=== PATIENT | male | born 1980 | race Caucasian/White ===

== ENCOUNTER 2017-10-21 10:07 | Emergency (ER) | payer BC ==
[2017-10-21 10:12] VITALS: BP 140/86; PULSE 101; TEMP 99.9; BMI 30.7
== END 2017-10-21 10:54 | disposition left against medical advice (07) ==
LOC: JERFT 10:07
DX: Z53.21 Procedure and treatment not carried out due to patient leaving prior to being seen by health care provider (principal)
CPT/HCPCS: 99281-25

== ENCOUNTER 2017-11-15 22:04 | Emergency (ER) | payer BC, OTHER ==
[2017-11-15 22:12] VITALS: TEMP 98.9; BMI 30.7
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
--- NOTE | 2017-11-15 23:23 | PDOC ---
Attending Attestation - Resident Resident Name: Ervin Motley - ED Attending Attestation I have performed the following: I have examined & evaluated the patient, The case was reviewed & discussed with the resident, I agree w/resident's findings & plan, Exceptions are as noted <Amira Correa - Last Filed: 11/15/17 23:23> - HPI HPI: 11/15/17 23:30 The patient is a 37 year old male, with a significant past medical history of hypertension, heroin abuse, mucoepidermoid carcinoma, who presents to the emergency department with diaphoresis, agitation, left eye swelling, and upper lip laceration s/p heroin use earlier today. Patient reports he recently relapsed with heroin use 2 days ago, because of added stress. Today, patient reports his found him injecting, and he became very frustrated and upset. Patient reports associated diaphoresis and body tremors, but denies any fever, chills, changes in vision, headache, or dizziness Patient reports hitting himself in his left eye. He reports a laceration to his upper lip, but is unsure how he got it. He denies any chest pain, shortness of breath, or palpitations. He denies any abdominal pain, nausea, vomiting, changes in bowel movements, or changes in urination. He denies any suicidal or homicidal ideations. Allergies: Penicillins Past Surgical History: Buccal mucosa ressection Social History: Heroin abuse. Non smoker. No ETOH use. Lives at home with and 2 children. 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 - Physicial Exam PE: 11/15/17 23:39 GENERAL: +Psychomotor agitation. Awake, alert, and fully oriented. HEAD: No signs of trauma EYES: PERRLA, EOMI, sclera anicteric, conjunctiva clear ENT: Auricles normal inspection, hearing grossly normal, nares patent, oropharynx clear without exudates. Moist mucosa NECK: Normal ROM, supple, no lymphadenopathy, JVD, or masses LUNGS: Breath sounds equal, clear to auscultation bilaterally. No wheezes, and no crackles HEART: Regular rate and rhythm, normal S1 and S2, no murmurs, rubs or gallops ABDOMEN: Soft, nontender, normoactive bowel sounds. No guarding, no rebound. No masses EXTREMITIES: Normal range of motion, no edema. No clubbing or cyanosis. No cords, erythema, or tenderness NEUROLOGICAL: Cranial nerves II through XII grossly intact. Normal speech, normal gait SKIN: Warm, Dry, normal turgor, no rashes or lesions noted. - Medical Decision Making 11/15/17 23:30 Documentation prepared by Gloria Serrano, acting as biomedical repair technician for Amira Correa MD. <Gloria Serrano - Last Filed: 11/15/17 23:39>
[2017-11-15 23:37] VITALS: BP 119/69; PULSE 94
== END 2017-11-15 23:54 | disposition home or self-care (01) ==
LOC: JER 22:04 → MERGE 22:04 → JER 23:54
DX: F11.23 Opioid dependence with withdrawal (principal)
CPT/HCPCS: 99282-25

== ENCOUNTER 2017-11-16 10:34 | Inpatient (IN) | payer BC, OTHER ==
[2017-11-16 11:26] VITALS: BMI 30.7
--- NOTE | 2017-11-16 11:35 | HP ---
COWS - Scale Resting Pulse: 0= [place] 80 or Below Sweatin=Flushed/Facial Moisture Restless Observation: 3= Extraneous Movement Pupil Size: 2= Moderately Dilated Bone or Joint Aches: 2= Severe Diffuse Aches Runny Nose/ Eye Tearin= Runny Nose/Eyes GI Upset > 30mins: 3= Vomiting/Diarrhea Tremor Observation: 2= Slight Tremor Visible Yawning Observation: 2= >3x During Session Anxiety or Irritability: 2=Irritable/Anxious Goose Flesh Skin: 0=Smooth Skin COWS Score: 20 Admission ROS S - HPI Chief Complaint: i need help o stop using heroin Allergies/Adverse Reactions: Allergies Allergy/AdvReac Type Severity Reaction Status Date / Time Penicillins Allergy Severe Hives Verified 07/21/17 13:52 History of Present Illness: this 37 years old male with heroin dependence,withdrawal symptom,seeking detox, last detox 10/28/16 to 10/31/16 hypertension anxiety and panic attack,insomnia no significant of sobriety - Ebola screening Have you traveled outside of the country in the last 21 days: No Have you had contact with anyone from an Ebola affected area: No Have you been sick,other than usual withdrawal symptoms: No Do you have a fever: No - Review of Systems Constitutional: Chills, Loss of Appetite, Malaise, Night Sweats, Changes in sleep, Weakness EENT: reports: Tearing, Nose Congestion Respiratory: reports: No Symptoms reported Cardiac: reports: No Symptoms Reported GI: reports: Diarrhea, Nausea, Vomiting, Abdominal cramping : reports: No Symptoms Reported Musculoskeletal: reports: Back Pain, Joint Pain, Muscle Pain, Joint Stiffness Integumentary: reports: Dryness Neuro: reports: Headache, Tremors Endocrine: reports: No Symptoms Reported Hematology: reports: No Symptoms Reported Psychiatric: reports: Anxious (panic attack) Patient History - Patient Medical History Hx Anemia: No Hx Asthma: No Hx Chronic Obstructive Pulmonary Disease (COPD): No Hx Cancer: Yes (MOUTH palate in 2008 [facility]) Hx Cardiac Disorders: No Hx Congestive Heart Failure: No Hx Hypertension: Yes Hx Hypercholesterolemia: No Hx Pacemaker: No HX Cerebrovascular Accident: No Hx Seizures: No Hx Dementia: No Hx Diabetes: No Hx Gastrointestinal Disorders: No Hx Liver Disease: No Hx Genitourinary Disorders: No Hx Sexually Transmitted Disorders: No Hx Renal Disease (ESRD): No Hx Thyroid Disease: No Hx Human Immunodeficiency Virus (HIV): No (negative last 01/16) Hx Hepatitis C: No Hx Depression: No Hx Suicide Attempt: No Hx Bipolar Disorder: No Hx Schizophrenia: No Other Medical History: anxiety and panic attack,no suicidal,no homicidal - Patient Surgical History Past Surgical History: Yes Hx Neurologic Surgery: No Hx Cataract Extraction: No Hx Cardiac Surgery: No Hx Lung Surgery: No Hx Breast Surgery: No Hx Breast Biopsy: No Hx Abdominal Surgery: No Hx Appendectomy: Yes ([place] 1996) Hx Cholecystectomy: No Hx Genitourinary Surgery: No Hx Section: No Hx Orthopedic Surgery: No Other Surgical History: Cancer of palate 2008 Anesthesia Reaction: No - PPD History Previous Implant?: Yes Documented Results: Negative w/o proof Date: 05/03/16 Results: 0 mm PPD to be Administered?: Yes - Smoking Cessation Smoking history: Never smoked Aproximately how many cigarettes per day: 0 Hx Chewing Tobacco Use: No - Substance & Tx. History Hx Alcohol Use: No Substance Use Type: Heroin Hx Substance Use Treatment: Yes ([facility] 10/28/16 to 10/31/16) - Substances Abused Heroin Route: Injection Frequency: Daily Amount used: 5 bags Age of first use: 35 Date of Last Use: 11/15/17 Family Disease History - Family Disease History Family Disease History: Diabetes: Grandparent (MAT GM-CA,PAT GM-DM), Father, Heart Disease: Grandparent, CA: Grandparent Admission Physical Exam BHS - Vital Signs Vital Signs: Vital Signs - 24 hr 11/16/17 11:24 Temperature 96.9 F L Pulse Rate 72 Respiratory 18 Rate Blood Pressure 123/76 - Physical General Appearance: Yes: Moderate Distress, Irritable, Anxious HEENTM: Yes: Normal ENT Inspection, AJITH, Pharynx Normal Respiratory: Yes: Lungs Clear, Normal Breath Sounds, No Respiratory Distress Neck: Yes: Within Normal Limits, Supple, Trachea in good position Breast: Yes: Within Normal Limits Cardiology: Yes: Within Normal Limits, Regular Rhythm, Regular Rate, S1, S2 Abdominal: Yes: Within Normal Limits, Normal Bowel Sounds, Non Tender, Flat, Soft Genitourinary: Yes: Within Normal Limits Back: Yes: Muscle Spasm Musculoskeletal: Yes: Back pain, Joint Stiffness, Muscle Pain Extremities: Yes: Within Normal Limits, Normal Inspection, Normal Range of Motion Neurological: Yes: 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 NML 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, Alert, Motor Strength 5/5, Normal Mood /Affect Integumentary: Yes: Dry Lymphatic: Yes: Within Normal Limits - Diagnostic (1) Opioid dependence with withdrawal Current Visit: No Status: Acute (2) Anxiety Current Visit: Yes Status: Acute (3) Insomnia Current Visit: No Status: Acute (4) HTN (hypertension) Current Visit: No Status: Chronic Qualifiers: Hypertension type: essential hypertension Qualified Code(s): I10 - Essential (primary) hypertension (5) History of oral cancer Current Visit: No Status: Chronic (6) Panic attack Current Visit: Yes Status: Acute (7) History of appendectomy Current Visit: Yes Status: Acute Cleared for Admission [facility] - Detox or Rehab [facility] Level of Care: Medically Managed Detox Regimen/Protocol: Methadone [facility] Breath Alcohol Content Breath Alcohol Content: 0 Urine Drug Screen - Results Drug Screen Negative: No Urine Drug Screen Results: OPI-Opiates, BZO-Benzodiazepines
[2017-11-16] MEDS ORDERED: MAGNESIUM CITRATE 300 ML BOTTLE PO PRN (11:44)
[2017-11-16] MEDS ORDERED: P-EPHED 60MG/TRIPROLIDI 2.5MG TABLET PO PRN (11:44)
[2017-11-16] MEDS ORDERED: guaiFENesin/D-METHORPHAN HB 10 ML UNIT-DOSE CUPS PO PRN (11:44)
[2017-11-16] MEDS ORDERED: LOPERAMIDE HCL 2 MG CAPSULE PO PRN (11:44)
[2017-11-16] MEDS ORDERED: MAGNESIUM HYDROX 2400MG/30ML ORAL SUSPENSION 30 ML CUP PO PRN (11:44)
[2017-11-16] MEDS ORDERED: MAG HYDROX/AL HYDROX/SIMETH 30 ML UNIT-DOSE CUP PO PRN (11:44)
[2017-11-16] MEDS ORDERED: ACETAMINOPHEN 325 MG TABLET (FP) PO PRN (11:44)
[2017-11-16] MEDS ORDERED: IBUPROFEN 400 MG TABLET (FP) PO PRN (11:44)
[2017-11-16] MEDS ORDERED: MENTHOL/PHENOL 1 EACH UD MM PRN (11:44)
[2017-11-16] MEDS ORDERED: CYCLOBENZAPRINE HCL 10 MG TABLET (FP) PO PRN (11:46)
[2017-11-16] MEDS: diazePAM 5 MG TABLET PO PRN ×3 (14:19→22:30)
[2017-11-16] MEDS ORDERED: METHADONE HCL 10 MG TABLET (FOR DETOX USE ONLY) PO ONE ×2 (15:00→23:00)
[2017-11-16 16:29] LABS: URINE APPEARANCE SLCLOUDY; URINE BILIRUBIN NEGATIVE (NEGATIVE); URINE BLOOD NEGATIVE (NEGATIVE); URINE COLOR LTYELLOW; URINE GLUCOSE (UA) 1+ (NEGATIVE); URINE KETONE NEGATIVE (NEGATIVE); URINE LEUK ESTERASE NEGATIVE (NEGATIVE); URINE NITRITE NEGATIVE (NEGATIVE); URINE PROTEIN NEGATIVE (NEGATIVE); URINE UROBILINOGEN NEGATIVE mg/dL (0.2-1.0)
[2017-11-16] MEDS ORDERED: THIAMINE HCL 100 MG TABLET (FP) PO SCH (22:00)
[2017-11-16] MEDS: cloNIDine HCL 0.1 MG TABLET PO SCH (22:29)
[2017-11-17 09:25] VITALS: BP 135/86; PULSE 78; TEMP 96.4
[2017-11-17] MEDS ORDERED: METHADONE HCL 10 MG TABLET (FOR DETOX USE ONLY) PO ONE (10:00)
[2017-11-17] MEDS ORDERED: PRENATAL VITAMINS W/ FOLIC ACID TABLET (FP) PO SCH (10:00)
[2017-11-17 10:26] LABS: CHLORIDE 102 mmol/L (98-107); POTASSIUM 4.7 mmol/L (3.5-5.1); SODIUM 135 mmol/L (136-145)
[2017-11-17 10:35] LABS: ALBUMIN 3.7 g/dl (3.4-5.0); ALK PHOS 91 U/L (45-117); ANION GAP 6 (8-16); BILIRUBIN,TOTAL 0.8 mg/dL (0.2-1.0); BLOOD UREA NITROGEN 19 mg/dL (7-18); CALCIUM 8.8 mg/dL (8.5-10.1); CO2 27 mmol/L (21-32); CREATININE 0.9 mg/dL (0.7-1.3); GLUCOSE,RANDOM 94 mg/dL (74-106); SGOT/AST 38 U/L (15-37); SGPT/ALT 32 U/L (12-78)
--- NOTE | 2017-11-17 10:39 | EKG ---
Test Reason : Blood Pressure : / mmHG Vent. Rate : 072 BPM Atrial Rate : 072 BPM P-R Int : 130 ms QRS Dur : 092 ms QT Int : 426 ms P-R-T Axes : 058 054 033 degrees QTc Int : 466 ms NORMAL SINUS RHYTHM ST ELEVATION, CONSIDER EARLY REPOLARIZATION, PERICARDITIS, OR INJURY ABNORMAL ECG WHEN COMPARED WITH ECG OF 02-FEB-2012 18:58, ST ELEVATION NOW PRESENT IN ANTERIOR LEADS Confirmed by YOMI BHATIA MD ([id number]) on 11/17/2017 10:38:57 AM Referred By: Confirmed By:YOMI BHATIA MD
[2017-11-17] MEDS ORDERED: ONDANSETRON *ODT* 4 MG TABLET SL PRN (10:41)
[2017-11-17 10:43] LABS: HEMATOCRIT 44.5 % (35.4-49); HEMOGLOBIN 13.8 GM/dL (11.7-16.9); MCH 24.5 pg (25.7-33.7); MEAN CELL VOLUME 78.9 fl (80-96); MEAN PLT VOLUME 9.2 fl (7.5-11.1); PLATELET COUNT 255 K/MM3 (134-434); RBC 5.64 M/mm3 (4.00-5.60); RDW 14.8 % (11.9-15.9); WHITE BLOOD COUNT 15.2 K/mm3 (4.0-10.0)
--- NOTE | 2017-11-17 10:44 | PN ---
BHS COWS - Scale Resting Pulse: 0= [place] 80 or Below Sweatin= Chills/Flushing Restless Observation: 3= Extraneous Movement Pupil Size: 2= Moderately Dilated Bone or Joint Aches: 4=Acute Joint/Muscle Pain Runny Nose/ Eye Tearin= Nasal Congestion GI Upset > 30mins: 2= Nausea/Diarrhea Tremor Observation of Outstretched Hands: 1= Tremor [place], Not Seen Yawning Observation: 1= 1-2x During Session Anxiety or Irritability: 2=Irritable/Anxious Goose Flesh Skin: 0=Smooth Skin COWS Score: 17 BHS Progress Note (SOAP) Subjective: ANXIETY,SWEATS/CHILLS, NAUSEA/VOMITING, INTERMITTENT SLEEP, FATIGUE. Objective: 11/17/17 10:43 Vital Signs Temperature 96.4 F L 11/17/17 09:24 Pulse Rate 78 11/17/17 09:24 Respiratory Rate 18 11/17/17 09:24 Blood Pressure 135/86 11/17/17 09:24 O2 Sat by Pulse Oximetry (%) Laboratory Last Values Urine Color Ltyellow 11/16/17 15:37 Urine Appearance Slcloudy 11/16/17 15:37 Urine pH 5.0 (5.0-8.0) 11/16/17 15:37 Ur Specific [place] 1.020 (1.001-1.035) 11/16/17 15:37 Urine Protein Negative (NEGATIVE) 11/16/17 15:37 Urine Glucose (UA) 1+ (NEGATIVE) H 11/16/17 15:37 Urine Ketones Negative (NEGATIVE) 11/16/17 15:37 Urine Blood Negative (NEGATIVE) 11/16/17 15:37 Urine Nitrite Negative (NEGATIVE) 11/16/17 15:37 Urine Bilirubin Negative (NEGATIVE) 11/16/17 15:37 Urine Urobilinogen Negative mg/dL (0.2-1.0) 11/16/17 15:37 Ur Leukocyte Esterase Negative (NEGATIVE) 11/16/17 15:37 OTHER LABS PENDING Assessment: 11/17/17 10:43 WITHDRAWAL SX Plan: CONTINUE DETOX [facility] SL DIRECTED
[2017-11-17] MEDS: cloNIDine HCL 0.1 MG TABLET PO SCH (11:07)
[2017-11-17] MEDS: diazePAM 5 MG TABLET PO PRN (11:07)
--- NOTE | 2017-11-17 12:07 | PN ---
BHS Progress Note Note: Patient declined to be seen
--- NOTE | 2017-11-17 12:56 | DS ---
[facility] Detox Discharge Summary Admission Date: 11/16/17 Discharge Date: 11/17/17 - History Present History: Opioid Dependence Additional Comments: PT CAME TO THE DESK AND DEMANDED TO LEAVE FOR FAMILY REASONS STATING "MY IS THROWING MY THINGS OUT THE HOUSE. I HAVE TO GO". ALERT O X 3. NAD. Pertinent Past History: SEE DX BELOW - Physical Exam Results Vital Signs: Vital Signs Temperature 96.4 F L 11/17/17 09:24 Pulse Rate 78 11/17/17 09:24 Respiratory Rate 18 11/17/17 09:24 Blood Pressure 135/86 11/17/17 09:24 O2 Sat by Pulse Oximetry (%) Pertinent Admission Physical Exam Findings: WITHDRAWAL SX Laboratory Last Values WBC 15.2 K/mm3 (4.0-10.0) H D 11/17/17 07:30 RBC 5.64 M/mm3 (4.00-5.60) H 11/17/17 07:30 Hgb 13.8 GM/dL (11.7-16.9) 11/17/17 07:30 Hct 44.5 % (35.4-49) D 11/17/17 07:30 MCV 78.9 fl (80-96) L 11/17/17 07:30 MCH 24.5 pg (25.7-33.7) L 11/17/17 07:30 MCHC 31.0 g/dl (32.0-35.9) L 11/17/17 07:30 RDW 14.8 % (11.9-15.9) 11/17/17 07:30 Plt Count 255 K/MM3 (134-434) D 11/17/17 07:30 MPV 9.2 fl (7.5-11.1) 11/17/17 07:30 Sodium 135 mmol/L (136-145) L 11/17/17 07:30 Potassium 4.7 mmol/L (3.5-5.1) D 11/17/17 07:30 Chloride 102 mmol/L (98-107) 11/17/17 07:30 Carbon Dioxide 27 mmol/L (21-32) 11/17/17 07:30 Anion Gap 6 (8-16) L 11/17/17 07:30 BUN 19 mg/dL (7-18) H D 11/17/17 07:30 Creatinine 0.9 mg/dL (0.7-1.3) 11/17/17 07:30 Creat Clearance w eGFR > 60 (>60) 11/17/17 07:30 Random Glucose 94 mg/dL (74-106) 11/17/17 07:30 Calcium 8.8 mg/dL (8.5-10.1) 11/17/17 07:30 Total Bilirubin 0.8 mg/dL (0.2-1.0) D 11/17/17 07:30 AST 38 U/L (15-37) H D 11/17/17 07:30 ALT 32 U/L (12-78) D 11/17/17 07:30 Alkaline Phosphatase 91 U/L (45-117) 11/17/17 07:30 Total Protein 8.0 g/dl (6.4-8.2) 11/17/17 07:30 Albumin 3.7 g/dl (3.4-5.0) 11/17/17 07:30 Urine Color Ltyellow 11/16/17 15:37 Urine Appearance Slcloudy 11/16/17 15:37 Urine pH 5.0 (5.0-8.0) 11/16/17 15:37 Ur Specific [place] 1.020 (1.001-1.035) 11/16/17 15:37 Urine Protein Negative (NEGATIVE) 11/16/17 15:37 Urine Glucose (UA) 1+ (NEGATIVE) H 11/16/17 15:37 Urine Ketones Negative (NEGATIVE) 11/16/17 15:37 Urine Blood Negative (NEGATIVE) 11/16/17 15:37 Urine Nitrite Negative (NEGATIVE) 11/16/17 15:37 Urine Bilirubin Negative (NEGATIVE) 11/16/17 15:37 Urine Urobilinogen Negative mg/dL (0.2-1.0) 11/16/17 15:37 Ur Leukocyte Esterase Negative (NEGATIVE) 11/16/17 15:37 - Treatment Hospital Course: Discharged Condition Good - Medication Discharge Medications: Ambulatory Orders Amlodipine Besylate [Norvasc -] 5 mg PO DAILY #30 tablet 01/22/16 - Diagnosis (1) Nicotine dependence Current Visit: Yes Status: Acute Qualifiers: Nicotine product type: cigarettes Substance use status: in withdrawal Qualified Code(s): F17.213 - Nicotine dependence, cigarettes, with withdrawal (2) Opioid dependence with withdrawal Current Visit: Yes Status: Acute (3) Panic attack Current Visit: Yes Status: Chronic (4) HTN (hypertension) Current Visit: Yes Status: Chronic Qualifiers: Hypertension type: essential hypertension Qualified Code(s): I10 - Essential (primary) hypertension - AMA Did Patient Leave Against Medical Advice: Yes (AMA)
[2017-11-18] MEDS ORDERED: METHADONE HCL 5 MG TABLET (FOR DETOX USE ONLY) PO ONE (10:00)
[2017-11-19] MEDS ORDERED: METHADONE HCL 5 MG TABLET (FOR DETOX USE ONLY) PO ONE (10:00)
[2017-11-20] MEDS ORDERED: METHADONE HCL 10 MG TABLET (FOR DETOX USE ONLY) PO ONE (10:00)
[2017-11-21] MEDS ORDERED: METHADONE HCL 5 MG TABLET (FOR DETOX USE ONLY) PO ONE (06:00)
== END 2017-11-17 13:55 | disposition left against medical advice (07) | DRG 894 ==
LOC: YASAS 10:34 → Y3N 12:41
PROVIDERS: ADMIT Internal Medicine; ATTEND Internal Medicine
PROC: HZ2ZZZZ Detoxification Services for Substance Abuse Treatment (ICD-10-PCS; principal; 2017-11-16)
DX: F11.23 Opioid dependence with withdrawal (principal); F17.210 Nicotine dependence, cigarettes, uncomplicated; F41.0 Panic disorder [episodic paroxysmal anxiety]; F41.9 Anxiety disorder, unspecified; I10 Essential (primary) hypertension; G47.00 Insomnia, unspecified; Z85.818 Personal history of malignant neoplasm of other sites of lip, oral cavity, and pharynx; Z88.0 Allergy status to penicillin
CPT/HCPCS: 36415; 80053; 81003; 85027; 86593; 93005; 93010

== ENCOUNTER 2018-03-11 09:14 | Inpatient (IN) | payer OTHER ==
[2018-03-11 10:33] VITALS: BMI 26.4
--- NOTE | 2018-03-11 11:46 | HP ---
COWS - Scale Resting Pulse: 1= [place] 81-100 Sweatin=Flushed/Facial Moisture Restless Observation: 1= Difficult to Sit Still Pupil Size: 1= Pupils >than Normal Bone or Joint Aches: 2= Severe Diffuse Aches Runny Nose/ Eye Tearin= Runny Nose/Eyes GI Upset > 30mins: 2= Nausea/Diarrhea Tremor Observation: 1= Tremor [place], Not Seen Yawning Observation: 1= 1-2x During Session Anxiety or Irritability: 1=Feels Anxious/Irritable Goose Flesh Skin: 0=Smooth Skin COWS Score: 14 Admission [facility] Chief Complaint: Heroin Withdrawal symptoms Allergies/Adverse Reactions: Allergies Allergy/AdvReac Type Severity Reaction Status Date / Time Penicillins Allergy Severe Hives Verified 03/11/18 11:21 History of Present Illness: Patient presents with withdrawal symptoms. Patient began taking prescribed Opiods 6 years ago due to oral cancer and surgery. Patient became dependent on medication. Patient started buying non-prescribed Percocet and Methadone. Admitted for detox 11/2017 but left early due to work requirements. Patient has been snorting and injecting heroin x 2 years. Uses up to 2-5 bags daily. Denies having seizures and overdose. PMH includes HTN. Reports feeling depressed and anxious. Denies SI/HI and suicide attempts. Exam Limitations: No Limitations - Ebola screening Have you traveled outside of the country in the last 21 days: No (N) Have you had contact with anyone from an Ebola affected area: No Have you been sick,other than usual withdrawal symptoms: No Do you have a fever: No - Review of Systems Constitutional: Night Sweats, Changes in sleep, Unexplained wgt Loss EENT: reports: Tearing, Nose Congestion Respiratory: reports: No Symptoms reported Cardiac: reports: No Symptoms Reported GI: reports: Diarrhea, Nausea, Poor Fluid Intake, Vomiting, Abdominal cramping : reports: No Symptoms Reported Musculoskeletal: reports: Back Pain, Muscle Pain Integumentary: reports: Flushing, Sweating Neuro: reports: Headache, Tremors Endocrine: reports: Flushing, Unexplained Weight Loss Hematology: reports: No Symptoms Reported Psychiatric: reports: Orientated x3, Anxious, Depressed Patient History - Patient Medical History Hx Anemia: No Hx Asthma: No Hx Chronic Obstructive Pulmonary Disease (COPD): No Hx Cancer: Yes Hx Cardiac Disorders: No Hx Congestive Heart Failure: No Hx Hypertension: Yes Hx Hypercholesterolemia: No Hx Pacemaker: No HX Cerebrovascular Accident: No Hx Seizures: No Hx Dementia: No Hx Diabetes: No Hx Gastrointestinal Disorders: No Hx Liver Disease: No Hx Genitourinary Disorders: No Hx Sexually Transmitted Disorders: No Hx Renal Disease (ESRD): No Hx Thyroid Disease: No Hx Human Immunodeficiency Virus (HIV): No (negative last 01/16) Hx Hepatitis C: No Hx Depression: No Hx Suicide Attempt: No Hx Bipolar Disorder: No Hx Schizophrenia: No - Patient Surgical History Past Surgical History: Yes Hx Neurologic Surgery: No Hx Cataract Extraction: No Hx Cardiac Surgery: No Hx Lung Surgery: No Hx Breast Surgery: No Hx Breast Biopsy: No Hx Abdominal Surgery: No Hx Appendectomy: Yes ([place] 1996) Hx Cholecystectomy: No Hx Genitourinary Surgery: No Hx Section: No Hx Orthopedic Surgery: No Other Surgical History: Cancer of palate 2008 Anesthesia Reaction: No - PPD History Date: 05/03/16 Results: 0 mm PPD to be Administered?: Yes - Smoking Cessation Smoking history: Never smoked Have you smoked in the past 12 months: No Aproximately how many cigarettes per day: 0 If you are a former smoker, when did you quit?: 10 YRS AGO Hx Chewing Tobacco Use: No - Substance & Tx. History Hx Alcohol Use: No Hx Substance Use: Yes Substance Use Type: Heroin Hx Substance Use Treatment: Yes - Substances Abused Heroin Route: Injection Frequency: Daily Amount used: 4-5 BAGS Age of first use: 35 Date of Last Use: 03/10/18 Family Disease History - Family Disease History Family Disease History: Diabetes: Grandparent, Father (Alive), Heart Disease: Grandparent, CA: Grandparent Admission Physical Exam S - Vital Signs Vital Signs: Vital Signs - 24 hr 03/11/18 10:30 Temperature 97.3 F L Pulse Rate 85 Respiratory 20 Rate Blood Pressure 144/87 - Physical General Appearance: Yes: No Apparent Distress, Appropriately Dressed, Tremorous , Sweating, Anxious HEENTM: Yes: EOMI, Hearing grossly Normal, Normocephalic, Normal Voice, AJITH, Pharynx Normal, Nasal Congestion, Other (+ s/p palate surgery 2008) Respiratory: Yes: Chest Non-Tender, Lungs Clear, Normal Breath Sounds, No Respiratory Distress, No Accessory Muscle Use Neck: Yes: No masses,lesions,Nodules, Supple Breast: Yes: Breast Exam Deferred Cardiology: Yes: Regular Rhythm, Regular Rate, S1, S2 Abdominal: Yes: Normal Bowel Sounds, Non Tender, Soft Genitourinary: Yes: Within Normal Limits Back: Yes: Normal Inspection, Muscle Spasm Musculoskeletal: Yes: Gait Steady, Back pain Extremities: Yes: Non-Tender, Tremors Neurological: Yes: electronics lead II-XII NML intact, Fully Oriented, Alert, Motor Strength 5/5, Depressed Affect Integumentary: Yes: Normal Color, Warm, Moist, Track [place] Lymphatic: Yes: Within Normal Limits - Diagnostic (1) Opioid dependence with withdrawal Current Visit: Yes Status: Acute (2) Depressed affect Current Visit: Yes Status: Acute (3) History of oral cancer Current Visit: No Status: Resolved Cleared for Admission [facility] - Detox or Rehab [facility] Level of Care: Medically Managed Detox Regimen/Protocol: Methadone [facility] Breath Alcohol Content Breath Alcohol Content: 0 Urine Drug Screen - Results Drug Screen Negative: No Urine Drug Screen Results: OPI-Opiates, MTD-Methadone
[2018-03-11] MEDS ORDERED: IBUPROFEN 400 MG TABLET (FP) PO PRN (11:56)
[2018-03-11] MEDS ORDERED: MAGNESIUM CITRATE 300 ML BOTTLE PO PRN (11:56)
[2018-03-11] MEDS ORDERED: MAGNESIUM HYDROX 2400MG/30ML ORAL SUSPENSION 30 ML CUP PO PRN (11:56)
[2018-03-11] MEDS ORDERED: guaiFENesin/D-METHORPHAN HB 10 ML UNIT-DOSE CUPS PO PRN (11:56)
[2018-03-11] MEDS ORDERED: ACETAMINOPHEN 325 MG TABLET (FP) PO PRN (11:56)
[2018-03-11] MEDS ORDERED: MENTHOL/PHENOL 1 EACH UD MM PRN (11:56)
[2018-03-11] MEDS ORDERED: P-EPHED 60MG/TRIPROLIDI 2.5MG TABLET PO PRN (11:56)
[2018-03-11] MEDS ORDERED: MAG HYDROX/AL HYDROX/SIMETH 30 ML UNIT-DOSE CUP PO PRN (11:56)
[2018-03-11] MEDS ORDERED: LOPERAMIDE HCL 2 MG CAPSULE PO PRN (11:56)
[2018-03-11] MEDS ORDERED: METHADONE HCL 10 MG TABLET (FOR DETOX USE ONLY) PO ONE ×2 (13:30→23:00)
--- NOTE | 2018-03-11 14:00 | EKG ---
Test Reason : Blood Pressure : / mmHG Vent. Rate : 065 BPM Atrial Rate : 065 BPM P-R Int : 124 ms QRS Dur : 094 ms QT Int : 414 ms P-R-T Axes : 070 061 034 degrees QTc Int : 430 ms NORMAL SINUS RHYTHM EARLY REPOLARIZATION NORMAL ECG WHEN COMPARED WITH ECG OF 16-NOV-2017 14:49, T WAVE AMPLITUDE HAS INCREASED IN ANTEROLATERAL LEADS Confirmed by MARIAM PEDRAZA, MIGUEL ANGEL ([id number]) on 03/11/2018 2:00:27 PM Referred By: Confirmed By:MIGUEL ANGEL BECERRA MD
[2018-03-11] MEDS: diazePAM 5 MG TABLET PO PRN ×3 (14:10→22:36)
--- NOTE | 2018-03-11 14:41 | CONSULT ---
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 Patient admitted to for opiate dependence. Substance Abuse History: Following information confirmed with Mr. Sarmiento: Smoking Cessation. Smoking history: Never smoked. Have you smoked in the past 12 months: No. Aproximately how many cigarettes per day: 0. If you are a former smoker, when did you quit?: 10 YRS AGO. Hx Chewing Tobacco Use: No. - Substance & Tx. History. Hx Alcohol Use: No. Hx Substance Use: Yes. Substance Use Type: Heroin. Hx Substance Use Treatment: Yes. - Substances Abused. Heroin. Route: Injection. Frequency: Daily. Amount used: 4-5 BAGS. Age of first use: 35. Date of Last Use: 03/10/18 Medical History: Cancer of palate 2008, hypertension. Psychiatric History: Patient denies h/o psychiatric hospitalizations, outpatient care, and suicide attempt. Patient self reports a h/o anxiety for several years. Pt. requesting medication for anxiety and insomnia. Physical/Sexual Abuse/Trauma History: Denies. Mental Status Exam - Mental Status Exam Alert and Oriented to: Time, Place, Person Cognitive Function: Good Patient Appearance: Well Groomed Mood: Hopeful Affect: Mood Congruent Patient Behavior: Appropriate, Cooperative Speech Pattern: Clear, Appropriate Voice Loudness: Normal Thought Process: Intact, Goal Oriented Thought Disorder: Not Present Hallucinations: Denies Suicidal Ideation: Denies Homicidal Ideation: Denies Insight/Judgement: Poor Sleep: Poorly Appetite: Good Muscle strength/Tone: Normal Gait/Station: Normal Psychiatric Findings - Problem List ([place] 1, 2,3) (1) Substance-induced sleep disorder Current Visit: Yes Status: Acute (2) Opioid dependence with withdrawal Current Visit: Yes Status: Acute (3) Drug-induced mood disorder Current Visit: Yes Status: Acute - Initial Treatment Plan Initial Treatment Plan: Psychoeducation provided. Detoxification in progress. Ambien 10mg qhs prn ordered for insomnia. Vistaril 50mg q4h was ordered by the [employer]. Benefits and side effects discussed. Patient made aware of the risk of parasomnia. Verbal consent given. Will continue to monitor.
[2018-03-11 19:12] LABS: URINE APPEARANCE TURBID; URINE BILIRUBIN NEGATIVE (<2.0 mg/dL); URINE COLOR YELLOW; URINE GLUCOSE (UA) NEGATIVE (NEGATIVE); URINE KETONE NEGATIVE (NEGATIVE); URINE LEUK ESTERASE NEGATIVE (NEGATIVE); URINE NITRITE NEGATIVE (NEGATIVE); URINE UROBILINOGEN NEGATIVE mg/dL (0.2-1.0)
[2018-03-11 19:13] LABS: URINE PROTEIN 2+ (NEGATIVE)
[2018-03-11 19:22] LABS: CALCIUM OXALATE CRYSTALS RARE /hpf (NONE SEEN); URINE MUCUS MANY
[2018-03-11] MEDS ORDERED: MELATONIN 5 MG TABLETS PO PRN (22:00)
[2018-03-11] MEDS: THIAMINE HCL 100 MG TABLET (FP) PO SCH (22:10)
[2018-03-11] MEDS: ZOLPIDEM TARTRATE 10 MG TABLET (PARK CARE ONLY) PO PRN (22:11)
[2018-03-12] MEDS: diazePAM 5 MG TABLET PO PRN ×4 (09:02→22:56)
[2018-03-12 10:00] LABS: HEMOGLOBIN 11.8 GM/dL (11.7-16.9); MCH 25.4 pg (25.7-33.7); MEAN CELL VOLUME 79.4 fl (80-96); MEAN PLT VOLUME 10.1 fl (7.5-11.1); PLATELET COUNT 256 K/MM3 (134-434); RBC 4.66 M/mm3 (4.00-5.60); RDW 14.8 % (11.9-15.9); WHITE BLOOD COUNT 11.8 K/mm3 (4.0-10.0)
[2018-03-12] MEDS ORDERED: METHADONE HCL 10 MG TABLET (FOR DETOX USE ONLY) PO ONE (10:00)
[2018-03-12 10:11] LABS: CHLORIDE 100 mmol/L (98-107); POTASSIUM 4.4 mmol/L (3.5-5.1); SODIUM 139 mmol/L (136-145)
[2018-03-12 10:29] LABS: ALBUMIN 3.6 g/dl (3.4-5.0); ALK PHOS 86 U/L (45-117); ANION GAP 7 (8-16); BILIRUBIN,TOTAL 0.4 mg/dL (0.2-1.0); BLOOD UREA NITROGEN 14 mg/dL (7-18); CALCIUM 8.8 mg/dL (8.5-10.1); CO2 32 mmol/L (21-32); CREATININE 1.2 mg/dL (0.7-1.3); GLUCOSE,RANDOM 92 mg/dL (74-106); SGOT/AST 48 U/L (15-37); SGPT/ALT 27 U/L (12-78); TOT PROT 7.7 g/dl (6.4-8.2)
[2018-03-12] MEDS: PRENATAL VITAMINS W/ FOLIC ACID TABLET (FP) PO SCH (10:44)
[2018-03-12] MEDS: amLODIPine BESYLATE 5 MG TABLET (FP) PO SCH (10:44)
[2018-03-12] MEDS: hydrOXYzine PAMOATE 50 MG CAPSULE (FP) PO PRN (10:45)
--- NOTE | 2018-03-12 11:56 | PN ---
[facility] Progress Note (SOAP) Subjective: ANXIETY,SWEATS/CHILLS Objective: 03/12/18 11:59 Vital Signs 03/12/18 03/12/18 03/12/18 06:25 06:30 09:14 Temperature 96.5 F L 95.8 F L Pulse Rate 60 56 L Respiratory 18 18 18 Rate Blood Pressure 134/87 131/84 Laboratory Tests 03/11/18 03/11/18 03/12/18 11:00 14:00 06:00 WBC 11.8 H RBC 4.66 Hgb 11.8 D Hct 37.0 D MCV 79.4 L MCH 25.4 L MCHC 32.0 RDW 14.8 Plt Count 256 MPV 10.1 Sodium Potassium Chloride Carbon Dioxide Anion Gap BUN Creatinine Creat Clearance w eGFR Random Glucose Calcium Total Bilirubin AST ALT Alkaline Phosphatase Total Protein Albumin Urine Color Yellow Urine Appearance Turbid Urine pH 5.0 Ur Specific [place] 1.031 Urine Protein 2+ H Urine Glucose (UA) Negative Urine Ketones Negative Urine Blood Negative Urine Nitrite Negative Urine Bilirubin Negative Urine Urobilinogen Negative Ur Leukocyte Esterase Negative Urine WBC (Auto) None Urine RBC (Auto) 11 Calcium Oxalate Crystal Rare Urine Mucus Many HIV 1&2 Antibody Screen Negative HIV P24 Antigen Negative 03/12/18 06:00 WBC RBC Hgb Hct MCV MCH MCHC RDW Plt Count MPV Sodium 139 Potassium 4.4 Chloride 100 Carbon Dioxide 32 Anion Gap 7 L BUN 14 D Creatinine 1.2 D Creat Clearance w eGFR > 60 Random Glucose 92 Calcium 8.8 Total Bilirubin 0.4 D AST 48 H D ALT 27 Alkaline Phosphatase 86 Total Protein 7.7 Albumin 3.6 Urine Color Urine Appearance Urine pH Ur Specific [place] Urine Protein Urine Glucose (UA) Urine Ketones Urine Blood Urine Nitrite Urine Bilirubin Urine Urobilinogen Ur Leukocyte Esterase Urine WBC (Auto) Urine RBC (Auto) Calcium Oxalate Crystal Urine Mucus HIV 1&2 Antibody Screen HIV P24 Antigen Assessment: 03/12/18 12:00 WITHDRAWAL SX Plan: CONTINUE DETOX
[2018-03-12] MEDS: THIAMINE HCL 100 MG TABLET (FP) PO SCH (22:56)
[2018-03-12] MEDS: ZOLPIDEM TARTRATE 10 MG TABLET (PARK CARE ONLY) PO PRN (22:56)
[2018-03-13] MEDS ORDERED: METHADONE HCL 5 MG TABLET (FOR DETOX USE ONLY) PO ONE (10:00)
[2018-03-13] MEDS: amLODIPine BESYLATE 5 MG TABLET (FP) PO SCH (10:23)
[2018-03-13] MEDS: PRENATAL VITAMINS W/ FOLIC ACID TABLET (FP) PO SCH (10:24)
[2018-03-13] MEDS: diazePAM 5 MG TABLET PO PRN ×3 (10:24→18:51)
[2018-03-13] MEDS: hydrOXYzine PAMOATE 50 MG CAPSULE (FP) PO PRN ×2 (11:52→22:16)
--- NOTE | 2018-03-13 12:40 | PN ---
[facility] CIWA - CIWA Score Nausea/Vomitin-No Nausea/No Vomiting Muscle Tremors: 3 Anxiety: 4-Mod. Anxious/Guarded Agitation: 3 Paroxysmal Sweats: 1-Minimal Palms Moist Orientation: 0-Oriented Tacttile Disturbances: 0-None Auditory Disturbances: 0-None Visual Disturbances: 0-None Headache: 0-None Present CIWA-Ar Total Score: 11 [facility] Progress Note (SOAP) Subjective: ANXIETY,SWEATS,FATIGUE. Objective: 03/13/18 12:40 Vital Signs 03/13/18 03/13/18 06:22 10:00 Temperature 96.2 F L 96.2 F L Pulse Rate 51 L 55 L Respiratory 18 18 Rate Blood Pressure 124/77 128/75 Laboratory Tests 03/11/18 03/11/18 03/12/18 11:00 14:00 06:00 WBC 11.8 H RBC 4.66 Hgb 11.8 D Hct 37.0 D MCV 79.4 L MCH 25.4 L MCHC 32.0 RDW 14.8 Plt Count 256 MPV 10.1 Sodium Potassium Chloride Carbon Dioxide Anion Gap BUN Creatinine Creat Clearance w eGFR Random Glucose Calcium Total Bilirubin AST ALT Alkaline Phosphatase Total Protein Albumin Urine Color Yellow Urine Appearance Turbid Urine pH 5.0 Ur Specific [place] 1.031 Urine Protein 2+ H Urine Glucose (UA) Negative Urine Ketones Negative Urine Blood Negative Urine Nitrite Negative Urine Bilirubin Negative Urine Urobilinogen Negative Ur Leukocyte Esterase Negative Urine WBC (Auto) None Urine RBC (Auto) 11 Calcium Oxalate Crystal Rare Urine Mucus Many RPR Titer HIV 1&2 Antibody Screen Negative HIV P24 Antigen Negative 03/12/18 03/12/18 06:00 06:00 WBC RBC Hgb Hct MCV MCH MCHC RDW Plt Count MPV Sodium 139 Potassium 4.4 Chloride 100 Carbon Dioxide 32 Anion Gap 7 L BUN 14 D Creatinine 1.2 D Creat Clearance w eGFR > 60 Random Glucose 92 Calcium 8.8 Total Bilirubin 0.4 D AST 48 H D ALT 27 Alkaline Phosphatase 86 Total Protein 7.7 Albumin 3.6 Urine Color Urine Appearance Urine pH Ur Specific [place] Urine Protein Urine Glucose (UA) Urine Ketones Urine Blood Urine Nitrite Urine Bilirubin Urine Urobilinogen Ur Leukocyte Esterase Urine WBC (Auto) Urine RBC (Auto) Calcium Oxalate Crystal Urine Mucus RPR Titer Nonreactive HIV 1&2 Antibody Screen HIV P24 Antigen Assessment: 03/13/18 12:40 WITHDRAWAL SX Plan: CONTINUE DETOX INCREASE PO FLUIDS
--- NOTE | 2018-03-13 12:43 | PN ---
[facility] COWS - Scale Resting Pulse: 0= MI 80 or Below Sweatin= Chills/Flushing Restless Observation: 3= Extraneous Movement Pupil Size: 0= Normal to Room Light Bone or Joint Aches: 1= Mild Discomfort Runny Nose/ Eye Tearin= Nasal Congestion GI Upset > 30mins: 0= None Tremor Observation of Outstretched Hands: 2= Slight Tremor Visible Yawning Observation: 1= 1-2x During Session Anxiety or Irritability: 1=Feels Anxious/Irritable Goose Flesh Skin: 0=Smooth Skin COWS Score: 10
[2018-03-13] MEDS: THIAMINE HCL 100 MG TABLET (FP) PO SCH (22:13)
[2018-03-13] MEDS: ZOLPIDEM TARTRATE 10 MG TABLET (PARK CARE ONLY) PO PRN (22:15)
[2018-03-14] MEDS: diazePAM 5 MG TABLET PO PRN (08:34)
[2018-03-14] MEDS ORDERED: METHADONE HCL 5 MG TABLET (FOR DETOX USE ONLY) PO ONE (10:00)
[2018-03-14] MEDS: amLODIPine BESYLATE 5 MG TABLET (FP) PO SCH (10:09)
[2018-03-14] MEDS: PRENATAL VITAMINS W/ FOLIC ACID TABLET (FP) PO SCH (10:09)
[2018-03-14] MEDS: hydrOXYzine PAMOATE 50 MG CAPSULE (FP) PO PRN ×3 (10:12→22:16)
[2018-03-14] MEDS: CYCLOBENZAPRINE HCL 10 MG TABLET (FP) PO PRN ×2 (13:44→22:16)
--- NOTE | 2018-03-14 17:29 | PN ---
[facility] Progress Note (SOAP) Subjective: Nausea, Poor Appetite, Tremors, Anxious, Fatigue, Diarrhea, H/A, Body Aches. Objective: PATIENT A & O X 3, OBSERVED AMBULATING ON UNIT. NO ACUTE DISTRESS. 03/14/18 17:27 Vital Signs Temperature 96.4 F L 03/14/18 17:26 Pulse Rate 78 03/14/18 17:26 Respiratory Rate 18 03/14/18 17:26 Blood Pressure 137/80 03/14/18 17:26 O2 Sat by Pulse Oximetry (%) Laboratory Tests 03/11/18 03/11/18 03/12/18 11:00 14:00 06:00 WBC 11.8 H RBC 4.66 Hgb 11.8 D Hct 37.0 D MCV 79.4 L MCH 25.4 L MCHC 32.0 RDW 14.8 Plt Count 256 MPV 10.1 Sodium Potassium Chloride Carbon Dioxide Anion Gap BUN Creatinine Creat Clearance w eGFR Random Glucose Calcium Total Bilirubin AST ALT Alkaline Phosphatase Total Protein Albumin Urine Color Yellow Urine Appearance Turbid Urine pH 5.0 Ur Specific [place] 1.031 Urine Protein 2+ H Urine Glucose (UA) Negative Urine Ketones Negative Urine Blood Negative Urine Nitrite Negative Urine Bilirubin Negative Urine Urobilinogen Negative Ur Leukocyte Esterase Negative Urine WBC (Auto) None Urine RBC (Auto) 11 Calcium Oxalate Crystal Rare Urine Mucus Many RPR Titer HIV 1&2 Antibody Screen Negative HIV P24 Antigen Negative 03/12/18 03/12/18 06:00 06:00 WBC RBC Hgb Hct MCV MCH MCHC RDW Plt Count MPV Sodium 139 Potassium 4.4 Chloride 100 Carbon Dioxide 32 Anion Gap 7 L BUN 14 D Creatinine 1.2 D Creat Clearance w eGFR > 60 Random Glucose 92 Calcium 8.8 Total Bilirubin 0.4 D AST 48 H D ALT 27 Alkaline Phosphatase 86 Total Protein 7.7 Albumin 3.6 Urine Color Urine Appearance Urine pH Ur Specific [place] Urine Protein Urine Glucose (UA) Urine Ketones Urine Blood Urine Nitrite Urine Bilirubin Urine Urobilinogen Ur Leukocyte Esterase Urine WBC (Auto) Urine RBC (Auto) Calcium Oxalate Crystal Urine Mucus RPR Titer Nonreactive HIV 1&2 Antibody Screen HIV P24 Antigen LABS NOTED. Assessment: 03/14/18 17:28 WITHDRAWAL SYMPTOMS. Plan: CONTINUE DETOX. INCREASE DAILY PO FLUID INTAKE. PRN FLEXERIL FOR BODY ACHES / MUSCLE SPASMS.
[2018-03-14] MEDS: THIAMINE HCL 100 MG TABLET (FP) PO SCH (22:16)
[2018-03-15 06:26] VITALS: BP 125/80; PULSE 56; TEMP 96.4
[2018-03-15] MEDS ORDERED: METHADONE HCL 5 MG TABLET (FOR DETOX USE ONLY) PO ONE (09:00)
[2018-03-15] MEDS: hydrOXYzine PAMOATE 50 MG CAPSULE (FP) PO PRN (09:01)
[2018-03-15] MEDS ORDERED: METHADONE HCL 10 MG TABLET (FOR DETOX USE ONLY) PO ONE (10:00)
--- NOTE | 2018-03-15 15:32 | PN ---
[facility] Progress Note (SOAP) Subjective: DETOX COMPLETED. ALERT O X 3. NAD. Objective: 03/15/18 15:31 Laboratory Tests 03/11/18 03/11/18 03/12/18 11:00 14:00 06:00 WBC 11.8 H RBC 4.66 Hgb 11.8 D Hct 37.0 D MCV 79.4 L MCH 25.4 L MCHC 32.0 RDW 14.8 Plt Count 256 MPV 10.1 Sodium Potassium Chloride Carbon Dioxide Anion Gap BUN Creatinine Creat Clearance w eGFR Random Glucose Calcium Total Bilirubin AST ALT Alkaline Phosphatase Total Protein Albumin Urine Color Yellow Urine Appearance Turbid Urine pH 5.0 Ur Specific [place] 1.031 Urine Protein 2+ H Urine Glucose (UA) Negative Urine Ketones Negative Urine Blood Negative Urine Nitrite Negative Urine Bilirubin Negative Urine Urobilinogen Negative Ur Leukocyte Esterase Negative Urine WBC (Auto) None Urine RBC (Auto) 11 Calcium Oxalate Crystal Rare Urine Mucus Many RPR Titer HIV 1&2 Antibody Screen Negative HIV P24 Antigen Negative 03/12/18 03/12/18 06:00 06:00 WBC RBC Hgb Hct MCV MCH MCHC RDW Plt Count MPV Sodium 139 Potassium 4.4 Chloride 100 Carbon Dioxide 32 Anion Gap 7 L BUN 14 D Creatinine 1.2 D Creat Clearance w eGFR > 60 Random Glucose 92 Calcium 8.8 Total Bilirubin 0.4 D AST 48 H D ALT 27 Alkaline Phosphatase 86 Total Protein 7.7 Albumin 3.6 Urine Color Urine Appearance Urine pH Ur Specific [place] Urine Protein Urine Glucose (UA) Urine Ketones Urine Blood Urine Nitrite Urine Bilirubin Urine Urobilinogen Ur Leukocyte Esterase Urine WBC (Auto) Urine RBC (Auto) Calcium Oxalate Crystal Urine Mucus RPR Titer Nonreactive HIV 1&2 Antibody Screen HIV P24 Antigen Vital Signs - 24 hr 03/14/18 03/14/18 03/15/18 17:26 21:57 00:30 Temperature 96.4 F L 95.9 F L Pulse Rate 78 70 Respiratory 18 18 18 Rate Blood Pressure 137/80 134/86 03/15/18 03/15/18 03:30 06:26 Temperature 96.4 F L Pulse Rate 56 L Respiratory 16 18 Rate Blood Pressure 125/80 Assessment: 03/15/18 15:31 MEDICALLY STABLE Plan: D/C PT TODAY
--- NOTE | 2018-03-15 15:37 | DS ---
[facility] Detox Discharge Summary Admission Date: 03/11/18 Discharge Date: 03/15/18 - History Present History: Opioid Dependence Additional Comments: DETOX COMPLETED. ALERT O X 3. NAD. PT REPORTS PMD [address] [place], [place]. Pertinent Past History: PLEASE SEE DX BELOW - Physical Exam Results Vital Signs: Vital Signs Temperature 96.4 F L 03/15/18 06:26 Pulse Rate 56 L 03/15/18 06:26 Respiratory Rate 18 03/15/18 06:26 Blood Pressure 125/80 03/15/18 06:26 O2 Sat by Pulse Oximetry (%) Pertinent Admission Physical Exam Findings: WITHDRAWAL SX Laboratory Tests 03/11/18 03/11/18 03/12/18 11:00 14:00 06:00 WBC 11.8 H RBC 4.66 Hgb 11.8 D Hct 37.0 D MCV 79.4 L MCH 25.4 L MCHC 32.0 RDW 14.8 Plt Count 256 MPV 10.1 Sodium Potassium Chloride Carbon Dioxide Anion Gap BUN Creatinine Creat Clearance w eGFR Random Glucose Calcium Total Bilirubin AST ALT Alkaline Phosphatase Total Protein Albumin Urine Color Yellow Urine Appearance Turbid Urine pH 5.0 Ur Specific [place] 1.031 Urine Protein 2+ H Urine Glucose (UA) Negative Urine Ketones Negative Urine Blood Negative Urine Nitrite Negative Urine Bilirubin Negative Urine Urobilinogen Negative Ur Leukocyte Esterase Negative Urine WBC (Auto) None Urine RBC (Auto) 11 Calcium Oxalate Crystal Rare Urine Mucus Many RPR Titer HIV 1&2 Antibody Screen Negative HIV P24 Antigen Negative 03/12/18 03/12/18 06:00 06:00 WBC RBC Hgb Hct MCV MCH MCHC RDW Plt Count MPV Sodium 139 Potassium 4.4 Chloride 100 Carbon Dioxide 32 Anion Gap 7 L BUN 14 D Creatinine 1.2 D Creat Clearance w eGFR > 60 Random Glucose 92 Calcium 8.8 Total Bilirubin 0.4 D AST 48 H D ALT 27 Alkaline Phosphatase 86 Total Protein 7.7 Albumin 3.6 Urine Color Urine Appearance Urine pH Ur Specific [place] Urine Protein Urine Glucose (UA) Urine Ketones Urine Blood Urine Nitrite Urine Bilirubin Urine Urobilinogen Ur Leukocyte Esterase Urine WBC (Auto) Urine RBC (Auto) Calcium Oxalate Crystal Urine Mucus RPR Titer Nonreactive HIV 1&2 Antibody Screen HIV P24 Antigen - Treatment Hospital Course: Detox Protocol Followed, Detoxed Safely, Responded well, Discharged Condition Good - Medication Discharge Medications: Ambulatory Orders Amlodipine Besylate [Norvasc -] 5 mg PO DAILY #30 tablet 01/22/16 - Diagnosis (1) Opioid dependence with withdrawal Status: Acute (2) History of oral cancer Status: Resolved (3) Hypertension Status: Chronic Qualifiers: Hypertension type: unspecified Qualified Code(s): I10 - Essential (primary ) hypertension - AMA Did Patient Leave Against Medical Advice: No
[2018-03-16] MEDS ORDERED: METHADONE HCL 5 MG TABLET (FOR DETOX USE ONLY) PO ONE (06:00)
== END 2018-03-15 09:29 | disposition home or self-care (01) | DRG 897 ==
LOC: YASAS 09:14 → Y3N 12:10
PROVIDERS: ADMIT Internal Medicine; ATTEND Internal Medicine
PROC: HZ2ZZZZ Detoxification Services for Substance Abuse Treatment (ICD-10-PCS; principal; 2018-03-11)
DX: F11.23 Opioid dependence with withdrawal (principal); F19.282 Other psychoactive substance dependence with psychoactive substance-induced sleep disorder; R45.89 Other symptoms and signs involving emotional state; F19.24 Other psychoactive substance dependence with psychoactive substance-induced mood disorder; I10 Essential (primary) hypertension; Z85.819 Personal history of malignant neoplasm of unspecified site of lip, oral cavity, and pharynx
CPT/HCPCS: 36415; 80053; 81003; 81015; 85027; 86593; 87389; 93005; 93010

== ENCOUNTER 2018-03-15 19:57 | Inpatient (IN) | payer BC, OTHER ==
--- NOTE | 2018-03-15 20:51 | PDOC ---
History of Present Illness - General Chief Complaint: Overdose Stated Complaint: OVERDOSE Time Seen by Provider: 03/15/18 20:03 History Source: Patient Exam Limitations: No Limitations - History of Present Illness Initial Comments: 03/15/18 20:12 Patient is a 37-year-old male with history of substance abuse, oral cancer, HTN , back PD and EMS for heroine overdose. Patient was just released from rehabilitation a today admitted on Friday. EMS states they were called to the home by the because he was unconscious and administered Narcan 4 mg IM. Patient on arrival to the ED now alert and oriented 3. He states that he got home from detox today, his took him home after getting his methadone. States that he went to [employer] to get a cake for his . On his way home, states he was hot and sweaty and so was asked in his neighbors for some water. When he got to his building his supereminent got him into his apartment states he remembers nothing from then on. His states that when he was at home he was acting every irratic, his eyes rolled back, then he went unconscious, but did not strike his head. She thinks that he took some drugs because this was how he was acting prior to detox. Patient states that he did not use anything except the Methadone 10mg given to him at [facility] today. States he has a habit with heroine which is trying to quit. His use is variable from 3-8 bags, sometimes none. He has detox many times Has used cocaine in the past. PMD: Dr. Sargent PMHX: as above PSOCHX: Polysubstance abuse, ALL: PCN GENERAL/CONSTITUTIONAL: [No fever or chills. No weakness. No weight change.] HEAD, EYES, EARS, NOSE AND THROAT: [No change in vision. No ear pain or discharge. No sore throat.] CARDIOVASCULAR: [No chest pain or shortness of breath.] RESPIRATORY: [No cough, wheezing, or hemoptysis.] GASTROINTESTINAL: [No nausea, vomiting, diarrhea or constipation. No rectal bleeding.] GENITOURINARY: [No dysuria, frequency, or change in urination.] MUSCULOSKELETAL: [No joint or muscle swelling or pain. No neck or back pain.] SKIN AND BREASTS: [No rash or easy bruising.] NEUROLOGIC: [No headache, vertigo, loss of consciousness, or loss of sensation.] PSYCHIATRIC: (+) depression or anxiety.] ENDOCRINE: [No increased thirst. No abnormal weight change.] HEMATOLOGIC/LYMPHATIC: [No anemia, easy bleeding, or history of blood clots.] ALLERGIC/IMMUNOLOGIC: [No hives or skin allergy. No latex allergy.] GENERAL: [The patient is awake, alert, and fully oriented, in mild distress, sweating] HEAD: [Normal with no signs of trauma.] EYES: [Pupils equal, round pinpoint, extraocular movements intact, sclera anicteric, conjunctiva clear.] ENT: [Ears normal, nares patent, oropharynx clear without exudates. Moist mucous membranes.] NECK: [Normal range of motion, supple without lymphadenopathy, JVD, or masses.] LUNGS: [Breath sounds equal, clear to auscultation bilaterally. No wheezes, and no crackles.] HEART: [tachycardic rate and rhythm, S1 and S2 without murmur, rub.] ABDOMEN: [Soft, nontender, normoactive bowel sounds. No guarding, no rebound. No masses.] EXTREMITIES: [Normal range of motion, no edema. No clubbing or cyanosis. No cords, erythema, or tenderness.] NEUROLOGICAL: [Cranial nerves II through XII grossly intact. Normal speech, normal gait. unable to sit still] PSYCH: [agitated mood, normal affect.] SKIN: [Warm, Dry, normal turgor, no rashes or lesions noted.] Past History - Past Medical History Allergies/Adverse Reactions: Allergies Allergy/AdvReac Type Severity Reaction Status Date / Time Penicillins Allergy Severe Hives Verified 03/15/18 21:35 Home Medications: Ambulatory Orders Amlodipine Besylate [Norvasc -] 5 mg PO DAILY #30 tablet 01/22/16 Anemia: No Asthma: No Cancer: Yes Cardiac Disorders: No CVA: No COPD: No CHF: No Dementia: No Diabetes: No GI Disorders: No Disorders: No HTN: Yes Hypercholesterolemia: No Kidney Stones: No Liver Disease: No Seizures: No Thyroid Disease: No - Surgical History Abdominal Surgery: No Appendectomy: Yes (IN 1996) Cardiac Surgery: No Cholecystectomy: No Lung Surgery: No Neurologic Surgery: No Orthopedic Surgery: No - Reproductive History Testicular Surgery: No - Immunization History Immunization Up to Date: No - Suicide/Smoking/Psychosocial Hx Smoking Status: No Smoking History: Never smoked Have you smoked in the past 12 months: No Number of Cigarettes Smoked Daily: 0 If you are a former smoker, when did you quit?: 10 YRS AGO 'Breaking Loose' booklet given: 05/01/16 Hx Alcohol Use: No Drug/Substance Use Hx: Yes Substance Use Type: Heroin Hx Substance Use Treatment: Yes ED Treatment Course - LABORATORY CBC & Chemistry Diagram: 03/15/18 21:48 03/15/18 22:10 Medical Decision Making - Medical Decision Making 03/15/18 20:12 Patient is a 37-year-old male with history of substance abuse, oral cancer, back PD and EMS for heroine overdose Narcan administered. Patient is currently on methadone. Possible in withdrawal. Will give patient is still off clonidine for withdrawal symptoms. continue to be tachycardic and agitated given Ativan 1mg po patient still tachycardic and agitated given Ativan 1mg IV 03/16/18 00:21 Received a call from the who states that she was going to her 's pockets and found a suicide note in his pocket. It states that she and the kids would be better off without him and he wanted to kill him self. 03/16/18 00:24 Placed on observation. labs noted given ASA 324mg, continued on fluids. will admit to hospitalist 03/16/18 00:48 additional history from she states that patient had fallen in the lobby prior to him coming to the apartment. *DC/Admit/Observation/Transfer Diagnosis at time of Disposition: NSTEMI (non-ST elevated myocardial infarction), Substance abuse, Suicidal ideation Rhabdomyolysis Qualifiers: Rhabdomyolysis type: traumatic Encounter type: initial encounter Qualified Code (s): T79.6XXA - Traumatic ischemia of muscle, initial encounter - Discharge Dispostion Condition at time of disposition: Stable Decision to Admit order: Yes - Referrals - Patient Instructions - Post Discharge Activity
[2018-03-15] MEDS ORDERED: SODIUM CHLORIDE 0.9% 500 ML INFUS.BAG IV ONE (21:30)
[2018-03-15] MEDS ORDERED: cloNIDine HCL 0.1 MG TABLET PO ONE (21:30)
[2018-03-15] MEDS ORDERED: cloNIDine HCL 0.1 MG TABLET ONE (21:38)
[2018-03-15 21:55] LABS: BASO % 0.6 % (0-2.0); EOS % 0.3 % (0-4.5); HEMATOCRIT 41.1 % (35.4-49); HEMOGLOBIN 13.8 GM/dL (11.7-16.9); LYMPH % 10.7 % (8-40); MCH 25.8 pg (25.7-33.7); MCHC 33.5 g/dl (32.0-35.9); MEAN CELL VOLUME 77.2 fl (80-96); MEAN PLT VOLUME 8.8 fl (7.5-11.1); NEUT % 80.4 % (42.8-82.8); PLATELET COUNT 272 K/MM3 (134-434); RBC 5.33 M/mm3 (4.00-5.60); WHITE BLOOD COUNT 16.9 K/mm3 (4.0-10.0)
[2018-03-15] MEDS ORDERED: LORazepam 1 MG TABLET PO ONE (22:19)
[2018-03-15 22:52] LABS: ANION GAP 6 (8-16); BLOOD UREA NITROGEN 13 mg/dL (7-18); CALCIUM 8.4 mg/dL (8.5-10.1); CHLORIDE 105 mmol/L (98-107); CO2 31 mmol/L (21-32); CREATININE 1.4 mg/dL (0.7-1.3); GLUCOSE,RANDOM 85 mg/dL (74-106); POTASSIUM 4.3 mmol/L (3.5-5.1); SODIUM 142 mmol/L (136-145)
[2018-03-16] MEDS ORDERED: ASPIRIN 81 MG CHEWABLE TABLETS PO ONE (00:02)
--- NOTE | 2018-03-16 00:38 | PN ---
Teaching Attending Note Name of Resident: Kasi Cummings ATTENDING PHYSICIAN STATEMENT I saw and evaluated the patient. I reviewed the resident's note and discussed the case with the resident. I agree with the resident's findings and plan as documented. SUBJECTIVE: 37 M with hx. of heroin/opiod abuse who finished detox earlier today presents from home after being found unconsciouss by . He was given Narcan by EMS and post was AA0X3. As per patient he was released from rehab today and went to get Heroin after. States he snorted 1 1/2 bags. When he came home he did not remember what happened. Denies any chest pain, pressure, or shortness of breath. No fevers or chills. No nausea, vomiting, or diarrhea. Pt.s found a note stating he wanted to hurt himself. Pt. denies wanting to self harm. OBJECTIVE: Physical: Vital Signs Period Temp Pulse Resp BP Sys/Davalos Pulse Ox Last 24 Hr 98.6 F 106-125 20-20 123-182/91-107 92-96 GEN: NAD, Resting in bed, AA0X3 HEENT: NCAT, PERRL, Throat without erythema or exudates CARD: RRR S1, S2 RESP: CTAB ABD: BSx4, NTD to palpation EXT: - C/C/E CBCD WBC 16.9 K/mm3 (4.0-10.0) H D 03/15/18 21:48 RBC 5.33 M/mm3 (4.00-5.60) 03/15/18 21:48 Hgb 13.8 GM/dL (11.7-16.9) D 03/15/18 21:48 Hct 41.1 % (35.4-49) 03/15/18 21:48 MCV 77.2 fl (80-96) L 03/15/18 21:48 MCHC 33.5 g/dl (32.0-35.9) 03/15/18 21:48 RDW 15.0 % (11.9-15.9) 03/15/18 21:48 Plt Count 272 K/MM3 (134-434) 03/15/18 21:48 MPV 8.8 fl (7.5-11.1) D 03/15/18 21:48 CMP Sodium 142 mmol/L (136-145) 03/15/18 22:10 Potassium 4.3 mmol/L (3.5-5.1) 03/15/18 22:10 Chloride 105 mmol/L (98-107) 03/15/18 22:10 Carbon Dioxide 31 mmol/L (21-32) 03/15/18 22:10 Anion Gap 6 (8-16) L 03/15/18 22:10 BUN 13 mg/dL (7-18) 03/15/18 22:10 Creatinine 1.4 mg/dL (0.7-1.3) H 03/15/18 22:10 Random Glucose 85 mg/dL (74-106) 03/15/18 22:10 Calcium 8.4 mg/dL (8.5-10.1) L 03/15/18 22:10 CARDIAC ENZYMES Creatine Kinase 1564 IU/L (39-308) H 03/15/18 22:10 Troponin I 0.38 ng/ml (0.00-0.05) H D 03/15/18 22:10 CXR: EKG: NSR Urine Test Results Urine Color Ltyellow 03/16/18 00:23 Urine Appearance Slcloudy 03/16/18 00:23 Urine pH 5.0 (5.0-8.0) 03/16/18 00:23 Ur Specific [place] 1.015 (1.001-1.035) 03/16/18 00:23 Urine Protein Negative (NEGATIVE) 03/16/18 00:23 Urine Glucose (UA) Negative (NEGATIVE) 03/16/18 00:23 Urine Ketones Negative (NEGATIVE) 03/16/18 00:23 Urine Blood Negative (NEGATIVE) 03/16/18 00:23 Urine Nitrite Negative (NEGATIVE) 03/16/18 00:23 Urine Bilirubin Negative (<2.0 mg/dL) 03/16/18 00:23 Ur Leukocyte Esterase Negative (NEGATIVE) 03/16/18 00:23 ASSESSMENT AND PLAN: 37 M with hx. of opiod abuse who presents with loss of conscioussness after heroin overdose 1.) Overdose of Heroin - S/p Narcan - Detox consult - S/P Clonidine in ED 2.) Sepsis?? (leukocytosis, Tachy) - May be reactive - Stat CXR, Blood Cx, Lactic Acid - [place] Cx - Tachy could be from agitation/withdrawl - Would hold abx. and reassess 3.) Rhabdomyolysis - IVF - Repeat CK 4.) Suicidal Ideation - 1:1 Observation - Psych. Consult 5.) Elevated Troponin - Most likely Demand - Trend Trop/EKG - Echo 6.)MIGUELINA - IVF - Avoid Nephrotoxins - If no improvement with IVF, U. Lytes 7.) Dvt Ppx - SCDs Place in Obs-Tele
[2018-03-16 00:49] LABS: URINE APPEARANCE SLCLOUDY; URINE BILIRUBIN NEGATIVE (<2.0 mg/dL); URINE COLOR LTYELLOW; URINE GLUCOSE (UA) NEGATIVE (NEGATIVE); URINE KETONE NEGATIVE (NEGATIVE); URINE LEUK ESTERASE NEGATIVE (NEGATIVE); URINE NITRITE NEGATIVE (NEGATIVE); URINE PROTEIN NEGATIVE (NEGATIVE); URINE UROBILINOGEN NEGATIVE mg/dL (0.2-1.0)
[2018-03-16 01:00] LABS: COCAINE, UR NEGATIVE ng/ml (CUTOFF=300); PHENCYCLIDINE,URINE NEGATIVE ng/ml (CUTOFF=25); URINE AMPHETAMINES NEGATIVE ng/ml (CUTOFF=500); URINE BARBITURATES NEGATIVE ng/ml (CUTOFF=200)
[2018-03-16 01:01] LABS: METHADONE, UR POSITIVE ng/ml (CUTOFF=300); OPIATES, URI POSITIVE ng/ml (CUTOFF=300); URINE BENZODIAZEPINES POSITIVE ng/ml (CUTOFF=200)
--- NOTE | 2018-03-16 01:20 | HP ---
CHIEF COMPLAINT: BIBEMS for AMS/Heroin overdose PCP: Dr. Sargent HISTORY OF PRESENT ILLNESS: 37 yr old man with substance use d/o, HTN BIBEMS when his called 911 due to AMS. Pt recalls being discharged from detox earlier today, returning home and going out to get a cake for his for mother's day. Around 4pm he snorted 1 and 1/2 bags of heroin and says he doesn't remember anything else. says he was not thinking about hurting himself when he was taking the heroin. Denies chest pain, trouble breathing, dizziness, headache, nausea, vomiting, fevers, prior to drug use. says he has been having a lack of energy and constantly needs red bull to feel awake for awhile. As per chart review/ED documentation: EMS was called by due to erratic behaviour and LOC(without head trauma) this afternoon. PT received 4mg IM of narcan by EMS. ER course was notable for: (1) catapras, EKG (2) 1:1 (3) phone call from stating she found a SI note PAST MEDICAL HISTORY: HTN PAST SURGICAL HISTORY: mucoepidermoid carcinoma of the palate, dx'd and resected in 2008 (denies chemo/ radiation) appendectomy 1996 Social History: Smoking: hx of smoking quit 10yrs ago Alcohol: Drugs: heroin hx of IVDU, snorted last use today Family History: [place] Allergies Penicillins Allergy (Severe, Verified 03/15/18 21:35) Hives HOME MEDICATIONS: Home Medications Medication Instructions Recorded Amlodipine Besylate [Norvasc -] 5 mg PO DAILY #30 tablet 01/22/16 REVIEW OF SYSTEMS CONSTITUTIONAL: Present: lack of energy Absent: fever, chills, diaphoresis, generalized weakness, malaise, loss of appetite, weight change HEENT: Absent: rhinorrhea, nasal congestion, throat pain, throat swelling, difficulty swallowing, mouth swelling CARDIOVASCULAR: Absent: chest pain, syncope, palpitations, irregular heart rate, lightheadedness , peripheral edema RESPIRATORY: Absent: cough, shortness of breath, dyspnea with exertion, wheezing, stridor, GASTROINTESTINAL: Absent: abdominal pain, abdominal distension, nausea, vomiting, diarrhea, constipation, melena, hematochezia GENITOURINARY: Absent: dysuria, frequency, urgency, hesitancy, hematuria, flank pain MUSCULOSKELETAL: Absent: myalgia, arthralgia, joint swelling, back pain, neck pain SKIN: Absent: rash, itching, pallor NEUROLOGIC: Present:mental status changes, Absent: headache, focal weakness or paresthesias, dizziness, unsteady gait, seizure, PSYCHIATRIC: Present:anxiety Absent: depression, suicidal or homicidal ideation PHYSICAL EXAMINATION Vital Signs - 24 hr 03/15/18 03/15/18 20:25 23:02 Temperature 98.6 F Pulse Rate 125 H Pulse Rate [ 106 H Apical] Respiratory 20 20 Rate Blood Pressure 182/107 Blood Pressure 123/91 [Right Arm] O2 Sat by Pulse 96 92 L Oximetry (%) GENERAL: Awake, alert, and oriented to person, place, place, date, in no acute distress. HEAD: Normal with no signs of trauma. EYES: Pupils equal, pinpoint, extraocular movements intact, sclera anicteric, conjunctiva clear. No lid lag. EARS, NOSE, THROAT: oropharynx clear with thrush. Moist mucous membranes. NECK: Normal range of motion, supple without lymphadenopathy, JVD, or masses. no bruits LUNGS: Breath sounds equal, clear to auscultation bilaterally. No wheezes, and no crackles. No accessory muscle use. HEART: Regular rate and rhythm, normal S1 and S2 without murmur, rub or gallop. ABDOMEN: Soft, nontender, not distended, normoactive bowel sounds, no guarding, no rebound, no masses. No hepatomegaly or splenomegaly. well healed appendectomy scar MUSCULOSKELETAL: Normal range of motion at all joints. No bony deformities or tenderness. No CVA tenderness. UPPER EXTREMITIES: 2+ radial pulses, warm, well-perfused. No cyanosis. No clubbing. No peripheral edema. LOWER EXTREMITIES: 2+ dp pulses, warm, well-perfused. No calf tenderness. No peripheral edema. NEUROLOGICAL: Normal speech. Normal gait. PSYCHIATRIC: Cooperative. Good eye contact. Appropriate mood and affect. SKIN: Warm, dry, normal turgor, no rashes, normal capillary refill. left and righ anterior lower gu with track albarran. left and right forearms with old track albarran with underlying mass - overlying skin intact, no surrounding erythema - likely old fibroid tissue from repeated injections Laboratory Results - last 24 hr 03/15/18 03/15/18 03/15/18 21:48 21:48 21:48 WBC 16.9 H D RBC 5.33 Hgb 13.8 D Hct 41.1 MCV 77.2 L MCH 25.8 MCHC 33.5 RDW 15.0 Plt Count 272 MPV 8.8 D Neutrophils % 80.4 D Lymphocytes % 10.7 D Monocytes % 8.0 Eosinophils % 0.3 Basophils % 0.6 Sodium Cancelled Potassium Cancelled Chloride Cancelled Carbon Dioxide Cancelled Anion Gap Cancelled BUN Cancelled Creatinine Cancelled Random Glucose Cancelled Calcium Cancelled Creatine Kinase Creatine Kinase Index CK-MB (CK-2) Troponin I Cancelled Urine Color Urine Appearance Urine pH Ur Specific [place] Urine Protein Urine Glucose (UA) Urine Ketones Urine Blood Urine Nitrite Urine Bilirubin Urine Urobilinogen Ur Leukocyte Esterase Ur Random Sodium Urine Creatinine Opiates Screen Methadone Screen Barbiturate Screen Phencyclidine Screen Ur Amphetamines Screen MDMA (Ecstasy) Screen Benzodiazepines Screen Cocaine Screen U Marijuana (THC) Screen 03/15/18 03/16/18 03/16/18 22:10 00:23 00:23 WBC RBC Hgb Hct MCV MCH MCHC RDW Plt Count MPV Neutrophils % Lymphocytes % Monocytes % Eosinophils % Basophils % Sodium 142 Potassium 4.3 Chloride 105 Carbon Dioxide 31 Anion Gap 6 L BUN 13 Creatinine 1.4 H Random Glucose 85 Calcium 8.4 L Creatine Kinase 1564 H Creatine Kinase Index 1.3 CK-MB (CK-2) 20.443 H Troponin I 0.38 H D Urine Color Ltyellow Urine Appearance Slcloudy Urine pH 5.0 Ur Specific [place] 1.015 Urine Protein Negative Urine Glucose (UA) Negative Urine Ketones Negative Urine Blood Negative Urine Nitrite Negative Urine Bilirubin Negative Urine Urobilinogen Negative Ur Leukocyte Esterase Negative Ur Random Sodium Urine Creatinine Opiates Screen Positive Methadone Screen Positive Barbiturate Screen Negative Phencyclidine Screen Negative Ur Amphetamines Screen Negative MDMA (Ecstasy) Screen Negative Benzodiazepines Screen Positive Cocaine Screen Negative U Marijuana (THC) Screen Negative 03/16/18 00:40 WBC RBC Hgb Hct MCV MCH MCHC RDW Plt Count MPV Neutrophils % Lymphocytes % Monocytes % Eosinophils % Basophils % Sodium Potassium Chloride Carbon Dioxide Anion Gap BUN Creatinine Random Glucose Calcium Creatine Kinase Creatine Kinase Index CK-MB (CK-2) Troponin I Urine Color Urine Appearance Urine pH Ur Specific [place] Urine Protein Urine Glucose (UA) Urine Ketones Urine Blood Urine Nitrite Urine Bilirubin Urine Urobilinogen Ur Leukocyte Esterase Ur Random Sodium 110 Urine Creatinine 168.0 Opiates Screen Methadone Screen Barbiturate Screen Phencyclidine Screen Ur Amphetamines Screen MDMA (Ecstasy) Screen Benzodiazepines Screen Cocaine Screen U Marijuana (THC) Screen ASSESSMENT/PLAN: 37 yr old man with hx of substance use(heroin) BIBEMS s/p narcan administration for heroin overdose a/w AMS admitted for further evaluation of elevated trops/ leucocytosis and SI as stated by family member. #Heroin Overdose - Dr. Altman for detox consult - given Ativan ivpu in the ED - offered HIV, accepted. last HIv test 03/10 negative #MIGUELINA baseline line 1.3 - IVF NS@125cc/hr, likely prerenal, pt urinating without difficulty, urine urea and Na/osm/cr to further eval #elevated Trop with elevated CK-MB and CK - trend for EKG with sinus tachycardia w/o acute ischemic changes, repeat EKG in the AM - r/o ACS - Telemonitoring - full dose asa given in the ED - echo #SI: - As per ED documentation, found a suicide note, currently pt denies ideation. placed on 1:1 until acute drug intoxication decreases #leucocytosis, monitor off abx for now - reactive vs infectious, though lower suspicion for infection given no fever no overt s/s of cellulitis/pulm/GI/ pathology - repeat in the AM #Thrush - nystatin swish and swallow q6hr po #HTN - norvasc 5mg po daily, given catapras in the ED, will hold anti-htn for now, assess as needed #r/o thyroid dysfunction given c/o lack of energy #DVT; SCD's, fall risk precautions while intoxicated #Diet: low Na diet Visit type - Emergency Visit Emergency Visit: Yes ED Registration Date: 03/16/18 Care time: The patient presented to the Emergency Department on the above date and was hospitalized for further evaluation of their emergent condition. - New Patient This patient is new to me today: Yes Date on this admission: 03/16/18 - Critical Care Critical Care patient: No Hospitalist Screening - Colonoscopy Questionnaire Colonoscopy Questionnaire: Colonoscopy Questionnaire - Patient: 50 - 75 years old and never had a screening colonoscopy: Unknown History of colon or rectal polyps, or CA: Unknown History of IBD, Crohn's disease or UC: Unknown History of abdominal radiation therapy as a child: Unknown - Relative: 1 with colon or rectal CA, or polyps at age 60 or younger: Unknown Colon or rectal CA diagnosed at age 45 or younger: Unknown Multiple relatives with colon or rectal CA: Unknown - Outcome: Screening Result: Negative Screen
[2018-03-16] MEDS: SODIUM CHLORIDE 1,000 ML IV SCH ×2 (01:38→20:00)
[2018-03-16 03:17] VITALS: BMI 30.4
[2018-03-16] MEDS ORDERED: HEPARIN NA (PORCINE) 5,000 UNITS/ML 1ML VIAL SQ SCH (06:00)
--- NOTE | 2018-03-16 07:03 | CONSULT ---
Consult Detox [facility] Reason for Current Admission/Consult: substance use Referred by:: Alvino Goodrich - Alcohol/Substance Use Hx Alcohol Use: No Assessment Plan - Diagnosis (1) Accidental heroin overdose Status: Acute (2) Rhabdomyolysis Status: Acute Qualifiers: Rhabdomyolysis type: traumatic Encounter type: initial encounter Qualified Code(s): T79.6XXA - Traumatic ischemia of muscle, initial encounter (3) Dehydration Status: Acute (4) Drug-induced mood disorder Status: Acute (5) Nicotine dependence Status: Acute Qualifiers: Nicotine product type: cigarettes Substance use status: in withdrawal Qualified Code(s): F17.213 - Nicotine dependence, cigarettes, with withdrawal (6) HTN (hypertension) Status: Chronic Qualifiers: Hypertension type: essential hypertension Qualified Code(s): I10 - Essential (primary) hypertension - Plan Plan: 37 yo m recently completed [facility] for opioid use disorder and overdosed on what appears to be heroin as uto +ve for heroin, benzos and methadone. benzodiazepiens and [place] most liekly from recent detox. utox -ve for cocaine. REcommend: 1. consider suboxoen induction and maintenancy with outpaitent follow up at [facility].. 2. refer for inpatient rehab, can start suboxone as patient. 3. narcan prescription - Medication Detox Regimen/Protocol: Not Applicable
[2018-03-16] MEDS: NYSTATIN 500,000 UNITS/5 ML SUSPENSION PO SCH ×3 (07:05→17:44)
--- NOTE | 2018-03-16 10:47 | EKG ---
Test Reason : Blood Pressure : / mmHG Vent. Rate : 070 BPM Atrial Rate : 070 BPM P-R Int : 128 ms QRS Dur : 096 ms QT Int : 428 ms P-R-T Axes : -06 032 005 degrees QTc Int : 462 ms NORMAL SINUS RHYTHM ST ELEVATION, CONSIDER EARLY REPOLARIZATION, PERICARDITIS, OR INJURY WHEN COMPARED WITH ECG OF 15-MAR-2018 22:27, VENT. RATE HAS DECREASED BY [address] ELEVATION NOW PRESENT IN LATERAL LEADS Confirmed by REUBEN WILKINS MD ([id number]) on 03/16/2018 10:47:24 AM Referred By: Confirmed By:REUBEN WILKINS MD
--- NOTE | 2018-03-16 10:52 | EKG ---
Test Reason : Blood Pressure : / mmHG Vent. Rate : 109 BPM Atrial Rate : 109 BPM P-R Int : 124 ms QRS Dur : 086 ms QT Int : 334 ms P-R-T Axes : 039 030 023 degrees QTc Int : 449 ms SINUS TACHYCARDIA OTHERWISE NORMAL ECG WHEN COMPARED WITH ECG OF 11-MAR-2018 12:50, VENT. RATE HAS INCREASED BY 44 BPM T WAVE VARIATION Confirmed by REUBEN WILKINS MD ([id number]) on 03/16/2018 10:52:14 AM Referred By: Confirmed By:REUBEN WILKINS MD
--- NOTE | 2018-03-16 14:40 | CON.PSY ---
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 Long history of Substance abuse. No history of Psych Illness. No suicide atttempts or Behaviour. Patient said he wrotec a letter to about a year but denies it was a sucide letter. Patient does admit to substance abuse. - Previous Psychiatric Treatment Outpatient: None - Previous Substance Abuse Treatment Outpatient: More than 6 mos ago - Reason for Previous Treatment Reason for Previous Treatment: Drug Abuse - Current Medications Current Medications: Active Medications Sodium Chloride (Normal Saline -) 1,000 mls @ 125 mls/hr IV ASDIR [facility] Last Admin: 03/16/18 01:38 Dose: 125 mls/hr Nystatin (Nystatin Oral Suspension -) 500,000 units PO Q6HPO [facility] Last Admin: 03/16/18 12:26 Dose: 500,000 units - Allergies Allergies: Allergies Allergy/AdvReac Type Severity Reaction Status Date / Time Penicillins Allergy Severe Hives Verified 03/15/18 21:35 - Current Living Status Usual Living Arrangement: With Spouse - Current Mental Status Evaluation Appearance: Well Groomed Attitude: Cooperative - Affect Affect: Constrictive Appropriateness: Appropriate to Content - Mood Mood: Anxious - Speech/Language Expressive: Coherent - Psychomotor Activity Psychomotor Activity: Normal - Thought Process Thought Process: Intact - Thought Content Hallucinations: Absent Delusions: Absent - Self Perception Self Perception: No Impairment - Cognition Attention: Alert Orientation: Time Memory, Immediate Recall: Intact Memory, Short Term: 3/3 Memory, Remote with Promptin/3 - Concentration Serial Sevens Intact: Yes Simple Calculations Intact: Yes - Abstraction Proverb Interpretation: Intact Judgement: Minimally Impaired - Insight Insight: Intact - Impulse Control Impulse Control: Minimally Impaired - Suicidal Ideation Suicidal Ideation: No - Homicidal Ideation Homicidal Ideation: No Assessment/Plan 1) Patient is not suicidal at this time. 2) discharge home when medically clear. 3) patient will seek tratment for substance abuse.
--- NOTE | 2018-03-16 17:53 | PN ---
Progress Note (short form) - Note Progress Note: pt admitted under my service. Pt of Dr. Sargent chart reviewed off 1:1 sitter Psych consult noted/ discussed with Dr. Benites Pt sitting in solorium - anxious denies suicidal thoughts Seen by Detox earlier this morning -- NO recommendations Made . Vital Signs Temp 97.8 F 03/16/18 15:19 Pulse 79 03/16/18 15:19 Resp 16 03/16/18 15:19 BP 130/79 03/16/18 15:19 Pulse Ox 94 L 03/16/18 08:01 Intake & Output 03/15/18 03/16/18 03/16/18 23:59 11:59 23:59 Intake Total 1800 Balance 1800 Weight 166 lb 188 lb 12.8 oz Intake: IV 1250 Normal Saline - 1,000 ml 1250 @ 125 mls/hr IV ASDIR NEL Rx#:[id number] Oral 550 Other: Voiding Method Toilet Toilet Bowel Movement No Height 5 ft 6 in 5 ft 6 in Body Mass Index (BMI) 26.8 30.4 Weight Measurement Method Standing Scale Weight Measurement Method Est/Stated by Patient Active Medications Sodium Chloride (Normal Saline -) 1,000 mls @ 125 mls/hr IV ASDIR NEL Last Admin: 03/16/18 01:38 Dose: 125 mls/hr Nystatin (Nystatin Oral Suspension -) 500,000 units PO Q6HPO NEL Last Admin: 03/16/18 17:44 Dose: Not Given Abnormal Lab Results 03/15/18 03/15/18 03/16/18 21:48 22:10 03:30 WBC 16.9 H D MCV 77.2 L Anion Gap 6 L Creatinine 1.4 H Calcium 8.4 L Creatine Kinase 1564 H 3904 H CK-MB (CK-2) 20.443 H 78.844 H Troponin I 0.38 H D 0.32 H TSH 03/16/18 07:45 WBC MCV Anion Gap Creatinine Calcium Creatine Kinase CK-MB (CK-2) Troponin I TSH 5.28 H Physical Awake/ anxious S1, s2 rrr abd- soft ext- no edema neuro- alert/awake A/P Substance dependence Anxiety +ve troponins Ativan 2 mg now-- prn Detox to give recommendations Will Consult Cardiology F/u labs tomorrow. Discussed with Nursing staff
[2018-03-16] MEDS ORDERED: ZOLPIDEM TARTRATE 5 MG TABLET PO PRN (20:03)
[2018-03-17] MEDS: NYSTATIN 500,000 UNITS/5 ML SUSPENSION PO SCH ×3 (00:36→11:03)
[2018-03-17] MEDS: SODIUM CHLORIDE 1,000 ML IV SCH (05:32)
[2018-03-17 07:02] LABS: EOS % 4.4 % (0-4.5); HEMATOCRIT 35.5 % (35.4-49); HEMOGLOBIN 11.5 GM/dL (11.7-16.9); LYMPH % 40.3 % (8-40); MCH 25.5 pg (25.7-33.7); MCHC 32.5 g/dl (32.0-35.9); MEAN CELL VOLUME 78.6 fl (80-96); MEAN PLT VOLUME 8.9 fl (7.5-11.1); MONO % 10.8 % (3.8-10.2); NEUT % 43.5 % (42.8-82.8); PLATELET COUNT 197 K/MM3 (134-434); RBC 4.52 M/mm3 (4.00-5.60); RDW 14.5 % (11.9-15.9); WHITE BLOOD COUNT 5.4 K/mm3 (4.0-10.0)
[2018-03-17 07:31] LABS: CHLORIDE 103 mmol/L (98-107); POTASSIUM 4.3 mmol/L (3.5-5.1); SODIUM 140 mmol/L (136-145)
[2018-03-17 07:44] LABS: ALBUMIN 2.9 g/dl (3.4-5.0); ALK PHOS 79 U/L (45-117); ANION GAP 6 (8-16); BILIRUBIN,TOTAL 0.2 mg/dL (0.2-1.0); BLOOD UREA NITROGEN 14 mg/dL (7-18); CALCIUM 8.5 mg/dL (8.5-10.1); CHOLESTEROL 150 mg/dL (50-200); CO2 31 mmol/L (21-32); CREATININE 0.9 mg/dL (0.7-1.3); GLUCOSE,RANDOM 83 mg/dL (74-106); HDL CHOLESTEROL 38 mg/dL (40-60); MAGNESIUM 2.1 mg/dL (1.8-2.4); PHOSPHOROUS 4.8 mg/dL (2.5-4.9); SGOT/AST 143 U/L (15-37); SGPT/ALT 98 U/L (12-78); TOT PROT 6.2 g/dl (6.4-8.2); TRIGLYCERIDES 179 mg/dL (35-160)
[2018-03-17] MEDS ORDERED: diazePAM 5 MG TABLET PO ONE (09:57)
[2018-03-17] MEDS ORDERED: PRENATAL VITAMINS W/ FOLIC ACID TABLET (FP) PO SCH (10:00)
[2018-03-17] MEDS ORDERED: BUPRENORPHINE/NALOXONE 2 MG/0.5 MG FILM PACKET SL SCH (10:00)
[2018-03-17] MEDS ORDERED: cloNIDine HCL 0.1 MG TABLET PO SCH (10:15)
[2018-03-17 11:24] VITALS: BP 159/79; PULSE 82; TEMP 98.4
--- NOTE | 2018-03-17 11:40 | DS ---
Physical Examination Vital Signs: Vital Signs Temperature 98.4 F 03/17/18 10:00 Pulse Rate 82 03/17/18 10:00 Respiratory Rate 20 03/17/18 10:00 Blood Pressure 159/79 03/17/18 10:00 O2 Sat by Pulse Oximetry (%) 95 03/17/18 10:00 Constitutional: Yes: No Distress, Calm Cardiovascular: Yes: Regular Rate and Rhythm Respiratory: Yes: Diminished Gastrointestinal: Yes: Normal Bowel Sounds, Soft, Abdomen, Obese. No: Tenderness Edema: No Labs: CBC, BMP 03/17/18 06:35 03/17/18 06:35 Discharge Summary Reason For Visit: SUBSTANCE ABUSE,NON-ST ELEVATION (NSTEMI) Current Active Problems Accidental heroin overdose (Acute) NSTEMI (non-ST elevated myocardial infarction) (Acute) Rhabdomyolysis (Acute) Substance abuse (Acute) Suicidal ideation (Acute) Hospital Course: Pt was admitted in [facility] for elevated CPK , NSTEMI, anxiety-- seen by Cardiology, Psychiatry Completed detox in detox unit Cardiac enzymes elevated due to Rhabdomyolysis CPK better cardiac enzymes trending down Echo noted by Cardiology started on Zoloft Stable for dc to home-- may return back to work on 03/20 Condition: Stable - Instructions Diet, Activity, Other Instructions: Pt was admitted in [facility] for elevated CPK , NSTEMI, anxiety-- seen by Cardiology, Psychiatry Stable for dc to home-- may return back to work on 03/20 Referrals: Emeterio Sargent MD [Primary Care Provider] - Disposition: HOME - Home Medications Comprehensive Discharge Medication List: Ambulatory Orders Amlodipine Besylate [Norvasc -] 5 mg PO DAILY #30 tablet 01/22/16
[2018-03-17] MEDS ORDERED: SERTRALINE HCL 25 MG TABLET (FP) PO SCH (11:45)
--- NOTE | 2018-03-17 12:14 | CON.CARD ---
Cardiology Consult (text) - Consultation Consultation Note: cc: abnormal troponins 37 yo ivdu with pmhx of htn, oral ca who presents s/p heroin overdose, hospital course notable for elevated troponins. Patient was discharged from detox yesterday. Later that day was found unresponsive by family. Became arousable s/p narcan administration by ems. s/p IVF at 125 cc/hr with resolution of miguelina and improvement in CK and lft's. started on clonidine 0.1 mg bid. ? suicidal ideation. no cp, sob, palps, orthopnea. pnd, le edema, bleeding. no f/c/s, n/v/d, cough, congestion, h/a, rash. pmhx/pshx: per hpi, appy, oral ca surgery social hx: former smoker, + heroin fam hx: parents with htn ros: per hpi Ambulatory Orders Amlodipine Besylate [Norvasc -] 5 mg PO DAILY #30 tablet 01/22/16 Current Medications Buprenorphine/Naloxone (Suboxone 2mg/0.5mg Sl Film -) 1 each SL DAILY [facility] Last Admin: 03/17/18 10:19 Dose: Not Given Clonidine (Catapres -) 0.1 mg PO BID [facility] Last Admin: 03/17/18 10:16 Dose: 0.1 mg Diazepam (Valium -) 10 mg PO HS [facility] Gabapentin (Neurontin -) 100 mg PO TID [facility] Sodium Chloride (Normal Saline -) 1,000 mls @ 125 mls/hr IV ASDIR [facility] Last Admin: 03/17/18 05:32 Dose: 125 mls/hr Nystatin (Nystatin Oral Suspension -) 500,000 units PO Q6HPO [facility] Last Admin: 03/17/18 11:03 Dose: Not Given Multivit/Folic Acid/Iron ( Vitamins (Sjr) -) 1 tab PO DAILY [facility] Last Admin: 03/17/18 11:03 Dose: Not Given Sertraline HCl (Zoloft -) 25 mg PO DAILY [facility] Thiamine HCl (Vitamin B1 -) 100 mg PO HS [facility] Zolpidem Tartrate (Ambien -) 5 mg PO HS PRN PRN Reason: INSOMNIA Last Admin: 03/16/18 22:12 Dose: 5 mg Vital Signs - 24 hr 03/16/1818 03/16/18 15:19 18:00 20:34 Temperature 97.8 F 97.5 F L 97.8 F Pulse Rate 79 83 72 Respiratory 16 18 18 Rate Blood Pressure 130/79 110/75 148/83 O2 Sat by Pulse Oximetry (%) 03/16/18 03/17/18 03/17/18 20:35 02:45 10:00 Temperature 97.4 F L 98.4 F Pulse Rate 58 L 82 Respiratory 18 20 20 Rate Blood Pressure 130/91 159/79 O2 Sat by Pulse 96 95 Oximetry (%) Intake & Output 03/15/18 03/16/18 03/17/18 03/18/18 07:59 07:59 07:59 07:59 Intake Total 3175 200 Output Total 4 2 Balance 3171 198 Weight 188 lb 12.8 oz nad, calm jvd flat, neck supple ctab, nl effort rrr nl s1, s2 no mrg. pmi nd. + bs soft nt nd, no hsm no LE e/c/c + dp/pt, no carotid bruit aaox3 no jaundice, diaphoresis. CBC, BMP 03/17/18 06:35 03/17/18 06:35 Laboratory Tests 03/15/18 03/16/18 03/16/18 22:10 00:23 03:30 Magnesium Total Bilirubin AST ALT Alkaline Phosphatase Creatine Kinase 1564 H 3904 H Creatine Kinase Index 1.3 2.0 CK-MB (CK-2) 20.443 H 78.844 H Troponin I 0.38 H D 0.32 H Albumin Triglycerides Cholesterol Total LDL Cholesterol HDL Cholesterol TSH Opiates Screen Positive Methadone Screen Positive Benzodiazepines Screen Positive HIV 1&2 Antibody Screen HIV P24 Antigen 03/16/18 03/16/18 03/17/18 07:45 07:45 06:35 Magnesium 2.1 Total Bilirubin 0.2 D AST 143 H D ALT 98 H D Alkaline Phosphatase 79 Creatine Kinase 1849 H Creatine Kinase Index 1.3 CK-MB (CK-2) 25.841 H Troponin I 0.03 D Albumin 2.9 L Triglycerides 179 H Cholesterol 150 Total LDL Cholesterol 92 HDL Cholesterol 38 L TSH 5.28 H Opiates Screen Methadone Screen Benzodiazepines Screen HIV 1&2 Antibody Screen Negative HIV P24 Antigen Negative ekg 03/15 Sinus tach, 109 bpm. no acute ischemic changes. ekg 03/16: sr. j point elevation (more prominent than on prior ekg). no acute ischemic changes. tele: sr. echo 03/2018: nl lv/rv size/fn. no sig valvular abnormalities. A/P 37 yo ivdu with pmhx of htn, oral ca who presents s/p heroin overdose, hospital course notable for elevated troponins. Rhabdo/ab troponins - elevated trop 2/2 cardiac injury in setting of rhabdo (likely 2/2 heroin overdose), ck up to 3900. trop now normalized s/p IVF. - echo wnl. ekg without acute ischemic changes. no concern for acs. no need for further ischemic eval. htn - on norvasc at home, clonidine started here. - monitor for need to adjust regimen as outpatient. MIGUELINA/ab lft's - improving s/p IVF. suicidal ideation/heroin abuse - detox consult and psych consult following. stable from cv perspective. Recommend outpatient cardiology follow up.
[2018-03-17] MEDS ORDERED: GABAPENTIN 100 MG CAPSULE (FP) PO SCH (14:00)
[2018-03-17] MEDS ORDERED: THIAMINE HCL 100 MG TABLET (FP) PO SCH (22:00)
[2018-03-17] MEDS ORDERED: diazePAM 5 MG TABLET PO SCH (22:00)
== END 2018-03-17 13:34 | disposition home or self-care (01) | DRG 917 ==
LOC: JER 19:57 → JERBED 03-16 00:52 → J4W 03-16 03:50
PROVIDERS: ADMIT Internal Medicine; ATTEND Internal Medicine
DX: T40.1X1A Poisoning by heroin, accidental (unintentional), initial encounter (principal); I21.4 Non-ST elevation (NSTEMI) myocardial infarction; M62.82 Rhabdomyolysis; R45.851 Suicidal ideations; N17.9 Acute kidney failure, unspecified; F11.20 Opioid dependence, uncomplicated; B37.0 Candidal stomatitis; Z88.0 Allergy status to penicillin; Y92.89 Other specified places as the place of occurrence of the external cause; E86.0 Dehydration; F17.210 Nicotine dependence, cigarettes, uncomplicated; I10 Essential (primary) hypertension; D72.829 Elevated white blood cell count, unspecified; R00.0 Tachycardia, unspecified
CPT/HCPCS: 36415; 70450-TC; 71045-TC-FY; 80048; 80053; 80061; 80307; 81003; 82550; 82553; 82570; 83605; 83721; 83735; 83930; 83935; 84100; 84300; 84443; 84484; 85025; 87040; 87389; 93005; 93010; 93306-TC; 99285-25; J0735; J7030

== ENCOUNTER 2018-10-22 11:02 | Emergency (ER) | payer BC ==
[2018-10-22 11:09] VITALS: BP 153/79; PULSE 63; TEMP 98.8; BMI 39.1
--- NOTE | 2018-10-22 11:15 | PDOC ---
Attending Attestation - Resident Resident Name: [email or web address] - HPI HPI: 10/22/18 14:32 Pt presents to the ED complaining of a two week history of flank pain radiating to the L groin and mild nausea, without fever, change in bowel habits or urinary complaints. Also complains of mild intermittent painless swelling to both lower extremities which is worse in the morning. - Physicial Exam PE: 10/22/18 15:38 Agree with resident exam. 1 + pitting edema to the mid calf, without tenderness or erythema. Abdomen is soft, non distended, with no guarding. Mild tenderness to deep palpation in the LLQ. - Medical Decision Making 10/22/18 15:40 Pt presents to the ED complaining of L sided flank and abdominal pain, along with lower extremity swelling. Initial differential of abdominal pain included diverticulitis, less likely abscess, renal stone. CT is negative for acute pathology. Will discharge home.
[2018-10-22 12:25] LABS: BASO % 0.9 % (0-2.0); EOS % 2.3 % (0-4.5); HEMATOCRIT 42.5 % (35.4-49); HEMOGLOBIN 13.5 GM/dl (11.7-16.9); LYMPH % 23.5 % (8-40); MCH 26.4 pg (25.7-33.7); MCHC 31.8 g/dl (32.0-35.9); MEAN PLT VOLUME 9.4 fl (7.5-11.1); MONO % 8.9 % (3.8-10.2); NEUT % 64.4 % (42.8-82.8); PLATELET COUNT 244 K/MM3 (134-434); RBC 5.12 M/mm3 (4.00-5.60); RDW 14.2 % (11.9-15.9); WHITE BLOOD COUNT 7.6 K/mm3 (4.0-10.8)
[2018-10-22 12:30] LABS: ALBUMIN 3.8 g/dl (3.5-5.0); ALK PHOS 61 U/L (32-92); ANION GAP 7 MMOL/L (8-16); BILIRUBIN,TOTAL 0.6 mg/dl (0.2-1.0); BLOOD UREA NITROGEN 14 mg/dl (7-18); CALCIUM 9.4 mg/dl (8.4-10.2); CHLORIDE 102 mmol/L (98-107); CO2 29 mmol/L (22-28); CREATININE 0.9 mg/dl (0.6-1.3); GLUCOSE,RANDOM 87 mg/dl (74-106); POTASSIUM 4.1 mmol/L (3.5-5.1); SGOT/AST 33 U/L (10-42); SGPT/ALT 24 U/L (10-40); SODIUM 138 mmol/L (136-145); TOT PROT 7.1 g/dl (6.4-8.3)
--- NOTE | 2018-10-22 12:40 | PDOC ---
History of Present Illness - General Chief Complaint: Pain Stated Complaint: LEFT LOW ABD, LEFT BACK PAIN Time Seen by Provider: 10/22/18 11:02 History Source: Patient Exam Limitations: No Limitations - History of Present Illness Initial Comments: 10/22/18 12:48 38 year old man with history of heroin abuse, oral cancer (2008), gastritis, gastric ulcer and HTN who presents with 2 weeks of swelling in the calfs and feet bilaterally and 1 week of "throbbing" rated 8/10 L sided flank pain radiating into the groin originally intermittent but constant for 1 day. The patient also complains of weight gain of approx 15 pounds over the past 2-3 weeks and difficulty starting urinary stream and completely emptying the bladder. The patient also complains of chronic cough for 2 weeks. He denies any fever, N/V/D/C. He has no other complaints at bedside. Patient denies recent illness, long flights or travels. PMHX: as in HPI PSHX: L forearm graft for oral cancer, appendectomy Meds: amlodipine, gabapentin Allergies: pencillin Tob: none Etoh: none Rec drugs: none Past History - Past Medical History Allergies/Adverse Reactions: Allergies Allergy/AdvReac Type Severity Reaction Status Date / Time Penicillins Allergy Severe Hives Verified 10/22/18 11:01 Home Medications: Ambulatory Orders Amlodipine Besylate [Norvasc -] 10 mg PO DAILY 10/22/18 Escitalopram Oxalate [Lexapro -] 10 mg PO DAILY 10/22/18 Gabapentin [Neurontin -] 600 mg PO TID 10/22/18 Anemia: No Asthma: No Cancer: Yes (ORAL CA) Cardiac Disorders: No CVA: No COPD: No CHF: No Dementia: No Diabetes: No GI Disorders: No Disorders: No HTN: Yes Hypercholesterolemia: No Kidney Stones: No Liver Disease: No Psychiatric Problems: Yes (ANXIETY, DEPRESSION) Seizures: No Thyroid Disease: No - Surgical History Abdominal Surgery: No Appendectomy: Yes ([place] 1996) Cardiac Surgery: No Cholecystectomy: No Lung Surgery: No Neurologic Surgery: No Orthopedic Surgery: No - Reproductive History Testicular Surgery: No - Immunization History Immunization Up to Date: No - Suicide/Smoking/Psychosocial Hx Smoking Status: No Smoking History: Never smoked Have you smoked in the past 12 months: No Number of Cigarettes Smoked Daily: 0 If you are a former smoker, when did you quit?: 10 YRS AGO Information on smoking cessation initiated: No 'Breaking Loose' booklet given: 05/01/16 Hx Alcohol Use: No Drug/Substance Use Hx: Yes Substance Use Type: Heroin Hx Substance Use Treatment: Yes Review of Systems - Review of Systems Able to Perform ROS?: Yes Is the patient limited [place]ian proficient: No Constitutional: No: Chills, Diaphoresis, Fever Respiratory: No: Cough, Orthopnea, Shortness of Breath Cardiac (ROS): No: Chest Pain, Palpitations ABD/GI: No: Constipated, Diarrhea, Nausea, Vomiting : Yes: Flank Pain, Testicular Pain. No: Burning, Dysuria, Hematuria, Incontinence, Testicular Swelling Musculoskeletal: Yes: Back Pain Integumentary: No: Lesions, Lumps, Rash Neurological: No: Headache Endocrine: Yes: Change in Weight *Physical Exam - Vital Signs Last Vital Signs Temp Pulse Resp BP Pulse Ox 98.8 F 63 18 153/79 99 10/22/18 11:02 10/22/18 11:02 10/22/18 11:02 10/22/18 11:02 10/22/18 11:02 - Physical Exam Comments: 10/22/18 15:00 GENERAL: Awake, alert, and fully oriented, in no acute distress HEAD: No signs of trauma, normocephalic, atraumatic EYES: EOMI, sclera anicteric, conjunctiva clear ENT: oropharynx clear without exudates. Moist mucosa NECK: Normal ROM, supple LUNGS: No distress, speaks full sentences, clear to auscultation bilaterally HEART: Regular rate and rhythm, normal S1 and S2, no murmurs, rubs or gallops, peripheral pulses normal and equal bilaterally. ABDOMEN: Soft, + LLQ tenderness to palpation, normoactive bowel sounds. No guarding, no rebound. No masses BACK: no CVA tenderness GENITAL: vertical lie of the testicles bilaterally, nontender to palpation, warm , dry, without rashes, no inguinal hernias palpated EXTREMITIES : Normal inspection, Normal range of motion, no edema. No clubbing or cyanosis. NEUROLOGICAL: Cranial nerves II through XII grossly intact. Normal speech, normal gait, no focal sensorimotor deficits SKIN: Warm, Dry, normal turgor, no rashes or lesions noted Moderate Sedation - Procedure Monitoring Vital Signs: Procedure Monitoring Vital Signs Temperature 98.8 F 12/20/18 11:02 Pulse Rate 63 10/22/18 11:02 Respiratory Rate 18 10/22/18 11:02 Blood Pressure 153/79 10/22/18 11:02 O2 Sat by Pulse Oximetry (%) 99 10/22/18 11:02 ED Treatment Course - LABORATORY CBC & Chemistry Diagram: 10/22/18 12:05 10/22/18 12:05 - ADDITIONAL ORDERS Additional order review: Laboratory Results 10/22/18 12:05 Sodium 138 Potassium 4.1 Chloride 102 Carbon Dioxide 29 H Anion Gap 7 L BUN 14 Creatinine 0.9 Creat Clearance w eGFR > 60 Random Glucose 87 D Calcium 9.4 Total Bilirubin 0.6 AST 33 D ALT 24 D Alkaline Phosphatase 61 Total Protein 7.1 Albumin 3.8 10/22/18 12:05 RBC 5.12 MCV 83.0 MCHC 31.8 L RDW 14.2 MPV 9.4 Neutrophils % 64.4 D Lymphocytes % 23.5 D Monocytes % 8.9 D Eosinophils % 2.3 D Basophils % 0.9 - RADIOLOGY Radiology Studies Ordered: Category Date Time Status ABDOMEN & PELVIS CT WITH CONTR [CT] Stat CT Scan 10/22/18 12:00 Ordered Medical Decision Making - Medical Decision Making 10/22/18 13:07 38 year old man with history of heroin abuse, oral cancer (2008), gastritis, gastric ulcer and HTN who presents with 2 weeks of swelling in the calfs and feet bilaterally and 1 week of "throbbing" rated 8/10 L sided flank pain radiating into the groin originally intermittent but constant for 1 day. The patient also complains of weight gain of approx 15 pounds over the past 2-3 weeks and difficulty starting urinary stream and completely emptying the bladder. The patient also complains of chronic cough for 2 weeks. He denies any fever, N/V/D/C. He has no other complaints at bedside. ED Course: Patient with history concerning for nephrolithiasis vs testicular torsion vs MIGUELINA / renal insuff . Physical exam does not exhibit CVA tenderness but with LLQ tenderness to palpation BUn: 14, Cr 0.9 UA: uinremarkable Abd CT: without evidence of sbo or diverticulitis, largely unremarkable. Likely patient with weight gain 2/2 to heroin detox 7 months ago. Labwork and imaging unremarkable and pain controlled, patient does not require admission. Will have patient follow up with PCP. Dr. Sargent, office contacted, made aware of patient. Follow up visit scheduled for tomorrow. Patient stable for discharge. Informed of all lab and imaging results. Given follow up instructions and strict return precautions. Patient expressed understanding and agree to plan. *DC/Admit/Observation/Transfer Diagnosis at time of Disposition: Abdominal pain, Flank pain - Discharge Dispostion Disposition: HOME Condition at time of disposition: Stable Decision to Admit order: No - Referrals - Patient Instructions Additional Instructions: You were seen in the ED for complaints of abdominal pain and flank pain. In the ED you were evaluated with labwork and CT scan. Your results were unremarkable. There does not appear to be an acute need for immediate hospitalization. You are advised to follow up with your Primary Care Physician, Dr. Sargent at 1: 45pm tomorrow 10/23/18. Return to the ED immediately if you experience worsening and uncontrollable abdominal pain, blood in the urine or stool, inability to empty the bladder, worsening swelling of the legs and feet, fever, chest pain or shortness of breath. - Post Discharge Activity
[2018-10-22] MEDS ORDERED: ACETAMINOPHEN 325 MG TABLET (FP) PO ONE (12:41)
[2018-10-22] MEDS ORDERED: ACETAMINOPHEN 325 MG TABLET (FP) ONE (12:47)
[2018-10-22 13:29] LABS: LIPASE 110 U/L (73-393)
[2018-10-22] MEDS ORDERED: KETOROLAC TROMETHAMINE 10 MG TABLET PO ONE (14:11)
[2018-10-22] MEDS ORDERED: KETOROLAC TROMETHAMINE 30 MG/1 ML VIAL IVPUSH ONE (14:15)
[2018-10-22] MEDS ORDERED: KETOROLAC TROMETHAMINE 30 MG/1 ML VIAL ONE (14:15)
[2018-10-22 14:22] LABS: URINE APPEARANCE Clear; URINE BILIRUBIN Negative (NEGATIVE); URINE COLOR Amber; URINE GLUCOSE (UA) Negative (NEGATIVE); URINE KETONE Negative (NEGATIVE); URINE LEUK ESTERASE Negative (NEGATIVE); URINE NITRITE Negative (NEGATIVE); URINE PROTEIN Trace (NEGATIVE); URINE UROBILINOGEN 0.2 (0.2-1.0)
== END 2018-10-22 14:40 | disposition home or self-care (01) ==
LOC: FER 11:02
PROC: 3E0333Z Introduction of Anti-inflammatory into Peripheral Vein, Percutaneous Approach (ICD-10-PCS; principal; 2018-10-22)
DX: R10.32 Left lower quadrant pain (principal); R10.9 Unspecified abdominal pain
CPT/HCPCS: 36415; 74177-TC; 80053; 81003; 83690; 85025; 87086; 99284-25

== ENCOUNTER 2018-11-10 10:02 | Emergency (ER) | payer BC ==
[2018-11-10 10:07] VITALS: BP 135/64; PULSE 76; TEMP 97.8; BMI 39.1
--- NOTE | 2018-11-10 10:25 | PDOC ---
History of Present Illness <Tracey Johnson - Last Filed: 11/10/18 12:11> - General History Source: Patient - History of Present Illness Occurred: reports: other Severity: reports: moderate Pain Location: reports: abdomen, back <Wu Bright - Last Filed: 11/10/18 15:51> - General Chief Complaint: Pain Stated Complaint: BACK PAIN Time Seen by Provider: 11/10/18 10:15 Past History <Tracey Johnson - Last Filed: 11/10/18 12:11> - Past Medical History Anemia: No Asthma: No Cancer: Yes (ORAL CA) Cardiac Disorders: No CVA: No COPD: No CHF: No Dementia: No Diabetes: No GI Disorders: No Disorders: No HTN: Yes Hypercholesterolemia: No Kidney Stones: No Liver Disease: No Psychiatric Problems: Yes (ANXIETY, DEPRESSION) Seizures: No Thyroid Disease: No - Surgical History Abdominal Surgery: No Appendectomy: Yes ([place] 1996) Cardiac Surgery: No Cholecystectomy: No Lung Surgery: No Neurologic Surgery: No Orthopedic Surgery: No - Reproductive History Testicular Surgery: No - Immunization History Immunization Up to Date: No - Suicide/Smoking/Psychosocial Hx Smoking Status: No Smoking History: Never smoked Have you smoked in the past 12 months: No Number of Cigarettes Smoked Daily: 0 If you are a former smoker, when did you quit?: 10 YRS AGO Information on smoking cessation initiated: No 'Breaking Loose' booklet given: 05/01/16 Hx Alcohol Use: No Drug/Substance Use Hx: No Substance Use Type: Heroin Hx Substance Use Treatment: Yes <Wu Bright - Last Filed: 11/10/18 15:51> - Past Medical History Allergies/Adverse Reactions: Allergies Allergy/AdvReac Type Severity Reaction Status Date / Time Penicillins Allergy Severe Hives Verified 10/22/18 11:01 Home Medications: Ambulatory Orders Amlodipine Besylate [Norvasc -] 10 mg PO DAILY 10/22/18 Escitalopram Oxalate [Lexapro -] 10 mg PO DAILY 10/22/18 Gabapentin [Neurontin -] 600 mg PO TID 10/22/18 Cyclobenzaprine HCl [Flexeril -] 10 mg PO TID #9 tablet 11/10/18 Ibuprofen [Motrin -] 2 tab PO Q6H #30 tablet 11/10/18 Trauma Specific PMHX - Complaint Specific PMHX Arthritis: No <Wu Bright - Last Filed: 11/10/18 15:51> Review of Systems - Review of Systems Constitutional: No: Chills, Fever ABD/GI: Yes: Abdominal cramping. No: Diarrhea, Nausea, Vomiting : No: Burning, Dysuria, Discharge, Flank Pain, Hematuria, Testicular Mass, Testicular Swelling, Lesions, Testicular Pain Musculoskeletal: Yes: Back Pain <Wu Bright - Last Filed: 11/10/18 15:51> *Physical Exam - Vital Signs Last Vital Signs Temp Pulse Resp BP Pulse Ox 97.8 F 76 18 135/64 100 11/10/18 10:04 11/10/18 10:04 11/10/18 10:04 11/10/18 10:04 11/10/18 10:04 <Tracey Johnson - Last Filed: 11/10/18 12:11> - Vital Signs Last Vital Signs Temp Pulse Resp BP Pulse Ox 97.8 F 76 18 135/64 100 11/10/18 10:04 11/10/18 10:04 11/10/18 10:04 11/10/18 10:04 11/10/18 10:04 - Physical Exam General Appearance: Yes: Appropriately Dressed. No: Apparent Distress HEENT: positive: Normal Voice Neck: positive: Supple Respiratory/Chest: negative: Respiratory Distress Gastrointestinal/Abdominal: positive: Tender (to LLQ), Soft. negative: Distended, Guarding, Rebound, Hernia Male Genitalia: positive: normal genitalia. negative: discharge, testicular tenderness, testicular mass, epididymus tender Musculoskeletal: negative: CVA Tenderness Integumentary: positive: Dry, Warm Neurologic: positive: Fully Oriented, Alert, Normal Mood/Affect <Wu Bright - Last Filed: 11/10/18 15:51> Moderate Sedation - Procedure Monitoring Vital Signs: Procedure Monitoring Vital Signs Temperature 97.8 F 11/10/18 10:04 Pulse Rate 76 11/10/18 10:04 Respiratory Rate 18 11/10/18 10:04 Blood Pressure 135/64 11/10/18 10:04 O2 Sat by Pulse Oximetry (%) 100 11/10/18 10:04 <Tracey Johnson - Last Filed: 11/10/18 12:11> - Procedure Monitoring Vital Signs: Procedure Monitoring Vital Signs Temperature 97.8 F 11/10/18 10:04 Pulse Rate 76 11/10/18 10:04 Respiratory Rate 18 11/10/18 10:04 Blood Pressure 135/64 11/10/18 10:04 O2 Sat by Pulse Oximetry (%) 100 11/10/18 10:04 <Wu Bright - Last Filed: 11/10/18 15:51> ED Treatment Course - LABORATORY CBC & Chemistry Diagram: 11/10/18 10:43 11/10/18 10:43 - ADDITIONAL ORDERS Additional order review: Laboratory Results 11/10/18 11/10/18 10:43 10:43 Sodium 138 Potassium 4.5 Chloride 105 Carbon Dioxide 29 Anion Gap 4 L BUN 16 Creatinine 1.0 Creat Clearance w eGFR > 60 Random Glucose 84 Calcium 9.3 Total Bilirubin 0.3 AST 32 ALT 31 Alkaline Phosphatase 67 Total Protein 7.2 Albumin 3.6 Urine Color Ltyellow Urine Appearance Clear Urine pH 5.0 Ur Specific [place] 1.025 Urine Protein Negative Urine Glucose (UA) Negative Urine Ketones Negative Urine Blood Negative Urine Nitrite Negative Urine Bilirubin Negative Urine Urobilinogen Negative Ur Leukocyte Esterase Negative 11/10/18 10:43 RBC 5.14 MCV 81.2 MCHC 31.5 L RDW 14.4 MPV 8.9 Neutrophils % 58.0 D Lymphocytes % 26.7 D Monocytes % 11.5 H Eosinophils % 2.6 Basophils % 1.2 - Medications Given in the ED: ED Medications Discontinued Medications Generic Name Dose Route Start Last Admin Trade Name Deidra PRN Reason Stop Dose Admin Cyclobenzaprine HCl 5 mg 11/10/18 10:52 11/10/18 11:00 Flexeril - PO 11/10/18 10:53 5 mg ONCE ONE Administration Ketorolac Tromethamine 30 mg 11/10/18 10:27 11/10/18 10:55 Toradol Injection - IVPUSH 11/10/18 10:28 30 mg ONCE ONE Administration <Tarcey Johnson - Last Filed: 11/10/18 12:11> - LABORATORY CBC & Chemistry Diagram: 11/10/18 10:43 11/10/18 10:43 <Wu Bright - Last Filed: 11/10/18 15:51> Medical Decision Making - Medical Decision Making The patient was seen and evaluated in conjunction with midlevel provider under my direct supervision, ancillary studies were reviewed. I agree with the plan as outlined by THEA Bright. HPI and workup/dispo as outlined. 11/10/18 12:11 <Tracey Johnson - Last Filed: 11/10/18 12:11> - Medical Decision Making 11/10/18 10:21 38 yo M, oral s/p surgery remotely, former heroin abuse (sober x 9 yrs per pt), not on methadone, s/p appy, here w/ L lower back pain radiating to LLQ and L groin 3 weeks. Was seen in the ER at [place] 2 weeks ago with negative labs. CT was done showing mild disc bulge to L5-S1 with possible L nerve root impingement, possible enteritis and several tiny diverticula. Patient does report some diarrhea. No bright red blood per rectum and denies nausea, vomiting, dysuria, hematuria, penile discharge, testicular swelling, mass, fever or chills See exam L lower back/abd pain R/o diverticulitis vs colitis, possibly MSK radha given mild disc bulge to L5-S1 w / ? L nerve impingement on CT 10/22/18 -pain control -labs -CT 11/10/18 15:27 CT and labs unremarkable. Will DC with pain control and PMD follow-up <Wu Bright - Last Filed: 11/10/18 15:51> *DC/Admit/Observation/Transfer <Tracey Johnson - Last Filed: 11/10/18 12:11> <uW Bright - Last Filed: 11/10/18 15:51> Diagnosis at time of Disposition: Lower back pain Qualifiers: Chronicity: acute Back pain laterality: left Sciatica presence: without sciatica Qualified Code(s): M54.5 - Low back pain - Discharge Dispostion Disposition: HOME Condition at time of disposition: Improved - Prescriptions Prescriptions: Cyclobenzaprine HCl [Flexeril -] 10 mg PO TID #9 tablet Ibuprofen [Motrin -] 2 tab PO Q6H #30 tablet - Patient Instructions Printed Discharge Instructions: DI for Low Back Pain Additional Instructions: Your CT showed no abnormal process in your abdomen. Your pain could be explained by the herniated disc with possible nerve root impingement seen on prior CT. We sent Motrin and a muscle relaxant to your pharmacy. Take as directed. Please follow-up with your doctor - Post Discharge Activity Forms/Work/School Notes: Back to Work
[2018-11-10] MEDS ORDERED: KETOROLAC TROMETHAMINE 30 MG/1 ML VIAL IVPUSH ONE (10:27)
[2018-11-10] MEDS ORDERED: KETOROLAC TROMETHAMINE 30 MG/1 ML VIAL ONE (10:50)
[2018-11-10] MEDS ORDERED: CYCLOBENZAPRINE HCL 10 MG TABLET (FP) PO ONE (10:52)
[2018-11-10] MEDS ORDERED: CYCLOBENZAPRINE HCL 10 MG TABLET (FP) ONE (10:56)
[2018-11-10 10:59] LABS: BASO % 1.2 % (0-2.0); EOS % 2.6 % (0-4.5); HEMATOCRIT 41.7 % (35.4-49); HEMOGLOBIN 13.1 GM/dL (11.7-16.9); LYMPH % 26.7 % (8-40); MCH 25.5 pg (25.7-33.7); MCHC 31.5 g/dl (32.0-35.9); MEAN CELL VOLUME 81.2 fl (80-96); MEAN PLT VOLUME 8.9 fl (7.5-11.1); MONO % 11.5 % (3.8-10.2); PLATELET COUNT 253 K/MM3 (134-434); RBC 5.14 M/mm3 (4.00-5.60); RDW 14.4 % (11.9-15.9); WHITE BLOOD COUNT 7.1 K/mm3 (4.0-10.0)
[2018-11-10 11:05] LABS: URINE APPEARANCE CLEAR; URINE BILIRUBIN NEGATIVE (<2.0 mg/dL); URINE COLOR LTYELLOW; URINE GLUCOSE (UA) NEGATIVE (NEGATIVE); URINE KETONE NEGATIVE (NEGATIVE); URINE LEUK ESTERASE NEGATIVE (NEGATIVE); URINE NITRITE NEGATIVE (NEGATIVE); URINE PROTEIN NEGATIVE (NEGATIVE); URINE UROBILINOGEN NEGATIVE mg/dL (0.2-1.0)
[2018-11-10 11:22] LABS: ALBUMIN 3.6 g/dl (3.4-5.0); ALK PHOS 67 U/L (45-117); ANION GAP 4 MMOL/L (8-16); BILIRUBIN,TOTAL 0.3 mg/dL (0.2-1); BLOOD UREA NITROGEN 16 mg/dL (7-18); CALCIUM 9.3 mg/dL (8.5-10.1); CHLORIDE 105 mmol/L (98-107); CO2 29 mmol/L (21-32); GLUCOSE,RANDOM 84 mg/dL (74-106); POTASSIUM 4.5 mmol/L (3.5-5.1); SGOT/AST 32 U/L (15-37); SGPT/ALT 31 U/L (13-61); SODIUM 138 mmol/L (136-145); TOT PROT 7.2 g/dl (6.4-8.2)
== END 2018-11-10 15:36 | disposition home or self-care (01) ==
LOC: JER 10:02
PROC: 3E0333Z Introduction of Anti-inflammatory into Peripheral Vein, Percutaneous Approach (ICD-10-PCS; principal; 2018-11-10)
DX: M54.5 Low back pain (principal); I10 Essential (primary) hypertension; F41.8 Other specified anxiety disorders; F32.9 Major depressive disorder, single episode, unspecified; Z85.819 Personal history of malignant neoplasm of unspecified site of lip, oral cavity, and pharynx
CPT/HCPCS: 36415; 74177-TC; 80053; 81003; 85025; 99282-25

== ENCOUNTER 2019-01-04 16:51 | Emergency (ER) | payer BC ==
--- NOTE | 2019-01-04 17:07 | PDOC ---
Rapid Medical Evaluation Time Seen by Provider: 01/04/19 17:00 Medical Evaluation: Allergies Allergy/AdvReac Type Severity Reaction Status Date / Time Penicillins Allergy Severe Hives Verified 10/22/18 11:01 01/04/19 17:00 I have performed a brief in-person evaluation of this patient. The patient presents with a chief complaint of: midsternal CP while lifting weights Pertinent physical exam findings: reproducible CP to 5th ICS at LSB. VSS. AF. I have ordered the following: Labs, EKG, urine, CXR The patient will proceed to the ED for further evaluation. Discharge Disposition - Diagnosis Chest pain - Referrals - Patient Instructions - Post Discharge Activity
[2019-01-04 17:09] VITALS: BP 146/70; PULSE 94; TEMP 98.5; BMI 37.9
[2019-01-04 17:38] LABS: BASO % 0.7 % (0-2.0); EOS % 0.7 % (0-4.5); HEMATOCRIT 44.2 % (35.4-49); HEMOGLOBIN 14.7 GM/dL (11.7-16.9); LYMPH % 15.9 % (8-40); MCHC 33.4 g/dl (32.0-35.9); MEAN CELL VOLUME 80.9 fl (80-96); MEAN PLT VOLUME 9.5 fl (7.5-11.1); NEUT % 73.7 % (42.8-82.8); PLATELET COUNT 230 K/MM3 (134-434); RBC 5.46 M/mm3 (4.00-5.60); RDW 13.9 % (11.9-15.9); WHITE BLOOD COUNT 9.5 K/mm3 (4.0-10.0)
[2019-01-04 17:52] LABS: URINE APPEARANCE SLCLOUDY; URINE BILIRUBIN NEGATIVE (<2.0 mg/dL); URINE COLOR DKYELLOW; URINE GLUCOSE (UA) NEGATIVE (NEGATIVE); URINE KETONE NEGATIVE (NEGATIVE); URINE LEUK ESTERASE NEGATIVE (NEGATIVE); URINE NITRITE NEGATIVE (NEGATIVE); URINE PROTEIN 1+ (NEGATIVE); URINE UROBILINOGEN NEGATIVE mg/dL (0.2-1.0)
[2019-01-04 17:56] LABS: EPI CELLS RARE /HPF (FEW); URINE MUCUS MODERATE
[2019-01-04 18:09] LABS: ALBUMIN 3.9 g/dl (3.4-5.0); ALK PHOS 84 U/L (45-117); ANION GAP 8 MMOL/L (8-16); BILIRUBIN,TOTAL 0.4 mg/dL (0.2-1); BLOOD UREA NITROGEN 10 mg/dL (7-18); CALCIUM 8.8 mg/dL (8.5-10.1); CHLORIDE 93 mmol/L (98-107); CO2 32 mmol/L (21-32); CREATININE 1.1 mg/dL (0.55-1.3); GLUCOSE,RANDOM 89 mg/dL (74-106); MAGNESIUM 1.9 mg/dL (1.8-2.4); POTASSIUM 3.8 mmol/L (3.5-5.1); SGOT/AST 47 U/L (15-37); SGPT/ALT 48 U/L (13-61); SODIUM 134 mmol/L (136-145); TOT PROT 8.9 g/dl (6.4-8.2)
[2019-01-04 18:23] LABS: INR 1.06 (0.83-1.09); PROTHROMBIN TIME (PATIENT) 12.5 SEC (9.7-13.0)
--- NOTE | 2019-01-04 19:46 | PDOC ---
History of Present Illness - General Chief Complaint: Chest Pain Stated Complaint: BACK PAIN Time Seen by Provider: 01/04/19 17:00 History Source: Patient Exam Limitations: No Limitations Past History - Past Medical History Allergies/Adverse Reactions: Allergies Allergy/AdvReac Type Severity Reaction Status Date / Time Penicillins Allergy Severe Hives Verified 10/22/18 11:01 Home Medications: Ambulatory Orders Amlodipine Besylate [Norvasc -] 10 mg PO DAILY 10/22/18 Escitalopram Oxalate [Lexapro -] 10 mg PO DAILY 10/22/18 Gabapentin [Neurontin -] 600 mg PO ASDIR 10/22/18 Gabapentin 1,200 mg PO BID 01/04/19 Anemia: No Asthma: No Cancer: Yes (ORAL CA) Cardiac Disorders: No CVA: No COPD: No CHF: No Dementia: No Diabetes: No GI Disorders: No Disorders: No HTN: Yes Hypercholesterolemia: No Kidney Stones: No Liver Disease: No Psychiatric Problems: Yes (ANXIETY, DEPRESSION) Seizures: No Thyroid Disease: No - Surgical History Abdominal Surgery: No Appendectomy: Yes ([place] 1996) Cardiac Surgery: No Cholecystectomy: No Lung Surgery: No Neurologic Surgery: No Orthopedic Surgery: No - Reproductive History Testicular Surgery: No - Immunization History Immunization Up to Date: No - Suicide/Smoking/Psychosocial Hx Smoking Status: No Smoking History: Never smoked Have you smoked in the past 12 months: No Number of Cigarettes Smoked Daily: 0 If you are a former smoker, when did you quit?: 10 YRS AGO Information on smoking cessation initiated: No 'Breaking Loose' booklet given: 05/01/16 Hx Alcohol Use: No Drug/Substance Use Hx: No Substance Use Type: Heroin Hx Substance Use Treatment: Yes Cardiac Specific PMH - Complaint Specific PMHX Pacemaker: No *Physical Exam - Vital Signs Last Vital Signs Temp Pulse Resp BP Pulse Ox 98.5 F 94 H 18 146/70 100 01/04/19 17:04 01/04/19 17:04 01/04/19 17:04 01/04/19 17:04 01/04/19 17:30 - Physical Exam General Appearance: No: Apparent Distress Neck: positive: Supple Respiratory/Chest: positive: Lungs Clear, Normal Breath Sounds. negative: Chest Tender, Respiratory Distress Cardiovascular: positive: Regular Rhythm, Regular Rate, S1, S2. negative: Murmur Gastrointestinal/Abdominal: positive: Normal Bowel Sounds, Soft. negative: Tender, Distended, Guarding, Rebound Extremity: positive: Normal Inspection. negative: Pedal Edema, Calf Tenderness Neurologic: positive: Fully Oriented, Alert, Normal Mood/Affect Heart Score/ECG Review - History History: Slightly suspicious - Electrocardiogram EKG: Normal - Age Age: </= 45 - Risk Factors Risk Factors Heart Score: Yes Hx Hypertension Based on the list above the patient has:: 1-2 risk factors - Troponin Troponin: </= normal limit - Score Heart Score - Total: 1 #1 EKG MSR at 92 bpm, TWI lead III (unchanged from prior 03/2018) 01/04/19 19:41 Moderate Sedation - Procedure Monitoring Vital Signs: Procedure Monitoring Vital Signs Temperature 98.5 F 01/04/19 17:04 Pulse Rate 94 H 01/04/19 17:04 Respiratory Rate 18 01/04/19 17:04 Blood Pressure 146/70 01/04/19 17:04 O2 Sat by Pulse Oximetry (%) 100 01/04/19 17:30 ED Treatment Course - LABORATORY CBC & Chemistry Diagram: 01/04/19 17:27 01/04/19 17:27 - ADDITIONAL ORDERS Additional order review: Laboratory Results 01/04/19 01/04/19 01/04/19 17:28 17:27 17:27 PT with INR 12.50 INR 1.06 Sodium 134 L Potassium 3.8 Chloride 93 L Carbon Dioxide 32 Anion Gap 8 BUN 10 Creatinine 1.1 Creat Clearance w eGFR > 60 Random Glucose 89 Calcium 8.8 Magnesium 1.9 Total Bilirubin 0.4 AST 47 H ALT 48 Alkaline Phosphatase 84 Creatine Kinase 350 H Creatine Kinase Index 1.1 CK-MB (CK-2) 4.1 H Troponin I < 0.02 Total Protein 8.9 H Albumin 3.9 Urine Color Dkyellow Urine Appearance Slcloudy Urine pH 6.0 Ur Specific [place] 1.026 Urine Protein 1+ H Urine Glucose (UA) Negative Urine Ketones Negative Urine Blood Negative Urine Nitrite Negative Urine Bilirubin Negative Urine Urobilinogen Negative Ur Leukocyte Esterase Negative Urine WBC (Auto) 3 Urine RBC (Auto) 2 Ur Epithelial Cells Rare Urine Mucus Moderate 01/04/19 17:27 RBC 5.46 MCV 80.9 MCHC 33.4 RDW 13.9 MPV 9.5 Neutrophils % 73.7 D Lymphocytes % 15.9 D Monocytes % 9.0 Eosinophils % 0.7 Basophils % 0.7 Medical Decision Making - Medical Decision Making 38 y/o M with hx of oral CA 2009 (in remission), gastric ulcer, HTN, spinal stenosis, herniated disc, heroin abuse (has not used since March 2018) presents with palpitations, chest tightness and mild SOB while lifting weights around 4 PM. Denies fever, cough, abd pain, n/v, dizziness, syncope. 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 Denies smoking. Denies recent travel. Denies use of other drugs EKG unchanged from prior CXR normal Trop neg HS of 1 Unlikely ACS; also reassuring that recent negative stress test Likely MSK pain Currently comfortable and in no pain Stable for dc 01/04/19 19:42 *DC/Admit/Observation/Transfer Diagnosis at time of Disposition: Musculoskeletal chest pain, Palpitations - Discharge Dispostion Disposition: HOME Condition at time of disposition: Stable Decision to Admit order: No - Referrals - Patient Instructions Printed Discharge Instructions: DI for Chest Pain, DI for Palpitations Additional Instructions: Thank you for choosing [facility]. It was a pleasure taking care of you. Your EKG, chest xray and labs were unremarkable Likely your symptoms were musculoskeletal in nature Continue follow-up with your PCP and key bed installer Return to the Emergency Department if your symptoms worsen or persist or have other concerning symptoms. - Post Discharge Activity
--- NOTE | 2019-01-05 13:49 | EKG ---
Test Reason : Blood Pressure : / mmHG Vent. Rate : 092 BPM Atrial Rate : 092 BPM P-R Int : 140 ms QRS Dur : 092 ms QT Int : 358 ms P-R-T Axes : 051 052 025 degrees QTc Int : 442 ms NORMAL SINUS RHYTHM NONSPECIFIC ST AND T WAVE ABNORMALITY ABNORMAL ECG WHEN COMPARED WITH ECG OF 16-MAR-2018 09:33, NONSPECIFIC T WAVE ABNORMALITY NOW EVIDENT IN LATERAL LEADS Confirmed by MD Juan, Ronak ([id number]) on 01/05/2019 1:49:33 PM Referred By: Confirmed By:Ronak Martinez MD
== END 2019-01-04 19:54 | disposition home or self-care (01) ==
LOC: JER 16:51
DX: R07.89 Other chest pain (principal); I10 Essential (primary) hypertension; F41.8 Other specified anxiety disorders; F32.9 Major depressive disorder, single episode, unspecified; Z85.819 Personal history of malignant neoplasm of unspecified site of lip, oral cavity, and pharynx
CPT/HCPCS: 36415; 71046-TC-FY; 80053; 81003; 81015; 82550; 82553; 83735; 84484; 85025; 85610; 93005; 93010; 99285-25

== ENCOUNTER 2019-04-15 00:41 | Inpatient (IN) | payer BC ==
[2019-04-15] MEDS ORDERED: ACETAMINOPHEN 1000 MG/100 ML VIAL (NON FORMULARY) IVPB ONE (01:07)
--- NOTE | 2019-04-15 01:07 | PDOC ---
History of Present Illness - General Chief Complaint: Chest Pain Stated Complaint: VOMITING BLOOD,CHEST PAIN Time Seen by Provider: 04/15/19 00:53 History Source: Patient Exam Limitations: No Limitations - History of Present Illness Initial Comments: Pt is a 38 yo M, with PMH of N-STEMI, oral CA (s/p skin graft from L forearm), GERD, HTN, chronic back pain, and polysubstance use (heroin, opiates), who is presenting with complaints of substernal chest pain and acute hemoptysis shortly before presentation, which was associated with diaphoresis. Pt endorses NBNB n/v/d over the past 3-4 days. Pt states he was coughing shortly before presentation, and "began to spit up straight blood into the sink". Pt has been tolerating PO food and fluid intake. Pt states he has been taking his friend's vicodin pills for his chronic back pain, but denies using heroin or any IVDU for over a year. Pt denies any fevers/chills, headache, vision changes, syncope , palpitations, SOB, abdominal pain, urinary symptoms, constipation, or leg swelling. Allergies: PCN PCP: Dr. Sargent Social: Pt denies any cigarette or alcohol use. See substance use as above. Pt denies any recent travel or sick contacts. Surgical: L forearm skin graft to oral CA. Family: no relevant history. 04/15/19 06:39 Past History - Travel Traveled outside of the country in the last 30 days: No Close contact w/someone who was outside of country & ill: No - Past Medical History Allergies/Adverse Reactions: Allergies Allergy/AdvReac Type Severity Reaction Status Date / Time Penicillins Allergy Severe Hives Verified 04/15/19 00:49 Home Medications: Ambulatory Orders Amlodipine Besylate [Norvasc -] 10 mg PO DAILY 10/22/18 Escitalopram Oxalate [Lexapro -] 30 mg PO ONCE 04/15/19 Gabapentin 800 mg PO TID 04/15/19 Anemia: No Asthma: No Cancer: Yes (ORAL CA) Cardiac Disorders: No CVA: No COPD: No CHF: No Dementia: No Diabetes: No GI Disorders: No Disorders: No HTN: Yes Hypercholesterolemia: No Kidney Stones: No Liver Disease: No Psychiatric Problems: Yes (ANXIETY, DEPRESSION) Seizures: No Thyroid Disease: No - Surgical History Abdominal Surgery: No Appendectomy: Yes (IN 1996) Cardiac Surgery: No Cholecystectomy: No Lung Surgery: No Neurologic Surgery: No Orthopedic Surgery: No - Reproductive History Testicular Surgery: No - Immunization History Immunization Up to Date: No - Suicide/Smoking/Psychosocial Hx Smoking Status: No Smoking History: Never smoked Have you smoked in the past 12 months: No Number of Cigarettes Smoked Daily: 0 If you are a former smoker, when did you quit?: 10 YRS AGO Information on smoking cessation initiated: No 'Breaking Loose' booklet given: 05/01/16 Hx Alcohol Use: No Drug/Substance Use Hx: No Substance Use Type: Heroin Hx Substance Use Treatment: Yes Review of Systems - Review of Systems Able to Perform ROS?: Yes Is the patient limited Khmer proficient: No Constitutional: Yes: Weight Stable. No: Chills, Diaphoresis, Fever, Loss of Appetite, Malaise, Weakness HEENTM: No: Blurred Vision, Recent change in vision, Nose Congestion, Throat Pain, Throat Swelling, Difficulty Swallowing Respiratory: Yes: Cough, Productive cough, Hemoptysis. No: Orthopnea, Shortness of Breath, Wheezing Cardiac (ROS): Yes: Chest Pain, Chest Tightness. No: Edema, Irregular Heart Rate, Lightheadedness, Palpitations, Syncope ABD/GI: Yes: Diarrhea, Nausea, Vomiting. No: Constipated, Difficulty Swallowing , Poor Appetite, Poor Fluid Intake, Rectal Bleeding, Indigestion, Abdominal cramping : No: Burning, Dysuria, Frequency, Flank Pain, Pain, Urgency Musculoskeletal: No: Back Pain, Joint Pain, Joint Swelling, Muscle Pain, Muscle Weakness Integumentary: No: Erythema, Lesions, Rash Neurological: No: Headache, Numbness, Paresthesia, Weakness, Unsteady Gait, Ataxia, Dizziness Psychiatric: No: Sleep Pattern Change, Change in Appetite Endocrine: No: Increased Urine, Change in Weight Hematologic/Lymphatic: No: Anemia, Blood Clots, Easy Bleeding, Easy Bruising All Other Systems: Reviewed and Negative *Physical Exam - Vital Signs Last Vital Signs Temp Pulse Resp BP Pulse Ox 97.5 F L 102 H 28 H 188/97 H 88 L 04/15/19 00:49 04/15/19 00:49 04/15/19 00:49 04/15/19 00:49 04/15/19 00:49 - Physical Exam Comments: On exam, HR in 80s, BP 140s/70s, RR 14, O2 97% on RA. Pt afebrile. Pt in NAD, obese body habitus. Pt alert and oriented x3. telephoner generally intact, muscular strength and sensation intact. No midline spinal tenderness, step-offs, or crepitus. Head normocephalic, atraumatic. Eyes PERRLA, EOMI. Oropharynx without erythema or exudates, no LAD b/l. No nasal congestion, hearing intact. Clear heart sounds, S1/S2, no JVD, b/l pedal edema, or heart murmur. Coarse and diminished lung sounds at both posterior bases. No accessory muscle use or respiratory distress. No abdominal or CVA tenderness to palpation, no rebound, no guarding. Abdomen soft, non-distended, and with normoactive bowel sounds. Skin erythematous on face. Area of erythema over R dorsal hand, and raised nodule on R mid-gu. 04/15/19 01:06 04/15/19 06:19 Vital Signs - Vital Signs #1 Blood Pressure: 148/71 MAP: 96 BP Location: Right Arm Blood Pressure Position: Sitting Pulse Rate: 75 Respiratory Rate: 14 O2 Sat by Pulse Oximetry (%): 97 Oxygen Delivery Method: Room Air ED Treatment Course - LABORATORY CBC & Chemistry Diagram: 04/15/19 01:12 04/15/19 01:12 - RADIOLOGY Radiology Studies Ordered: Category Date Time Status CHEST PA & LAT [RAD] Stat Radiology 04/15/19 00:53 Ordered Medical Decision Making - Medical Decision Making Pt was seen at bedside, also will be seen by attending Dr. Nava. Pt presenting with complaints of substernal chest pain and acute hemoptysis shortly before presentation, which was associated with diaphoresis. Pt endorses NBNB n/v/d over the past 3-4 days. Pt states he was coughing shortly before presentation, and "began to spit up straight blood into the sink". Pt has been tolerating PO food and fluid intake. Pt states he has been taking his friend's vicodin pills for his chronic back pain, but denies using heroin or any IVDU for over a year. Pt denies any fevers/chills, headache, vision changes, syncope , palpitations, SOB, abdominal pain, urinary symptoms, constipation, or leg swelling. Considering endocarditis vs ACS vs acute viral illness/influenza vs bacterial pneumonia vs PE vs toxic-metabolic (cocaine, heroin use)/withdrawal Ordered work-up including CBC, CMP, cardiac profile, ECG, UA, Utox, chest x-ray. Provided 1L IV NS and ofirmev for improvement of likely dehydration. Will continue to reassess pt and monitor for symptomatic improvement. ECG: NSR, intervals WNL (HR 89, MS 130, QRS 88, QTc 440). No TWIs or significant ST segment changes. No significant changes from prior ECG. 04/15/19 01:06 CBC: WBC 20 CMP: BUN 19, Cr 1.7 AST:ALT in 2:1 ratio, potentially alcoholism. No abdominal TTP CK 3953, Trop 0.37 -- will trend troponin Stool for occult blood negative Concern for endocarditis given pts clinical picture (nodules and erythema of skin, IVDU hx, past TR on echo), with no significant ST segment changes and elevated WBC count. Providing ASA, vanc and cefepime, and maintenance fluids after 1 L IVNS. Pending chest x-ray. 04/15/19 02:36 Paging hospitalist team for admission. 04/15/19 03:12 Pt was admitted to Dr. Ruano (for Dr. Sargent). 04/15/19 04:59 Repeat troponin improving after IVF and abx. Will continue to reassess. Pt resting comfortably. Hospitalist team has seen pt at bedside. 04/15/19 06:32 *DC/Admit/Observation/Transfer Diagnosis at time of Disposition: Hemoptysis, Substance abuse, Troponin I above reference range Chest pain Qualifiers: Chest pain type: unspecified Qualified Code(s): R07.9 - Chest pain, unspecified - Discharge Dispostion Condition at time of disposition: Stable Decision to Admit order: Yes - Referrals - Patient Instructions - Post Discharge Activity
[2019-04-15 01:20] LABS: BASO % 0.7 % (0-2.0); EOS % 0.1 % (0-4.5); HEMATOCRIT 43.9 % (35.4-49); HEMOGLOBIN 13.6 GM/dL (11.7-16.9); LYMPH % 7.9 % (8-40); MCH 22.9 pg (25.7-33.7); MCHC 31.1 g/dl (32.0-35.9); MEAN CELL VOLUME 73.8 fl (80-96); MEAN PLT VOLUME 9.6 fl (7.5-11.1); MONO % 11.2 % (3.8-10.2); NEUT % 80.1 % (42.8-82.8); PLATELET COUNT 292 K/MM3 (134-434); RBC 5.95 M/mm3 (4.00-5.60); RDW 16.9 % (11.9-15.9); WHITE BLOOD COUNT 20.3 K/mm3 (4.0-10.0)
[2019-04-15] MEDS ORDERED: ACETAMINOPHEN INJECTION 100 ML IVPB ONE (01:25)
[2019-04-15 02:00] LABS: ALBUMIN 4.3 g/dl (3.4-5.0); BILIRUBIN,TOTAL 0.5 mg/dL (0.2-1); BLOOD UREA NITROGEN 19.8 mg/dL (7-18); CALCIUM 8.3 mg/dL (8.5-10.1); CREATININE 1.7 mg/dL (0.55-1.3); POTASSIUM 3.7 mmol/L (3.5-5.1); TOT PROT 7.9 g/dl (6.4-8.2)
[2019-04-15 02:03] LABS: ANISOCYTOSIS 1+; PLATELET ESTIMATE ADEQUATE
[2019-04-15 02:03] LABS: INR 1.12 (0.83-1.09); PROTHROMBIN TIME (PATIENT) 13.2 SEC (9.7-13.0)
[2019-04-15 02:05] LABS: ACTIVATED PTT 32.9 SECONDS (25.2-36.5)
[2019-04-15] MEDS ORDERED: SODIUM CHLORIDE 1,000 ML IV STA (02:12)
[2019-04-15] MEDS ORDERED: ASPIRIN 325 MG TABLET PO ONE (02:16)
[2019-04-15] MEDS ORDERED: VANCOMYCIN 1,500 MG in DEXTROSE 5%-WATER - 250 ML IVPB ONE (02:25)
[2019-04-15] MEDS ORDERED: CEFEPIME HCL/D5W 2 GM/50 ML BAG IVPB ONE (02:26)
[2019-04-15] MEDS ORDERED: VANCOMYCIN 1 GRAM (PRE-DOCKED) 1,000 MG/250 ML BAG IVPB ONE (02:58)
[2019-04-15] MEDS ORDERED: VANCOMYCIN 500 MG VIAL (RESTRICTED TO ID ONLY) ONE (02:58)
[2019-04-15] MEDS: SODIUM CHLORIDE 1,000 ML IV SCH (03:00)
[2019-04-15] MEDS ORDERED: ASPIRIN 81 MG CHEWABLE TABLETS ONE (03:07)
[2019-04-15 03:15] LABS: URINE APPEARANCE CLEAR; URINE BILIRUBIN NEGATIVE (NEGATIVE); URINE COLOR YELLOW; URINE GLUCOSE (UA) NEGATIVE (NEGATIVE); URINE KETONE NEGATIVE (NEGATIVE); URINE LEUK ESTERASE NEGATIVE (NEGATIVE); URINE NITRITE NEGATIVE (NEGATIVE); URINE PROTEIN NEGATIVE (NEGATIVE); URINE UROBILINOGEN 0.2 mg/dL (0.2-1.0)
[2019-04-15 03:36] LABS: COCAINE, UR NEGATIVE ng/ml (CUTOFF=300); METHADONE, UR NEGATIVE ng/ml (CUTOFF=300); PHENCYCLIDINE,URINE NEGATIVE ng/ml (CUTOFF=25); URINE AMPHETAMINES NEGATIVE ng/ml (CUTOFF=500); URINE BARBITURATES NEGATIVE ng/ml (CUTOFF=200); URINE BENZODIAZEPINES NEGATIVE ng/ml (CUTOFF=200)
--- NOTE | 2019-04-15 03:38 | HP ---
Admitting History and Physical - Primary Care Physician PCP: Emeterio Sargent - Admission Chief Complaint: Chest Pain, Hemoptysis History of Present Illness: This is a 38 y/o man with a PMHx of PolySubstance Abuse (Heroin Inj, Opioids), Anxiety, Depression, Oral Ca (no Chemo, no RT). Who presents to the ED with chest pain, hemoptysis, NB/NB vomiting/diarrhea. - Past Medical History Cardiovascular: Yes: HTN Psych: Yes: Anxiety, Depression - Smoking History Smoking history: Never smoked Have you smoked in the past 12 months: No Aproximately how many cigarettes per day: 0 If you are a former smoker, when did you quit?: 10 YRS AGO - Alcohol/Substance Use Hx Alcohol Use: No History of Substance Use: reports: Heroin, Prescription Home Medications - Allergies Allergies/Adverse Reactions: Allergies Allergy/AdvReac Type Severity Reaction Status Date / Time Penicillins Allergy Severe Hives Verified 04/15/19 00:49 - Home Medications Home Medications: Ambulatory Orders Amlodipine Besylate [Norvasc -] 10 mg PO DAILY 10/22/18 Escitalopram Oxalate [Lexapro -] 20 mg PO ONCE 04/15/19 Gabapentin 800 mg PO TID 04/15/19 Family Disease History - Family Disease History Family Disease History: Diabetes: Grandparent, Father (Alive), Heart Disease: Grandparent, CA: Grandparent Physical Examination Vital Signs: Vital Signs Temperature 97.5 F L 04/15/19 00:49 Pulse Rate 102 H 04/15/19 00:49 Respiratory Rate 28 H 04/15/19 00:49 Blood Pressure 188/97 H 04/15/19 00:49 O2 Sat by Pulse Oximetry (%) 88 L 04/15/19 00:49 Labs: CBC, BMP 04/15/19 01:12 04/15/19 01:12 Imaging - Results Chest X-ray: Image Reviewed Problem List - Problems (1) NSTEMI (non-ST elevated myocardial infarction) Code(s): I21.4 - NON-ST ELEVATION (NSTEMI) MYOCARDIAL INFARCTION (2) Chest pain Code(s): R07.9 - CHEST PAIN, UNSPECIFIED Qualifiers: Chest pain type: unspecified Qualified Code(s): R07.9 - Chest pain, unspecified (3) Hemoptysis Code(s): R04.2 - HEMOPTYSIS (4) Anxiety and depression Code(s): F41.9 - ANXIETY DISORDER, UNSPECIFIED; F32.9 - MAJOR DEPRESSIVE DISORDER, SINGLE EPISODE, UNSPECIFIED (5) Substance abuse Code(s): F19.10 - OTHER PSYCHOACTIVE SUBSTANCE ABUSE, UNCOMPLICATED (6) HTN (hypertension) Code(s): I10 - ESSENTIAL (PRIMARY) HYPERTENSION Qualifiers: (7) History of oral cancer Code(s): Z85.819 - PRSNL HX OF MALIG NEOPLM OF UNSP SITE LIP,ORAL CAV,& PHARYNX Assessment/Plan This is a 38 y/o man with a PMHx of Anxiety, Depression, HTN, Polysubstance Abuse (Heroin, Opiates), Chronic Back Pain, Oral Ca (no RT, no Chemo). Admitted for Chest Pain r/o TX, Elevated Troponins, Hemoptysis for further evaluation of their emergent condition Plan: See Problem List FEN NS@75ml/hr Replete lytes prn NPO DVT ppx OOB SCDs Hold AC secondary to Hemoptysis Dispo: Requires Inpatient Care Visit type - Emergency Visit Emergency Visit: Yes ED Registration Date: 04/15/19 Care time: The patient presented to the Emergency Department on the above date and was hospitalized for further evaluation of their emergent condition. - New Patient This patient is new to me today: Yes Date on this admission: 04/15/19 - Critical Care Critical Care patient: No
[2019-04-15 03:39] LABS: OPIATES, URI POSITIVE ng/ml (CUTOFF=300)
--- NOTE | 2019-04-15 03:48 | PDOC ---
Attending Attestation - Resident Resident Name: Lida Murphy - ED Attending Attestation I have performed the following: I have examined & evaluated the patient, The case was reviewed & discussed with the resident, I agree w/resident's findings & plan - HPI HPI: 04/15/19 03:45 38-year-old male with history of substance abuse complaining of hemoptysis and some shortness of breath. Patient also has some areas of redness and swelling to the hand and leg. Patient denies recent IV drug use or skin popping. He does admit to heroin use in the past. - Physicial Exam PE: 04/15/19 03:45 GENERAL: Awake, in no acute distress HEAD: No signs of trauma EYES: ENT:s. Moist mucosa NECK: Normal ROM, LUNGS:. Normal work of breathing., fine crackles b/l HEART: Regular rate and rhythm, ABDOMEN: Soft, nondistended CHEST WALL: BACK: No midline tenderness. EXTREMITIES:.no tenderness NEUROLOGICAL: Alert, SKIN: Warm, Dry - Medical Decision Making 04/15/19 03:46 38-year-old male with hemoptysis and cough Chest x-ray suggests increased interstitial markings bilaterally, in the setting possibly pneumonia Patient does have an elevated white blood cell count as well as an elevated troponin with history of substance abuse Vancomycin and cefepime have been ordered for pulmonary infection and possible Endo/myocarditis Patient to be admitted to medical service for further evaluation
[2019-04-15] MEDS ORDERED: IBUPROFEN 600 MG TABLET (FP) PO ONE (05:06)
--- NOTE | 2019-04-15 09:41 | CON.CARD ---
Consult Consult Specialty:: Cardiology Referred by:: Hospitalist Medicine - Shobha Gautam MD Reason for Consultation:: Elevated troponins - History of Present Illness Chief Complaint: Hemoptysis History of Present Illness: cc: abnormal troponins 37 yo ivdu with pmhx of htn, oral ca, opiate dependence with Vicodin w/o recent IVDU, OSAS not on cpap, vasovagal syncope presents for hemoptysis, post-tussive chest pain, mild dyspnea, wheeze, fevers, chills, palpitations, orthopnea, PND or LE edema. He has noticed rat droppings at place of employment. He denies prolonged immobility, personal or family h/o thrombophilia. Pain and swelling left hand. pmhx/pshx: per hpi, appy, oral ca surgery social hx: former smoker, + heroin fam hx: parents with htn ros: per hpi - History Source History Provided By: Patient Limitations to Obtaining History: No Limitations - Past Medical History Cardio/Vascular: Yes: HTN Psych: Yes: Anxiety, Depression - Alcohol/Substance Use Hx Alcohol Use: No History of Substance Use: reports: Heroin, Prescription - Smoking History Smoking history: Never smoked Have you smoked in the past 12 months: No Aproximately how many cigarettes per day: 0 If you are a former smoker, when did you quit?: 10 YRS AGO - Social History Usual Living Arrangement: With Spouse Home Medications - Allergies Allergies/Adverse Reactions: Allergies Allergy/AdvReac Type Severity Reaction Status Date / Time Penicillins Allergy Severe Hives Verified 04/15/19 00:49 - Home Medications Home Medications: Ambulatory Orders Amlodipine Besylate [Norvasc -] 10 mg PO DAILY 10/22/18 Escitalopram Oxalate [Lexapro -] 30 mg PO ONCE 04/15/19 Gabapentin 800 mg PO TID 04/15/19 Family Disease History - Family Disease History Family Disease History: Diabetes: Grandparent, Father (Alive), Heart Disease: Grandparent, CA: Grandparent Review of Systems - Review of Systems Respiratory: reports: Cough, Hemoptysis, SOB Vital Signs: Vital Signs Temperature 97.5 F L 04/15/19 00:49 Pulse Rate 75 04/15/19 06:42 Respiratory Rate 14 04/15/19 06:42 Blood Pressure 148/71 04/15/19 06:42 O2 Sat by Pulse Oximetry (%) 97 04/15/19 06:42 Constitutional: Yes: No Distress, Calm Neck: Yes: Supple Respiratory: Yes: Regular, Diminished, On Nasal O2 Gastrointestinal: Yes: Normal Bowel Sounds, Soft Cardiovascular: Yes: Regular Rate and Rhythm JVD: No Carotid Bruit: No Heart Sounds: Yes: S1, S2 Edema: No - Other Data Labs, Other Data: CBC, BMP 04/15/19 01:12 04/15/19 01:12 INR, PTT INR 1.12 (0.83-1.09) H 04/15/19 01:40 Troponin, BNP 04/15/19 04/15/19 01:12 04:55 Troponin I 0.37 H 0.19 H Troponin, BNP 04/15/19 04/15/19 01:12 04:55 Troponin I 0.37 H 0.19 H NSR @ 89 similar to previous Imaging - Results Chest X-ray: Report Reviewed (NAD) Problem List - Problems (1) Demand ischemia Code(s): I24.8 - OTHER FORMS OF ACUTE ISCHEMIC HEART DISEASE (2) Chest pain Code(s): R07.9 - CHEST PAIN, UNSPECIFIED Qualifiers: Chest pain type: unspecified Qualified Code(s): R07.9 - Chest pain, unspecified (3) Hemoptysis Code(s): R04.2 - HEMOPTYSIS (4) Substance abuse Code(s): F19.10 - OTHER PSYCHOACTIVE SUBSTANCE ABUSE, UNCOMPLICATED (5) Troponin I above reference range Code(s): R74.8 - ABNORMAL LEVELS OF OTHER SERUM ENZYMES (6) Rhabdomyolysis Code(s): M62.82 - RHABDOMYOLYSIS Qualifiers: Rhabdomyolysis type: traumatic Encounter type: initial encounter Qualified Code(s): T79.6XXA - Traumatic ischemia of muscle, initial encounter (7) HTN (hypertension) Code(s): I10 - ESSENTIAL (PRIMARY) HYPERTENSION Qualifiers: (8) Opioid dependence Code(s): F11.20 - OPIOID DEPENDENCE, UNCOMPLICATED Qualifiers: Substance use status: uncomplicated Qualified Code(s): F11.20 - Opioid dependence, uncomplicated Assessment/Plan Echo: Normal LV and RV size and fxn, tr TR, can't r/o endocarditis 09/10/2018 Stress echo: Normal LV/RV size and fxn, mild LVH, normal atrial sizes , mild KS, after exercise Sushant 6 min 45 sec stage III achieving 8 METs, 85% MPHR, no ECG, clinical or echo changes c/w ischemia 09/09/2018 HolterL SR, rare PAC, PVC 09/03/2018 PSG: Svere OSAS (AHI 51.6/hr), treated with cpap @ 12 cm H20 A/P This is a 38 y/o man with a PMHx of Anxiety, Depression, HTN, Polysubstance Abuse (Heroin, Opiates), Chronic Back Pain, Oral Ca (no RT, no Chemo). Admitted for Chest Pain r/o AL, Elevated Troponins, Hemoptysis for further evaluation of their emergent condition 1. Hemoptysis referable to PNA, patient reports exposure to rat droppings -check chest CT w/o contrast shows bilateral PNA L>R, low clinical probability of PE 2. Rhabdo/ab troponins - elevated trop 2/2 cardiac injury in setting of rhabdo similar to last year's presentation, ck up to 3900 on IVF, trending downwards. - F/u repeat echo. ekg without acute ischemic changes. no concern for acs. no need for further ischemic eval. 3. htn - on norvasc 10 qd at home - monitor for need to adjust regimen as outpatient. 4. MIGUELINA/ab lft's - improving s/p IVF. 5. Hypertriglyceridemia 6. Severe OSAS 7. LUE cellulitis, f/u CT scan r/o abscess 8. Thank you for consultative opportunity. Eventual outpatient f/u.
--- NOTE | 2019-04-15 10:33 | PN ---
Progress Note (short form) - Note Progress Note: Admitted with chest pain , hemoptysis has swelling and pain in left hand Vital Signs - 24 hr 04/15/19 04/15/19 00:49 06:42 Temperature 97.5 F L Pulse Rate 102 H Pulse Rate [#1] 75 Respiratory 28 H Rate Respiratory 14 Rate [#1] Blood Pressure 188/97 H Blood Pressure 148/71 [#1] O2 Sat by Pulse 88 L Oximetry (%) O2 Sat by Pulse 97 Oximetry (%) [ #1] Current Medications Generic Name Dose Route Start Last Admin Trade Name Deidra PRN Reason Stop Dose Admin Amlodipine Besylate 10 mg 04/15/19 12:15 Norvasc - PO DAILY NEL Sodium Chloride 1,000 mls @ 125 mls/hr 04/15/19 02:45 04/15/19 03:00 Normal Saline - IV 125 mls/hr ASDIR NEL Administration Laboratory Results - last 24 hr 04/15/19 04/15/19 04/15/19 01:12 01:12 01:33 WBC 20.3 H RBC 5.95 H Hgb 13.6 Hct 43.9 MCV 73.8 L MCH 22.9 L MCHC 31.1 L RDW 16.9 H Plt Count 292 D MPV 9.6 Absolute Neuts (auto) 16.2 H Total Counted 100 Neutrophils % 80.1 Neutrophils % (Manual) 80.0 Band Neutrophils % 2.0 Lymphocytes % 7.9 L D Lymphocytes % (Manual) 6.0 L Monocytes % 11.2 H Monocytes % (Manual) 12 H Eosinophils % 0.1 D Basophils % 0.7 Nucleated RBC % 0 Platelet Estimate Adequate Platelet Comment No clotting detected Polychromasia 1+ Anisocytosis 1+ PT with INR INR PTT (Actin FS) Sodium 138 Potassium 3.7 Chloride 103 Carbon Dioxide 27 Anion Gap 9 BUN 19.8 H Creatinine 1.7 H Est GFR (CKD-EPI)AfAm 58.00 Est GFR (CKD-EPI)NonAf 50.04 Random Glucose 125 H Calcium 8.3 L Total Bilirubin 0.5 AST 97 H ALT 49 Alkaline Phosphatase 91 Creatine Kinase 3953 H Creatine Kinase Index 1.0 CK-MB (CK-2) 43.0 H Troponin I 0.37 H Total Protein 7.9 Albumin 4.3 Urine Color Urine Appearance Urine pH Ur Specific Mcclellan Urine Protein Urine Glucose (UA) Urine Ketones Urine Blood Urine Nitrite Urine Bilirubin Urine Urobilinogen Ur Leukocyte Esterase Stool Occult Blood Negative Opiates Screen Methadone Screen Barbiturate Screen Phencyclidine Screen Ur Amphetamines Screen MDMA (Ecstasy) Screen Benzodiazepines Screen Cocaine Screen U Marijuana (THC) Screen Influenza A (Rapid) Influenza B (Rapid) 04/15/19 04/15/19 04/15/19 01:40 01:42 03:02 WBC RBC Hgb Hct MCV MCH MCHC RDW Plt Count MPV Absolute Neuts (auto) Total Counted Neutrophils % Neutrophils % (Manual) Band Neutrophils % Lymphocytes % Lymphocytes % (Manual) Monocytes % Monocytes % (Manual) Eosinophils % Basophils % Nucleated RBC % Platelet Estimate Platelet Comment Polychromasia Anisocytosis PT with INR 13.20 H INR 1.12 H PTT (Actin FS) 32.9 Sodium Potassium Chloride Carbon Dioxide Anion Gap BUN Creatinine Est GFR (CKD-EPI)AfAm Est GFR (CKD-EPI)NonAf Random Glucose Calcium Total Bilirubin AST ALT Alkaline Phosphatase Creatine Kinase Creatine Kinase Index CK-MB (CK-2) Troponin I Total Protein Albumin Urine Color Yellow Urine Appearance Clear Urine pH 5.0 Ur Specific Mcclellan 1.024 Urine Protein Negative Urine Glucose (UA) Negative Urine Ketones Negative Urine Blood Negative Urine Nitrite Negative Urine Bilirubin Negative Urine Urobilinogen 0.2 Ur Leukocyte Esterase Negative Stool Occult Blood Opiates Screen Methadone Screen Barbiturate Screen Phencyclidine Screen Ur Amphetamines Screen MDMA (Ecstasy) Screen Benzodiazepines Screen Cocaine Screen U Marijuana (THC) Screen Influenza A (Rapid) Negative Influenza B (Rapid) Negative 04/15/19 04/15/19 04/15/19 03:02 04:55 09:54 WBC RBC Hgb Hct MCV MCH MCHC RDW Plt Count MPV Absolute Neuts (auto) Total Counted Neutrophils % Neutrophils % (Manual) Band Neutrophils % Lymphocytes % Lymphocytes % (Manual) Monocytes % Monocytes % (Manual) Eosinophils % Basophils % Nucleated RBC % Platelet Estimate Platelet Comment Polychromasia Anisocytosis PT with INR INR PTT (Actin FS) Sodium Potassium Chloride Carbon Dioxide Anion Gap BUN Creatinine Est GFR (CKD-EPI)AfAm Est GFR (CKD-EPI)NonAf Random Glucose Calcium Total Bilirubin AST ALT Alkaline Phosphatase Creatine Kinase Creatine Kinase Index CK-MB (CK-2) Troponin I 0.19 H 0.08 H Total Protein Albumin Urine Color Urine Appearance Urine pH Ur Specific Mcclellan Urine Protein Urine Glucose (UA) Urine Ketones Urine Blood Urine Nitrite Urine Bilirubin Urine Urobilinogen Ur Leukocyte Esterase Stool Occult Blood Opiates Screen Positive A* Methadone Screen Negative Barbiturate Screen Negative Phencyclidine Screen Negative Ur Amphetamines Screen Negative MDMA (Ecstasy) Screen Negative Benzodiazepines Screen Negative Cocaine Screen Negative U Marijuana (THC) Screen Negative Influenza A (Rapid) Influenza B (Rapid) S1 S2 RRR Lungs decreased Abd- soft, Obese, NT no edema Left hand-- dorsum of hand is swollen, warm, erythema, tender+ gu of right leg --raised erythematous patch noted 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
--- NOTE | 2019-04-15 11:45 | EKG ---
Test Reason : Blood Pressure : / mmHG Vent. Rate : 089 BPM Atrial Rate : 089 BPM P-R Int : 130 ms QRS Dur : 088 ms QT Int : 362 ms P-R-T Axes : 056 060 050 degrees QTc Int : 440 ms NORMAL SINUS RHYTHM NONSPECIFIC ST ABNORMALITY ABNORMAL ECG WHEN COMPARED WITH ECG OF 04-JAN-2019 17:16, NO SIGNIFICANT CHANGE WAS FOUND Confirmed by KRYSTA PEREZ MD ([id number]) on 04/15/2019 11:44:42 AM Referred By: Confirmed By:KRYSTA PEREZ MD
--- NOTE | 2019-04-15 13:22 | CON.ID ---
Consult - History of Present Illness History of Present Illness: 38 y.o. male with PMH of IVDU (Heroin, reports last use 1 yr ago), opiate dependence, chronic back pain, HTN, GERD, NSTEMI, and oral cancer dx 9 yrs ago s /p excision/graft presenting with c/o SOB, hemoptysis, Lt side chest discomfort and intermittent n/v for the past several days. He also has had erythema/ swelling of Lt hand and Lt anterior gu developing and progressing since yesterday along with diaphoresis but denies fever/chills. Pt states he was treated for an arm abscess a year ago. 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 In the ER he has been afebrile but was tachypneic/tachycardic, O2 sat of 88% upon presentation in addition to having an elevated wbc (20K) and elevated Creatinine (1.7) . Denies sick contacts or recent travel. He has no H/A, neck stiffness, abd pain, dysuria , rash or any other specific complaints. - History Source History Provided By: Patient Limitations to Obtaining History: No Limitations - Past Medical History Cardio/Vascular: Yes: HTN Gastrointestinal: Yes: GERD Heme/Onc: Yes: Cancer (Oral) Psych: Yes: Anxiety, Depression - Alcohol/Substance Use Hx Alcohol Use: No (socially) History of Substance Use: reports: Heroin, Prescription - Smoking History Smoking history: Never smoked Have you smoked in the past 12 months: No Aproximately how many cigarettes per day: 0 If you are a former smoker, when did you quit?: 10 YRS AGO - Social History Usual Living Arrangement: With Spouse Home Medications - Allergies Allergies/Adverse Reactions: Allergies Allergy/AdvReac Type Severity Reaction Status Date / Time Penicillins Allergy Severe Hives Verified 04/15/19 00:49 - Home Medications Home Medications: Ambulatory Orders Amlodipine Besylate [Norvasc -] 10 mg PO DAILY 10/22/18 Escitalopram Oxalate [Lexapro -] 30 mg PO ONCE 04/15/19 Gabapentin 800 mg PO TID 04/15/19 Family Disease History - Family Disease History Family Disease History: Diabetes: Grandparent, Father (Alive), Heart Disease: Grandparent, CA: Grandparent Review of Systems - Review of Systems Constitutional: reports: Diaphoresis Eyes: reports: No Symptoms HENT: reports: No Symptoms Neck: reports: No Symptoms Cardiovascular: reports: Chest Pain (pleuritic), Shortness of Breath Respiratory: reports: Cough, Hemoptysis Gastrointestinal: reports: Nausea Genitourinary: reports: No Symptoms Musculoskeletal: reports: No Symptoms Integumentary: reports: Erythema (Lt hand erythema/swelling, Rt anterior erythema/edema, Rt hand developing erythema) Neurological: reports: No Symptoms Endocrine: reports: No Symptoms Hematology/Lymphatic: reports: No Symptoms Psychiatric: reports: No Symptoms Physical Exam Vital Signs: Vital Signs Temperature 97.9 F 04/15/19 07:15 Pulse Rate 75 04/15/19 07:15 Respiratory Rate 15 04/15/19 07:15 Blood Pressure 139/82 04/15/19 07:15 O2 Sat by Pulse Oximetry (%) 98 04/15/19 07:15 Constitutional: Yes: No Distress, Calm HENT: Yes: WNL Cardiovascular: Yes: Regular Rate and Rhythm Respiratory: Yes: CTA Bilaterally Gastrointestinal: Yes: Normal Bowel Sounds, Soft Renal/: Yes: WNL Musculoskeletal: Yes: WNL Extremities: Yes: WNL Integumentary: Yes: Erythema ( Lt hand erythema/edema, no fluctuance/open wound, Rt hand small area of erythema, Rt gu erythema/edema) Neurological: Yes: Alert, Oriented Psychiatric: Yes: Alert Labs: CBC, BMP 04/15/19 01:12 04/15/19 01:12 Laboratory Tests 04/15/19 04/15/19 04/15/19 01:12 01:12 01:33 WBC 20.3 H RBC 5.95 H Hgb 13.6 Hct 43.9 MCV 73.8 L MCH 22.9 L MCHC 31.1 L RDW 16.9 H Plt Count 292 D MPV 9.6 Absolute Neuts (auto) 16.2 H Total Counted 100 Neutrophils % 80.1 Neutrophils % (Manual) 80.0 Band Neutrophils % 2.0 Lymphocytes % 7.9 L D Lymphocytes % (Manual) 6.0 L Monocytes % 11.2 H Monocytes % (Manual) 12 H Eosinophils % 0.1 D Basophils % 0.7 Nucleated RBC % 0 Platelet Estimate Adequate Platelet Comment No clotting detected Polychromasia 1+ Anisocytosis 1+ PT with INR INR PTT (Actin FS) Sodium 138 Potassium 3.7 Chloride 103 Carbon Dioxide 27 Anion Gap 9 BUN 19.8 H Creatinine 1.7 H Est GFR (CKD-EPI)AfAm 58.00 Est GFR (CKD-EPI)NonAf 50.04 Random Glucose 125 H Calcium 8.3 L Total Bilirubin 0.5 AST 97 H ALT 49 Alkaline Phosphatase 91 Creatine Kinase 3953 H Creatine Kinase Index 1.0 CK-MB (CK-2) 43.0 H Troponin I 0.37 H Total Protein 7.9 Albumin 4.3 Urine Color Urine Appearance Urine pH Ur Specific [place] Urine Protein Urine Glucose (UA) Urine Ketones Urine Blood Urine Nitrite Urine Bilirubin Urine Urobilinogen Ur Leukocyte Esterase Stool Occult Blood Negative Opiates Screen Methadone Screen Barbiturate Screen Phencyclidine Screen Ur Amphetamines Screen MDMA (Ecstasy) Screen Benzodiazepines Screen Cocaine Screen U Marijuana (THC) Screen Influenza A (Rapid) Influenza B (Rapid) 04/15/19 04/15/19 04/15/19 01:40 01:42 03:02 WBC RBC Hgb Hct MCV MCH MCHC RDW Plt Count MPV Absolute Neuts (auto) Total Counted Neutrophils % Neutrophils % (Manual) Band Neutrophils % Lymphocytes % Lymphocytes % (Manual) Monocytes % Monocytes % (Manual) Eosinophils % Basophils % Nucleated RBC % Platelet Estimate Platelet Comment Polychromasia Anisocytosis PT with INR 13.20 H INR 1.12 H PTT (Actin FS) 32.9 Sodium Potassium Chloride Carbon Dioxide Anion Gap BUN Creatinine Est GFR (CKD-EPI)AfAm Est GFR (CKD-EPI)NonAf Random Glucose Calcium Total Bilirubin AST ALT Alkaline Phosphatase Creatine Kinase Creatine Kinase Index CK-MB (CK-2) Troponin I Total Protein Albumin Urine Color Yellow Urine Appearance Clear Urine pH 5.0 Ur Specific [place] 1.024 Urine Protein Negative Urine Glucose (UA) Negative Urine Ketones Negative Urine Blood Negative Urine Nitrite Negative Urine Bilirubin Negative Urine Urobilinogen 0.2 Ur Leukocyte Esterase Negative Stool Occult Blood Opiates Screen Methadone Screen Barbiturate Screen Phencyclidine Screen Ur Amphetamines Screen MDMA (Ecstasy) Screen Benzodiazepines Screen Cocaine Screen U Marijuana (THC) Screen Influenza A (Rapid) Negative Influenza B (Rapid) Negative 04/15/19 04/15/19 04/15/19 03:02 04:55 09:54 WBC RBC Hgb Hct MCV MCH MCHC RDW Plt Count MPV Absolute Neuts (auto) Total Counted Neutrophils % Neutrophils % (Manual) Band Neutrophils % Lymphocytes % Lymphocytes % (Manual) Monocytes % Monocytes % (Manual) Eosinophils % Basophils % Nucleated RBC % Platelet Estimate Platelet Comment Polychromasia Anisocytosis PT with INR INR PTT (Actin FS) Sodium Potassium Chloride Carbon Dioxide Anion Gap BUN Creatinine Est GFR (CKD-EPI)AfAm Est GFR (CKD-EPI)NonAf Random Glucose Calcium Total Bilirubin AST ALT Alkaline Phosphatase Creatine Kinase Creatine Kinase Index CK-MB (CK-2) Troponin I 0.19 H 0.08 H Total Protein Albumin Urine Color Urine Appearance Urine pH Ur Specific [place] Urine Protein Urine Glucose (UA) Urine Ketones Urine Blood Urine Nitrite Urine Bilirubin Urine Urobilinogen Ur Leukocyte Esterase Stool Occult Blood Opiates Screen Positive A* Methadone Screen Negative Barbiturate Screen Negative Phencyclidine Screen Negative Ur Amphetamines Screen Negative MDMA (Ecstasy) Screen Negative Benzodiazepines Screen Negative Cocaine Screen Negative U Marijuana (THC) Screen Negative Influenza A (Rapid) Influenza B (Rapid) Imaging - Results Chest X-ray: Report Reviewed Cat Scan: Pending Other: Pending Problem List - Problems (1) Hemoptysis Code(s): R04.2 - HEMOPTYSIS (2) Substance abuse Code(s): F19.10 - OTHER PSYCHOACTIVE SUBSTANCE ABUSE, UNCOMPLICATED (3) Rhabdomyolysis Code(s): M62.82 - RHABDOMYOLYSIS Qualifiers: Rhabdomyolysis type: traumatic Encounter type: initial encounter Qualified Code(s): T79.6XXA - Traumatic ischemia of muscle, initial encounter (4) HTN (hypertension) Code(s): I10 - ESSENTIAL (PRIMARY) HYPERTENSION Qualifiers: (5) Opioid dependence Code(s): F11.20 - OPIOID DEPENDENCE, UNCOMPLICATED Qualifiers: Substance use status: uncomplicated Qualified Code(s): F11.20 - Opioid dependence, uncomplicated (6) History of oral cancer Code(s): Z85.819 - PRSNL HX OF MALIG NEOPLM OF UNSP SITE LIP,ORAL CAV,& PHARYNX Assessment/Plan 38 y.o. male with PMH of substance abuse/IVDU, opiate dependence, chronic back pain, Oral CA, skin abscess, HTN, GERD presenting with SOB/CP, hemoptysis, hand/ gu erythema/edema with leukocytosis Sepsis Leukocytosis Hemoptysis SOB/hypoxia CP b/l hand/RT gu soft tissue infection r/o abscess Rhabdomyolysis HTN -- Pt with severe PCN allergy, Will Start Vancomycin/Aztreonam empirically, Vancomycin Trough prior to 4th dose, adjust dose as necessary -- CT hand, CT chest, Echo pending r/o Endocarditis -- f/u blood cultures -- Sputum cultures -- Monitor wbc trend, renal function, vitals d/w Dr. Honeycutt
[2019-04-15] MEDS ORDERED: amLODIPine BESYLATE 5 MG TABLET (FP) ONE (14:00)
[2019-04-15] MEDS: amLODIPine BESYLATE 10 MG TABLET (FP) PO SCH (14:02)
[2019-04-15 14:35] LABS: HEMATOCRIT 40.9 % (35.4-49); HEMOGLOBIN 12.8 GM/dL (11.7-16.9); MCH 22.8 pg (25.7-33.7); MCHC 31.3 g/dl (32.0-35.9); MEAN CELL VOLUME 72.6 fl (80-96); MEAN PLT VOLUME 9.7 fl (7.5-11.1); PLATELET COUNT 255 K/MM3 (134-434); RBC 5.64 M/mm3 (4.00-5.60); RDW 16.8 % (11.9-15.9); WHITE BLOOD COUNT 15.9 K/mm3 (4.0-10.0)
--- NOTE | 2019-04-15 15:09 | ECHO ---
Name: ALYSA BERMUDEZ Exam:Adult Echocardiogram Study Date: 04/15/2019 10:11 AM Age: 38 yrs Reason For Study: Chest pain Height: 65 in Weight: 215 lb BSA: 2.0 m2 MMode/2D Measurements & Calculations IVSd: 1.1 cm Ao root diam: 2.9 cm LVIDd: 4.1 cm ACS: 2.0 cm LVIDs: 2.8 cm LVPWd: 1.4 cm EDV(Teich): 73.5 ml LVOT diam: 1.9 cm ESV(Teich): 28.6 ml Doppler Measurements & Calculations MV E max joão: 84.4 cm/sec Ao V2 max: 179.5 cm/sec MV A max joão: 55.3 cm/sec Ao max P.9 mmHg MV E/A: 1.5 Ao V2 mean: 126.3 cm/sec Ao mean P.3 mmHg Ao V2 VTI: 32.9 cm JULIANO(I,D): 1.6 cm2 JULIANO(V,D): 1.4 cm2 LV V1 max P.4 mmHg SV(LVOT): 53.8 ml LV V1 mean P.7 mmHg LV V1 max: 92.3 cm/sec LV V1 mean: 61.2 cm/sec LV V1 VTI: 19.4 cm Med Peak E' João: 4.6 cm/sec Med E/e': 18.4 Lat Peak E' João: 10.1 cm/sec Lat E/e': 8.3 Procedure A complete two-dimensional transthoracic echocardiogram was performed (2D, M-mode, Doppler and color flow Doppler). The study was technically difficult with many images being suboptimal in quality. Left Ventricle The left ventricular size, thickness and function are normal. The left ventricular ejection fraction is normal. Ejection Fraction = 60-65%. The left ventricular wall motion is normal. Right Ventricle The right ventricle is normal in size and function. Atria Normal left and right atrial size and function. Mitral Valve There is no mitral regurgitation noted. Tricuspid Valve There is trace tricuspid regurgitation. There was insufficient TR detected to calculate RV systolic p ressure. Aortic Valve No hemodynamically significant valvular aortic stenosis. No aortic regurgitation is present. Pulmonic Valve There is no pulmonic valvular regurgitation. Great Vessels The aortic root is normal size. Pericardium/Pleura There is no pericardial effusion. Interpretation Summary The study was technically difficult with many images being suboptimal in quality. The left ventricular size, thickness and function are normal The right ventricle is normal in size and function. There is trace tricuspid regurgitation. MD Darrin Jones 04/15/2019 03:08 PM
[2019-04-15] MEDS ORDERED: PT OWN MED DRAWER 7, Y5N ONE (18:31)
[2019-04-15 18:51] VITALS: BMI 36.4
[2019-04-15] MEDS ORDERED: SODIUM CHLORIDE NASAL SPRAY 44 ML BOTTLE NS PRN (18:59)
[2019-04-15] MEDS ORDERED: ESCITALOPRAM OXALATE 10 MG TABLET (FP) PO SCH (19:00)
[2019-04-15] MEDS: AZTREONAM 2 GM in DEXTROSE 5%-WATER 100 ML IVPB SCH (20:08)
[2019-04-15] MEDS: GABAPENTIN 400 MG CAPSULE (FP) PO SCH (21:17)
[2019-04-15] MEDS: ESCITALOPRAM OXALATE 10 MG TABLET (FP) PO SCH (21:18)
[2019-04-15] MEDS: ACETAMINOPHEN 325 MG TABLET (FP) PO PRN (23:20)
[2019-04-15] MEDS: VANCOMYCIN 1 GRAM (PRE-DOCKED) 1,000 MG/250 ML BAG IVPB SCH (23:21)
[2019-04-16] MEDS: AZTREONAM 2 GM in DEXTROSE 5%-WATER 100 ML IVPB SCH ×3 (01:55→18:11)
[2019-04-16] MEDS: GABAPENTIN 400 MG CAPSULE (FP) PO SCH ×3 (06:09→22:26)
[2019-04-16] MEDS: SODIUM CHLORIDE 1,000 ML IV SCH ×3 (06:12→18:11)
[2019-04-16] MEDS ORDERED: ONDANSETRON 4 MG/2 ML VIAL IVPUSH ONE (06:17)
[2019-04-16 08:01] LABS: BLOOD UREA NITROGEN 10.3 mg/dL (7-18); CALCIUM 8.3 mg/dL (8.5-10.1); CREATININE 0.8 mg/dL (0.55-1.3); POTASSIUM 3.4 mmol/L (3.5-5.1)
[2019-04-16] MEDS: ACETAMINOPHEN 325 MG TABLET (FP) PO PRN ×2 (08:14→18:35)
[2019-04-16 08:22] LABS: BASO % 0.6 % (0-2.0); EOS % 0.7 % (0-4.5); HEMATOCRIT 42.1 % (35.4-49); HEMOGLOBIN 13.4 GM/dL (11.7-16.9); MCH 23.2 pg (25.7-33.7); MCHC 31.8 g/dl (32.0-35.9); MEAN CELL VOLUME 72.9 fl (80-96); MONO % 9.7 % (3.8-10.2); PLATELET COUNT 244 K/MM3 (134-434); RBC 5.77 M/mm3 (4.00-5.60); RDW 17.2 % (11.9-15.9); WHITE BLOOD COUNT 10.1 K/mm3 (4.0-10.0)
--- NOTE | 2019-04-16 09:36 | PN ---
Progress Note, Physician History of Present Illness: Hemoptysis, post-tussive chest pain, mild dyspnea and left hand discomfort slowly improving, afebrile, hungry is NPO. - Current Medication List Current Medications: Active Medications Acetaminophen (Tylenol -) 650 mg PO Q6H PRN PRN Reason: PAIN Last Admin: 04/16/19 08:14 Dose: 650 mg Amlodipine Besylate (Norvasc -) 10 mg PO DAILY NEL Last Admin: 04/15/19 14:02 Dose: 10 mg Escitalopram Oxalate (Lexapro -) 20 mg PO HS NEL Last Admin: 04/15/19 21:18 Dose: 20 mg Gabapentin (Neurontin -) 800 mg PO TID NEL Last Admin: 04/16/19 06:09 Dose: 800 mg Sodium Chloride (Normal Saline -) 1,000 mls @ 125 mls/hr IV ASDIR NEL Last Admin: 04/16/19 06:12 Dose: 125 mls/hr Vancomycin HCl (Vancomycin (Pre-Docked)) 1,000 mg in 250 mls @ 166.667 mls/hr IVPB Q12H NEL; Protocol Last Admin: 04/15/19 23:21 Dose: 166.667 mls/hr Aztreonam 2 gm/ Dextrose 100 mls @ 200 mls/hr IVPB Q8H-IV NEL; Protocol Last Admin: 04/16/19 01:55 Dose: 200 mls/hr Sodium Chloride ([place] Nasal [place] -) 2 spray NS BID PRN PRN Reason: NASAL CONGESTION Last Admin: 04/15/19 22:08 Dose: 2 spray - Objective Vital Signs: Vital Signs Temperature 98 F 04/16/19 08:24 Pulse Rate 74 04/16/19 08:24 Respiratory Rate 18 04/16/19 08:24 Blood Pressure 134/76 04/16/19 08:24 O2 Sat by Pulse Oximetry (%) 98 04/16/19 08:24 Constitutional: Yes: No Distress, Calm Neck: Yes: Supple Cardiovascular: Yes: Regular Rate and Rhythm Respiratory: Yes: Regular, Diminished Gastrointestinal: Yes: Normal Bowel Sounds, Soft Edema: Yes Edema: LUE: 1+ Labs: CBC, BMP 04/16/19 05:58 04/16/19 05:58 INR, PTT INR 1.12 (0.83-1.09) H 04/15/19 01:40 Problem List - Problems (1) Demand ischemia Code(s): I24.8 - OTHER FORMS OF ACUTE ISCHEMIC HEART DISEASE (2) Chest pain Code(s): R07.9 - CHEST PAIN, UNSPECIFIED Qualifiers: Chest pain type: unspecified Qualified Code(s): R07.9 - Chest pain, unspecified (3) Hemoptysis Code(s): R04.2 - HEMOPTYSIS (4) Substance abuse Code(s): F19.10 - OTHER PSYCHOACTIVE SUBSTANCE ABUSE, UNCOMPLICATED (5) Troponin I above reference range Code(s): R74.8 - ABNORMAL LEVELS OF OTHER SERUM ENZYMES (6) Rhabdomyolysis Code(s): M62.82 - RHABDOMYOLYSIS Qualifiers: Rhabdomyolysis type: traumatic Encounter type: initial encounter Qualified Code(s): T79.6XXA - Traumatic ischemia of muscle, initial encounter (7) HTN (hypertension) Code(s): I10 - ESSENTIAL (PRIMARY) HYPERTENSION Qualifiers: (8) Opioid dependence Code(s): F11.20 - OPIOID DEPENDENCE, UNCOMPLICATED Qualifiers: Substance use status: uncomplicated Qualified Code(s): F11.20 - Opioid dependence, uncomplicated Assessment/Plan Echo: Normal LV and RV size and fxn, tr TR, can't r/o endocarditis 09/10/2018 Stress echo: Normal LV/RV size and fxn, mild LVH, normal atrial sizes , mild FL, after exercise Sushant 6 min 45 sec stage III achieving 8 METs, 85% MPHR, no ECG, clinical or echo changes c/w ischemia 09/09/2018 HolterL SR, rare PAC, PVC 09/03/2018 PSG: Svere OSAS (AHI 51.6/hr), treated with cpap @ 12 cm H20 A/P This is a 38 y/o man with a PMHx of Anxiety, Depression, HTN, Polysubstance Abuse (Heroin, Opiates), Chronic Back Pain, Oral Ca (no RT, no Chemo). Admitted for Chest Pain r/o [place], Elevated Troponins, Hemoptysis for further evaluation of their emergent condition 1. Hemoptysis referable to PNA, patient reports exposure to rat droppings -check chest CT w/o contrast shows bilateral PNA L>R, low clinical probability of PE, abx per ID 2. Rhabdo/ab troponins - elevated trop 2/2 cardiac injury in setting of rhabdo similar to last year's presentation, ck up to 3900 on IVF, trending downwards. - F/u repeat echo. ekg without acute ischemic changes. no concern for acs. no need for further ischemic eval. 3. htn - on norvasc 10 qd at home - monitor for need to adjust regimen as outpatient. 4. MIGUELINA/ab lft's - improving s/p IVF. 5. Hypertriglyceridemia 6. Severe OSAS 7. LUE cellulitis ruled out abscess abscess, abx per ID, leukocytosis improving. 8. Resume diet. Eventual outpatient f/u.
--- NOTE | 2019-04-16 11:37 | PN ---
Progress Note (short form) - Note Progress Note: pt seen/ examined chart reviewed all f/u noted wbc coming down still having hemoptysis- small kept npo overnight complains of pain Vital Signs Temp 98 F 04/16/19 08:24 Pulse 74 04/16/19 08:24 Resp 18 04/16/19 08:24 BP 134/76 04/16/19 08:24 Pulse Ox 96 04/16/19 08:50 Intake & Output 04/15/19 04/15/19 04/16/19 11:59 23:59 11:59 Intake Total 896 800 Balance 896 800 Weight 215 lb 219 lb 3.2 oz Intake: IV 496 750 Normal Saline - 1,000 ml 496 750 @ 125 mls/hr IV ASDIR NEL Rx#:[id number] IVPB 300 50 Oral 100 Other: Voiding Method Urinal Urinal # Unmeasured Voids Void 1 2 Height 5 ft 5 in 5 ft 5 in Body Mass Index (BMI) 35.7 36.4 Weight Measurement Method Standing Scale Weight Measurement Method Est/Stated by Patient Active Medications Acetaminophen (Tylenol -) 650 mg PO Q6H PRN PRN Reason: PAIN Last Admin: 04/16/19 08:14 Dose: 650 mg Amlodipine Besylate (Norvasc -) 10 mg PO DAILY NEL Last Admin: 04/15/19 14:02 Dose: 10 mg Escitalopram Oxalate (Lexapro -) 20 mg PO HS NEL Last Admin: 04/15/19 21:18 Dose: 20 mg Gabapentin (Neurontin -) 800 mg PO TID NEL Last Admin: 04/16/19 06:09 Dose: 800 mg Sodium Chloride (Normal Saline -) 1,000 mls @ 125 mls/hr IV ASDIR NEL Last Admin: 04/16/19 06:12 Dose: 125 mls/hr Vancomycin HCl (Vancomycin (Pre-Docked)) 1,000 mg in 250 mls @ 166.667 mls/hr IVPB Q12H NEL; Protocol Last Admin: 04/15/19 23:21 Dose: 166.667 mls/hr Aztreonam 2 gm/ Dextrose 100 mls @ 200 mls/hr IVPB Q8H-IV NEL; Protocol Last Admin: 04/16/19 01:55 Dose: 200 mls/hr Sodium Chloride ([place] Nasal [place] -) 2 spray NS BID PRN PRN Reason: NASAL CONGESTION Last Admin: 04/15/19 22:08 Dose: 2 spray CBC, BMP 04/16/19 05:58 04/16/19 05:58 Microbiology 04/15/19 01:40 Blood Culture - Preliminary Blood - Peripheral Venous NO GROWTH OBTAINED AFTER 24 HOURS, INCUBATION TO CONTINUE FOR 4 DAYS. 04/15/19 01:40 Blood Culture - Preliminary Blood - Peripheral Venous NO GROWTH OBTAINED AFTER 24 HOURS, INCUBATION TO CONTINUE FOR [address] chest/ arm noted Physical Exam S1 S2 RRR Lungs decreased Abd- soft, Obese, NT no edema Left hand-- dorsum of hand is swollen, warm, erythema, tender+-- Improved as per pt. 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 Discussed Clear liquid diet' robitussin prn abx-- I/d on case supplement k i/v tylenol will follow
[2019-04-16] MEDS ORDERED: PT OWN MED DRAWER 7, Y5N ONE ×4 (11:48→17:16)
[2019-04-16] MEDS ORDERED: POTASSIUM CHLORIDE ORAL LIQUID 20 MEQ/15 ML PO ONE (12:00)
[2019-04-16] MEDS: guaiFENesin 200 MG/10 ML 10 ML UNIT-DOSE CUPS PO PRN ×2 (12:23→18:35)
[2019-04-16] MEDS: VANCOMYCIN 1 GRAM (PRE-DOCKED) 1,000 MG/250 ML BAG IVPB SCH ×2 (12:28→22:27)
[2019-04-16] MEDS: amLODIPine BESYLATE 10 MG TABLET (FP) PO SCH (12:29)
--- NOTE | 2019-04-16 14:43 | PN ---
Progress Note, Physician - Current Medication List Current Medications: Active Medications Acetaminophen (Tylenol -) 650 mg PO Q6H PRN PRN Reason: PAIN Last Admin: 04/16/19 08:14 Dose: 650 mg Acetaminophen ([place] Injection -) 1,000 mg IVPB Q8H PRN PRN Reason: PAIN 6-10 Amlodipine Besylate (Norvasc -) 10 mg PO DAILY NEL Last Admin: 04/16/19 12:29 Dose: 10 mg Escitalopram Oxalate (Lexapro -) 20 mg PO HS NEL Last Admin: 04/15/19 21:18 Dose: 20 mg Gabapentin (Neurontin -) 800 mg PO TID NEL Last Admin: 04/16/19 13:12 Dose: 800 mg Guaifenesin (Robitussin -) 5 ml PO QID PRN PRN Reason: COUGH Last Admin: 04/16/19 12:23 Dose: 5 ml Sodium Chloride (Normal Saline -) 1,000 mls @ 125 mls/hr IV ASDIR NEL Last Admin: 04/16/19 13:38 Dose: 125 mls/hr Vancomycin HCl (Vancomycin (Pre-Docked)) 1,000 mg in 250 mls @ 166.667 mls/hr IVPB Q12H NEL; Protocol Last Admin: 04/16/19 12:28 Dose: 166.667 mls/hr Aztreonam 2 gm/ Dextrose 100 mls @ 200 mls/hr IVPB Q8H-IV NEL; Protocol Last Admin: 04/16/19 13:38 Dose: 200 mls/hr Sodium Chloride ([place] Nasal [place] -) 2 spray NS BID PRN PRN Reason: NASAL CONGESTION Last Admin: 04/15/19 22:08 Dose: 2 spray - Objective Vital Signs: Vital Signs Temperature 98 F 04/16/19 08:24 Pulse Rate 74 04/16/19 08:24 Respiratory Rate 18 04/16/19 08:24 Blood Pressure 134/76 04/16/19 08:24 O2 Sat by Pulse Oximetry (%) 96 04/16/19 08:50 Labs: CBC, BMP 04/16/19 05:58 04/16/19 05:58 INR, PTT INR 1.12 (0.83-1.09) H 04/15/19 01:40
[2019-04-16] MEDS: LACTOBACILLUS ACIDOPHILUS 1 TABLET PO SCH (22:26)
[2019-04-16] MEDS: ESCITALOPRAM OXALATE 10 MG TABLET (FP) PO SCH (22:26)
[2019-04-16] MEDS: ACETAMINOPHEN 1000 MG/100 ML VIAL (NON FORMULARY) IVPB PRN (22:27)
[2019-04-17] MEDS ORDERED: PT OWN MED DRAWER 7, Y5N ONE ×3 (01:31→17:27)
[2019-04-17] MEDS: AZTREONAM 2 GM in DEXTROSE 5%-WATER 100 ML IVPB SCH ×3 (02:10→17:29)
[2019-04-17] MEDS ORDERED: ONDANSETRON 4 MG/2 ML VIAL ONE (04:30)
[2019-04-17] MEDS: ONDANSETRON 4 MG/2 ML VIAL IVPB PRN ×2 (04:33→17:12)
[2019-04-17] MEDS: SODIUM CHLORIDE 1,000 ML IV SCH (06:00)
[2019-04-17] MEDS: GABAPENTIN 400 MG CAPSULE (FP) PO SCH ×3 (06:01→22:07)
[2019-04-17] MEDS: ACETAMINOPHEN 325 MG TABLET (FP) PO PRN (09:16)
[2019-04-17] MEDS: LACTOBACILLUS ACIDOPHILUS 1 TABLET PO SCH (09:16)
[2019-04-17] MEDS: amLODIPine BESYLATE 10 MG TABLET (FP) PO SCH (09:16)
[2019-04-17] MEDS: VANCOMYCIN 1 GRAM (PRE-DOCKED) 1,000 MG/250 ML BAG IVPB SCH ×2 (10:42→22:07)
[2019-04-17] MEDS: guaiFENesin 200 MG/10 ML 10 ML UNIT-DOSE CUPS PO PRN ×2 (11:52→17:23)
[2019-04-17] MEDS: ALPRAZolam 0.25 MG TABLET PO PRN (13:13)
--- NOTE | 2019-04-17 14:06 | PN ---
Progress Note (short form) - Note Progress Note: pt seen/ examined feels better was very anxious earlier-- much better now with xanax family at bedside afebrile Vital Signs Temp 98.2 F 04/17/19 08:30 Pulse 72 04/17/19 08:30 Resp 18 04/17/19 08:30 BP 135/79 04/17/19 08:30 Pulse Ox 96 04/16/19 21:00 Intake & Output 04/16/19 04/17/19 04/17/19 23:59 11:59 23:59 Intake Total 1225 1150 Balance 1225 1150 Intake: IV 375 850 Normal Saline - 1,000 ml 375 850 @ 125 mls/hr IV ASDIR NEL Rx#:[id number] IVPB 350 100 Oral 500 200 Other: Voiding Method Toilet Toilet # Unmeasured Voids Void 2 4 Bowel Movement No Active Medications Acetaminophen (Tylenol -) 650 mg PO Q6H PRN PRN Reason: PAIN Last Admin: 04/17/19 09:16 Dose: 650 mg Acetaminophen (Ofirmev Injection -) 1,000 mg IVPB Q8H PRN PRN Reason: PAIN 6-10 Last Admin: 04/16/19 22:27 Dose: 1,000 mg Alprazolam (Xanax -) 0.25 mg PO BID PRN PRN Reason: ANXIETY Last Admin: 04/17/19 13:13 Dose: 0.25 mg Amlodipine Besylate (Norvasc -) 10 mg PO DAILY [facility] Last Admin: 04/17/19 09:16 Dose: 10 mg Escitalopram Oxalate (Lexapro -) 20 mg PO HS [facility] Last Admin: 04/16/19 22:26 Dose: 20 mg Gabapentin (Neurontin -) 800 mg PO TID [facility] Last Admin: 04/17/19 06:01 Dose: 800 mg Guaifenesin (Robitussin -) 5 ml PO QID PRN PRN Reason: COUGH Last Admin: 04/17/19 11:52 Dose: 5 ml Vancomycin HCl (Vancomycin (Pre-Docked)) 1,000 mg in 250 mls @ 166.667 mls/hr IVPB Q12H [facility]; Protocol Last Admin: 04/17/19 10:42 Dose: 166.667 mls/hr Aztreonam 2 gm/ Dextrose 100 mls @ 200 mls/hr IVPB Q8H-IV NEL; Protocol Last Admin: 04/17/19 09:18 Dose: 200 mls/hr Lactobacillus Acidophilus (Bacid -) 1 tab PO DAILY NEL Last Admin: 04/17/19 09:16 Dose: 1 tab Ondansetron HCl (Zofran Injection) 4 mg IVPB Q6H PRN PRN Reason: NAUSEA Last Admin: 04/17/19 04:33 Dose: 4 mg Sodium Chloride ([place] Nasal [place] -) 2 spray NS BID PRN PRN Reason: NASAL CONGESTION Last Admin: 04/15/19 22:08 Dose: 2 spray CBC, BMP 04/16/19 05:58 04/16/19 05:58 Microbiology 04/15/19 01:40 Blood Culture - Preliminary Blood - Peripheral Venous NO GROWTH OBTAINED AFTER 24 HOURS, INCUBATION TO CONTINUE FOR 4 DAYS. 04/15/19 01:40 Blood Culture - Preliminary Blood - Peripheral Venous NO GROWTH OBTAINED AFTER 24 HOURS, INCUBATION TO CONTINUE FOR [address] chest/ arm noted Physical Exam S1 S2 RRR Lungs decreased at bases -- better air entry Abd- soft, Obese, NT no edema Left hand-- dorsum of hand is swollen, warm, erythema, tender+-- Improved Awake PLAN better continue abx f/u labs-- ordered for today if continue to improve - consider d./c in 1-2 days will follow Problem List - Problems (1) Chest pain Code(s): R07.9 - CHEST PAIN, UNSPECIFIED Qualifiers: Chest pain type: unspecified Qualified Code(s): R07.9 - Chest pain, unspecified (2) Demand ischemia Code(s): I24.8 - OTHER FORMS OF ACUTE ISCHEMIC HEART DISEASE (3) Hemoptysis Code(s): R04.2 - HEMOPTYSIS (4) Substance abuse Code(s): F19.10 - OTHER PSYCHOACTIVE SUBSTANCE ABUSE, UNCOMPLICATED
--- NOTE | 2019-04-17 14:14 | PN ---
Progress Note, Physician - Current Medication List Current Medications: Active Medications Acetaminophen (Tylenol -) 650 mg PO Q6H PRN PRN Reason: PAIN Last Admin: 04/17/19 09:16 Dose: 650 mg Acetaminophen (Ofirmev Injection -) 1,000 mg IVPB Q8H PRN PRN Reason: PAIN 6-10 Last Admin: 04/16/19 22:27 Dose: 1,000 mg Alprazolam (Xanax -) 0.25 mg PO BID PRN PRN Reason: ANXIETY Last Admin: 04/17/19 13:13 Dose: 0.25 mg Amlodipine Besylate (Norvasc -) 10 mg PO DAILY NEL Last Admin: 04/17/19 09:16 Dose: 10 mg Escitalopram Oxalate (Lexapro -) 20 mg PO HS NEL Last Admin: 04/16/19 22:26 Dose: 20 mg Gabapentin (Neurontin -) 800 mg PO TID NEL Last Admin: 04/17/19 06:01 Dose: 800 mg Guaifenesin (Robitussin -) 5 ml PO QID PRN PRN Reason: COUGH Last Admin: 04/17/19 11:52 Dose: 5 ml Vancomycin HCl (Vancomycin (Pre-Docked)) 1,000 mg in 250 mls @ 166.667 mls/hr IVPB Q12H NEL; Protocol Last Admin: 04/17/19 10:42 Dose: 166.667 mls/hr Aztreonam 2 gm/ Dextrose 100 mls @ 200 mls/hr IVPB Q8H-IV NEL; Protocol Last Admin: 04/17/19 09:18 Dose: 200 mls/hr Lactobacillus Acidophilus (Bacid -) 1 tab PO DAILY NEL Last Admin: 04/17/19 09:16 Dose: 1 tab Ondansetron HCl (Zofran Injection) 4 mg IVPB Q6H PRN PRN Reason: NAUSEA Last Admin: 04/17/19 04:33 Dose: 4 mg Sodium Chloride ([place] Nasal [place] -) 2 spray NS BID PRN PRN Reason: NASAL CONGESTION Last Admin: 04/15/19 22:08 Dose: 2 spray - Objective Vital Signs: Vital Signs Temperature 98.2 F 04/17/19 08:30 Pulse Rate 72 04/17/19 08:30 Respiratory Rate 18 04/17/19 08:30 Blood Pressure 135/79 04/17/19 08:30 O2 Sat by Pulse Oximetry (%) 96 04/16/19 21:00 Labs: CBC, BMP 04/16/19 05:58 04/16/19 05:58 INR, PTT INR 1.12 (0.83-1.09) H 04/15/19 01:40
[2019-04-17] MEDS: ACETAMINOPHEN 1000 MG/100 ML VIAL (NON FORMULARY) IVPB PRN (14:58)
[2019-04-17] MEDS: ESCITALOPRAM OXALATE 10 MG TABLET (FP) PO SCH (22:07)
[2019-04-18] MEDS ORDERED: MELATONIN 5 MG TABLETS PO ONE (00:34)
[2019-04-18] MEDS ORDERED: PT OWN MED DRAWER 7, Y5N ONE ×2 (00:53→08:46)
[2019-04-18] MEDS: AZTREONAM 2 GM in DEXTROSE 5%-WATER 100 ML IVPB SCH ×2 (01:02→09:19)
[2019-04-18] MEDS: ALPRAZolam 0.25 MG TABLET PO PRN ×2 (02:01→14:16)
[2019-04-18] MEDS: GABAPENTIN 400 MG CAPSULE (FP) PO SCH ×2 (05:56→14:16)
[2019-04-18] MEDS: ONDANSETRON 4 MG/2 ML VIAL IVPB PRN ×2 (05:57→14:16)
[2019-04-18 05:59] LABS: BASO % 0.7 % (0-2.0); EOS % 1.7 % (0-4.5); HEMATOCRIT 42.1 % (35.4-49); HEMOGLOBIN 13.2 GM/dL (11.7-16.9); LYMPH % 17.5 % (8-40); MCHC 31.3 g/dl (32.0-35.9); MEAN CELL VOLUME 73.5 fl (80-96); MEAN PLT VOLUME 9.2 fl (7.5-11.1); MONO % 8.4 % (3.8-10.2); NEUT % 71.7 % (42.8-82.8); PLATELET COUNT 269 K/MM3 (134-434); RBC 5.73 M/mm3 (4.00-5.60); RDW 17.8 % (11.9-15.9); WHITE BLOOD COUNT 9.7 K/mm3 (4.0-10.0)
[2019-04-18 06:20] LABS: ALBUMIN 3.1 g/dl (3.4-5.0); BILIRUBIN,TOTAL 0.2 mg/dL (0.2-1); BLOOD UREA NITROGEN 8.6 mg/dL (7-18); CALCIUM 8.2 mg/dL (8.5-10.1); CREATININE 0.8 mg/dL (0.55-1.3); POTASSIUM 3.9 mmol/L (3.5-5.1); TOT PROT 6.4 g/dl (6.4-8.2)
[2019-04-18] MEDS: LACTOBACILLUS ACIDOPHILUS 1 TABLET PO SCH (09:18)
[2019-04-18] MEDS: ACETAMINOPHEN 325 MG TABLET (FP) PO PRN (09:18)
[2019-04-18] MEDS: VANCOMYCIN 1 GRAM (PRE-DOCKED) 1,000 MG/250 ML BAG IVPB SCH (10:31)
[2019-04-18] MEDS: amLODIPine BESYLATE 10 MG TABLET (FP) PO SCH (10:32)
[2019-04-18 11:43] VITALS: BP 144/69; PULSE 67; TEMP 97.9
--- NOTE | 2019-04-18 13:20 | DS ---
Physical Examination Vital Signs: Vital Signs Temperature 97.9 F 04/18/19 10:00 Pulse Rate 67 04/18/19 10:00 Respiratory Rate 18 04/18/19 10:00 Blood Pressure 144/69 04/18/19 10:00 O2 Sat by Pulse Oximetry (%) 98 04/18/19 10:00 Findings/Remarks: feels well no complains' Constitutional: Yes: No Distress Neck: Yes: Supple Cardiovascular: Yes: Regular Rate and Rhythm Respiratory: Yes: CTA Bilaterally Gastrointestinal: Yes: Soft Edema: LUE: 1+ Labs: CBC, BMP 04/18/19 05:30 04/18/19 05:30 Discharge Summary Reason For Visit: SUBSTANCE ABUSE,ELEVATED TROPONIN LEVEL,HOMOPTYSIS Current Active Problems Chest pain (Acute) Demand ischemia (Acute) Hemoptysis (Acute) Substance abuse (Acute) Troponin I above reference range (Acute) Hospital Course: admitted for pneumonia left arm swelling treated with abx ct arm- no abscess ct chest - Bilateral pneumonia much better with abx will d/c on po abx discussed with i/d - agree with plan pt strongly advised to get repeat ct chest done in 2-3 weeks -- to document clearing of pneumonia pt in agreement pt to follow with pmd in one week discussed with nursing staff also Condition: Stable - Instructions Disposition: HOME - Home Medications Comprehensive Discharge Medication List: Ambulatory Orders Amlodipine Besylate [Norvasc -] 10 mg PO DAILY 10/22/18 Escitalopram Oxalate [Lexapro -] 20 mg PO ONCE 04/15/19 Gabapentin 800 mg PO TID 04/15/19 Acetaminophen [Tylenol .Regular Strength -] 650 mg PO Q6H PRN tablet 04/18/19 Amoxicillin/Potassium Clav [Augmentin 875-125 Tablet] 1 each PO BID 7 Days #14 tablet 04/18/19 Guaifenesin [Robitussin -] 5 ml PO QID PRN cup 04/18/19
--- NOTE | 2019-04-18 13:33 | PN ---
Progress Note, Physician History of Present Illness: patient doing well breathing much better - Current Medication List Current Medications: Active Medications Acetaminophen (Tylenol -) 650 mg PO Q6H PRN PRN Reason: PAIN Last Admin: 04/18/19 09:18 Dose: 650 mg Acetaminophen (Ofirmev Injection -) 1,000 mg IVPB Q8H PRN PRN Reason: PAIN 6-10 Last Admin: 04/17/19 14:58 Dose: 1,000 mg Alprazolam (Xanax -) 0.25 mg PO BID PRN PRN Reason: ANXIETY Last Admin: 04/18/19 02:01 Dose: 0.25 mg Amlodipine Besylate (Norvasc -) 10 mg PO DAILY NEL Last Admin: 04/18/19 10:32 Dose: 10 mg Escitalopram Oxalate (Lexapro -) 20 mg PO HS [facility] Last Admin: 04/17/19 22:07 Dose: 20 mg Gabapentin (Neurontin -) 800 mg PO TID NEL Last Admin: 04/18/19 05:56 Dose: 800 mg Guaifenesin (Robitussin -) 5 ml PO QID PRN PRN Reason: COUGH Last Admin: 04/17/19 17:23 Dose: 5 ml Vancomycin HCl (Vancomycin (Pre-Docked)) 1,000 mg in 250 mls @ 166.667 mls/hr IVPB Q12H NEL; Protocol Last Admin: 04/18/19 10:31 Dose: 166.667 mls/hr Aztreonam 2 gm/ Dextrose 100 mls @ 200 mls/hr IVPB Q8H-IV NEL; Protocol Last Admin: 04/18/19 09:19 Dose: 200 mls/hr Lactobacillus Acidophilus (Bacid -) 1 tab PO DAILY NEL Last Admin: 04/18/19 09:18 Dose: 1 tab Ondansetron HCl (Zofran Injection) 4 mg IVPB Q6H PRN PRN Reason: NAUSEA Last Admin: 04/18/19 05:57 Dose: 4 mg Sodium Chloride ([place] Nasal [place] -) 2 spray NS BID PRN PRN Reason: NASAL CONGESTION Last Admin: 04/15/19 22:08 Dose: 2 spray - Objective Vital Signs: Vital Signs Temperature 97.9 F 04/18/19 10:00 Pulse Rate 67 04/18/19 10:00 Respiratory Rate 18 04/18/19 10:00 Blood Pressure 144/69 04/18/19 10:00 O2 Sat by Pulse Oximetry (%) 98 04/18/19 10:00 Constitutional: Yes: No Distress, Calm, Obese Cardiovascular: Yes: Regular Rate and Rhythm Respiratory: Yes: Regular, CTA Bilaterally Gastrointestinal: Yes: Normal Bowel Sounds, Soft Musculoskeletal: Yes: WNL Extremities: Yes: Other Neurological: Yes: Alert, Oriented Psychiatric: Yes: Alert, Oriented Labs: CBC, BMP 04/18/19 05:30 04/18/19 05:30 INR, PTT INR 1.12 (0.83-1.09) H 04/15/19 01:40 Assessment/Plan Problem List - Problems (1) Hemoptysis Code(s): R04.2 - HEMOPTYSIS (2) Substance abuse Code(s): F19.10 - OTHER PSYCHOACTIVE SUBSTANCE ABUSE, UNCOMPLICATED (3) Rhabdomyolysis Code(s): M62.82 - RHABDOMYOLYSIS Qualifiers: Rhabdomyolysis type: traumatic Encounter type: initial encounter Qualified Code(s): T79.6XXA - Traumatic ischemia of muscle, initial encounter (4) HTN (hypertension) Code(s): I10 - ESSENTIAL (PRIMARY) HYPERTENSION Qualifiers: (5) Opioid dependence Code(s): F11.20 - OPIOID DEPENDENCE, UNCOMPLICATED Qualifiers: Substance use status: uncomplicated Qualified Code(s): F11.20 - Opioid dependence, uncomplicated (6) History of oral cancer Code(s): Z85.819 - PRSNL HX OF MALIG NEOPLM OF UNSP SITE LIP,ORAL CAV,& PHARYNX plan continue current mgmt oral abx incentive [place] rest as per the team
[2019-04-19 19:11] LABS: BABESIA MICROTI ANTIBODY IGG <1:10 (Neg:<1:10); BABESIA MICROTI ANTIBODY IGM <1:10 (Neg:<1:10)
== END 2019-04-18 15:04 | disposition home or self-care (01) | DRG 194 ==
LOC: JER 00:41 → JERBED 03:05 → J4S 18:28
PROVIDERS: ADMIT Internal Medicine; ATTEND Internal Medicine
DX: J18.9 Pneumonia, unspecified organism (principal); R04.2 Hemoptysis; F11.20 Opioid dependence, uncomplicated; M62.82 Rhabdomyolysis; N17.9 Acute kidney failure, unspecified; L03.114 Cellulitis of left upper limb; I24.8 Other forms of acute ischemic heart disease; K21.9 Gastro-esophageal reflux disease without esophagitis; I10 Essential (primary) hypertension; I25.2 Old myocardial infarction; M54.9 Dorsalgia, unspecified; Z85.819 Personal history of malignant neoplasm of unspecified site of lip, oral cavity, and pharynx; Z88.0 Allergy status to penicillin; F41.8 Other specified anxiety disorders; G47.33 Obstructive sleep apnea (adult) (pediatric); E78.1 Pure hyperglyceridemia; E66.9 Obesity, unspecified; Z68.36 Body mass index [BMI] 36.0-36.9, adult
CPT/HCPCS: 36415; 71046-TC-FY; 71250-TC; 73200-TC-RT; 80048; 80053; 80307; 81003; 82272; 82550; 82553; 84484; 85025; 85027; 85610; 85651; 85730; 86618; 86753; 87040; 87070; 87116; 87205; 87206; 87804; 87899; 93005; 93010; 93306-TC; 94660; 99281-25; J0131; J7030

== ENCOUNTER 2019-04-23 18:44 | Emergency (ER) | payer BC ==
[2019-04-23 18:57] VITALS: BP 152/87; PULSE 101; TEMP 99; BMI 34.7
--- NOTE | 2019-04-23 19:49 | PDOC ---
Documentation entered by Judi Hinds SCRIBE, acting as scribe for Jaimie Branch MD. Jaimie Branch MD: This documentation has been prepared by the Lizet spence Brenda, SCRIBE, under my direction and personally reviewed by me in its entirety. I confirm that the documentation accurately reflects all work, treatment, procedures, and medical decision making performed by me. History of Present Illness - General Chief Complaint: Pain Stated Complaint: PAIN LT RIBS, RT KNEE History Source: Patient Exam Limitations: No Limitations - History of Present Illness Initial Comments: 04/23/19 20:08 The patient is a 38 year old male, with a significant PMH of depression, anxiety , N-STEMI, oral CA (s/p skin graft from L forearm), GERD, HTN, chronic back pain and pneumonia who presents to the emergency department with concerns of a painful lump on right leg. The patient reports being at the hospital last week for pneumonia,sepsis, and was informed that if any lumps form to come into the ED. The patient notes that throughout the week, his right leg swelling had decreased but a lump started to form, and wouldnt decrease, prompting his arrival to the ED. The patient reports still being on antibiotics, amoxicillin and norfloxacin. The patient denies chest pain, shortness of breath, headache and dizziness. Denies fever, chills, nausea, vomiting, diarrhea and constipation. Allergies: Penicillin Past surgical history: Social history: Pt denies any cigarette or alcohol use. PCP: Dr. Sargent Past History - Past Medical History Allergies/Adverse Reactions: Allergies Allergy/AdvReac Type Severity Reaction Status Date / Time Penicillins Allergy Severe Hives Verified 04/15/19 00:49 Home Medications: Ambulatory Orders Escitalopram Oxalate [Lexapro -] 20 mg PO ONCE 04/15/19 Gabapentin 800 mg PO TID 04/15/19 Levofloxacin [Levaquin] 500 mg PO DAILY 7 Days #7 tablet 04/18/19 Amoxicillin - [Amoxicillin 500mg Capsule -] 500 mg PO BID 04/23/19 Indapamide 1.25 mg PO DAILY 04/23/19 Methylphenidate HCl [Ritalin LA] 5 mg PO TID 04/23/19 Perindopril Erbumine 4 mg PO DAILY 04/23/19 Anemia: No Asthma: No 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) Cardiac Disorders: No CVA: No COPD: No CHF: No Dementia: No Diabetes: No GI Disorders: Yes (gastritis) Disorders: No HTN: Yes Hypercholesterolemia: No Kidney Stones: No Liver Disease: No Psychiatric Problems: Yes (ANXIETY, DEPRESSION) Seizures: No Thyroid Disease: No - Surgical History Abdominal Surgery: No Appendectomy: Yes (1996) Cardiac Surgery: No Cholecystectomy: No Lung Surgery: No Neurologic Surgery: No Orthopedic Surgery: No - Reproductive History Testicular Surgery: No - Immunization History Immunization Up to Date: No - Suicide/Smoking/Psychosocial Hx Smoking Status: No Smoking History: Never smoked Have you smoked in the past 12 months: No Number of Cigarettes Smoked Daily: 0 If you are a former smoker, when did you quit?: 10 YRS AGO 'Breaking Loose' booklet given: 05/01/16 Hx Alcohol Use: No Drug/Substance Use Hx: Yes Substance Use Type: Heroin Hx Substance Use Treatment: Yes (2017) Review of Systems - Review of Systems Able to Perform ROS?: Yes Comments:: 04/23/19 20:08 GENERAL/CONSTITUTIONAL: No fever or chills. No weakness. HEAD, EYES, EARS, NOSE AND THROAT: No change in vision. No ear pain or discharge. No sore throat. CARDIOVASCULAR: No chest pain or shortness of breath. RESPIRATORY: No cough, wheezing, or hemoptysis. GASTROINTESTINAL: No nausea, vomiting, diarrhea or constipation. GENITOURINARY: No dysuria, frequency, or change in urination. MUSCULOSKELETAL: No joint or muscle swelling or pain. No neck or back pain. SKIN: + Mild lump on right leg. No rash NEUROLOGIC: No headache, vertigo, loss of consciousness, or change in strength/ sensation. ENDOCRINE: No increased thirst. No abnormal weight change. HEMATOLOGIC/LYMPHATIC: No anemia, easy bleeding, or history of blood clots. ALLERGIC/IMMUNOLOGIC: No hives or skin allergy. *Physical Exam - Vital Signs Last Vital Signs Temp Pulse Resp BP Pulse Ox 99 F 101 H 18 152/87 98 04/23/19 18:51 04/23/19 18:51 04/23/19 18:51 04/23/19 18:51 04/23/19 18:51 - Physical Exam Comments: 04/23/19 20:08 GENERAL: Awake, alert, and fully oriented, in no acute distress HEAD: No signs of trauma EYES: PERRLA, EOMI, sclera anicteric, conjunctiva clear ENT: Auricles normal inspection, hearing grossly normal, nares patent, oropharynx clear without exudates. Moist mucosa NECK: Normal ROM, supple, no lymphadenopathy, JVD, or masses LUNGS: Breath sounds equal, clear to auscultation bilaterally. No wheezes, and no crackles HEART: Regular rate and rhythm, normal S1 and S2, no murmurs, rubs or gallops ABDOMEN: Soft, nontender, normoactive bowel sounds. No guarding, no rebound. No masses EXTREMITIES: Normal range of motion, no edema. No clubbing or cyanosis. No cords, erythema, or tenderness NEUROLOGICAL: Cranial nerves II through XII grossly intact. Normal speech, normal gait SKIN: + 2 cm area of mildly tender induration without erythema on his right gu. Warm, Dry, normal turgor, no rashes. Medical Decision Making - Medical Decision Making 04/23/19 20:40 Pt presents to the ED complaining of a small area of painful induration without erythema that was present during a recent admission for sepsis but has become slightly bigger since discharge. As per the patient, area is greatly reduced in size from his initial presentation from the hospital. Patient is still taking amoxicillin and levaquin, and has experienced no fevers, nausea or vomiting. Exam is inconsistent with abscess. May be erythema nodusum. Patient discharged home with instructions to continue antibiotics, follow up with PMD Dr. Ruano, and to return to the Ed for worsening pain or inflammation. *DC/Admit/Observation/Transfer Diagnosis at time of Disposition: Erythema nodosum - Discharge Dispostion Disposition: HOME Condition at time of disposition: Good Decision to Admit order: No - Referrals Referrals: Emeterio Sargent MD [Primary Care Provider] - - Patient Instructions Printed Discharge Instructions: DI for Erythema Nodosum Additional Instructions: you came to the ED for a swelling on your gu, which has been present since your recent admission for sepsis, but has gotten slightly bigger. This swelling is probably not an abscess or skin infection, but is more likely a reaction to inflammation called erythema nodusum. It will likely go away with time. You should return to the ED for fever, nausea and vomiting, redness, tenderness or worsening swelling in the area or in the rest of the leg. Make sure that you take the antibiotics prescribed during your hospital admission until they are all gone. Make sure that you follow up with Dr. Ruano. You can take over the counter motrin for pain--as much as 4 pills every 8 hours. Make sure that you take it with food, so that it does not irritate your stomach. - Post Discharge Activity
== END 2019-04-23 19:53 | disposition home or self-care (01) ==
LOC: FER 18:44
DX: L52 Erythema nodosum (principal); Z87.891 Personal history of nicotine dependence; F41.8 Other specified anxiety disorders; I10 Essential (primary) hypertension
CPT/HCPCS: 99281-25

== ENCOUNTER 2019-08-03 12:20 | Emergency (ER) | payer BC, OTHER ==
[2019-08-03 12:30] VITALS: BP 145/73; PULSE 78; TEMP 98; BMI 38.2
--- NOTE | 2019-08-03 13:04 | PDOC ---
History of Present Illness - General Chief Complaint: Pain Stated Complaint: LEFT LEG PAIN Time Seen by Provider: 08/03/19 12:24 - History of Present Illness Initial Comments: 39 years old past medical history significant for anxiety depression chronic pain, COPD oral cancer status post resection in remission presents emergency Department with left calf pain. There was no history of trauma occurred at rest did not occur while walking is exacerbated by movement states it feels subjectively swollen pain is persistent constant worse with movement no exacerbating or alleviating factors. Past History - Past Medical History Allergies/Adverse Reactions: Allergies Allergy/AdvReac Type Severity Reaction Status Date / Time Penicillins Allergy Severe Hives Verified 08/03/19 12:21 Home Medications: Ambulatory Orders Gabapentin 800 mg PO TID 04/15/19 Methylphenidate HCl [Ritalin LA] 5 mg PO TID 04/23/19 Perindopril Erbumine 4 mg PO DAILY 04/23/19 Duloxetine HCl [Cymbalta] 20 mg PO DAILY 08/03/19 Anemia: No Asthma: No 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) Cardiac Disorders: No CVA: No COPD: Yes CHF: No Dementia: No Diabetes: No GI Disorders: Yes (gastritis) Disorders: No HTN: Yes Hypercholesterolemia: No Kidney Stones: No Liver Disease: No Psychiatric Problems: Yes (ANXIETY,DEPRESSION) Seizures: No Thyroid Disease: No - Surgical History Abdominal Surgery: No Appendectomy: Yes (1996) Cardiac Surgery: No Cholecystectomy: No Lung Surgery: No Neurologic Surgery: No Orthopedic Surgery: No - Reproductive History Testicular Surgery: No - Immunization History Immunization Up to Date: No - Psycho Social/Smoking Cessation Hx Smoking Status: No Smoking History: Smoker current status UNK Have you smoked in the past 12 months: No Number of Cigarettes Smoked Daily: 0 If you are a former smoker, when did you quit?: 10 YRS AGO Information on smoking cessation initiated: No 'Breaking Loose' booklet given: 05/01/16 Hx Alcohol Use: No Drug/Substance Use Hx: Yes Substance Use Type: Heroin Hx Substance Use Treatment: Yes (2018) Review of Systems - Review of Systems Comments:: 08/03/19 13:39 ROS: A complete review of 10 out of 10 review of systems is taken and is negative apart from what is previously mentioned below and in the HPI. *Physical Exam - Vital Signs Last Vital Signs Temp Pulse Resp BP Pulse Ox 98 F 78 18 145/73 97 08/03/19 12:20 08/03/19 12:20 08/03/19 12:20 08/03/19 12:20 08/03/19 12:20 - Physical Exam Comments: Vitals: Triage Vital signs reviewed General Appearance: no acute distress, well nourished well developed, Head: Atraumatic, Chest Wall: Nontender Cardiac: Regular rate and rhythym, no murmurs, no rubs, no gallops, Lungs: Clear to auscultation bilateral, good air movement bilaterally, Abdomen: Soft, non distended, normal bowel sounds, non tender to palpation Extremities: Full range of motion to all extremities, no cyanosis, clubbing, or edema, pain to left calf Skin: Warm and dry, no rashes or lesions, no rash, no petechiae Neuro: AOX3; Cranial Nerves 2-12 grossly intact, Strength intact to all extremities, Sensation intact to all extremities,gait normal Psych: normal mood, normal affect ED Treatment Course - RADIOLOGY Radiology Studies Ordered: Category Date Time Status DUPLEX VASCUL US-1 LEG [US] Stat Ultrasound 08/03/19 12:34 Taken Medical Decision Making - Medical Decision Making 08/03/19 16:03 No acute DVT no trauma no physical exam findings consistent with fracture dislocation Patient ambulating comfortably Findings, the need for follow-up and strict return instructions discussed with patient. Discharge - Discharge Information Problems reviewed: Yes Clinical Impression/Diagnosis: Leg pain Condition: Stable Disposition: HOME - Admission No - Follow up/Referral Referrals: Emeterio Sargent MD [Primary Care Provider] - - Patient Discharge Instructions Additional Instructions: Rest. Ice, 20 min on 20 min off. Follow up with Dr. Nair this week. If no improvement in 1-2 weeks follow up with your doctor for a repeat US. Return to ED for any severe symptoms or for any concerns - Post Discharge Activity
== END 2019-08-03 13:27 | disposition home or self-care (01) ==
LOC: FER 12:20
DX: M79.662 Pain in left lower leg (principal); Z88.0 Allergy status to penicillin; F41.8 Other specified anxiety disorders; I10 Essential (primary) hypertension; J44.9 Chronic obstructive pulmonary disease, unspecified; K29.70 Gastritis, unspecified, without bleeding; Z87.891 Personal history of nicotine dependence
CPT/HCPCS: 93971-TC; 99283-25

== ENCOUNTER 2019-11-29 18:01 | Inpatient (IN) | payer OTHER ==
[2019-11-29 19:01] VITALS: BMI 39.4
--- NOTE | 2019-11-29 20:11 | HP ---
COWS - Scale Resting Pulse: 1= ID [id number] Sweatin=Flushed/Facial Moisture Restless Observation: 1= Difficult to Sit Still Pupil Size: 1= Pupils >than Normal Bone or Joint Aches: 4=Acute Joint/Muscle Pain Runny Nose/ Eye Tearin= Runny Nose/Eyes GI Upset > 30mins: 3= Vomiting/Diarrhea (vomiting x 2, darrhea x 5) Tremor Observation: 4= Gross Tremor/Twitching Yawning Observation: 1= 1-2x During Session Anxiety or Irritability: 2=Irritable/Anxious Goose Flesh Skin: 0=Smooth Skin COWS Score: 21 CIWA Score - Admission Criteria OASAS Guidelines: Admission for Medically Managed Detox: Requires at least one of the followin. CIWA greater than 12 2. Seizures within the past 24 hours 3. Delirium tremens within the past 24 hours 4. Hallucinations within the past 24 hours 5. Acute intervention needed for co occurring medical disorder 6. Acute intervention needed for co occurring psychiatric disorder 7. Severe withdrawal that cannot be handled at a lower level of care (continued vomiting, continued diarrhea, abnormal vital signs) requiring intravenous medication and/or fluids 8. Admitting History and Physical - Past Medical History Cardiovascular: Yes: HTN Gastrointestinal: Yes: GERD Heme/Onc: Yes: Cancer (Oral) Psych: Yes: Anxiety, Depression - Smoking History Smoking history: Smoker current status UNK Have you smoked in the past 12 months: No Aproximately how many cigarettes per day: 0 If you are a former smoker, when did you quit?: 10 YRS AGO - Alcohol/Substance Use Hx Alcohol Use: No History of Substance Use: reports: Heroin, Prescription Admission [facility] Chief Complaint: Heroin withdrawal symptoms Allergies/Adverse Reactions: Allergies Allergy/AdvReac Type Severity Reaction Status Date / Time Penicillins Allergy Severe Hives Verified 11/29/19 18:57 History of Present Illness: 39 years old male with 5 years of heroin dependence is seeking admission to detox. Patient reports multiple detox admissions, last for the period 03/11/2018 -03/15/2018 and multiple hospitalizations at [facility]. He reports insignificant period of sobriety and states that he often relapse a couple of days post discharge. He has medical history of oral cancer (in remission), hypertension, COPD, sleep apnea, gastritis and psych history of depression and anxiety. He denies suicidal ideation at this time. His last blackout was in April 2019. Exam Limitations: No Limitations - Ebola screening Have you traveled outside of the country in the last 21 days: No (N) Have you had contact with anyone from an Ebola affected area: No Do you have a fever: No - Review of Systems Constitutional: Chills, Loss of Appetite, Malaise, Night Sweats, Changes in sleep EENT: reports: Sinus Pressure Respiratory: reports: SOB at Rest (uses CPAP) Cardiac: reports: No Symptoms Reported GI: reports: Diarrhea, Nausea, Poor Appetite, Poor Fluid Intake, Vomiting, Abdominal cramping : reports: No Symptoms Reported Musculoskeletal: reports: Back Pain, Joint Pain, Muscle Pain Integumentary: reports: Dryness, Flushing Neuro: reports: Tremors Endocrine: reports: Flushing Hematology: reports: No Symptoms Reported Psychiatric: reports: Mood/Affect Appropiate, Orientated x3, Anxious, Depressed Other Systems: Reviewed and Negative Patient History - Patient Medical History Hx Anemia: No Hx Asthma: No Hx Chronic Obstructive Pulmonary Disease (COPD): Yes Hx 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) Hx Cardiac Disorders: No Hx Congestive Heart Failure: No Hx Hypertension: Yes Hx Hypercholesterolemia: No Hx Pacemaker: No HX Cerebrovascular Accident: No Hx Seizures: No Hx Dementia: No Hx Diabetes: No Hx Gastrointestinal Disorders: Yes (gastritis) Hx Liver Disease: No Hx Genitourinary Disorders: No Hx Sexually Transmitted Disorders: No Hx Renal Disease (ESRD): No Hx Thyroid Disease: No Hx Human Immunodeficiency Virus (HIV): No (negative last 01/16) Hx Hepatitis C: No Hx Depression: Yes Hx Suicide Attempt: No Hx Bipolar Disorder: No Hx Schizophrenia: No - Patient Surgical History Past Surgical History: Yes Hx Neurologic Surgery: No Hx Cataract Extraction: No Hx Cardiac Surgery: No Hx Lung Surgery: No Hx Breast Surgery: No Hx Breast Biopsy: No Hx Abdominal Surgery: No Hx Appendectomy: Yes (1996) Hx Cholecystectomy: No Hx Genitourinary Surgery: No Hx Section: No Hx Orthopedic Surgery: No Other Surgical History: Cancer of palate 2008 Anesthesia Reaction: No - PPD History Previous Implant?: Yes Documented Results: Negative w/proof Implanted On Prior R Admission?: Yes Date: 03/13/18 Results: 0 mm PPD to be Administered?: Yes - Reproductive History Patient is a Female of Child Bearing Age (11 -55 yrs old): No (male) - Smoking Cessation Smoking history: Former smoker Have you smoked in the past 12 months: No Aproximately how many cigarettes per day: 0 If you are a former smoker, when did you quit?: 10 YRS AGO Hx Chewing Tobacco Use: No Initiated information on smoking cessation: No - Substance & Tx. History Hx Alcohol Use: No Hx Substance Use: Yes Substance Use Type: Heroin Hx Substance Use Treatment: Yes ([facility]) - Substances abused Heroin Substance route: Inhalation Frequency: Daily Amount used: 1 BUNDLE A DAY Age of first use: 35 Date of last use: 11/29/19 Admission Physical Exam S - Vital Signs Vital Signs: Vital Signs - 24 hr 11/29/19 18:55 Temperature 98 F Pulse Rate 97 H Respiratory 16 Rate Blood Pressure 192/96 H - Physical General Appearance: Yes: Moderate Distress, Tremorous, Sweating, Anxious HEENTM: Yes: Within Normal Limits, Nasal Congestion, Rhinorrhea Respiratory: Yes: Other (uses CPAP at bedtime) Neck: Yes: Within Normal Limits Breast: Yes: Breast Exam Deferred Cardiology: Yes: Tachycardia Abdominal: Yes: Normal Bowel Sounds, Soft Genitourinary: Yes: Within Normal Limits Back: Yes: Normal Inspection Musculoskeletal: Yes: Back pain, Joint swelling, Muscle Pain Extremities: Yes: Tremors Neurological: Yes: Within Normal Limits, Alert, Normal Mood/Affect Integumentary: Yes: Warm, Track [place] (bilateral arms) Lymphatic: Yes: Within Normal Limits - Diagnostic (1) COPD (chronic obstructive pulmonary disease) Current Visit: Yes Status: Chronic Qualifiers: COPD type: unspecified COPD Qualified Code(s): J44.9 - Chronic obstructive pulmonary disease, unspecified (2) Gastritis Current Visit: Yes Status: Chronic Qualifiers: Chronicity: unspecified (3) Anxiety Current Visit: Yes Status: Chronic (4) Opioid dependence with withdrawal Current Visit: No Status: Acute (5) History of oral cancer Current Visit: No Status: Resolved (6) HTN (hypertension) Current Visit: Yes Status: Chronic Qualifiers: Hypertension type: unspecified Qualified Code(s): I10 - Essential (primary ) hypertension (7) Sleep apnea Current Visit: Yes Status: Chronic Qualifiers: Sleep apnea type: unspecified type Qualified Code(s): G47.30 - Sleep apnea , unspecified Cleared for Admission S - Detox or Rehab [facility] Level of Care: Medically Managed Detox Regimen/Protocol: Methadone Claeared for Rehab Admission: No Breathalyzer - Breathalyzer Breathalyzer: 0 Urine Drug Screen - Test Device Lot number: [id number] Expiration date: 06/02/21 - Control Is test valid?: Yes - Results Drug screen NEGATIVE: No Urine drug screen results: FEN-Fentanyl, MOP-Opiates Inpatient Rehab Admission - Rehab Decision to Admit Inpatient rehab admission?: No
[2019-11-29] MEDS ORDERED: MENTHOL/PHENOL 1 EACH UD MM PRN (20:37)
[2019-11-29] MEDS ORDERED: MAG HYDROX/AL HYDROX/SIMETH 30 ML UNIT-DOSE CUP PO PRN (20:37)
[2019-11-29] MEDS ORDERED: MAGNESIUM CITRATE 300 ML BOTTLE PO PRN (20:37)
[2019-11-29] MEDS ORDERED: MELATONIN 5 MG TABLETS PO PRN (20:37)
[2019-11-29] MEDS ORDERED: ACETAMINOPHEN 325 MG TABLET (FP) PO PRN ×2 (20:37)
[2019-11-29] MEDS ORDERED: BISMUTH SUBSALICYLATE 524 MG/30 ML UD PO PRN (20:37)
[2019-11-29] MEDS ORDERED: IBUPROFEN 400 MG TABLET (FP) PO PRN (20:37)
[2019-11-29] MEDS ORDERED: MAGNESIUM HYDROX 2400MG/30ML ORAL SUSPENSION 30 ML CUP PO PRN (20:37)
[2019-11-29] MEDS ORDERED: METHADONE HCL 10 MG TABLET (FOR DETOX USE ONLY) PO ONE (22:15)
[2019-11-29] MEDS: cloNIDine HCL 0.1 MG TABLET PO PRN (22:53)
[2019-11-29] MEDS: PANTOPRAZOLE 40 MG TABLET PO SCH (22:54)
[2019-11-29] MEDS: THIAMINE HCL 100 MG TABLET (FP) PO SCH (22:55)
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
[2019-11-30] MEDS ORDERED: METHADONE HCL 5 MG TABLET (FOR DETOX USE ONLY) ONE (09:22)
[2019-11-30] MEDS ORDERED: METHADONE HCL 10 MG TABLET (FOR DETOX USE ONLY) ONE (09:23)
[2019-11-30] MEDS ORDERED: METHADONE (DETOX) 20 MG, METHADONE (DETOX) 5 MG PO ONE (10:00)
[2019-11-30] MEDS: PRENATAL VITAMINS W/ FOLIC ACID TABLET (FP) PO SCH (10:28)
[2019-11-30] MEDS: PANTOPRAZOLE 40 MG TABLET PO SCH ×2 (10:29→22:14)
[2019-11-30] MEDS: amLODIPine BESYLATE 10 MG TABLET (FP) PO SCH (10:29)
[2019-11-30 10:53] LABS: HEMATOCRIT 45.1 % (35.4-49); HEMOGLOBIN 14.2 GM/dL (11.7-16.9); MCH 23.3 pg (25.7-33.7); MCHC 31.6 g/dl (32.0-35.9); MEAN CELL VOLUME 73.6 fl (80-96); MEAN PLT VOLUME 10.2 fl (7.5-11.1); PLATELET COUNT 236 K/MM3 (134-434); RBC 6.12 M/mm3 (4.00-5.60); WHITE BLOOD COUNT 9.6 K/mm3 (4.0-10.0)
[2019-11-30] MEDS ORDERED: SODIUM CHLORIDE NASAL SPRAY 44 ML BOTTLE NS PRN (11:41)
--- NOTE | 2019-11-30 11:43 | PN ---
BHS COWS - Scale Resting Pulse: 0= [place] 80 or Below Sweatin= Chills/Flushing Restless Observation: 1= Difficult to Sit Still Pupil Size: 0= Normal to Room Light Bone or Joint Aches: 2= Severe Diffuse Aches Runny Nose/ Eye Tearin= Runny Nose/Eyes GI Upset > 30mins: 0= None Tremor Observation of Outstretched Hands: 2= Slight Tremor Visible Yawning Observation: 2= >3x During Session Anxiety or Irritability: 2=Irritable/Anxious Goose Flesh Skin: 3=Piloerection COWS Score: 15 BHS Progress Note (SOAP) Subjective: sweats shakes restless body aches interrupted sleep irritable nasal congestion Objective: 11/30/19 11:42 Vital Signs Temperature 97.5 F L 11/30/19 09:13 Pulse Rate 71 11/30/19 09:13 Respiratory Rate 18 11/30/19 09:13 Blood Pressure 104/81 11/30/19 09:13 O2 Sat by Pulse Oximetry (%) Laboratory Tests 11/30/19 07:45 WBC 9.6 RBC 6.12 H Hgb 14.2 Hct 45.1 MCV 73.6 L MCH 23.3 L MCHC 31.6 L RDW 19.0 H Plt Count 236 MPV 10.2 D rest of labs pending aaox3 ambulating no acute distress Assessment: 11/30/19 11:42 withdrawals Plan: continue detox increase fluids ocean spray prn valium prn roboxin prn
[2019-11-30] MEDS: diazePAM 5 MG TABLET PO PRN ×2 (12:13→17:28)
[2019-11-30 12:15] LABS: ALBUMIN 3.9 g/dl (3.4-5.0); BILIRUBIN,TOTAL 1.2 mg/dL (0.2-1); BLOOD UREA NITROGEN 18.7 mg/dL (7-18); CREATININE 1.2 mg/dL (0.55-1.3); POTASSIUM 4.3 mmol/L (3.5-5.1); TOT PROT 7.4 g/dl (6.4-8.2)
--- NOTE | 2019-11-30 15:14 | EKG ---
Test Reason : Blood Pressure : / mmHG Vent. Rate : 075 BPM Atrial Rate : 075 BPM P-R Int : 134 ms QRS Dur : 084 ms QT Int : 380 ms P-R-T Axes : 038 035 016 degrees QTc Int : 424 ms POOR DATA QUALITY, INTERPRETATION MAY BE ADVERSELY AFFECTED NORMAL SINUS RHYTHM EARLY REPOLARIZATION NORMAL ECG WHEN COMPARED WITH ECG OF 15-APR-2019 00:44, T WAVE INVERSION NOW EVIDENT IN INFERIOR LEADS Confirmed by Wiliam Garcia MD ([id number]) on 11/30/2019 3:14:21 PM Referred By: Yakov Casey Confirmed By:Wiliam Garcia MD
[2019-11-30] MEDS: SUVOREXANT 10 MG TABLET PO PRN (22:14)
[2019-11-30] MEDS: THIAMINE HCL 100 MG TABLET (FP) PO SCH (22:14)
[2019-12-01] MEDS: diazePAM 5 MG TABLET PO PRN ×3 (08:53→20:32)
[2019-12-01] MEDS ORDERED: ONDANSETRON *ODT* 4 MG TABLET SL PRN (09:50)
[2019-12-01] MEDS ORDERED: METHADONE HCL 10 MG TABLET (FOR DETOX USE ONLY) PO ONE (10:00)
--- NOTE | 2019-12-01 10:39 | PN ---
BHS COWS - Scale Resting Pulse: 0= [place] 80 or Below Sweatin= Chills/Flushing Restless Observation: 1= Difficult to Sit Still Pupil Size: 0= Normal to Room Light Bone or Joint Aches: 2= Severe Diffuse Aches Runny Nose/ Eye Tearin= Nasal Congestion GI Upset > 30mins: 2= Nausea/Diarrhea Tremor Observation of Outstretched Hands: 1= Tremor [place], Not Seen Yawning Observation: 1= 1-2x During Session Anxiety or Irritability: 1=Feels Anxious/Irritable Goose Flesh Skin: 0=Smooth Skin COWS Score: 10 BHS Progress Note (SOAP) Subjective: nausea sweats agitation Objective: 12/01/19 10:37 Vital Signs Temperature 97.7 F 12/01/19 09:14 Pulse Rate 71 12/01/19 09:14 Respiratory Rate 18 12/01/19 09:14 Blood Pressure 151/72 12/01/19 09:14 O2 Sat by Pulse Oximetry (%) Laboratory Tests 11/30/19 11/30/19 11/30/19 07:45 07:45 07:45 WBC 9.6 RBC 6.12 H Hgb 14.2 Hct 45.1 MCV 73.6 L MCH 23.3 L MCHC 31.6 L RDW 19.0 H Plt Count 236 MPV 10.2 D Sodium 138 Potassium 4.3 Chloride 102 Carbon Dioxide 30 Anion Gap 6 L BUN 18.7 H Creatinine 1.2 Est GFR (CKD-EPI)AfAm 87.75 Est GFR (CKD-EPI)NonAf 75.72 Random Glucose 86 Calcium 9.0 Total Bilirubin 1.2 H AST 48 H ALT 37 Alkaline Phosphatase 63 Total Protein 7.4 Albumin 3.9 RPR Titer Nonreactive labs pending BUN elevated 18.7; will repeat labs aaox3 ambulating no acute distress Assessment: 12/01/19 10:38 withdrawals Plan: continue detox zofran sl prn repeat labs
[2019-12-01] MEDS: PANTOPRAZOLE 40 MG TABLET PO SCH ×2 (11:11→22:09)
[2019-12-01] MEDS: PRENATAL VITAMINS W/ FOLIC ACID TABLET (FP) PO SCH (11:11)
[2019-12-01] MEDS: amLODIPine BESYLATE 10 MG TABLET (FP) PO SCH (11:11)
[2019-12-01] MEDS: hydrOXYzine PAMOATE 50 MG CAPSULE (FP) PO PRN (13:00)
[2019-12-01] MEDS: METHOCARBAMOL 500 MG TABLET PO PRN (17:34)
[2019-12-01] MEDS: THIAMINE HCL 100 MG TABLET (FP) PO SCH (22:09)
[2019-12-01] MEDS: SUVOREXANT 10 MG TABLET PO PRN (22:10)
[2019-12-01] MEDS: cloNIDine HCL 0.1 MG TABLET PO PRN (22:30)
[2019-12-02] MEDS: diazePAM 5 MG TABLET PO PRN ×3 (08:59→17:16)
[2019-12-02] MEDS ORDERED: METHADONE (DETOX) 10 MG, METHADONE (DETOX) 5 MG PO ONE (10:00)
[2019-12-02] MEDS: PRENATAL VITAMINS W/ FOLIC ACID TABLET (FP) PO SCH (10:16)
[2019-12-02] MEDS: amLODIPine BESYLATE 10 MG TABLET (FP) PO SCH (10:16)
[2019-12-02] MEDS: PANTOPRAZOLE 40 MG TABLET PO SCH ×2 (10:16→22:21)
[2019-12-02 10:17] LABS: BASO % 1.1 % (0-2.0); EOS % 4.3 % (0-4.5); HEMATOCRIT 43.6 % (35.4-49); HEMOGLOBIN 13.7 GM/dL (11.7-16.9); LYMPH % 34.4 % (8-40); MCH 23.1 pg (25.7-33.7); MCHC 31.5 g/dl (32.0-35.9); MEAN CELL VOLUME 73.3 fl (80-96); MONO % 11.6 % (3.8-10.2); NEUT % 48.6 % (42.8-82.8); PLATELET COUNT 219 K/MM3 (134-434); RBC 5.95 M/mm3 (4.00-5.60); RDW 18.6 % (11.9-15.9); WHITE BLOOD COUNT 5.3 K/mm3 (4.0-10.0)
[2019-12-02] MEDS ORDERED: METHADONE HCL 5 MG TABLET (FOR DETOX USE ONLY) ONE (10:17)
[2019-12-02] MEDS ORDERED: METHADONE HCL 10 MG TABLET (FOR DETOX USE ONLY) ONE (10:18)
[2019-12-02] MEDS: hydrOXYzine PAMOATE 50 MG CAPSULE (FP) PO PRN ×2 (10:19→15:44)
[2019-12-02 10:25] LABS: ALBUMIN 3.2 g/dl (3.4-5.0); BILIRUBIN,TOTAL 0.4 mg/dL (0.2-1); BLOOD UREA NITROGEN 14.7 mg/dL (7-18); CALCIUM 8.7 mg/dL (8.5-10.1); POTASSIUM 4.4 mmol/L (3.5-5.1); TOT PROT 6.8 g/dl (6.4-8.2)
--- NOTE | 2019-12-02 11:32 | PN ---
BHS COWS - Scale Resting Pulse: 0= [place] 80 or Below Sweatin= Chills/Flushing Restless Observation: 1= Difficult to Sit Still Pupil Size: 0= Normal to Room Light Bone or Joint Aches: 1= Mild Discomfort Runny Nose/ Eye Tearin= None GI Upset > 30mins: 0= None Tremor Observation of Outstretched Hands: 0= None Yawning Observation: 1= 1-2x During Session Anxiety or Irritability: 2=Irritable/Anxious Goose Flesh Skin: 0=Smooth Skin COWS Score: 6 BHS Progress Note (SOAP) Subjective: anxiety sweats Objective: 12/02/19 11:31 Vital Signs Temperature 97.7 F 12/02/19 09:25 Pulse Rate 62 12/02/19 09:25 Respiratory Rate 16 12/02/19 09:25 Blood Pressure 106/64 12/02/19 09:25 O2 Sat by Pulse Oximetry (%) Laboratory Tests 11/30/19 11/30/19 11/30/19 07:45 07:45 07:45 WBC 9.6 RBC 6.12 H Hgb 14.2 Hct 45.1 MCV 73.6 L MCH 23.3 L MCHC 31.6 L RDW 19.0 H Plt Count 236 MPV 10.2 D Absolute Neuts (auto) Neutrophils % Lymphocytes % Monocytes % Eosinophils % Basophils % Nucleated RBC % Sodium 138 Potassium 4.3 Chloride 102 Carbon Dioxide 30 Anion Gap 6 L BUN 18.7 H Creatinine 1.2 Est GFR (CKD-EPI)AfAm 87.75 Est GFR (CKD-EPI)NonAf 75.72 Random Glucose 86 Calcium 9.0 Total Bilirubin 1.2 H AST 48 H ALT 37 Alkaline Phosphatase 63 Total Protein 7.4 Albumin 3.9 RPR Titer Nonreactive 12/02/19 12/02/19 08:00 08:00 WBC 5.3 RBC 5.95 H Hgb 13.7 Hct 43.6 MCV 73.3 L MCH 23.1 L MCHC 31.5 L RDW 18.6 H Plt Count 219 MPV 10.0 Absolute Neuts (auto) 2.5 Neutrophils % 48.6 D Lymphocytes % 34.4 D Monocytes % 11.6 H Eosinophils % 4.3 D Basophils % 1.1 Nucleated RBC % 0 Sodium 137 Potassium 4.4 Chloride 102 Carbon Dioxide 32 Anion Gap 4 L BUN 14.7 Creatinine 1.0 Est GFR (CKD-EPI)AfAm 109.40 Est GFR (CKD-EPI)NonAf 94.39 Random Glucose 97 Calcium 8.7 Total Bilirubin 0.4 AST 23 ALT 29 Alkaline Phosphatase 62 Total Protein 6.8 Albumin 3.2 L RPR Titer aaox3 ambulating no acute distress Assessment: 12/02/19 12:01 withdrawals Plan: continue detox
[2019-12-02] MEDS: THIAMINE HCL 100 MG TABLET (FP) PO SCH (22:19)
[2019-12-02] MEDS: SUVOREXANT 10 MG TABLET PO PRN (22:21)
[2019-12-03] MEDS ORDERED: METHADONE HCL 10 MG TABLET (FOR DETOX USE ONLY) PO ONE (10:00)
[2019-12-03] MEDS: amLODIPine BESYLATE 10 MG TABLET (FP) PO SCH (10:47)
[2019-12-03] MEDS: PANTOPRAZOLE 40 MG TABLET PO SCH ×2 (10:47→22:01)
[2019-12-03] MEDS: PRENATAL VITAMINS W/ FOLIC ACID TABLET (FP) PO SCH (10:47)
[2019-12-03] MEDS: hydrOXYzine PAMOATE 50 MG CAPSULE (FP) PO PRN ×3 (10:50→19:04)
--- NOTE | 2019-12-03 11:36 | PN ---
BHS COWS - Scale Resting Pulse: 0= [place] 80 or Below Sweatin= No chills or Flushing Restless Observation: 1= Difficult to Sit Still Pupil Size: 0= Normal to Room Light Bone or Joint Aches: 1= Mild Discomfort Runny Nose/ Eye Tearin= None GI Upset > 30mins: 0= None Tremor Observation of Outstretched Hands: 0= None Yawning Observation: 0= None Anxiety or Irritability: 0= None Goose Flesh Skin: 0=Smooth Skin COWS Score: 2 S Progress Note (SOAP) Subjective: anxiety Objective: 12/03/19 11:34 Vital Signs Temperature 97.4 F L 12/03/19 09:51 Pulse Rate 73 12/03/19 09:51 Respiratory Rate 20 12/03/19 09:51 Blood Pressure 150/71 12/03/19 09:51 O2 Sat by Pulse Oximetry (%) aaox3 ambulating no acute distress Assessment: 12/03/19 11:36 mild withdrawals Plan: complete detox d/c in am
[2019-12-03] MEDS: METHOCARBAMOL 500 MG TABLET PO PRN (13:45)
[2019-12-03] MEDS: cloNIDine HCL 0.1 MG TABLET PO SCH ×2 (14:51→22:02)
[2019-12-03] MEDS: THIAMINE HCL 100 MG TABLET (FP) PO SCH (22:01)
[2019-12-04] MEDS ORDERED: METHADONE HCL 5 MG TABLET (FOR DETOX USE ONLY) PO ONE (06:00)
[2019-12-04 07:04] VITALS: BP 136/68; PULSE 65; TEMP 97.5
[2019-12-04] MEDS: PANTOPRAZOLE 40 MG TABLET PO SCH (10:38)
[2019-12-04] MEDS: amLODIPine BESYLATE 10 MG TABLET (FP) PO SCH (10:38)
[2019-12-04] MEDS: cloNIDine HCL 0.1 MG TABLET PO SCH (10:38)
[2019-12-04] MEDS: PRENATAL VITAMINS W/ FOLIC ACID TABLET (FP) PO SCH (10:38)
[2019-12-04] MEDS: hydrOXYzine PAMOATE 50 MG CAPSULE (FP) PO PRN (10:40)
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
== END 2019-12-04 11:55 | disposition home or self-care (01) | DRG 773 ==
LOC: YASAS 18:01 → Y6N 21:48
PROVIDERS: ADMIT Allergy & Immunology; ATTEND Allergy & Immunology
PROC: HZ2ZZZZ Detoxification Services for Substance Abuse Treatment (ICD-10-PCS; principal; 2019-11-29)
DX: F11.23 Opioid dependence with withdrawal (principal); F19.280 Other psychoactive substance dependence with psychoactive substance-induced anxiety disorder; F19.282 Other psychoactive substance dependence with psychoactive substance-induced sleep disorder; F41.9 Anxiety disorder, unspecified; I10 Essential (primary) hypertension; J44.9 Chronic obstructive pulmonary disease, unspecified; G47.30 Sleep apnea, unspecified; K29.70 Gastritis, unspecified, without bleeding; Z85.819 Personal history of malignant neoplasm of unspecified site of lip, oral cavity, and pharynx; R00.0 Tachycardia, unspecified; Z88.0 Allergy status to penicillin; Z87.891 Personal history of nicotine dependence
CPT/HCPCS: 36415; 80053; 85025; 85027; 86593; 93005; 93010; J0735; Q0162

== ENCOUNTER 2020-07-23 08:20 | Inpatient (IN) | payer BC, OTHER ==
--- OUTSIDE RECORDS SUMMARY | 2020-07-23 08:46 | XMS ---
:1980 Author Organization [facility] Care Team Providers Name Role Phone BHUPENDRA PRACHI CLARK Unavailable Unavailable PAPITO MERCHANT Unavailable Un[facility], [id number] Unavailable Unavailable NEETA ROPER MD Unavailable Unavailable MD AVELINA Unavailable Unavailable Re-disclosure Warning The records that you are about to access may contain information from federally- assisted alcohol or drug abuse programs. If such information is present, then the following federally mandated warning applies: This information has been disclosed to you from records protected by federal confidentiality rules (42 CFR part 2). The federal rules prohibit you from making any further disclosure of this information unless further disclosure is expressly permitted by the written consent of the person to whom it pertains or as otherwise permitted by 42 CFR part 2. A general authorization for the release of medical or other information is NOT sufficient for this purpose. The Federal rules restrict any use of the information to criminally investigate or prosecute any alcohol or drug abuse patient.The records that you are about to access may contain highly sensitive health information, the redisclosure of which is protected by Article 27-F of the [facility] Public Health law. If you continue you may haveaccess to information: Regarding HIV / AIDS; Provided by facilities licensed or operated by the [facility] Office of Mental Health; or Provided by the [facility] Office for People With Developmental Disabilities. If such information is present, then the following [facility] mandated warning applies: This information has been disclosed to you from confidential records which are protected by state law. State law prohibits you from making any further disclosure of this information without the specific written consent of the person to whom it pertains, or as otherwise permitted by law. Any unauthorized further disclosure in violation of state law may result in a fine or mcfp sentence or both. A general authorization for the release of medical or other information is NOT sufficient authorization for further disclosure. Encounters Encounter Providers Location Date Indications Data Source(s ) Inpatient Attender: NEETA KERNSV-1D 12/09/2019 [facility] nick PAULSHANYANAdmitter 02:30:00 PM [facility] Hospital : MANNY QUAN 12/23/2019 09:45:00 PM EST Patient discharged. Attender: 12/09/2019 [facility] Sakina [id number] 02:30:00 PM [facility] 12/09/2019 [facility] 11:39:00 AM EST - Hospita l 12/09/2019 09:45:00 PM EST Patient discharged. Attender: 12/09/2019 [facility] [id number] 11:39:00 [facility]_6766 [facility] Inpatient Attender: PRACHI HUIZAR 05/02/2019 ACUTE [place] SASIDHARAttender: MAYUR, 01:44:00 AM [facility] BRAYANdmitter: CLAUDIO MERCHANT - RESP Care PAPITO Baez 05/06/2019 [facility] 03:13:00 PM EDT [facility] HYPERCAPENIC RESP Emergency Attender: MAYUR 05/01/2019 09:54:00 PM [facility] PAPITO MERCHANT Attender: [id number] 2016 08:43:00 [facility]_6766 PENDING S[facility] TO [facility] Hospital Attender: [id number] 2016 05:05:00 [facility]OGEL_6766 PM EDT Hospital Attender: [id number] 2015 05:10:00 [facility] ENRIQUEZT_6766 PM EDT Hospital Attender: [id number] 2014 10:31:00 [facility] ROGEL_6766 AM EDT Hospital Attender: [id number] 2014 10:42:00 [facility] ROGEL_6766 AM EDT Hospital Attender: [id number] 2014 09:32:00 [facility] ROGEL_6766 AM EDT Hospital Medications Medication Brand Start Product Dose Route Administrative Pharmacy [facility] Indications Reaction Description Data Name Date Form Instructions Instructions Source(s) Lisinopril Lisino ORAL complet Lisinop ril - [facility] 10 MG Oral pril 2019 Table ed 10 MG ORAL [facility] Tablet 10 MG 12:00: [facility] ORAL 00 AM Tablet EST Amlodipine Norvas ORAL complet Norvasc - 10 [facility] 10 MG Oral c - 10 2019 Table ed MG ORAL Marck cents Tablet MG 12:00: t [facility] [Norvasc] ORAL 00 AM Tablet EST Hydroxyzine Vistar ORAL complet Vistar il - [facility] Pamoate 50 il - 2019 Capsu ed 50 MG ORAL Vi ncents MG Oral 50 MG 12:00: le Capsule Hospit al Capsule ORAL 00 AM [Vistaril] Capsul EST e Fluoxetine PROzac ORAL complet PROzac - 20 [facility] 20 MG Oral - 20 2019 Capsu ed MG ORAL Kavon nts Capsule MG 12:00: le Capsule Hospita l [Prozac] ORAL 00 AM Capsul EST e gabapentin Gabape ORAL complet Gabapen tin - [facility] 600 MG Oral ntin 2019 Table ed 600 MG ORA L [facility] Tablet 600 MG 12:00: t Tablet Hospita l ORAL 00 AM Tablet EST Famotidine Pepcid ORAL complet Pepcid - 20 [facility] 20 MG Oral - 20 2019 Table ed MG ORAL [facility] n[facility] Tablet MG 12:00: t [facility]t Hospital [Pepcid] ORAL 00 AM Tablet EST Hydrochloro hydroC ORAL complet hydroC [facility]OROt [facility] thiazide 25 HLOROt 2019 Table ed hiazide - 25 [facility] MG Oral hiazid 12:00: t MG ORAL Hospi josefina Tablet e - 25 00 AM Tablet MG EST ORAL Tablet Escitalopra Lexapr complet [facility] tcheste m 20 MG o ed [facility] Oral Tablet (Escit Health Lexapro alopra Care (Escitalopr m) [20 Corpor atio am) [20 mg mg n Tablet]: 1 Tablet Tablet Oral ]: 1 DAILY Tablet Oral DAILY Brimonidine Brimon complet Riley tcheste tartrate idine ed [facility] 1.5 MG/ML [0.15 Health Ophthalmic % Care Solution Drops] Corporati o Brimonidine : 1 n [0.15 % Drops Drops]: 1 Left Drops Left Eye Eye Q8H Q8H Discharge [facility] Medications ed [facility] are Health unavailable Care . Corporatio n gabapentin Gabape complet [place] 800 MG Oral ntin ed [facility] Tablet [800 Health Gabapentin mg Care [800 mg Tablet Corporatio Tablet]: 1 ]: 1 n Tablet Oral Tablet 3 TIMES A Oral 3 DAY TIMES A DAY Amlodipine Amlodi complet [place] 5 MG Oral pine ed [facility] Tablet [5 mg Health Amlodipine Tablet Care [5 mg ]: 1 Corporatio Tablet]: 1 Tablet n Tablet Oral Oral DAILY DAILY Diphenhydra Benadr complet [facility] tcheste mine yl ed [facility] Hydrochlori Allerg Health de 25 MG y Care Oral Tablet (Diphe Corpor atio Benadryl nhydra n Allergy mine (Diphenhydr HCl) amine HCl) [25 mg [25 mg Tablet Tablet]: 1 ]: 1 Tablet Oral Tablet EVERY 8 Oral HOURS PRN EVERY Nausea 8 HOURS PRN Nausea Insurance Providers Payer name Policy type Policy ID Covered Covered libertarian's Policy P zakia / Coverage libertarian ID relationship to Abbasi Inf ormation type abbasi VALUE [id number] SP [id number] OPTIONS-BMP/G [place] SELF PAY 0000 Self 0000 GHI/EMBLEM [id number] (VO) PPO [id number] SP [id number] SELF PAY INSURANCE VALUE [id number] SP [id number] [place] [id number] SP [id number] Problems, Conditions, and Diagnoses Code Display Name Description Problem Type Effective Data Sour ce(s) Dates Z85.818 Personal history PRSNL OF MALIG Diagnosis 05/06/2019 [place] of malignant NEOPLM OF SITE OF 03:13:00 PM [facility] neoplasm of other LIP, ORAL CAV, and EDT Care sites of lip, oral PHARYNX Corpor ation cavity, and pharynx Z88.0 Allergy status to ALLERGY STATUS TO Diagnosis 05/06/2019 [facility] penicillin [facility]ILL[facility]:13:[facility] F41.1 Generalized GENERALIZED Diagnosis 05/06/2019 [facility] anxiety disorder ANXIETY DISORDER 03:13:[facility] Y92.[address] OTH PLACE IN Diagnosis 05/06/2019 [facility] as the HOSPITAL PLACE 03:13:00 PM [facility] place of EDT Care occurrence of the Corpora tion external cause F12.10 Cannabis abuse, CANNABIS ABUSE, Diagnosis 05/06/2019 [place] ottoniel uncomplicated UNCOMPLICATED 03:13:00 PM [facility] Duable ChineseT Care MediKeeper T40.7X1A Poisoning by POISONING BY Diagnosis 05/06/2019 [facility] r cannabis CANNABIS 03:13:00 PM [facility] (derivatives), (DERIVATIVES), EDT Care accidental ACCIDENTAL, INIT Corporat ion (unintentional), initial encounter H20.9 Unspecified UNSPECIFIED Diagnosis 05/06/2019 [facility] iridocyclitis IRIDOCYCLITIS 03:13:00 PM [facility] Duable ChineseT Care MediKeeper M62.82 Rhabdomyolysis RHABDOMYOLYSIS Diagnosis 05/06/2019 [facility] ildefonso 03:13:00 PM [facility] Duable ChineseT [facility] MediKeeper N17.9 Acute kidney ACUTE KIDNEY Diagnosis 05/06/2019 [facility] r failure, FAILURE, 03:13:00 PM [facility] unspecified UNSPECIFIED EDT Care MediKeeper F11.23 Opioid dependence OPIOID DEPENDENCE Diagnosis 05/06/2019 [facility] with withdrawal WITH WITHDRAWAL 03:13:00 PM [facility] EDT Care MediKeeper I21.A1 Myocardial MYOCARDIAL Diagnosis 05/06/2019 [facility] infarction type 2 INFARCTION TYPE 2 03:13:00 PM [facility] EDT Care MediKeeper J96.02 Acute respiratory ACUTE RESPIRATORY Diagnosis 05/06/2019 [facility] failure with FAILURE WITH 03:13:00 PM [facility] He alth hypercapnia HYPERCAPNIA EDT Care MediKeeper T40.1X1A Poisoning by POISONING BY Diagnosis 05/02/2019 [facility] r heroin, accidental HEROIN, ACCIDENTAL 01:44:00 AM [facility] (unintentional), (UNINTENTIONAL), EDT Ca re initial encounter INIT ENCNTR Corpor ation Results ID Date Data Source [id number] 06/15/2020 12:00:00 AM EDT [facility] Name Value Range Interpretation Code Description Data Kristi rce(s) Supporting Document(s ) 2019-nCoV [facility] RNA XXX NICOLE+probe- Imp This lab was ordered by [facility] TORREZ and reported by [employer]. ID Date Data Source [id number] 02/17/2020 08:35:00 AM EDT [facility] Name Value Range Interpretation Code Description Data Kristi rce(s) Supporting Document(s ) SARS-CoV-2 [facility] , RNA This lab was ordered by SHERYL SESAY M. D. and reported by [employer]. ID Date Data Source [id number] 05/06/2019 02:45:13 PM EDT [facility] [id number] Corporation Name Value Range Interpretation Description Data Sup porting Code Source(s) Document(s ) Echo 2D [id number] C <td> 05/04/2019 [facility] er M-Mode [id number] 12:27</td><td> [facility] Complete [id number] Echo 2D [facility] Health Care (TTE) Non-Invasive Complete (TTE) Med[facility]Keeper Cardiology </td><td> Laboratory [id number] Advanced
Physician [facility]
[address] [id number] [place]
[address] Phone [phone] Non-Invasive Adult
Echocardiogram Cardiology Report Name:
ALYSA BERMUDEZ Laboratory
Study Date: Advanced 05/04/2019
12:27 PM MRN: Physician [id number]
Services, BP: 140/88
mmHg : [address]
Gender: ORIANA Membreno Male Age: 38
yrs [address]
Height: 65 in Phone [phone] Account
Number: [phone] Fax [phone]
(351) Weight: 219 lb [phone] BSA: 2.1 m2
Patient Adult Location: 5SW Echocardiogram Reason For Report Study: DYSPNEA
Ordering Name: AIDAN, Physician: GIANNI WOODY Study Date: Performed By: 05/04/2019 Rogelio, 12:27 PM ZAMZAM De Los Santos
Interpretation Summary A complete BP: two-dimensional 140/88 mmHg transthoracic
echocardiogram : was performed 1980 (2D, M-mode, spectral and Gender: color flow Male Doppler).
Age: (12163). 38 yrs Study quality is good. Left Height: 65 ventricular in systolic
function is Account Number: normal. [id number] Ejection Fraction is Weight: 219 lb 55-60%. The
left BSA: 2.1 m2 ventricular wall motion is
normal. The Patient right Location: 5SW ventricular
systolic Reason For function is Study: DYSPNEA borderline reduced. Mild

mitral valve Ordering regurgitation. Physician: There is GIANNI HANLEY moderate CLAUDIA pulmonary
hypertension. Performed By: ICD-10 Rogelio, Dyspnea/ resp ZAMZAM De Los Santos distress - R06.00.

Procedure A Interpretation complete Summary two-dimensional
A transthoracic complete echocardiogram two-dimensional was performed transthoracic (2D, M-mode, echocardiogram spectral and was performed color flow (2D, Doppler).
(36643). Study M-mode, quality is spectral and good. Left color flow Ventricle The Doppler). left ventricle (04163). is normal in
size. There is Study quality normal left is good. ventricular
wall Left thickness. Left ventricular ventricular systolic systolic function is function is normal. normal.
Ejection Ejection Fraction is Fraction is 55-60%. The 55-60%. left
ventricular The left wall motion is ventricular normal. There wall motion is is normal left normal. ventricular
diastolic The right function. ventricular Right systolic Ventricle The function is right ventricle borderline size is upper reduced. normal in size
. The right Mild mitral ventricular valve systolic regurgitation. function is
borderline There is reduced. moderate Left Atrium pulmonary The left atrium hypertension. is mildly dilated.

Right Atrium ICD-10 The right
atrium is Dyspnea/ resp mildly dilated. distress - Aortic R06.00. Valve

Structurally Procedure normal aortic
valve. No A complete aortic two-dimensional regurgitation. transthoracic Mitral echocardiogram Valve was performed Structurally (2D, normal mitral
valve. Mild M-mode, mitral valve spectral and regurgitation. color flow Tricuspid Doppler). Valve (26417). Study Structurally quality is normal good. tricuspid

valve. Trivial Left Ventricle tricuspid valve
regurgitation. The left There is ventricle is moderate normal in size. pulmonary There is normal hypertension. left Pulmonic ventricular Valve wall Structurally
normal pulmonic thickness. Left valve. Trivial ventricular pulmonic valve systolic regurgitation. function is Aorta The normal. aortic root is Ejection normal in size. Fraction Venous
The inferior is 55-60%. The vena cava is left dilated with a ventricular normal wall motion is respiratory normal. There collapse, is normal left suggestive of
intermediate ventricular right atrial diastolic pressure (8 function. mmHg). Pericardium

There is no Right pericardial Ventricle effusion.
MMode/2D The right Measurements & ventricle size Calculations is upper normal IVSd: 1.1 cm in size . The LVIDd: 4.7 cm right ventricular Ao root diam:
2.9 cm LVIDs: systolic 3.2 cm function is LA borderline dimension: 4.0 reduced. cm LVPWd: 1.2

cm Left Atrium
The left atrium is mildly dilated. _ Asc Aorta diam: LVOT

diam: 2.0 cm Right Atrium Left
atrial volume The right (2c): 2.7 cm atrium is mildly dilated. 92.8 ml

LVOT area: 3.2 Aortic Valve cm2
Left atrial Structurally volume (4c): normal aortic 65.0 ml valve. No LAV(MOD-bp): aortic 78.1 ml regurgitation. LAV(MOD-bp) Indexed:

38.0 ml/m2 Mitral Valve
Structurally normal mitral valve. Mild _ TAPSE: mitral valve 2.6 cm Left regurgitation. atrial volume index Left

atrial volume Tricuspid Valve index (2c): 45.1 ml/m2
(4c): Structurally 31.6 ml/m2 normal Doppler tricuspid Measurements & valve. Trivial Calculations tricuspid valve MV E max jared: regurgitation. MV dec
time: 0.19 sec There is Lat E' jared: moderate 14.3 cm/sec pulmonary 85.9 cm/sec hypertension. MV A max jared: 67.4 cm/sec

MV E/A: 1.3 Pulmonic Valve
Structurally normal pulmonic __ Med E' valve. Trivial jared: 9.8 pulmonic valve cm/secE/E' regurgitation. Lateral: 6.0 AV v max:

137.9 cm/sec Aorta E/E' Medial:
The 8.8 AV aortic root is max P.6 normal in size. mmHg

Venous
The inferior vena _ LVOT max cava is dilated P.9 mmHg PA with a normal v max: 103.2 respiratory cm/sec TR v collapse, max: 327.1
cm/sec LVOT v suggestive of max: intermediate PA max P.3 right atrial mmHg 98.6 pressure (8 cm/sec mmHg).

Pericardium
There is no _ Right pericardial atrial effusion. pressure:Pulm

venous sys jaerd: MMode/2D PI Vmax: Measurements & 105.2 cm/sec Calculations 8.0 mmHg
36.7 IVSd: 1.1 cm cm/sec Pulm LVIDd: 4.7 cm venous gonsales jared: 40.4 Ao root diam: cm/sec Pulm A 2.9 cm venous revs
jared: 28.5 LVIDs: 3.2 cm cm/sec Pulm venous A Revs LA dimension: Dur: 0.13 sec 4.0 cm Pulm S/D:
0.91 LVPWd: 1.2 cm

_ RV A' jared: 9.9 cm/sec E/E' Average: _ 7.4
Asc Pulmonary Aorta diam: Artery sys RV LVOT diam: 2.0 E' jared: 11.8 cm cm/sec Left atrial volume (2c): pressure: 50.8
mmHg RV S 2.7 cm jared: 11.8 cm/sec 92.8 ml
LVOT area: 3.2 cm2 _ TR max Left atrial gradient: volume (4c): 42.8 mmHg
65.0 ml
LAV(MOD-bp): 78.1 ml
_ LAV(MOD-bp) Reading Indexed: Physician:

Keith Lakhani, 38.0 ml/m2 PA 05/04/2019
04:02 PM _

TAPSE: 2.6 cm Left atrial volume index Left atrial volume index
(2c): 45.1 ml/m2 (4c): 31.6 ml/m2

Doppler Measurements & Calculations
MV E max jared: MV dec time: 0.19 sec Lat E' jared: 14.3 cm/sec
85.9 cm/sec
MV A max jared:
67.4 cm/sec
MV E/A: 1.3

_
Med E' jared: 9.8 cm/secE/E' Lateral: 6.0 AV v max: 137.9 cm/sec
E/E' Medial: 8.8 AV max P.6 mmHg
_

LVOT max P.9 mmHg PA v max: 103.2 cm/sec TR v max: 327.1 cm/sec
LVOT v max: PA max P.3 mmHg
98.6 cm/sec
_

Right atrial pressure:Pulm venous sys jared: PI Vmax: 105.2 cm/sec
8.0 mmHg 36.7 cm/sec
Pulm venous gonsales jared:
40.4 cm/sec
Pulm A venous revs jared:
28.5 cm/sec
Pulm venous A Revs Dur:
0.13 sec
Pulm S/D: 0.91
_

RV A' jared: 9.9 cm/sec E/E' Average: 7.4 Pulmonary Artery sys
RV E' jared: 11.8 cm/sec pressure: 50.8 mmHg
RV S jared: 11.8 cm/sec
_

TR max gradient:
42.8 mmHg

_

Reading Physician:
Keith Lakhani MD 05/04/2019 04:02 PM

</td> ID Date Data Source [id number] 05/06/2019 02:45:13 PM EDT [facility] [id number] Corporation Name Value Range Interpretation Description Data Sup porting Code Source(s) Document(s ) Head (PACSIMAGE <td> 05/02/2019 [facility] 01:01</td><td> [facility] Contrast-CT ) Head Without Health Care Final Result Contrast-CT Corporation Name: </td><td>mp BERMUDEZ, mary kay WATT styleCode="Italic s">(PACSIMAGE Sex: M : )</paragraph><br/ 1980 >
Final Location: M Result Admitting

Physician: Name: AIDAN, EMERGENCY JOKING[place]ILLEIE SERVICE
MRN: Requesting [id number] Sex: M Physician:
RONAL : 1980 [place] Location: M Exam: CT
HEAD C- Admitting 05/02/2019 Physician: 01:30 EMERGENCY SERVICE CLINICAL
HISTORY: Requesting Submitted Physician: RONAL clinical ROSE information:

Trauma Exam: CT HEAD C- COMPARISON: 05/02/2019 01:30 CT head 02/01/2016

TECHNIQUE: CLINICAL Noncontrast HISTORY: CT scan of Submitted the head is clinical performed information: from the Trauma base of the

skull to the COMPARISON: CT vertex head 02/01/2016 utilizing axial image

acquisition. TECHNIQUE: Noncontrast CT Multiplanar scan of the head reformatted is performed from images are
provided. the base of Up-to-date the skull to the CT equipment vertex utilizing using axial image Automatic acquisition. Exposure
Control, Multiplanar dose reformatted modulation, images are and provided. iterative

reconstructi Up-to-date CT on dose equipment using reduction Automatic software Exposure Control, was dose employed.
The total modulation, and study DLP is iterative approximatel reconstruction y 1392 dose reduction mGy-cm. software The
was following employed. accession
The numbers are total study DLP related to is approximately this dose 1392 mGy-cm. report

[id number]}: The following [id number] accession numbers FINDINGS: are related to There is this dose report no evidence
of acute [id number]}: intracranial
hemorrhage, [id number] mass effect

or shift of FINDINGS: the midline
structures. There is no No evidence evidence of acute of intracranial hydrocephalu hemorrhage, mass s. effect Partially
or visualized shift of the surgical midline clips at the structures. No level of the evidence of left hydrocephalus. palate. The
visualized Partially paranasal visualized sinuses are surgical clips at well-aerated the level of the . The left mastoid air
palate. cells are The visualized well-aerated paranasal sinuses . The are well-aerated. visualized The orbits are
mastoid unremarkable air cells are . There is well-aerated. The no depressed visualized orbits calvarial are fracture.
Scalp unremarkable. hematoma and There is no laceration depressed at the calvarial vertex. fracture. Scalp Moderate
left hematoma and periorbital laceration at the soft tissue vertex. Moderate swelling and left periorbital hematoma.
soft tissue IMPRESSION: swelling and No CT hematoma. evidence of

acute IMPRESSION: intracranial

hemorrhage, No CT evidence focal mass of acute effect, or intracranial hydrocephalu hemorrhage, focal s. mass effect,
Resident or hydrocephalus. Radiologist: Attending

<b Radiologist: r/>

<br/ Cuca Herrera MD >

Finalizing Resident Radiologist: Radiologist: Cuca Herrera MD
Transcribed Attending Date: Radiologist: Cuca 05/02/2019 Sharon PEDRAZA 09:32
Finalized Finalizing Date: Radiologist: Cuca 05/02/2019 Sharon PEDRAZA 09:35
Transcribed Date: 05/02/2019 09:32
Finalized Date: 05/02/2019 09:35

</td> Maxillofaci (PACSIMAGE <td> 05/02/2019 [facility] W/Out 01:01</td><td> County Contrast-CT ) Maxillofacial Health Care Final Result W/Out Contrast-CT Corporati on Name: </td><td><arcelia Roman styleCode="Italic s">(PACSIMAGE Sex: M : )</paragraph><br/ 1980 >
Final Location: M Result Admitting

Physician: Name: AIDAN, EMERGENCY JOCONOR SERVICE
MRN: Requesting [id number] Sex: M Physician:
RONAL : 1980 [place] Location: M Exam: CT
MAXILLOFACIA Admitting L C- Physician: 05/02/2019 EMERGENCY SERVICE 01:31
HISTORY: Requesting Trauma Physician: RONAL TECHNIQUE: PLANSKY Noncontrast

CT of the Exam: CT maxillofacia MAXILLOFACIAL C- l bones was 05/02/2019 01:31 performed. Coronal and

sagittal HISTORY: Trauma reformatted images were

also TECHNIQUE: obtained. Noncontrast CT of Up-to-date the maxillofacial CT equipment bones was using performed. Automatic
Exposure Coronal and Control, sagittal dose reformatted modulation, images were also and obtained. iterative Up-to-date reconstructi
CT on dose equipment using reduction Automatic software was Exposure Control, employed.. dose modulation, The total
study DLP is and iterative approximatel reconstruction y 1392 dose reduction mGy-cm. software was The employed.. following
The accession total study DLP numbers are is approximately related to 1392 mGy-cm. this dose

report The following [id number]}: accession numbers [id number] are related to COMPARISON: this dose report CT cervical
spine [id number]}: 02/01/2016.
FINDINGS: [id number] Again

demonstrated COMPARISON: CT are numerous cervical spine palatine and 02/01/2016. upper

pharyngeal FINDINGS: surgical

clips as Again well as demonstrated are surgical numerous palatine clips and upper related to pharyngeal prior left
neck surgical clips as dissection. well as surgical Additional clips related to post prior left surgical
changes neck dissection. within the Additional post left palate. surgical changes Moderate within the left
periorbital left palate. soft tissue Moderate left swelling and periorbital soft hematoma. tissue swelling The bony and orbits are
intact. The hematoma. The nasal bones bony orbits are are intact. intact. The nasal The bones are intact. mandible,
maxilla, The mandible, zygoma and maxilla, zygoma pterygoid and pterygoid plates are plates are intact. intact. There is no
There traumatic is no traumatic temporomandi temporomandibular bular joint joint subluxation. subluxation. The The globes
are globes are symmetric symmetric and and intact. intact. There is There is no no retrobulbar retrobulbar hematoma. hematoma.
The The extraocular extraocular muscles and optic muscles and nerve sheath optic nerve complexes are sheath
complexes symmetric in are appearance. Mild symmetric in bilateral appearance. inferior Mild maxillary sinus bilateral
inferior mucosal maxillary thickening. There sinus are no fluid mucosal levels within the thickening. paranasal There are no
fluid levels sinuses. The within the visualized paranasal mastoid air cells sinuses. The are clear. Right visualized mandibular mastoid air
cells are third molar clear. Right dental caries and mandibular periapical third molar lucency. dental Recommend caries and correlation periapical
lucency. with dedicated Recommend dental correlation examination. with dedicated

dental IMPRESSION: examination.

1. No acute IMPRESSION: maxillofacial 1. No fractures. acute

maxillofacia 2. Moderate left l fractures. periorbital soft 2. tissue swelling Moderate and hematoma. left
periorbital No retrobulbar soft tissue hematoma. swelling and

hematoma. 3. Postsurgical No changes within retrobulbar the palate and hematoma. upper pharynx. 3.
Postsurgical Status post left changes neck dissection. within the Recommend palate and correlation with upper
pharynx. surgical Status post history. left neck

dissection. 4. Right Recommend mandibular third correlation molar dental with caries and surgical periapical history.
4. Right lucency. mandibular Recommend third molar correlation with dental dedicated dental caries and examination.. periapical lucency.

<b Recommend r/>
correlation Resident with Radiologist: dedicated
dental Attending examination. Radiologist: Cuca . Sharon PEDRAZA Resident
Radiologist: Finalizing Attending Radiologist: Cuca Radiologist: Sharon Herrera MD
Finalizing Transcribed Date: Radiologist: 05/02/2019 09:43 Cuca Herrera MD
Transcribed Finalized Date: Date: 05/02/2019 09:50 05/02/2019 09:43

</td> Finalized Date: 05/02/2019 09:50 ID Date Data Source [id number] 05/06/2019 02:45:13 PM EDT [facility] [id number] Corporation Name Value Range Interpretation Description Data Sup porting Code Source(s) Document(s ) Leukocytes 10.0 k/mm3 4.5-10 <td> 05/06/2019 [facility] [#/volume] in .8 06:10</td><td> [facility] Blood by k/mm3 WBC </td><td> Health Care Automated count [employer] 10.0
(4.5-10.8) k/mm3 </td> Hematocrit 41.9 % 38.0-4 <td> 05/06/2019 [facility] [Volume 7.0 % 06:10</td><td> [facility] Fraction] of HCT </td><td> Health Care Blood by [employer] Automated count 41.9
(38.0-47.0) % </td> Erythrocytes 5.76 m/mm3 4.20-5 <td> 05/06/2019 [facility] [#/volume] in .50 06:10</td><td> [facility] Blood m/mm3 RBC Health Care </td><td><britton [employer]eeper raph styleCode="Bold "> 5.76 H </paragraph>
(4.20-5.50) m/mm3 </td> Erythrocyte 72.7 fL 80.0-9 <td> 05/06/2019 [facility] mean 5.0 fL 06:10</td><td> [facility] corpuscular MCV Health Care volume [Entitic </td><td><britton Corporat ion volume] by raph Automated count styleCode="Bold "> 72.7 L </paragraph>
(80.0-95.0) fL </td> Hemoglobin 13.2 g/dL 12.3-1 <td> 05/06/2019 [facility] [Mass/volume] 6.0 06:10</td><td> [facility] in Blood g/dL HGB </td><td> Health Care Corporation 13.2
(12.3-16.0) g/dL </td> Erythrocyte 18.0 % 11.5-1 <td> 05/06/2019 [facility] distribution 4.5 % 06:10</td><td> [facility] width [Entitic RDW Health Care volume] by </td><td><britton [employer] Automated count raph styleCode="Bold "> 18.0 H </paragraph>
(11.5-14.5) % </td> Platelets 299 k/mm3 160-41 <td> 05/06/2019 [facility] [#/volume] in 0 06:10</td><td> [facility] Blood by k/mm3 Platelet Count Health Care Automated count </td><td> [employer] 299
(160-410) k/mm3 </td> Erythrocyte 31.5 % 32.0-3 <td> 05/06/2019 [facility] mean 6.0 % 06:10</td><td> [facility] corpuscular [facility] hemoglobin </td><td><britton [employer] concentration raph [Mass/volume] styleCode="Bold in Blood from "> Fetus by 31.5 Automated count L </paragraph>
(32.0-36.0) % </td> Erythrocyte 22.9 pg 27.0-3 <td> 05/06/2019 [facility] mean 1.5 pg 06:10</td><td> [facility] corpuscular [facility] Health Care hemoglobin </td><td><britton Corporation [Entitic mass] raph by Automated styleCode="Bold count "> 22.9 L </paragraph>
(27.0-31.5) pg </td> Platelet mean 11.5 fL 9.8-12 <td> 05/06/2019 [facility] r volume [Entitic .8 fL 06:10</td><td> County volume] in MPV </td><td> Health Care Blood by [employer] Automated count 11.5
(9.8-12.8) fL </td> Monocytes/Leuko 8.2 % 0.0-11 <td> 05/06/2019 [facility] cytes [Pure .0 % 06:10</td><td> County number Monocytes. Health Care fraction] in </td><td> Corporation Blood by Automated count 8.2
(0.0-11.0) % </td> Basophils+Eosin 2.6 % 0.0-5. <td> 05/06/2019 [facility] ophils+Monocyte 0 % 06:10</td><td> County s [#/volume] in Eosinophils Health Care Blood by </td><td> [employer] Automated count 2.6
(0.0-5.0) % </td> Basophils 0.7 % 0.0-2. <td> 05/06/2019 [facility] [#/volume] in 0 % 06:10</td><td> [facility] Blood by Basophils [facility] Automated count </td><td> [employer] 0.7
(0.0-2.0) % </td> Immature 0.6 % 0.0-0. <td> 05/06/2019 [facility] granulocytes/10 5 % 06:10</td><td> [facility] 0 leukocytes in IG% Health Care Blood by </td><td><britton [employer] Automated count raph styleCode="Bold "> 0.6 H </paragraph>
(0.0-0.5) %
The IG fraction represents metamyelocytes, myelocytes and/or
promyelocytes and is only reported as part of the automated
differential when found at a percentage of less than 6.
If higher than 6%, a manual differential will be performed.

(0.0-0.5) % </td> Lymphocytes 24.7 % 21.0-5 <td> 05/06/2019 [facility] [#/volume] in 5.0 % 06:10</td><td> [facility] Blood by Lymphocytes Health Care Automated count </td><td> Corporation 24.7
(21.0-55.0) % </td> Microcytes Slight <td> 05/06/2019 [facility] [Presence] in 06:10</td><td> [facility] Blood by Light Microcytic Health Care microscopy </td><td> [employer] Slight
</td> Neutrophils [#] 63.2 % 32.0-7 <td> 05/06/2019 [facility] in Body fluid 0.0 % 06:10</td><td> [facility] by Manual count Neutrophils Health Care </td><td> [employer] 63.2
(32.0-70.0) % </td> Hypochromia Slight <td> 05/06/2019 [facility] [Presence] in 06:10</td><td> [facility] Blood by Light Hypochromia Health Care microscopy </td><td> [employer] Slight
</td> Ovalocytes Few <td> 05/06/2019 [facility] [Presence] in 06:10</td><td> [facility] Blood by Light Ovalocytes Health Care microscopy </td><td> [employer] Few
</td> Poikilocytosis Slight <td> 05/06/2019 [facility] er [Presence] in 06:10</td><td> [facility] Blood by Light Poikilocytosis Health Car e microscopy </td><td> [employer] Slight
</td> Anisocytosis Slight <td> 05/06/2019 [facility] [Presence] in 06:10</td><td> [facility] Blood by Light Anisocytosis Health Care microscopy </td><td> [employer] Slight
</td> Chloride 102 mEq/L 98-107 <td> 05/06/2019 [facility] [Moles/volume] mEq/L 06:10</td><td> County in Serum or Chloride Health Care Plasma </td><td> [employer] 102
(98-107) mEq/L </td> Carbon dioxide, 26 mEq/L 22-30 <td> 05/06/2019 [facility] total mEq/L 06:10</td><td> [facility] [Moles/volume] CO2 </td><td> Health Car e in Serum or Corporation Plasma 26
(22-30) mEq/L </td> Glucose 98 mg/dL 70-105 <td> 05/06/2019 [facility] [Mass/volume] mg/dL 06:10</td><td> County in Blood Glucose-Serum Health Care </td><td> [employer] 98
(70-105) mg/dL </td> Sodium 137 mEq/L 135-14 <td> 05/06/2019 [facility] [Moles/volume] 5 06:10</td><td> County in Serum or mEq/L Sodium-Serum Health Care Plasma </td><td> [employer] 137
(135-145) mEq/L </td> Potassium 3.7 mEq/L 3.5-5. <td> 05/06/2019 [facility] [Moles/volume] 1 06:10</td><td> County in Serum or mEq/L Potassium-Serum Health Care Plasma </td><td> [employer] 3.7
(3.5-5.1) mEq/L </td> Bilirubin.total 0.3 mg/dL 0.2-1. <td> 05/06/2019 [facility] [Mass/volume] 3 06:10</td><td> County in Blood mg/dL Bilirubin - Health Care Total Corporation </td><td> 0.3
(0.2-1.3) mg/dL </td> Alanine 48 U/L 6-55 <td> 05/06/2019 [facility] aminotransferas U/L 06:10</td><td> County e [Enzymatic ALT (SGPT) Health Care activity/volume </td><td> [employer]eeper ] in Serum or Plasma 48
(6-55) U/L </td> Creatinine 0.93 mg/dL 0.72-1 <td> 05/06/2019 [facility] [Moles/volume] .25 06:10</td><td> County in Serum or mg/dL Creatinine. Health Care Plasma </td><td> [employer] 0.93
(0.72-1.25) mg/dL </td> Urea nitrogen 13 mg/dL 6-22 <td> 05/06/2019 [facility] r [Mass/volume] mg/dL 06:10</td><td> County in Blood BUN </td><td> Health Care [employer]eeper 13
(6-22) mg/dL </td> Aspartate 30 U/L 4-35 <td> 05/06/2019 [facility] aminotransferas U/L 06:10</td><td> County e [Enzymatic AST (SGOT) Health Care activity/volume </td><td> [employer]eeper ] in Serum or Plasma 30
(4-35) U/L </td> Albumin 3.7 g/dL 3.4-4. <td> 05/06/2019 [facility] [Mass/volume] 8 g/dL 06:10</td><td> County in Serum or Albumin Health Care Plasma </td><td> [employer] 3.7
(3.4-4.8) g/dL </td> Calcium 9.5 mg/dL 8.6-10 <td> 05/06/2019 [facility] [Mass/volume] .2 06:10</td><td> County in Blood mg/dL Calcium Health Care </td><td> [employer] 9.5
(8.6-10.2) mg/dL </td> Proteins - 6.9 g/dL 6.4-8. <td> 05/06/2019 [facility] Total 3 g/dL 06:10</td><td> [facility] Proteins - Health Care Total [employer] </td><td> 6.9
(6.4-8.3) g/dL </td> Globulin 3.2 gm/dL 2.9-4. <td> 05/06/2019 [facility] [Mass/volume] 0 06:10</td><td> [facility] in Serum gm/dL Globulin Health Care </td><td> [employer] 3.2
(2.9-4.0) gm/dL </td> Anion gap in 9 mEq/L 7-13 <td> 05/06/2019 [facility] Serum or Plasma mEq/L 06:10</td><td> [facility] Anion Gap Health Care </td><td> [employer] 9
(7-13) mEq/L </td> Hemolysis index No <td> 05/06/[address] [facility] [address] of Serum or Hemolysis 06:10</td><td> [facility] Plasma Hemolysis Index Health [facility] </td><td> [employer] No Hemolysis
</td> Prothrombin 10.7 secs 9.8-12 <td> 05/05/2019 [facility] time (PT) .0 06:50</td><td> [facility] secs Prothrombin Health Care Time. [facility] </td><td> 10.7
(9.8-12.0) secs </td> Icteric index Non <td> 05/06/2019 [facility] r of Serum or Icteric 06:10</td><td> [facility] Plasma Icteric Index Health [facility] </td><td> [employer] Non Icteric
</td> Lipemic index No Lipemia <td> 05/06/2019 [facility] er of Serum or 06:10</td><td> [facility] Plasma Lipemia Index Health [facility] </td><td> [employer]eeper No Lipemia
</td> Phosphate 4.1 mg/dL 2.3-4. <td> 05/06/2019 [facility] [Mass/volume] 7 06:10</td><td> [facility] in Serum or mg/dL Inorganic Health Care Plasma Phosphorus [facility] </td><td> 4.1
(2.3-4.7) mg/dL </td> Glucose Negative <td> 05/02/2019 [facility] [Presence] in 01:30</td><td> [facility] Urine by Test Glucose_ Health Care strip </td><td> [employer]eeper Negative
(NEGATIVE) </td> Urobilinogen 0.2 mg/dL 0.0-2. <td> 05/02/2019 [facility] [Presence] in 0 01:30</td><td> [facility] Urine by mg/dL Urobilinogen Health Care Automated test </td><td> Corporation strip 0.2
(0.0-2.0) mg/dL </td> Protein 2+ (100 <td> 05/02/2019 [facility] [Presence] in MG/DL) 01:30</td><td> [facility] Urine by Protein Health Care Automated test [employer] Corporation strip </td><td> 2+ (100 MG/DL)
(NEGATIVE) </td> aPTT panel - 24.2 secs 25.0-3 <td> 05/05/2019 [facility] Platelet poor 2.0 06:50</td><td> [facility] plasma secs Partial [facility] Thromboplastin Corporation Time </td><td><britton raph styleCode="Bold "> 24.2 L </paragraph>
(25.0-32.0) secs </td> Appearance of Cloudy <td> 05/02/2019 [facility] r Urine 01:30</td><td> [facility] Appearance Health Care </td><td> Corporation Cloudy
(CLEAR) </td> Specific 1.016 {} 1.000- <td> 05/02/2019 [facility] gravity of 1.035 01:30</td><td> [facility] Urine by Test Specific Health Care strip [place] [employer] </td><td> 1.016
(1.000-1.035) </td> Bacteria RARE <td> 05/02/2019 [facility] [#/area] in 01:30</td><td> [facility] Urine sediment Bacteria Health Care by Microscopy </td><td> [employer]eeper high power field RARE
(NONE SEEN) /HPF </td> Nitrite Negative <td> 05/02/2019 [facility] [Presence] in 01:30</td><td> [facility] Urine by Test Nitrites Health Care strip </td><td> Corporation Negative
(NEGATIVE) </td> Leukocyte Negative <td> 05/02/2019 [facility] esterase 01:30</td><td> [facility] [Presence] in Leukocytes Health Care Urine by Test Esterase [employer]eeper strip </td><td> Negative
(NEGATIVE) </td> Leukocytes 3 /HPF 0-5 <td> 05/02/2019 [facility] [Presence] in /HPF 01:30</td><td> [facility] Urine by WBC </td><td> Health Care Automated Corporation 3
(0-5) /HPF </td> Erythrocytes 1 /HPF 0-2 <td> 05/02/2019 [facility] [#/area] in /HPF 01:30</td><td> [facility] Urine sediment RBC </td><td> Health Car e by Automated Corporation count 1
(0-2) /HPF </td> Mucous FEW <td> 05/02/2019 [facility] < FEW 01:30</td><td> [facility] Mucous Health Care </td><td> Corporation FEW
/LPF
< FEW

/LPF </td> Amorphous RARE <td> 05/02/2019 [facility] Crystal < FEW 01:30</td><td> [facility] Amorphous Health Care [employer] </td><td> RARE
/HPF
< FEW

/HPF </td> Hyaline casts 27.00 /LPF NONE <td> 05/02/2019 [facility] er [#/area] in SEEN 01:30</td><td> [facility] Urine sediment /LPF Hyaline Cast Health Care by Microscopy </td><td> [employer] high power field 27.00
(NONE SEEN) /LPF </td> Magnesium 1.6 mg/dL 1.6-2. <td> 05/06/2019 [facility] [Mass/volume] 6 06:10</td><td> [facility] in Serum or mg/dL Magnesium Level Health Care Plasma </td><td> [employer] 1.6
(1.6-2.6) mg/dL </td> Epithelial RARE <td> 05/02/2019 [facility] cells [#/area] FEW 01:30</td><td> County in Urine Epithelial Health Care sediment by [employer] Automated count </td><td> RARE
/LPF
FEW

/LPF </td> Triglyceride 103 mg/dL 30-200 <td> 05/02/2019 [facility] [Mass/volume] mg/dL 02:56</td><td> County in Serum or Triglyceride Health Care Plasma </td><td> [employer]eeper 103
(30-200) mg/dL </td> Cholesterol in 95 mg/dL <150 <td> 05/02/2019 [facility] LDL mg/dL 02:56</td><td> [facility] [Mass/volume] LDL Cholesterol Health Car e in Serum or </td><td> Corporation Plasma 95
(<150) mg/dL </td> Cholesterol in 47 mg/dL >60 <td> 05/02/2019 [facility] HDL mg/dL 02:56</td><td> [facility] [Mass/volume] HDL Cholesterol Health Car e in Serum or </td><td> [employer] Plasma 47
(>60) mg/dL </td> Cholesterol 163 mg/dL 125-24 <td> 05/02/2019 [facility] [Moles/volume] 0 02:56</td><td> County in Serum or mg/dL Cholesterol Health Care Plasma </td><td> [employer]eeper 163
(125-240) mg/dL </td> Hemoglobin A1C 6.0 % 4.0-5. <td> 05/02/2019 [facility] 6 % 04:00</td><td> County Hemoglobin A1C Health Care </td><td><[employer] graph styleCode="Bold "> 6.0 H </paragraph>
(4.0-5.6) %
Increased risk for diabetes mellitus is seen in patients with HgA1C values
between 5.7-6.4%. Values > or = 6.5% are considered diagnostic of diabetes
mellitus.
Hemolytic anemias, hemoglobinopath ies, or recent transfusion may impact
HbA1c results. Clinical correlation is recommended.
===
ESTIMATED AVERAGE GLUCOSE (eAG)
---
RELATIONSHIP BETWEEN A1C AND eAG
===
A1C(%) eAG(mg/dL)
6 1 26
7 1 54
8 1 83
9 2 12
10 240
11 269
12 298
Source: Adapted from [place] [employer]. Standards of medical
care in diabetes-2014. Diabetes Care.2014;37(Harris pp 1):S14-S80, table 8.

(4.0-5.6) % </td> Glucose 121 mg/dL 70-105 <td> 05/05/2019 [facility] [Mass/volume] mg/dL 20:56</td><td> County in Capillary Glucose - [facility] blood by [employer] Glucometer </td><td><britton raph styleCode="Bold "> 121 H </paragraph>
(70-105) mg/dL </td> Procedure Social History Code Duration Value Status Description Data Source(s ) Smoking Never smoker completed Never smoker [facility] Vital Signs ID Date Data Source UNK Name Value Range Interpretation Description Data Sour ce(s) Code Diastolic blood 79 mmHg 79 mmHg [facility] Systolic blood 151 mmHg 151 mmHg [facility] Respiratory rate 18 bpm 18 bpm [facility] Heart rate 86 bpm 86 bpm [facility] Body weight 239 lbs 239 lbs [facility] Diastolic blood 72 mmHg 72 mmHg [facility] Systolic blood 128 mmHg 128 mmHg [facility] Respiratory rate 18 bpm 18 bpm [facility] Heart rate 67 bpm 67 bpm [facility] Diastolic blood 76 mmHg 76 mmHg [facility] Systolic blood 143 mmHg 143 mmHg [facility] Respiratory rate 18 bpm 18 bpm [facility] Heart rate 74 bpm 74 bpm [facility] Body temperature 96.5 Fahrenheit 96.5 [facility] Diastolic blood 80 mmHg 80 mmHg [facility] Systolic blood 128 mmHg 128 mmHg [facility] Respiratory rate 18 bpm 18 bpm [facility] Heart rate 81 bpm 81 bpm [facility] Body temperature 97.5 Fahrenheit 97.5 [facility] Diastolic blood 98 {} Normal (applies to 98 {} [place] pressure non-[facility] results) [employer] Systolic blood 163 {} Normal (applies to 163 {} [place] pressure non-[facility] results) [employer] First 18.0000 {} Normal (applies to 18.0000 {} [facility] [place] Respiration rate non-numeric [facility] Set results) [employer] Heart rate 58.0000 {} Normal (applies to 58.0000 {} [facility] [place] non-numeric [facility] results) [employer] Body temperature 97.4000 {} Normal (applies to 97.4000 {} [facility] results) [employer] wt - obtain Normal (applies to {} [facility]an non-numeric [facility] results) [employer] weight - kg 104.7000 {} Normal (applies to 104.7000 {} [facility] [place] [facility] results) [employer] Diastolic blood 89 {} Normal (applies to 89 {} [facility]-numeric [facility] results) [facility] Systolic blood 132 {} Normal (applies to 132 {} [place] pressure non-numeric [facility] Health results) Care [employer] First 17.0000 {} Normal (applies to 17.0000 {} [facility] [place] Respiration rate non-numeric [facility] Health Set results) Care [employer] Heart rate 65.0000 {} Normal (applies to 65.0000 {} [facility] [place] non-numeric [facility] results) [facility] Body temperature 97.0000 {} Normal (applies to 97.0000 {} [facility] non-numeric [facility] results) [facility] height - cm Normal (applies to {} [facility] non-numeric [facility] results) [facility] weight - kg 103.2000 {} Normal (applies to 103.2000 {} [facility] results) [facility] ID Date Data Source [id number] 12/23/2019 09:47:36 PM [facility] Name Value Range Interpretation Code Description Data Source(s) Body weight Measured 239 lb 239 lb [facility] ID Date Data Source [id number] 12/23/2019 09:45:28 PM [facility] Name Value Range Interpretation Code Description Data Source(s) Body weight Measured 239 lb 239 lb [facility]
[2020-07-23] MEDS ORDERED: ONDANSETRON *ODT* 4 MG TABLET ONE (08:55)
[2020-07-23] MEDS ORDERED: SODIUM CHLORIDE 0.9% 1000 ML INFUS.BAG IV ONE ×2 (09:17→11:36)
[2020-07-23] MEDS ORDERED: ONDANSETRON *ODT* 4 MG TABLET SL ONE (09:17)
[2020-07-23 09:36] LABS: BASO % 0.5 % (0-2.0); EOS % 0.9 % (0-4.5); HEMATOCRIT 38.5 % (35.4-49); HEMOGLOBIN 12.5 GM/dl (11.7-16.9); MCH 26.4 pg (25.7-33.7); MCHC 32.4 g/dl (32.0-35.9); MEAN CELL VOLUME 81.3 fl (80-96); MEAN PLT VOLUME 9.7 fl (7.5-11.1); MONO % 7.7 % (3.8-10.2); NEUT % 82.9 % (42.8-82.8); PLATELET COUNT 327 K/MM3 (134-434); RBC 4.74 M/mm3 (4.00-5.60); WHITE BLOOD COUNT 13.6 K/mm3 (4.0-10.8)
--- NOTE | 2020-07-23 09:44 | PDOC ---
History of Present Illness - General Chief Complaint: Constipation Stated Complaint: DENTAL WORK SINUS PRESSURE VOMIT CONSTIPATION Time Seen by Provider: 07/23/20 08:29 History Source: Patient Exam Limitations: No Limitations - History of Present Illness Initial Comments: 07/23/20 09:39 40-year-old male history of hypertension COPD prior IV drug use last detox admission was in November of this year here today complaining of nausea and vomiting and abdominal pain. Patient states he recently had a bilateral upper root canal 5 days ago since he has been taking clindamycin 4 times a day for 5 days. He is now complaining of whiteness on his tongue throat pain persistent n ausea and vomiting. Patient states that he was taking Tylenol 3 associated with his surgery his last Tylenol 3 was yesterday he is also complaining of constipation does have mild abdominal painPatient tells me he has been free of narcotics for 2years however review of his chart demonstrates that he was in detox 9 months ago Past History - Medical History Allergies/Adverse Reactions: Allergies Allergy/AdvReac Type Severity Reaction Status Date / Time Penicillins Allergy Severe Hives Verified 07/23/20 08:23 Home Medications: Ambulatory Orders Acetaminophen W/ Codeine #3 [Tylenol # 3 -] 1 tab PO PRN 07/23/20 Clindamycin [Cleocin -] 300 mg PO QID 07/23/20 Gabapentin 300 mg PO TID 07/23/20 Hydrochlorothiazide [Hctz -] 25 mg PO DAILY 07/23/20 Lisinopril 10 mg PO DAILY 07/23/20 Anemia: No Asthma: No 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) Cardiac Disorders: No CVA: No COPD: Yes CHF: No Dementia: No Diabetes: No GI Disorders: Yes (gastritis) Disorders: No HTN: Yes Hypercholesterolemia: No Kidney Stones: No Liver Disease: No Psychiatric Problems: Yes (ANXIETY,DEPRESSION) Seizures: No Thyroid Disease: No - Surgical History Abdominal Surgery: No Appendectomy: Yes (1996) Cardiac Surgery: No Cholecystectomy: No Lung Surgery: No Neurologic Surgery: No Orthopedic Surgery: No - Reproductive History Testicular Surgery: No - Immunization History Immunization Up to Date: No - Psycho-Social/Smoking History Smoking Status: No Smoking History: Never smoked Have you smoked in the past 12 months: No Number of Cigarettes Smoked Daily: 0 If you are a former smoker, when did you quit?: 10 YRS AGO Information on smoking cessation initiated: No 'Breaking Loose' booklet given: 05/01/16 - Substance Abuse Hx (Audit-C & DAST Scrn) How often the patient has a drink containing alcohol: Never Score: In Men: 4 or > Positive; In Women: 3 or > Positive: 0 Screen Result (Pos requires Nsg. Audit-10AR): Negative In the last yr the pt used illegal drug/Rx for NonMed reason: No Score: Yes response is considered Positive: 0 Screen Result (Positive result requires Nsg. DAST-10): Negative Review of Systems - Review of Systems Constitutional: No: Diaphoresis, Fever HEENTM: No: Eye Pain Respiratory: Yes: Shortness of Breath. No: Cough Cardiac (ROS): No: Lightheadedness ABD/GI: Yes: Constipated, Nausea, Vomiting. No: Diarrhea : No: Burning, Dysuria, Discharge Integumentary: No: Bruising All Other Systems: Reviewed and Negative *Physical Exam - Vital Signs Last Vital Signs Temp Pulse Resp BP Pulse Ox 99.1 F 82 16 102/57 L 96 07/23/20 08:22 07/23/20 08:22 07/23/20 08:22 07/23/20 08:22 07/23/20 08:22 - Physical Exam 07/23/20 09:42 Awake alert no acute distress examination of the oropharynx demonstrates thrush- like material on the tongue and the back of the throat no uvular edema no tonsillar exudates dry mucous membranes lungs are clear bilaterally heart is regular 30 murmurs rubs or gallops abdomen is soft there is left lower quadrant and suprapubic tenderness no rebound no guarding patient does have prior scar from previous appendectomy extremities are warm and well-perfused skin is noted for no rash warm dry does have scarring in his left forearm which is from prior surgeries Heart Score/ECG Review #1 General ECG Interpretation: Sinus Rhythm, Normal Rate, No acute ischemic changes Compared to previous ECG there are: Other (QTc prolongation 503, rate 72, normal axis. TWI III only) ED Treatment Course - LABORATORY CBC & Chemistry Diagram: 07/23/20 09:10 07/23/20 09:10 - RADIOLOGY Radiology Studies Ordered: Category Date Time Status ABDOMEN & PELVIS CT WITH CONTR [CT] Stat CT Scan 07/23/20 09:19 Ordered - Medications Given in the ED: ED Medications Discontinued Medications Generic Name Dose Route Start Last Admin Trade Name Deidra PRN Reason Stop Dose Admin Ondansetron HCl 4 mg 07/23/20 09:17 07/23/20 09:15 Zofran Odt - SL 07/23/20 09:18 4 mg ONCE ONE Administration Sodium Chloride 1,000 ml 07/23/20 09:17 07/23/20 09:19 Normal Saline - IV 07/23/20 09:18 1,000 ml ONCE ONE Administration Medical Decision Making - Medical Decision Making 07/23/20 09:43 40-year-old male history of hypertension COPD and previous IV drug use here today with nausea vomiting following root canal surgery and visible thrush on his exam. Offered patient HIV testing he declined likely secondary to clind amycin at this point patient has been taking antibiotics for 5 days will recommend discontinuation will start on oral nystatin swish and swallow due to his left lower quadrant pain nausea and vomiting concerns for possible obstruction versus heroin withdrawal or other opiate withdrawal dehydration e lectrolyte abnormality. Plan CT abdomen pelvis IV fluids Zofran will avoid narcotic use as patient does have a history of abuse 07/23/20 11:09 focused ED us performed, no hydronephrosis , bladder nondistended 180 mL normal renal ultrasound pt with renal failure creatinine 10. denies cocaine use, no f/c 07/23/20 11:34 d/w patient further regarding substance abuse, does now report recent use of heroin in addition to tylenol #3 last week a few times. has relapsed. denies other drug use such as cocaine. will consult nephro, pt to be transferred to [facility] for admission, possible dialysis. 07/23/20 11:47 d/w Jones burciaga, will admit to [facility]. 07/23/20 12:44 page to [facility] nephrology, dr rossi/ filiberto. dr garcia covering per service awaiting call back. Discharge - Discharge Information Problems reviewed: Yes Clinical Impression/Diagnosis: Renal failure, Heroin abuse, Thrush Condition: Stable - Admission Yes - Follow up/Referral - Patient Discharge Instructions - Post Discharge Activity
[2020-07-23 09:46] LABS: ALBUMIN 4.2 g/dl (3.4-5.0); BILIRUBIN,TOTAL 0.9 mg/dl (0.2-1); CALCIUM 8.6 mg/dl (8.5-10); POTASSIUM 4.6 mmol/L (3.5-5.1)
[2020-07-23] MEDS ORDERED: NYSTATIN/DPHA/LIDO/SUCRAFATE 120 ML MOUTHWASH MM ONE (09:46)
[2020-07-23 09:48] LABS: CREATININE 10.8 mg/dl (0.55-1.3)
[2020-07-23] MEDS ORDERED: SENNOSIDES 8.6MG TABLET (FP) PO PRN (11:50)
[2020-07-23] MEDS ORDERED: ACETAMINOPHEN 325 MG TABLET (FP) PO PRN (11:50)
--- NOTE | 2020-07-23 11:50 | HP ---
CHIEF COMPLAINT: Abdominal pain PCP: Dr. Sargent HISTORY OF PRESENT ILLNESS: This is a 40-year-old male with a history of HTN, COPD (not on any meds), and heroin abuse (formerly used IV, now inhaling only) who presented to the ED today complaining of three days of abdominal pain/bloating and nausea/vomiting. Symptoms seem to coincide with starting clindamycin on Friday s/p root canal x 2. The patient also notes new oliguria (urinating a small amount 1-2 times daily) and constipation (last BM 4 days a go). He reports some cough and SOB above baseline and that his has noted him "breathing loudly" at night despite CPAP. He denies fevers/chills and chest pain. NSAID use: Has been taking ibuprofen 800mg several times a day for past few days Family history renal disease: None PO intake: Decreased 2/2 vomiting/abd pain/dental surgery New medications: Clindamycin ER course was notable for: (1) Creatinine 10.8 - 1.0 on 12/02 (2) CK elevated at 1573 (3) CTAP: no acute process (4) ED POCUS documented: no hydronephrosis, bladder volume 183mLs Recent Travel: None PAST MEDICAL HISTORY: HTN, ADHD, COPD PAST SURGICAL HISTORY: Appendectomy Social History: Unemployed. Lives with in apartment (states they are "not on speaking terms"). Independent in ADLs. Smoking: Quit 2 months ago Alcohol: None Drugs: Heroin (inhalation), last used yesterday; Ritalin ("used to have prescription", still using) Family History: Father with HTN and DM, mother with HTN, two sisters healthy. Allergies Penicillins Allergy (Severe, Verified 07/23/20 08:23) Hives HOME MEDICATIONS: Home Medications Medication Instructions Recorded Acetaminophen W/ Codeine #3 1 tab PO PRN 07/23/20 [Tylenol # 3 -] Clindamycin [Cleocin -] 300 mg PO QID 07/23/20 Gabapentin 300 mg PO TID 07/23/20 Hydrochlorothiazide [Hctz -] 25 mg PO DAILY 07/23/20 Lisinopril 10 mg PO DAILY 07/23/20 REVIEW OF SYSTEMS CONSTITUTIONAL: Generalized weakness, malaise, loss of appetite Absent: fever, chills, diaphoresis, weight change HEENT: Dental pain, oral pain/white patches Absent: rhinorrhea, nasal congestion, throat pain, throat swelling, ear pain, eye pain, visual changes CARDIOVASCULAR: Absent: chest pain, syncope, palpitations, irregular heart rate, lightheadedness, peripheral edema RESPIRATORY: SOB, PND, cough Absent: wheezing, stridor, hemoptysis GASTROINTESTINAL: Abd pain, bloating/distention, constipation, nausea/vomiting Absent: melena, hematochezia GENITOURINARY: Decreased urine output Absent: dysuria, frequency, urgency, hesitancy, hematuria, flank pain, genital pain MUSCULOSKELETAL: Absent: myalgia, arthralgia, joint swelling, back pain, neck pain SKIN: Absent: rash, itching, pallor HEMATOLOGIC/IMMUNOLOGIC: Absent: easy bleeding, easy bruising, lymphadenopathy, frequent infections ENDOCRINE: Absent: unexplained weight gain, unexplained weight loss, heat intolerance, cold intolerance NEUROLOGIC: Absent: headache, focal weakness or paresthesias, dizziness, unsteady gait, seizure, mental status changes, bladder or bowel incontinence PSYCHIATRIC: Stress/anxiety Absent: suicidal or homicidal ideation, hallucinations PHYSICAL EXAMINATION Vital Signs - 24 hr 07/23/20 07/23/20 08:22 11:36 Temperature 99.1 F 99.1 F Pulse Rate 82 Pulse Rate [ 82 Right Radial] Respiratory 16 16 Rate Blood Pressure 102/57 L Blood Pressure 103/31 L [Left Arm] O2 Sat by Pulse 96 97 Oximetry (%) GENERAL: Awake, alert, and fully oriented, in no acute distress. HEAD: Normal with no signs of trauma. EYES: Pupils equal, round and reactive to light, extraocular movements intact, sclera anicteric, conjunctiva clear. No lid lag. EARS, NOSE, THROAT: Thrush. Ears normal, nares patent, oropharynx clear. Moist mucous membranes. NECK: Normal range of motion, supple without lymphadenopathy, JVD, or masses. LUNGS: Breath sounds equal, clear to auscultation bilaterally. No wheezes, and no crackles. No accessory muscle use. HEART: Regular rate and rhythm, normal S1 and S2 without murmur, rub or gallop. ABDOMEN: Distended, firm, no focal tenderness. Hypoactive bowel sounds. No guarding, no rebound, no masses. No hepatomegaly or splenomegaly. MUSCULOSKELETAL: Normal range of motion at all joints. No bony deformities or tenderness. No CVA tenderness. UPPER EXTREMITIES: 2+ pulses, warm, well-perfused. No cyanosis. No clubbing. No peripheral edema. LOWER EXTREMITIES: 2+ pulses, warm, well-perfused. No calf tenderness. No peripheral edema. NEUROLOGICAL: Cranial nerves II-XII intact. Normal speech. Normal gait. PSYCHIATRIC: Cooperative. Good eye contact. Appropriate mood and affect. SKIN: Warm, dry, normal turgor, no rashes or lesions noted, normal capillary refill. Laboratory Results - last 24 hr 07/23/20 07/23/20 07/23/20 09:10 09:10 09:10 WBC 13.6 H RBC 4.74 Hgb 12.5 Hct 38.5 MCV 81.3 MCH 26.4 MCHC 32.4 RDW 14.0 Plt Count 327 D MPV 9.7 Absolute Neuts (auto) 11.3 Neutrophils % 82.9 H D Lymphocytes % 8.0 D Monocytes % 7.7 Eosinophils % 0.9 Basophils % 0.5 Sodium 130 L Potassium 4.6 Chloride 86 L Carbon Dioxide 21 Anion Gap 23 H BUN 84.0 H Creatinine 10.8 H* Est GFR (CKD-EPI)AfAm 6.12 Est GFR (CKD-EPI)NonAf 5.28 Random Glucose 112 H Calcium 8.6 Total Bilirubin 0.9 AST 35 ALT 25 Alkaline Phosphatase 89 Creatine Kinase Creatine Kinase Index CK-MB (CK-2) Total Protein 8.0 Albumin 4.2 Lipase 95 Urine Color Urine Appearance Urine pH Urine Protein Urine Glucose (UA) Urine Ketones Urine Blood Urine Nitrite Urine Bilirubin Urine Urobilinogen Ur Leukocyte Esterase 07/23/20 07/23/20 09:10 11:30 WBC RBC Hgb Hct MCV MCH MCHC RDW Plt Count MPV Absolute Neuts (auto) Neutrophils % Lymphocytes % Monocytes % Eosinophils % Basophils % Sodium Potassium Chloride Carbon Dioxide Anion Gap BUN Creatinine Est GFR (CKD-EPI)AfAm Est GFR (CKD-EPI)NonAf Random Glucose Calcium Total Bilirubin AST ALT Alkaline Phosphatase Creatine Kinase 1573 H Creatine Kinase Index 3.9 CK-MB (CK-2) 62.4 H Total Protein Albumin Lipase Urine Color Yellow Urine Appearance Clear Urine pH 5.0 Urine Protein 1+ H Urine Glucose (UA) Trace Urine Ketones Negative Urine Blood 2+ H Urine Nitrite Negative Urine Bilirubin Negative Urine Urobilinogen 0.2 Ur Leukocyte Esterase Negative ASSESSMENT/PLAN: 40-year-old male presenting with complaints of abdominal pain and nausea/vomiting, found to have significant acute kidney injury. Family Medical History Family History: As Documented Problem List - Problem (1) Renal failure Assessment/Plan: -Likely acute; differential includes prerenal etiology (vomiting/dehydration), medication-induced (NSAIDs, also states taking Ritalin - rhabdomyolysis?) -K is normal, no sign of uremic encephalopathy, no resp distress -Given 2L NS in ED -Repeat BMP now and evaluate trend in Cr; consider further fluid administration when resulted -Follow CK -Palacio cath / strict I/O -Send urine electrolytes, urine myoglobin, serum phos, uric acid -Hold lisinopril, gabapentin -Daily weights -Kidney/bladder u/s documented by ED physician -Renal diet -Renal consultation/consideration of HD (no emergency indication) Code(s): N19 - UNSPECIFIED KIDNEY FAILURE (2) Heroin abuse Assessment/Plan: -Discussed methadone maintenance with patient; he is not amenable -Interested in rehabilitation at time of dc Code(s): F11.10 - OPIOID ABUSE, UNCOMPLICATED (3) Thrush Assessment/Plan: -Nystatin swish & swallow q6h -Pt agrees to HIV test (states was neg last year) Code(s): B37.0 - CANDIDAL STOMATITIS (4) Abdominal pain Assessment/Plan: -CTAP demonstrates no acute process -May be secondary to constipation/ileus (2/2 opiate abuse?) vs. clindamycin AEs -Start Miralax bid, colace tid, senna 2 tabs hs -Hold clindamycin for now Code(s): R10.9 - UNSPECIFIED ABDOMINAL PAIN (5) HTN (hypertension) Assessment/Plan: -Currently borderline hypotensive -Hold lisinopril in setting of acute kidney injury Code(s): I10 - ESSENTIAL (PRIMARY) HYPERTENSION Qualifiers: Hypertension type: essential hypertension Qualified Code(s): I10 - Essential (primary) hypertension (6) COPD (chronic obstructive pulmonary disease) Assessment/Plan: -No wheezing on exam -CPAP at night (uses at home) Code(s): J44.9 - CHRONIC OBSTRUCTIVE PULMONARY DISEASE, UNSPECIFIED (7) DVT prophylaxis Assessment/Plan: -Early ambulation -SCDs -Heparin 5000 units sq bid Code(s): Z29.9 - ENCOUNTER FOR PROPHYLACTIC MEASURES, UNSPECIFIED Visit type - Emergency Visit Emergency Visit: Yes Care time: The patient presented to the Emergency Department on the above date and was hospitalized for further evaluation of their emergent condition. - New Patient This patient is new to me today: Yes Date on this admission: 07/23/20 - Critical Care Critical Care patient: No
[2020-07-23 11:56] LABS: AMORP URATES 2+ /hpf (NONE SEEN); EPITHELIAL CELLS FEW /hpf
[2020-07-23 13:05] LABS: COCAINE, UR NEGATIVE ng/ml (CUTOFF=300); PHENCYCLIDINE,URINE NEGATIVE ng/ml (CUTOFF=25); URINE BARBITURATES NEGATIVE ng/ml (CUTOFF=200)
[2020-07-23 13:12] LABS: URINE AMPHETAMINES NEGATIVE ng/ml (CUTOFF=500); URINE BENZODIAZEPINES NEGATIVE ng/ml (CUTOFF=200)
[2020-07-23 13:13] LABS: METHADONE, UR POSITIVE ng/ml (CUTOFF=300); OPIATES, URI POSITIVE ng/ml (CUTOFF=300)
--- NOTE | 2020-07-23 13:15 | CON.NEP ---
Consult Consult Specialty:: Nephrology Referred by:: winnie Cain NP - History of Present Illness Chief Complaint: nausea vomiting abd pain - Past Medical History Cardio/Vascular: Yes: HTN Gastrointestinal: Yes: GERD Psych: Yes: Anxiety, Depression - Alcohol/Substance Use Hx Alcohol Use: No History of Substance Use: reports: Heroin, Prescription - Smoking History Smoking history: Never smoked Have you smoked in the past 12 months: No Aproximately how many cigarettes per day: 0 If you are a former smoker, when did you quit?: 10 YRS AGO - Social History Usual Living Arrangement: With Spouse Home Medications - Allergies Allergies/Adverse Reactions: Allergies Allergy/AdvReac Type Severity Reaction Status Date / Time Penicillins Allergy Severe Hives Verified 07/23/20 08:23 - Home Medications Home Medications: Ambulatory Orders Acetaminophen W/ Codeine #3 [Tylenol # 3 -] 1 tab PO PRN 07/23/20 Clindamycin [Cleocin -] 300 mg PO QID 07/23/20 Gabapentin 300 mg PO TID 07/23/20 Hydrochlorothiazide [Hctz -] 25 mg PO DAILY 07/23/20 Lisinopril 10 mg PO DAILY 07/23/20 Nephrology Consult - Height Height: 5 ft 5 in - Weight Weight: 225 lb - BMI Body Mass Index (BMI): 37.4 - Lab Results CBC,BMP: CBC, BMP 07/23/20 09:10 07/23/20 09:10 Anion Gap: Anion Gap Anion Gap 23 MMOL/L (8-16) H 07/23/20 09:10 - Physical Examination Vital Signs: Vital Signs Temperature 99.1 F 07/23/20 11:36 Pulse Rate 82 07/23/20 11:36 Respiratory Rate 16 07/23/20 11:36 Blood Pressure 103/31 L 07/23/20 11:36 O2 Sat by Pulse Oximetry (%) 97 07/23/20 11:36 Assessment/Plan IMP- advanced kidney failure Probably acute multiple factors (prerenal- low bp, dehydration intrinsic - nephrotoxic meds - nsaids, ain- pcn) r/o r/o post renal Plan- monitor I and O daily weights Renal lytes urine eos and specific gravity Renal and bladder sono IVF NS CBC, BMP 07/23/20 09:10 07/23/20 09:10
[2020-07-23] MEDS ORDERED: SODIUM CHLORIDE 1,000 ML IV SCH (13:30)
[2020-07-23 14:01] LABS: CREATININE, URINE RANDOM 272.5 mg/dL
[2020-07-23 14:10] LABS: CALCIUM 7.9 mg/dl (8.5-10); POTASSIUM 4.5 mmol/L (3.5-5.1)
[2020-07-23 14:12] LABS: CREATININE 8.9 mg/dl (0.55-1.3)
[2020-07-23] MEDS: NYSTATIN 500,000 UNITS/5 ML SUSPENSION PO SCH ×2 (14:16→23:50)
[2020-07-23] MEDS ORDERED: DOCUSATE SODIUM 100 MG CAPSULE (FP) PO ONE (14:20)
[2020-07-23] MEDS: DOCUSATE SODIUM 100 MG CAPSULE (FP) PO SCH ×2 (14:22→22:13)
[2020-07-23] MEDS: POLYETHYLENE GLYCOL 3350 119 GM BTL PO SCH ×2 (14:28→22:14)
--- OUTSIDE RECORDS SUMMARY | 2020-07-23 19:31 | XMS ---
:1980 Author Organization [facility] Care Team Providers Name Role Phone PRACHI HUIZAR Unavailable Unavailable PAPITO MERCHANT Unavailable Unavailable [id number], [id number] Unavailable Unavailable NEETA ROPER MD Unavailable Unavailable [...] is protected by Article 27-F of the [place] Public Health law. If you continue you may haveaccess to information: Regarding HIV / AIDS; Provided by facilities licensed or operated by the [facility] Office of Mental Health; or Provided by the [facility] Office for People With Developmental Disabilities. If such information is present, then the following [facility] mandated warning applies: This information has [...] law may result in a fine or group home sentence or both. A general authorization for the release of medical or other information is NOT sufficient authorization for further disclosure. Encounters Encounter Providers Location Date Indications Data Source(s ) Inpatient Attender: NEETA SEPULVEDA-1D 12/09/2019 [facility] nick SIDDHARTHANYANAbalajiitter 02:30:00 PM [facility] Hospital : MANNY QUAN 12/23/2019 09:45:00 PM EST Patient discharged. Attender: 12/09/2019 [facility] [id number] 02:30:00 PM [facility]6766 Outpatient STV 12/09/2019 [facility] 11:39:00 AM EST - Hospita l 12/09/2019 09:45:00 PM EST Patient discharged. Attender: 12/09/2019 [id number] 11:39:[address] Inpatient Attender: PRACHI HUIZAR 05/02/2019 ACUTE [place] SASIDHARAttender: MAYUR, 01:44:00 AM [facility] BRAYANd[facility]: CLAUDIO MERCHANT - RESP Care PAPITO Baez 05/06/2019 Corporation 03:13:00 PM EDT ACUTE HYPERCAPENIC RESP Emergency Attender: MAYUR, 05/01/2019 09:54:00 PM * [facility] BRAYANitter: EDT [facility] PAPITO MERCHANT Attender: [id number] 2016 08:43:00 [facility] ROGEL_6766 AM EDT Hospital Attender: [id number] 2016 05:05:00 [facility]EL_6766 PM EDT Hospital Attender: [id number] 2015 05:10:00 [facility] R[facility]EL_6766 PM EDT Hospital Attender: [id number] 2014 10:31:00 [facility]EL_6766 AM EDT Hospital Attender: [id number] 2014 10:42:00 [facility]EL_6766 AM EDT Hospital Attender: [id number] 2014 09:32:00 [facility] ROGEL_6766 AM EDT Hospital Medications Medication Brand Start Product Dose Route Administrative Pharmacy [facility] Indications Reaction Description Data Name Date Form Instructions Instructions Source(s) Lisinopril Lisino ORAL complet Lisinop ril - [facility] 10 MG Oral pril - 2019 Table ed 10 MG ORAL [facility] tin - [facility] 600 MG Oral ntin - 2019 Table ed 600 MG ORA L [...] Riley tcheste m 20 MG o ed [facility] Oral Tablet (Escit Health Lexapro alopra Care (Escitalopr m) [20 Corpor atio am) [20 mg mg n Tablet]: 1 Tablet Tablet Oral ]: 1 DAILY Tablet Oral DAILY Brimonidine Brimon complet Riley tcheste tartrate idine [facility] 1.5 MG/ML [0.15 Health Ophthalmic % Care Solution Drops] Corporati o Brimonidine : 1 n [0.15 % Drops Drops]: 1 Left Drops Left Eye Eye Q8H Q8H Discharge complet [facility] Medications ed [facility] are Health unavailable Care . Corporatio n gabapentin Gabape complet [place] [address] [facility] Tablet [800 Health Gabapentin mg Care [800 mg Tablet Corporatio Tablet]: 1 ]: 1 n Tablet Oral Tablet 3 TIMES A Oral 3 DAY TIMES A DAY Amlodipine Amlodi complet [place] [address] [facility] Tablet [5 mg Health Amlodipine Tablet Care [5 mg ]: 1 Corporatio Tablet]: 1 Tablet n Tablet Oral Oral DAILY DAILY Diphenhydra Benadr complet Riley tcheste mine yl [facility] Hydrochlori Allerg Health de 25 MG y [...] to Abbasi Inf ormation type abbasi VALUE [id number] OPTIONS-BMP/G HI SELF PAY 0000 Self 0000 GHI/EMBLEM [id number] (VO) PPO [id number] SP [id number] SELF PAY INSURANCE VALUE [id number] SP [id number] [place] P[place] [id number] SP [id number] Problems, Conditions, and Diagnoses Code Display Name Description Problem Type Effective Data Sour ce(s) Dates Z85.818 Personal history PRSNL HX OF MALIG Diagnosis 05/06/2019 [place] estely of malignant NEOPLM OF SITE OF 03:13:00 PM [facility] neoplasm of other LIP, ORAL CAV, and EDT Care sites of lip, oral PHARYNX Corpor ation cavity, and pharynx Z88.0 Allergy status to ALLERGY STATUS TO Diagnosis 05/06/2019 [facility] penicillin PENICILLIN 03:13:00 PM [facility] EDT Care Roamer F41.1 Generalized GENERALIZED Diagnosis 05/06/2019 [place] anxiety disorder ANXIETY DISORDER 03:13:00 PM [facility] EDT Care Roamer Y92.[address] OTH PLACE IN Diagnosis 05/06/2019 [facility] as the HOSPITAL PLACE 03:13:[address] [facility] place of EDT Care occurrence of the Corpora tion external cause F12.10 Cannabis abuse, CANNABIS ABUSE, Diagnosis 05/06/2019 [place] ot[place]iel uncomplicated UNCOMPLICATED 03:13:00 PM [facility] EDT Care Roamer T40.7X1A Poisoning by POISONING BY Diagnosis 05/06/2019 [facility] r cannabis CANNABIS 03:13:00 [facility] (derivatives), (DERIVATIVES), EDT Care accidental ACCIDENTAL, INIT Corporat ion (unintentional), initial encounter H20.9 Unspecified UNSPECIFIED Diagnosis 05/06/2019 [facility] iridocyclitis IRIDOCYCLITIS 03:13:00 PM [facility] EDT Care Roamer M62.82 Rhabdomyolysis RHABDOMYOLYSIS Diagnosis 05/06/2019 [facility] ildefonso 03:13:00 PM [facility] EDT Care Corporation N17.9 Acute kidney ACUTE KIDNEY Diagnosis 05/06/2019 [facility] nya failure, FAILURE, 03:13:00 PM [facility] unspecified UNSPECIFIED EDT Care Corporation F11.23 Opioid dependence OPIOID DEPENDENCE Diagnosis 05/06/2019 [facility] with withdrawal WITH WITHDRAWAL 03:13:00 PM [facility] EDT Care Corporation I21.A1 Myocardial MYOCARDIAL Diagnosis 05/06/2019 [facility] infarction type 2 INFARCTION TYPE 2 03:13:00 PM [facility] EDT Care [facility] J96.02 Acute respiratory ACUTE RESPIRATORY Diagnosis 05/06/2019 [facility] failure with FAILURE WITH 03:13:00 PM [facility] He alth hypercapnia HYPERCAPNIA EDT Care [facility] T40.1X1A Poisoning by POISONING BY Diagnosis 05/02/2019 [facility] r heroin, accidental HEROIN, ACCIDENTAL 01:44:00 AM [facility] (unintentional), (UNINTENTIONAL), EDT Ca re initial encounter INIT ENCNTR Corpor ation Results ID Date Data Source [id number] 06/15/2020 12:00:00 AM [facility]T [facility] Name Value Range Interpretation Code Description Data Kristi rce(s) Supporting Document(s ) 2019-nCoV [facility] RNA XXX NICOLE+probe- Imp This lab [facility] and reported by [facility]. ID Date Data Source [id number] 02/17/2020 08:35:00 AM EDT [facility] Name Value Range Interpretation Code Description Data Kristi rce(s) Supporting Document(s ) SARS-CoV-2 [facility] , RNA This lab was ordered by SHERYL SESAY M. D. and reported by [facility]. ID Date Data Source [id number] 05/06/2019 02:45:13 PM EDT [facility] [id number] Roamer Name Value Range Interpretation Description Data Sup porting Code Source(s) Document(s ) Echo 2D [id number] [facility] <td> 05/04/2019 [facility] er M-Mode [id number] 12:27</td><td> [facility] Complete [id number] Echo 2D M-Mode Health Care (TTE) Non-Invasive Complete (TTE) Roamer Cardiology </td><td> Laboratory [id number] Advanced
[facility]
[id number] [place]
[address] Phone [phone] Non-Invasive Adult
Echocardiogram Cardiology Report Name:
ALYSA BERMUDEZ Laboratory
Study Date: Advanced 05/04/2019
12:27 PM MRN: Physician [id number]
Services, BP: 140/88
mmHg : [address]
Gender: ORIANA Membreno Male Age: 38
yrs [address]
Height: 65 in Phone ([phone]) Account
Number: [id number] Fax [phone]
(772) Weight: 219 lb [phone] BSA: 2.1 m2
Patient Adult Location: 5SW Echocardiogram Reason For Report Study: DYSPNEA
Ordering Name: AIDAN, Physician: GIANNI WOODY Study Date: Performed By: 05/04/2019 Rogelio, 12:27 PM ZAMZAM De Los Santos
Interpretation Summary A complete BP: two-dimensional 140/88 mmHg transthoracic
echocardiogram : was performed 1980 (2D, M-mode, spectral and Gender: color flow Male Doppler).
Age: (56152). 38 yrs Study quality is good. Left Height: 65 ventricular in systolic
function is Account Number: normal. [id number] Ejection Fraction is Weight: 219 lb 55-60%. [...] and was performed color flow (2D, Doppler).
(72691). Study M-mode, quality is spectral and good. Left color flow Ventricle The Doppler). left ventricle (53077). is normal in
size. There is Study [...] and regurgitation. color flow Tricuspid Doppler). Valve (70923). Study Structurally quality is normal good. tricuspid

[...] Right pericardial atrial effusion. pressure:Pulm

venous sys jared: MMode/2D PI Vmax: Measurements & 105.2 cm/sec [...] Reading Indexed: Physician:

Keith Lakhani, 38.0 ml/m2 MD 05/04/2019
04:02 PM _

TAPSE: 2.6 cm [...] 04:02 PM

</td> ID Date Data Source [id number] 05/06/2019 02:45:13 PM EDT [facility] [id number] Corporation Name Value Range Interpretation Description Data Sup porting Code Source(s) Document(s ) Head (PACSIMAGE <td> 05/02/2019 [facility] Without 01:01</td><td> [facility] Contrast-CT ) Head Without Health Care Final Result Contrast-CT Corporation Name: </td><td><sarah BERMUDEZ, ALYSA styleCode="Italic s">(PACSIMAGE Sex: M : )</paragraph><br/ 1980 >
Final Location: M Result Admitting

Phys[facility]: [facility]
MRN: Requesting [id number] Sex: M Physician:
RONAL : 1980 [place] [...] is approximately this dose 1392 mGy-cm. report

[id number]}: The following [id number] accession numbers FINDINGS: are related to There is this dose report no evidence
of acute 1530325}: intracranial
hemorrhage, [id number] mass effect

or shift of FINDINGS: the [...] 05/02/2019 09:35

</td> Maxillofaci (PACSIMAGE <td> 05/02/2019 [facility] W/Out 01:01</td><td> County Contrast-CT ) Maxillofacial Health Care Final Result W/Out Contrast-CT Corporati on Name: </td><td>arcelia Walker styleCode="Italic s">(PACSIMAGE Sex: M : )</paragraph><br/ 1980 >
Final Location: M Result Admitting

Physician: Name: AIDAN, [facility]ERG[facility] SERVICE
MRN: Requesting [id number] Sex: M Physician: <br/Geneva VILLEDA : 1980 [place] Location: M Exam: CT
[...] 1392 mGy-cm. this dose

report The following [id number]}: accession numbers [id number] are related to COMPARISON: this dose report CT cervical
spine [id number]}: 02/01/2016.
FINDINGS: [id number] Again

demonstrated COMPARISON: CT are numerous cervical [...] Radiologist: dedicated
dental Attending examination. Radiologist: Cuca Herrera MD Resident
Radiologist: Finalizing Attending Radiologist: Cuca Radiologist: Sharon Herrera MD
Finalizing Transcribed Date: Radiologist: 05/02/2019 09:43 Cuca Herrera MD
Transcribed Finalized Date: Date: 05/02/2019 09:50 05/02/2019 09:43

</td> Finalized Date: 05/02/2019 09:50 ID Date Data Source [id number] 05/06/2019 02:45:13 PM EDT [facility] [id number] Corporation Name Value Range Interpretation Description Data Sup porting Code Source(s) Document(s ) Leukocytes 10.0 k/mm3 4.5-10 <td> 05/06/2019 Scalf [#/volume] in .8 06:10</td><td> [facility] Blood by k/mm3 WBC </td><td> Health Care Automated count Roamer 10.0
(4.5-10.8) k/mm3 </td> Hematocrit 41.9 % 38.0-4 <td> 05/06/2019 Scalf [Volume 7.0 % 06:10</td><td> [facility] Fraction] of HCT </td><td> Health Care Blood by Roamer Automated count 41.9
(38.0-47.0) % </td> Erythrocytes 5.76 m/mm3 4.20-5 <td> 05/06/2019 [facility] [#/volume] in .50 06:10</td><td> [facility] Blood m/mm3 RBC Health Care </td><td><britton Roamer raph styleCode="Bold "> 5.76 H </paragraph>
(4.20-5.50) m/mm3 </td> Erythrocyte 72.7 fL 80.0-9 <td> 05/06/2019 [facility] mean 5.0 fL 06:10</td><td> [facility] corpuscular MCV Health Care volume [Entitic </td><td><britton Corporat ion volume] by raph Automated count styleCode="Bold "> 72.7 L </paragraph>
(80.0-95.0) fL </td> Hemoglobin 13.2 g/dL 12.3-1 <td> 05/06/2019 Scalf [Mass/volume] 6.0 06:10</td><td> [facility] in Blood g/dL HGB </td><td> Health Care Corporation 13.2
(12.3-16.0) g/dL </td> Erythrocyte 18.0 % 11.5-1 <td> 05/06/2019 Scalf distribution 4.5 % 06:10</td><td> [facility] width [Entitic RDW Health Care volume] by </td><td><britton Roamer Automated count raph styleCode="Bold "> 18.0 H </paragraph>
(11.5-14.5) % </td> Platelets 299 k/mm3 160-41 <td> 05/06/2019 Scalf [#/volume] in 0 06:10</td><td> [facility] Blood by k/mm3 Platelet Count Health Care Automated count </td><td> Corporation 299
(160-410) k/mm3 </td> Erythrocyte 31.5 % 32.0-3 <td> 05/06/2019 [facility] mean 6.0 % 06:10</td><td> [facility] corpuscular [facility] Health Care hemoglobin </td><td><britton Roamer concentration raph [Mass/volume] styleCode="Bold in Blood from "> Fetus by 31.5 Automated count L </paragraph>
(32.0-36.0) % </td> Erythrocyte 22.9 pg 27.0-3 <td> 05/06/2019 Scalf mean 1.5 pg 06:10</td><td> [facility] corpuscular MCH Health Care hemoglobin </td><td><britton Corporation [Entitic mass] raph by Automated styleCode="Bold count "> 22.9 L </paragraph>
(27.0-31.5) pg </td> Platelet mean 11.5 fL 9.8-12 <td> 05/06/2019 [facility] r volume [Entitic .8 fL 06:10</td><td> County volume] in MPV </td><td> Health Care Blood by Roamer Automated count 11.5
(9.8-12.8) fL </td> Monocytes/Leuko 8.2 % 0.0-11 <td> 05/06/2019 [facility] cytes [Pure .0 % 06:10</td><td> [facility] number Monocytes. Health Care fraction] in </td><td> [facility] Blood by Automated count 8.2
(0.0-11.0) % </td> Basophils+Eosin 2.6 % 0.0-5. <td> 05/06/2019 [facility] ophils+Monocyte 0 % 06:10</td><td> County s [#/volume] in Eosinophils Health Care Blood by </td><td> Roamer Automated count 2.6
(0.0-5.0) % </td> Basophils 0.7 % 0.0-2. <td> 05/06/2019 Scalf [#/volume] in 0 % 06:10</td><td> [facility] Blood by Basophils [facility] Automated count </td><td> Roamer 0.7
(0.0-2.0) % </td> Immature 0.6 % 0.0-0. <td> 05/06/2019 [facility] granulocytes/10 5 % 06:10</td><td> County 0 leukocytes in IG% Health Care Blood by </td><td><NEMOPTIC Automated count raph styleCode="Bold "> 0.6 H </paragraph>
(0.0-0.5) %
The IG fraction represents metamyelocytes, myelocytes and/or
promyelocytes and is only reported as part of the automated
differential when found at a percentage of less than 6.
If higher than 6%, a manual differential will be performed.

(0.0-0.5) % </td> Lymphocytes 24.7 % 21.0-5 <td> 05/06/2019 Scalf [#/volume] in 5.0 % 06:10</td><td> [facility] Blood by Lymphocytes Health Care Automated count </td><td> Roamer 24.7
(21.0-55.0) % </td> Microcytes Slight <td> 05/06/2019 Scalf [Presence] in 06:10</td><td> [facility] Blood by Light Microcytic Health Care microscopy </td><td> Roamer Slight
</td> Neutrophils [#] 63.2 % 32.0-7 <td> 05/06/2019 [facility] in Body fluid 0.0 % 06:10</td><td> [facility] by Manual count Neutrophils Health Care </td><td> Roamer 63.2
(32.0-70.0) % </td> Hypochromia Slight <td> 05/06/2019 Scalf [Presence] in 06:10</td><td> [facility] Blood by Light Hypochromia Health Care microscopy </td><td> Roamer Slight
</td> Ovalocytes Few <td> 05/06/2019 Scalf [Presence] in 06:10</td><td> [facility] Blood by Light Ovalocytes Health Care microscopy </td><td> Roamer Few
</td> Poikilocytosis Slight <td> 05/06/2019 [facility] er [Presence] in 06:10</td><td> [facility] Blood by Light Poikilocytosis Health Car e microscopy </td><td> Roamer Slight
</td> Anisocytosis Slight <td> 05/06/2019 Scalf [Presence] in 06:10</td><td> [facility] Blood by Light Anisocytosis Health Care microscopy </td><td> Roamer Slight
</td> Chloride 102 mEq/L 98-107 <td> 05/06/2019 Scalf [Moles/volume] mEq/L 06:10</td><td> County in Serum or Chloride Health Care Plasma </td><td> Roamer 102
(98-107) mEq/L </td> Carbon dioxide, 26 mEq/L 22-30 <td> 05/06/2019 [facility] total mEq/L 06:10</td><td> County [Moles/volume] CO2 </td><td> Health Car e in Serum or Corporation Plasma 26
(22-30) mEq/L </td> Glucose 98 mg/dL 70-105 <td> 05/06/2019 Scalf [Mass/volume] mg/dL 06:10</td><td> County in Blood Glucose-Serum Health Care </td><td> Roamer 98
(70-105) mg/dL </td> Sodium 137 mEq/L 135-14 <td> 05/06/2019 Scalf [Moles/volume] 5 06:10</td><td> County in Serum or mEq/L Sodium-Serum Health Care Plasma </td><td> Roamer 137
(135-145) mEq/L </td> Potassium 3.7 mEq/L 3.5-5. <td> 05/06/2019 Scalf [Moles/volume] 1 06:10</td><td> County in Serum or mEq/L Potassium-Serum Health Care Plasma </td><td> Roamer 3.7
(3.5-5.1) mEq/L </td> Bilirubin.total 0.3 mg/dL 0.2-1. <td> 05/06/2019 [facility] [Mass/volume] 3 06:10</td><td> County in Blood mg/dL Bilirubin - Health Care Total Corporation </td><td> 0.3
(0.2-1.3) mg/dL </td> Alanine 48 U/L 6-55 <td> 05/06/2019 [facility] aminotransferas U/L 06:10</td><td> County e [Enzymatic ALT (SGPT) Health Care activity/volume </td><td> Roamer ] in Serum or Plasma 48
(6-55) U/L </td> Creatinine 0.93 mg/dL 0.72-1 <td> 05/06/2019 Scalf [Moles/volume] .25 06:10</td><td> County in Serum or mg/dL Creatinine. Health Care Plasma </td><td> Roamer 0.93
(0.72-1.25) mg/dL </td> Urea nitrogen 13 mg/dL 6-22 <td> 05/06/2019 [facility] r [Mass/volume] mg/dL 06:10</td><td> County in Blood BUN </td><td> [facility] Care Roamer 13
(6-22) mg/dL </td> Aspartate 30 U/L 4-35 <td> 05/06/2019 Scal[facility] aminotransferas U/L 06:10</td><td> County e [Enzymatic AST (SGOT) Health Care activity/volume </td><td> Roamer ] in Serum or Plasma 30
(4-35) U/L </td> Albumin 3.7 g/dL 3.4-4. <td> 05/06/2019 Scalf [Mass/volume] 8 g/dL 06:10</td><td> County in Serum or Albumin Health Care Plasma </td><td> Roamer 3.7
(3.4-4.8) g/dL </td> Calcium 9.5 mg/dL 8.6-10 <td> 05/06/2019 Scalf [Mass/volume] .2 06:10</td><td> County in Blood mg/dL Calcium Health Care </td><td> Roamer 9.5
(8.6-10.2) mg/dL </td> Proteins - 6.9 g/dL 6.4-8. <td> 05/06/2019 Scalf Total 3 g/dL 06:10</td><td> [facility] Proteins - Health Care Total Roamer </td><td> 6.9
(6.4-8.3) g/dL </td> Globulin 3.2 gm/dL 2.9-4. <td> 05/06/2019 Scalf [Mass/volume] 0 06:10</td><td> [facility] in Serum gm/dL Globulin Health Care </td><td> [facility] 3.2
(2.9-4.0) gm/dL </td> Anion gap in 9 mEq/L 7-13 <td> 05/06/2019 Scalf Serum or Plasma mEq/L 06:10</td><td> [facility] Anion Gap Health Care </td><td> [facility] 9
(7-13) mEq/L </td> Hemolysis index No <td> 05/06/2019 [facility] of Serum or Hemolysis 06:10</td><td> [facility] Plasma Hemolysis Index [facility] </td><td> [facility] No Hemolysis
</td> Prothrombin 10.7 secs 9.8-12 <td> 05/05/2019 Scalf time (PT) .0 06:50</td><td> [facility] secs Prothrombin Health Care Time. [facility] </td><td> 10.7
(9.8-12.0) secs </td> Icteric index Non <td> 05/06/2019 [facility] r of Serum or Icteric 06:10</td><td> [facility] Plasma Icteric Index [facility] </td><td> [facility] Non Icteric
</td> Lipemic index No Lipemia <td> 05/06/2019 [facility] er of Serum or 06:10</td><td> [facility] Plasma Lipemia Index [facility] </td><td> [facility] No Lipemia
</td> Phosphate 4.1 mg/dL 2.3-4. <td> 05/06/2019 Scalf [Mass/volume] 7 06:10</td><td> [facility] in Serum or mg/dL Inorganic Health Care Plasma Phosphorus [facility] </td><td> 4.1
(2.3-4.7) mg/dL </td> Glucose Negative <td> 05/02/2019 Scalf [Presence] in 01:30</td><td> [facility] Urine by Test Glucose_ Health Care strip </td><td> Corporation Negative
(NEGATIVE) </td> Urobilinogen 0.2 mg/dL 0.0-2. <td> 05/02/2019 Scalf [Presence] in 0 01:30</td><td> [facility] Urine by mg/dL Urobilinogen Health Care Automated test </td><td> Corporation strip 0.2
(0.0-2.0) mg/dL </td> Protein 2+ (100 <td> 05/02/2019 Scalf [Presence] in MG/DL) 01:30</td><td> [facility] Urine by Protein Health Care Automated test Qualitative Corporation strip </td><td> 2+ (100 MG/DL)
(NEGATIVE) </td> aPTT panel - 24.2 secs 25.0-3 <td> 05/05/2019 Scalf Platelet poor 2.0 06:50</td><td> [facility] plasma secs Partial [facility] Care Thromboplastin Corporation Time </td><td><britton raph styleCode="Bold "> 24.2 L </paragraph>
(25.0-32.0) secs </td> Appearance of Cloudy <td> 05/02/2019 [facility] Urine 01:30</td><td> [facility] Appearance Health Care </td><td> Roamer Cloudy
(CLEAR) </td> Specific 1.016 {} 1.000- <td> 05/02/2019 Scal[facility] gravity of 1.035 01:30</td><td> [facility] Urine by Test Specific Health Care strip Ragley Roamer </td><td> 1.016
(1.000-1.035) </td> Bacteria RARE <td> 05/02/2019 Scalf [#/area] in 01:30</td><td> [facility] Urine sediment Bacteria Health Care by Microscopy </td><td> Roamer high power field RARE
(NONE SEEN) /HPF </td> Nitrite Negative <td> 05/02/2019 Scalf [Presence] in 01:30</td><td> [facility] Urine by Test Nitrites Health Care strip </td><td> Roamer Negative
(NEGATIVE) </td> Leukocyte Negative <td> 05/02/2019 Scalf esterase 01:30</td><td> [facility] [Presence] in Leukocytes Health Care Urine by Test Esterase Roamer strip </td><td> Negative
(NEGATIVE) </td> Leukocytes 3 /HPF 0-5 <td> 05/02/2019 Scalf [Presence] in /HPF 01:30</td><td> [facility] Urine by WBC </td><td> Health Care Automated Corporation 3
(0-5) /HPF </td> Erythrocytes 1 /HPF 0-2 <td> 05/02/2019 Scalf [#/area] in /HPF 01:30</td><td> [facility] Urine sediment RBC </td><td> Health Car e by Automated Roamer count 1
(0-2) /HPF </td> Mucous FEW <td> 05/02/2019 Scalf < FEW 01:30</td><td> [facility] Mucous Health Care </td><td> Roamer FEW
/LPF
< FEW

/LPF </td> Amorphous RARE <td> 05/02/2019 Scalf Crystal < FEW 01:30</td><td> [facility] Amorphous Health Care Crystal Corporation </td><td> RARE
/HPF
< FEW

/HPF </td> Hyaline casts 27.00 /LPF NONE <td> 05/02/2019 [facility] er [#/area] in SEEN 01:30</td><td> [facility] Urine sediment /LPF Hyaline Cast Health Care by Microscopy </td><td> Roamer high power field 27.00
(NONE SEEN) /LPF </td> Magnesium 1.6 mg/dL 1.6-2. <td> 05/06/2019 Scalf [Mass/volume] 6 06:10</td><td> [facility] in Serum or mg/dL Magnesium Level Health Care Plasma </td><td> Roamer 1.6
(1.6-2.6) mg/dL </td> Epithelial RARE <td> 05/02/2019 Scalf cells [#/area] FEW 01:30</td><td> County in Urine Epithelial Health Care sediment by [employer] Automated count </td><td> RARE
/LPF
FEW

/LPF </td> Triglyceride 103 mg/dL 30-200 <td> 05/02/2019 [place] [Mass/volume] mg/dL 02:56</td><td> County in Serum or Triglyceride Health Care Plasma </td><td> [place] 103
(30-200) mg/dL </td> Cholesterol in 95 mg/dL <150 <td> 05/02/2019 [facility] LDL mg/dL 02:56</td><td> [facility] [Mass/volume] LDL Cholesterol Health Car e in Serum or </td><td> [place] Plasma 95
(<150) mg/dL </td> Cholesterol in 47 mg/dL >60 <td> 05/02/2019 [facility] HDL mg/dL 02:56</td><td> [facility] [Mass/volume] HDL Cholesterol Health Car e in Serum or </td><td> [place] Plasma 47
(>60) mg/dL </td> Cholesterol 163 mg/dL 125-24 <td> 05/02/2019 [place] [Moles/volume] 0 02:56</td><td> [place] in Serum or mg/dL Cholesterol Health Care Plasma </td><td> [place] 163
(125-240) mg/dL </td> Hemoglobin A1C 6.0 % 4.0-5. <td> 05/02/2019 [facility] 6 % 04:00</td><td> [facility] Hemoglobin A1C Health Care </td><td><[email or web address] graph styleCode="Bold "> 6.0 H </paragraph>
(4.0-5.6) [...]
11 269
12 298
Source: Adapted from [place] [employer]. Standards of medical
care in diabetes-2014. Diabetes Care.2014;37(Harris pp 1):S14-S80, table 8.

(4.0-5.6) % </td> Glucose 121 mg/dL 70-105 <td> 05/05/2019 [place] [Mass/volume] mg/dL 20:56</td><td> [facility] in Capillary Glucose - [facility] blood by Finger Stick [facility] Glucometer </td><td><britton raph styleCode="Bold "> 121 H </paragraph>
(70-105) mg/dL </td> Procedure Social History Code Duration Value Status Description Data Source(s ) Smoking Never smoker completed Never smoker [facility] Vital Signs ID Date Data Source UNK Name Value Range Interpretation Description Data Sour ce(s) Code Diastolic blood 79 mmHg 79 mmHg [facility] Systolic blood 151 mmHg 151 mmHg [facility] Respiratory rate 18 bpm 18 bpm [facility] Heart rate 86 bpm 86 bpm [facility] Body weight 239 lbs 239 lbs [facility] Diastolic blood 72 mmHg 72 mmHg [facility] Systolic blood 128 mmHg 128 mmHg [facility] Respiratory rate 18 bpm 18 bpm [facility] Heart rate 67 bpm 67 bpm [facility] Diastolic blood 76 mmHg 76 mmHg [facility] Systolic blood 143 mmHg 143 mmHg [facility] Respiratory rate 18 bpm 18 bpm [facility] Heart rate 74 bpm 74 bpm [facility].5 [facility] Di[facility] blood 80 mmHg 80 mmHg [facility] Systolic blood 128 mmHg 128 mmHg [facility] Respiratory rate 18 bpm 18 bpm [facility] Heart rate 81 bpm 81 bpm [facility] Body temperature 97.5 [facility] Diastolic blood 98 {} Normal (applies to 98 {} [facility] pressure non-[facility] results) [employer] Systolic blood 163 {} Normal (applies to 163 {} [place] pressure non-[facility] results) [employer] First 18.0000 {} Normal (applies to 18.0000 {} [place] Respiration rate non-numeric [facility] Health Set results) [employer] Heart rate 58.0000 {} Normal (applies to 58.0000 {} [place] non-numeric [facility] results) [employer] Body temperature 97.4000 {} Normal (applies to 97.4000 {} [facility] results) [employer] wt - obtain Normal (applies to {} [place] non-numeric [facility] results) [employer] weight - kg 104.7000 {} Normal (applies to 104.7000 {} [place] non-numeric [facility] Health results) [facility] Diastolic blood 89 {} Normal (applies to 89 {} [facility] results) [facility] Systolic blood 132 {} Normal (applies to 132 {} [facility] pressure non-numeric [facility] results) Care [facility] First 17.0000 {} Normal (applies to 17.0000 {} [place] Respiration rate non-numeric [facility] Health Set results) [facility] Heart rate 65.0000 {} Normal (applies to 65.0000 {} [place] non-numeric [facility] results) [facility] Body temperature 97.0000 {} Normal (applies to 97.0000 {} [place] non-[facility] results) [facility] [place] height - cm Normal (applies to {} [place] non-numeric [facility] results) [facility] weight - kg 103.2000 {} Normal (applies to 103.2000 {} [place] [facility] results) [facility] ID Date Data Source [id number] 12/23/2019 09:47:36 PM [facility] Name Value Range Interpretation Code Description Data Source(s) Body weight Measured 239 lb 239 lb [facility] ID Date Data Source [id number] 12/23/2019 09:45:28 PM [facility] Name Value Range Interpretation Code Description Data Source(s) Body weight Measured 239 lb 239 lb [facility]
[2020-07-23] MEDS: HEPARIN NA (PORCINE) 5,000 UNITS/ML 1ML VIAL SQ SCH (22:13)
[2020-07-23] MEDS: SENNOSIDES 8.6MG TABLET (FP) PO SCH (22:13)
[2020-07-23] MEDS: BACITRACIN/POLYMYXIN B SULFATE 15 GM TUBE TP SCH (23:50)
[2020-07-24] MEDS: NYSTATIN 500,000 UNITS/5 ML SUSPENSION PO SCH ×4 (06:01→17:54)
[2020-07-24] MEDS: DOCUSATE SODIUM 100 MG CAPSULE (FP) PO SCH ×3 (06:01→21:19)
[2020-07-24] MEDS ORDERED: PT OWN MED DRAWER 7, Y5N ONE ×2 (09:15→14:49)
[2020-07-24 09:20] LABS: BLOOD UREA NITROGEN 63.3 mg/dL (7-18); CALCIUM 8.3 mg/dL (8.5-10.1); CREATININE 3.6 mg/dL (0.55-1.3); MAGNESIUM 2.8 mg/dL (1.8-2.4); PHOSPHOROUS 3.6 mg/dL (2.5-4.9); POTASSIUM 4.4 mmol/L (3.5-5.1)
[2020-07-24] MEDS: POLYETHYLENE GLYCOL 3350 119 GM BTL PO SCH ×2 (09:39→21:19)
[2020-07-24] MEDS: HEPARIN NA (PORCINE) 5,000 UNITS/ML 1ML VIAL SQ SCH ×2 (09:39→21:19)
[2020-07-24] MEDS: BACITRACIN/POLYMYXIN B SULFATE 15 GM TUBE TP SCH ×2 (09:40→21:20)
--- NOTE | 2020-07-24 11:43 | EKG ---
Test Reason : Blood Pressure : / mmHG Vent. Rate : 072 BPM Atrial Rate : 072 BPM P-R Int : 148 ms QRS Dur : 094 ms QT Int : 460 ms P-R-T Axes : 068 057 022 degrees QTc Int : 503 ms NORMAL SINUS RHYTHM PROLONGED QT ABNORMAL ECG WHEN COMPARED WITH ECG OF 29-NOV-2019 22:11, QT HAS LENGTHENED Confirmed by REUBEN WILKINS MD ([id number]) on 07/24/2020 11:43:08 AM Referred By: OTONIEL CHADWICK Confirmed By:REUBEN WILKINS MD
[2020-07-24] MEDS ORDERED: ONDANSETRON 4 MG/2 ML VIAL IVPUSH PRN (11:53)
[2020-07-24] MEDS ORDERED: MAG HYDROX/AL HYDROX/SIMETH 30 ML UNIT-DOSE CUP PO ONE (11:54)
--- NOTE | 2020-07-24 11:56 | PN ---
Progress Note, Physician Chief Complaint: Nausea and vomiting History of Present Illness: Seen and examined at the bedside still has some nausea but able to keep food down no diarrhea noted no chest pain or shortness of breath has some ankle swelling making urine, no flank pain no fever or chills - Current Medication List Current Medications: Active Medications Acetaminophen (Tylenol -) 650 mg PO Q4H PRN PRN Reason: PAIN Bacitracin/Polymyxin B Sulfate (Polysporin Ointment -) 1 applic TP BID [facility] Last Admin: 07/24/20 09:40 Dose: 1 applic Documented by: Docusate Sodium (Colace -) 100 mg PO TID [facility] Last Admin: 07/24/20 06:01 Dose: 100 mg Documented by: Heparin Sodium (Porcine) (Heparin -) 5,000 unit SQ BID [facility] Last Admin: 07/24/20 09:39 Dose: 5,000 unit Documented by: Sodium Chloride (Normal Saline -) 1,000 mls @ 75 mls/hr IV ASDIR [facility] Last Admin: 07/23/20 14:19 Dose: 75 mls/hr Documented by: Nystatin (Nystatin Oral Suspension -) 500,000 units PO Q6HPO [facility] Last Admin: 07/24/20 09:36 Dose: Not Given Documented by: Polyethylene Glycol (Miralax (For Daily Use) -) 17 gm PO BID [facility] Last Admin: 07/24/20 09:39 Dose: Not Given Documented by: Senna (Senna -) 2 tab PO HS [facility] Last Admin: 07/23/20 22:13 Dose: 2 tab Documented by: - Objective Vital Signs: Vital Signs Temperature 98.9 F 07/24/20 09:30 Pulse Rate 71 07/24/20 09:30 Respiratory Rate 18 07/24/20 09:30 Blood Pressure 111/65 07/24/20 09:30 O2 Sat by Pulse Oximetry (%) 96 07/24/20 09:30 Constitutional: Yes: No Distress, Calm HENT: Yes: Atraumatic Neck: Yes: Supple Cardiovascular: Yes: Regular Rate and Rhythm Respiratory: Yes: Regular, CTA Bilaterally Gastrointestinal: Yes: Soft. No: Tenderness Extremities: No: Cold, Cool, Cyanosis Edema: Yes Edema: LLE: Trace, RLE: Trace Neurological: Yes: Alert, Oriented Labs: CBC, BMP 07/24/20 08:27 Assessment/Plan This is a 40 year old male with history of hypertension, COPD, heroin abuse who presented with nausea, vomiting and abdominal pain and found to have MIGUELINA with BUN/Cr of 84/10.8. 1. Acute kidney injury secondary to volume depletion +/- normotensive ATN (NSIAD + ACEi) +/- AIN 2. Hypertension 3. Hypovolemic hyponatremia 4. COPD Renal function improving with isotonic IVF. Increase saline rate to 2L daily Urine Eosinophils penidng, no WBC seen Would doubt rhabdomyolysis is a contributor given CK levels < 5000 CT of the Abd/Pelvis showed no hydronephrosis Continue to trend renal function daily no acute need for renal replacement therapy Would hold ACEi and diuretics until renal function returns to normal Pain control w/o NSAIDs THank you Antonio Evans DO
[2020-07-24 12:07] LABS: BASO % 0.4 % (0-2.0); EOS % 0.7 % (0-4.5); HEMATOCRIT 38.9 % (35.4-49); HEMOGLOBIN 12.6 GM/dL (11.7-16.9); LYMPH % 12.4 % (8-40); MCH 25.5 pg (25.7-33.7); MCHC 32.3 g/dl (32.0-35.9); MEAN CELL VOLUME 78.9 fl (80-96); MEAN PLT VOLUME 9.4 fl (7.5-11.1); MONO % 10.5 % (3.8-10.2); PLATELET COUNT 268 K/MM3 (134-434); RBC 4.93 M/mm3 (4.00-5.60); WHITE BLOOD COUNT 7.9 K/mm3 (4.0-10.0)
[2020-07-24 12:27] LABS: HEMATOCRIT 36.9 % (35.4-49); MCH 25.6 pg (25.7-33.7); MCHC 32.5 g/dl (32.0-35.9); MEAN CELL VOLUME 78.6 fl (80-96); MEAN PLT VOLUME 9.7 fl (7.5-11.1); PLATELET COUNT 264 K/MM3 (134-434); RBC 4.69 M/mm3 (4.00-5.60); RDW 15.3 % (11.9-15.9)
[2020-07-24 12:29] LABS: WHITE BLOOD COUNT 7.3 K/mm3 (4.0-10.0)
--- NOTE | 2020-07-24 12:41 | PN ---
Teaching Attending Note Name of Resident: Juan Diego Marinelli ATTENDING PHYSICIAN STATEMENT I saw and evaluated the patient. I reviewed the resident's note and discussed the case with the resident. I agree with the resident's findings and plan as documented. SUBJECTIVE: Seen and examined at bedside. Alert and oriented x3, no acute distress. Creati nine significantly improved to 3.6, electrolytes normalizing. OBJECTIVE Last Vital Signs Temp Pulse Resp BP Pulse Ox 98.9 F 71 18 111/65 96 07/24/20 09:30 07/24/20 09:30 07/24/20 09:30 07/24/20 09:30 07/24/20 09:30 PE: Per resident note Labs/Imaging: reviewed ASSESSMENT/PLAN 40-year-old male with a history of HTN, COPD, heroin use presents ED with 3 days of abdominal pain/bloating and nausea and vomiting. Found to be in acute renal failure. #Acute renal failure: Improving Patient reports taking ibuprofen 2.4 g a day for approximately 1 month for chronic back pain and in the week prior to admission had oral surgery and thrush and was unable to take p.o., then started having severe nausea and vomiting. Likely due to NSAID, LUZ inhibitor use combined with dehydration, possibly component of AIN from abx Nephrology on board: Appreciate recommendations Continue isotonic fluid Trend creatinine Avoid nephrotoxic medications #Oral thrush Nystatin swish and swallow Follow-up HIV test #COPD versus SAVITA? Uses CPAP at night Not on any inhalers #Abdominal pain: Resolved #DVT PP X NEL Discontinue SCDs
[2020-07-24] MEDS: SODIUM CHLORIDE 1,000 ML IV SCH (12:47)
[2020-07-24] MEDS: SODIUM CHLORIDE NASAL SPRAY 44 ML BOTTLE NS PRN (14:49)
[2020-07-24] MEDS: SENNOSIDES 8.6MG TABLET (FP) PO SCH (21:20)
--- NOTE | 2020-07-24 21:36 | PN ---
Physical Exam: SUBJECTIVE: Patient seen and examined a bedside. No acute events overnight. Resting comfortably in bed. OBJECTIVE: Vital Signs Period Temp Pulse Resp BP Sys/Davalos Pulse Ox Last 24 Hr 98.1 F-98.9 F 72-78 18-18 111-140/57-72 96-98 GENERAL: AAOx3 NAD HEAD: Normal with no signs of trauma. EYES: EOMI Sclera Clear ENT: MMM NECK: Trachea midline, full range of motion, supple. LUNGS: CTAB HEART: RRR No MRG S1S2 ABDOMEN: Soft, NDNT EXTREMITIES: No CCE NEUROLOGICAL: Cranial nerves II through XII grossly intact. PSYCH: Normal mood, normal affect. SKIN: Warm, dry, normal turgor, no rashes or lesions noted Laboratory Results - last 24 hr 07/23/20 07/23/20 07/24/20 09:10 12:05 08:27 WBC 7.9 RBC 4.93 Hgb 12.6 Hct 38.9 MCV 78.9 L MCH 25.5 L D MCHC 32.3 RDW 15.0 D Plt Count 268 D MPV 9.4 Absolute Neuts (auto) 6.0 Neutrophils % 76.0 D Lymphocytes % 12.4 D Monocytes % 10.5 H Eosinophils % 0.7 D Basophils % 0.4 Nucleated RBC % 0 Sodium Potassium Chloride Carbon Dioxide Anion Gap BUN Creatinine Est GFR (CKD-EPI)AfAm Est GFR (CKD-EPI)NonAf Random Glucose Calcium Phosphorus Magnesium Ur Random Creatinine U Random Total Protein COVID-19 (NICOLE) Not detected HIV 1&2 Ag/Ab, 4th Gen Non reactive 07/24/20 07/24/20 07/24/20 08:27 08:37 13:53 WBC 7.3 RBC 4.69 Hgb 12.0 Hct 36.9 MCV 78.6 L MCH 25.6 L MCHC 32.5 RDW 15.3 Plt Count 264 MPV 9.7 Absolute Neuts (auto) Neutrophils % Lymphocytes % Monocytes % Eosinophils % Basophils % Nucleated RBC % Sodium 137 Potassium 4.4 Chloride 104 Carbon Dioxide 27 Anion Gap 6 L BUN 63.3 H Creatinine 3.6 H Est GFR (CKD-EPI)AfAm 23.09 Est GFR (CKD-EPI)NonAf 19.92 Random Glucose 96 Calcium 8.3 L Phosphorus 3.6 Magnesium 2.8 H Ur Random Creatinine 81.0 U Random Total Protein 26.0 H COVID-19 (NICOLE) HIV 1&2 Ag/Ab, 4th Gen Active Medications Generic Name Dose Route Start Last Admin Trade Name Deidra PRN Reason Stop Dose Admin Acetaminophen 650 mg 07/23/20 11:50 Tylenol - PO Q4H PRN PAIN Bacitracin/Polymyxin B Sulfate 1 applic 07/23/20 22:45 07/24/20 21:20 Polysporin Ointment - TP 1 applic BID NEL Administration Docusate Sodium 100 mg 07/23/20 14:00 07/24/20 21:19 Colace - PO Not Given TID NEL Heparin Sodium (Porcine) 5,000 unit 07/23/20 22:00 07/24/20 21:19 Heparin - SQ 5,000 unit BID NEL Administration Sodium Chloride 1,000 mls @ 83 mls/hr 07/24/20 12:01 07/24/20 12:47 Normal Saline - IV 83 mls/hr ASDIR NEL Administration Nystatin 500,000 units 07/23/20 12:00 07/24/20 17:54 Nystatin Oral Suspension - PO 500,000 units Q6HPO NEL Administration Polyethylene Glycol 17 gm 07/23/20 13:00 07/24/20 21:19 Miralax (For Daily Use) - PO Not Given BID NEL Senna 2 tab 07/23/20 22:00 07/24/20 21:20 Senna - PO Not Given HS NEL Sodium Chloride 2 spray 07/24/20 12:42 07/24/20 14:49 [place] Nasal [place] - NS 2 spray BID PRN Administration NASAL CONGESTION ASSESSMENT/PLAN: 40-year-old male with a history of HTN, COPD, heroin use presents ED with 3 days of abdominal pain/bloating and nausea and vomiting. Found to be in acute renal failure. #MIGUELINA -Patient endorsing heavy NSAID use for back pain and recent oral surgery CTAP reveals no hydro or evidence of obstruction Likely due to NSAID, LUZ inhibitor use combined with dehydration, possibly component of AIN from abx Nephrology on board---> Increase saline rate to 2L daily ,Urine Eosinophils penidng, no WBC seen Continue isotonic fluid Trend creatinine. Down to 3.8 from 10.6. Avoid nephrotoxic medications #Oral thrush Nystatin swish and swallow HIV test negative #COPD versus SAVITA? Uses CPAP at night Not on any inhalers #DVT PPX [facility] Visit type - Emergency Visit Emergency Visit: Yes ED Registration Date: 07/23/20 Care time: The patient presented to the Emergency Department on the above date and was hospitalized for further evaluation of their emergent condition. - New Patient This patient is new to me today: No - Critical Care Critical Care patient: No - Discharge Referral Referred to [facility] Med P.C.: No ATTENDING PHYSICIAN STATEMENT I saw and evaluated the patient. I reviewed the resident's note and discussed the case with the resident. I agree with the resident's findings and plan as documented. SUBJECTIVE: OBJECTIVE: ASSESSMENT AND PLAN:
[2020-07-25] MEDS: NYSTATIN 500,000 UNITS/5 ML SUSPENSION PO SCH ×5 (00:09→23:44)
[2020-07-25] MEDS: SODIUM CHLORIDE 1,000 ML IV SCH ×2 (01:00→12:43)
[2020-07-25] MEDS: DOCUSATE SODIUM 100 MG CAPSULE (FP) PO SCH ×3 (05:40→21:45)
[2020-07-25 06:51] LABS: HEMOGLOBIN 12.5 GM/dL (11.7-16.9); MCH 25.3 pg (25.7-33.7); MEAN CELL VOLUME 79.2 fl (80-96); MEAN PLT VOLUME 9.4 fl (7.5-11.1); PLATELET COUNT 262 K/MM3 (134-434); RBC 4.92 M/mm3 (4.00-5.60); RDW 14.9 % (11.9-15.9); WHITE BLOOD COUNT 7.6 K/mm3 (4.0-10.0)
[2020-07-25 07:08] LABS: BILIRUBIN,TOTAL 0.6 mg/dL (0.2-1); CREATININE 1.5 mg/dL (0.55-1.3); POTASSIUM 4.3 mmol/L (3.5-5.1); TOT PROT 7.7 g/dl (6.4-8.2)
[2020-07-25 07:09] LABS: ALBUMIN 3.4 g/dl (3.4-5.0); CALCIUM 8.9 mg/dL (8.5-10.1); MAGNESIUM 2.4 mg/dL (1.8-2.4); PHOSPHOROUS 2.2 mg/dL (2.5-4.9)
[2020-07-25 07:27] LABS: BLOOD UREA NITROGEN 32.9 mg/dL (7-18)
[2020-07-25] MEDS: POLYETHYLENE GLYCOL 3350 119 GM BTL PO SCH (09:32)
[2020-07-25] MEDS: BACITRACIN/POLYMYXIN B SULFATE 15 GM TUBE TP SCH ×2 (09:32→21:45)
[2020-07-25] MEDS: SODIUM CHLORIDE NASAL SPRAY 44 ML BOTTLE NS PRN (09:32)
[2020-07-25] MEDS: HEPARIN NA (PORCINE) 5,000 UNITS/ML 1ML VIAL SQ SCH ×2 (09:32→21:45)
--- NOTE | 2020-07-25 11:32 | PN ---
Physical Exam: SUBJECTIVE: Patient seen and examined at bedside. Endorses nausea, with clear emesis today. He denies abdominal pain. Denies subjective fevers, chills, shortness of breath, chest pain, palpitations, diarrhea, melena, hematochezia, or hemoptysis. OBJECTIVE: Vital Signs Period Temp Pulse Resp BP Sys/Davalos Pulse Ox Last 24 Hr 97 F-98.5 F 63-75 18-18 129-149/65-78 97-100 GENERAL: The patient is awake, alert, and fully oriented, in no acute distress. HEAD: Normocephalic, atraumatic. EYES: PERRL, extraocular movements intact, sclera anicteric, conjunctiva clear. ENT: Oropharynx clear, without erythema or exudates. Moist mucous membranes. NECK: Trachea midline, full range of motion. Supple without lymphadenopathy. LUNGS: Breath sounds equal, clear to auscultation bilaterally. No wheezes, no crackles. No accessory muscle use. HEART: Regular rate and rhythm. S1, S2 without murmur, rub or gallop. ABDOMEN: Obese abdomen. Soft, nondistended, nontender to light and deep palpation x4 quadrants. No rebound tenderness, no guarding. Normoactive bowel sounds x4 quadrants. No hepatosplenomegaly, no masses appreciated. EXTREMITIES: 2+ radial, dorsalis pedis pulses bilaterally. Warm, well-perfused. No lower extremity edema bilaterally. NEUROLOGICAL: Cranial nerves II through XII grossly intact. Normal speech. No gross focal deficits. PSYCH: Normal mood, normal affect upon my encounter. SKIN: Warm, dry. Laboratory Results - last 24 hr 07/23/20 07/23/20 07/24/20 09:10 12:05 08:27 WBC 7.9 RBC 4.93 Hgb 12.6 Hct 38.9 MCV 78.9 L MCH 25.5 L D MCHC 32.3 RDW 15.0 D Plt Count 268 D MPV 9.4 Absolute Neuts (auto) 6.0 Neutrophils % 76.0 D Lymphocytes % 12.4 D Monocytes % 10.5 H Eosinophils % 0.7 D Basophils % 0.4 Nucleated RBC % 0 Sodium Potassium Chloride Carbon Dioxide Anion Gap BUN Creatinine Est GFR (CKD-EPI)AfAm Est GFR (CKD-EPI)NonAf Random Glucose Calcium Phosphorus Magnesium Total Bilirubin AST ALT Alkaline Phosphatase Total Protein Albumin Ur Random Creatinine U Random Total Protein COVID-19 (NICOLE) Not detected HIV 1&2 Ag/Ab, 4th Gen Non reactive 07/24/20 07/24/20 07/25/20 08:37 13:53 06:05 WBC 7.3 RBC 4.69 Hgb 12.0 Hct 36.9 MCV 78.6 L MCH 25.6 L MCHC 32.5 RDW 15.3 Plt Count 264 MPV 9.7 Absolute Neuts (auto) Neutrophils % Lymphocytes % Monocytes % Eosinophils % Basophils % Nucleated RBC % Sodium 138 Potassium 4.3 Chloride 103 Carbon Dioxide 29 Anion Gap 7 L BUN 32.9 H Creatinine 1.5 H Est GFR (CKD-EPI)AfAm 66.54 Est GFR (CKD-EPI)NonAf 57.41 Random Glucose 102 Calcium 8.9 Phosphorus 2.2 L Magnesium 2.4 Total Bilirubin 0.6 AST 16 ALT 23 Alkaline Phosphatase 86 Total Protein 7.7 Albumin 3.4 Ur Random Creatinine 81.0 U Random Total Protein 26.0 H COVID-19 (NICOLE) HIV 1&2 Ag/Ab, 4th Gen 07/25/20 06:05 WBC 7.6 RBC 4.92 Hgb 12.5 Hct 39.0 MCV 79.2 L MCH 25.3 L MCHC 32.0 RDW 14.9 Plt Count 262 MPV 9.4 Absolute Neuts (auto) Neutrophils % Lymphocytes % Monocytes % Eosinophils % Basophils % Nucleated RBC % Sodium Potassium Chloride Carbon Dioxide Anion Gap BUN Creatinine Est GFR (CKD-EPI)AfAm Est GFR (CKD-EPI)NonAf Random Glucose Calcium Phosphorus Magnesium Total Bilirubin AST ALT Alkaline Phosphatase Total Protein Albumin Ur Random Creatinine U Random Total Protein COVID-19 (NICOLE) HIV 1&2 Ag/Ab, 4th Gen Active Medications Generic Name Dose Route Start Last Admin Trade Name Freq PRN Reason Stop Dose Admin Acetaminophen 650 mg 07/23/20 11:50 Tylenol - PO Q4H PRN PAIN Bacitracin/Polymyxin B Sulfate 1 applic 07/23/20 22:45 07/25/20 09:32 Polysporin Ointment - TP 1 applic BID NEL Administration Docusate Sodium 100 mg 07/23/20 14:00 07/25/20 05:40 Colace - PO Not Given TID NEL Heparin Sodium (Porcine) 5,000 unit 07/23/20 22:00 07/25/20 09:32 Heparin - SQ 5,000 unit BID NEL Administration Sodium Chloride 1,000 mls @ 83 mls/hr 07/24/20 12:01 07/25/20 01:00 Normal Saline - IV 83 mls/hr ASDIR NEL Administration Nystatin 500,000 units 07/23/20 12:00 07/25/20 05:39 Nystatin Oral Suspension - PO 500,000 units Q6HPO NEL Administration Polyethylene Glycol 17 gm 07/23/20 13:00 07/25/20 09:32 Miralax (For Daily Use) - PO Not Given BID NEL Potassium Phos/Sodium Phos 1 packet 07/25/20 11:24 Phos-Nak Packet - PO 07/25/20 11:25 ONCE ONE Senna 2 tab 07/23/20 22:00 07/24/20 21:20 Senna - PO Not Given HS NEL Sodium Chloride 2 spray 07/24/20 12:42 07/25/20 09:32 [place] Nasal [place] - NS 2 spray BID PRN Administration NASAL CONGESTION Trimethobenzamide HCl 300 mg 07/25/20 11:26 Tigan - PO 07/25/20 11:27 ONCE ONE ASSESSMENT/PLAN: Patient is a 40 year old male with history of hypertension, heroine use disorder, obstructive sleep apnea, presents with complaint of abdominal pain, nausea, vomiting. Acute kidney injury -improving -BUN 32.9/ Cr 1.5 -In setting of over 2 grams daily NSAIDs, with pre-renal component secondary to vomiting. -Nephrology recommendations (Dr. Evans) appreciated. -IV fluids discontinued. -Follow BMP Nausea -Patient had CT abdomen, pelvis upon admission which did not reveal acute pathology. -Will trial Tigan 300mg PO once (given QTc 503 on prior ECG) -Clear liquid diet, will advance as tolerated. Obstructive sleep apnea -Continue CPAP at night FEN -No IV fluids indicated -Hypophosphatemia repleted. Follow BMP -Clear liquid diet Prophylaxis -Heparin 5000units subq TID Disposition -Continue care in medical-surgical floor. Anticipate DC within 24 hours, pending resolution of nausea and tolerating oral intake. Visit type - Emergency Visit Emergency Visit: Yes ED Registration Date: 07/23/20 Care time: The patient presented to the Emergency Department on the above date and was hospitalized for further evaluation of their emergent condition. - New Patient This patient is new to me today: Yes Date on this admission: 07/25/20 - Critical Care Critical Care patient: No - Discharge Referral Referred to [facility] No ATTENDING PHYSICIAN STATEMENT I saw and evaluated the patient. I reviewed the resident's note and discussed the case with the resident. I agree with the resident's findings and plan as documented. SUBJECTIVE: OBJECTIVE: ASSESSMENT AND PLAN:
[2020-07-25] MEDS ORDERED: NAPH,MB-DB/K PH,MBDB POWDER PACKET PO ONE (12:00)
[2020-07-25] MEDS ORDERED: TRIMETHOBENZAMIDE HCL 300 MG CAPSULE PO ONE (12:00)
[2020-07-25 12:03] VITALS: BMI 37.0
--- NOTE | 2020-07-25 12:05 | PN ---
Progress Note, Physician Chief Complaint: Nausea and vomiting History of Present Illness: Seen and examined at the bedside no chest pain or shortness of breath has nausea this am making urine, no flank pain no fever or chills - Current Medication List Current Medications: Active Medications Acetaminophen (Tylenol -) 650 mg PO Q4H PRN PRN Reason: PAIN Bacitracin/Polymyxin B Sulfate (Polysporin Ointment -) 1 applic TP BID [facility] Last Admin: 07/25/20 09:32 Dose: 1 applic Documented by: Docusate Sodium (Colace -) 100 mg PO TID [facility] Last Admin: 07/25/20 05:40 Dose: Not Given Documented by: Heparin Sodium (Porcine) (Heparin -) 5,000 unit SQ BID [facility] Last Admin: 07/25/20 09:32 Dose: 5,000 unit Documented by: Sodium Chloride (Normal Saline -) 1,000 mls @ 83 mls/hr IV ASDIR [facility] Last Admin: 07/25/20 01:00 Dose: 83 mls/hr Documented by: Nystatin (Nystatin Oral Suspension -) 500,000 units PO Q6HPO [facility] Last Admin: 07/25/20 05:39 Dose: 500,000 units Documented by: Polyethylene Glycol (Miralax (For Daily Use) -) 17 gm PO BID [facility] Last Admin: 07/25/20 09:32 Dose: Not Given Documented by: Senna (Senna -) 2 tab PO HS [facility] Last Admin: 07/24/20 21:20 Dose: Not Given Documented by: Sodium Chloride ([place] Nasal [place] -) 2 spray NS BID PRN PRN Reason: NASAL CONGESTION Last Admin: 07/25/20 09:32 Dose: 2 spray Documented by: - Objective Vital Signs: Vital Signs Temperature 98 F 07/25/20 09:31 Pulse Rate 74 07/25/20 09:31 Respiratory Rate 18 07/25/20 09:31 Blood Pressure 149/66 07/25/20 09:31 O2 Sat by Pulse Oximetry (%) 99 07/25/20 09:31 Constitutional: Yes: No Distress, Calm HENT: Yes: Atraumatic Neck: Yes: Supple Cardiovascular: Yes: Regular Rate and Rhythm Respiratory: Yes: Regular, CTA Bilaterally Gastrointestinal: Yes: Soft Edema: No Labs: CBC, BMP 07/25/20 06:05 07/25/20 06:05 Assessment/Plan This is a 40 year old male with history of hypertension, COPD, heroin abuse who presented with nausea, vomiting and abdominal pain and found to have MIGUELINA with BUN/Cr of 84/10.8. 1. Acute kidney injury secondary to volume depletion +/- normotensive ATN (NSIAD + ACEi) +/- AIN 2. Hypertension 3. Hypovolemic hyponatremia 4. COPD Renal function improved can discontinue IV fluids Urine Eosinophils penidng, no WBC seen Would doubt rhabdomyolysis is a contributor given CK levels < 5000 CT of the Abd/Pelvis showed no hydronephrosis Would hold ACEi and diuretics until renal function returns to normal Pain control w/o NSAIDs Can consider addition of CCB for blood pressure control if needed Will need to monitor renal function on discharge. Discharge planning as per primary team THank you Antonio Evans DO
--- NOTE | 2020-07-25 12:11 | PN ---
Teaching Attending Note Name of Resident: Carl Nelson ATTENDING PHYSICIAN STATEMENT I saw and evaluated the patient. I reviewed the resident's note and discussed the case with the resident. I agree with the resident's findings and plan as documented. SUBJECTIVE: Seen and examined at bedside. Nauseous this morning. Gagging while performing abdominal exam. Creatinine has significantly improved. Will treat nausea and repeat abdominal exam to assess need for additional imaging OBJECTIVE Last Vital Signs Temp Pulse Resp BP Pulse Ox 98 F 74 18 149/66 99 07/25/20 09:31 07/25/20 09:31 07/25/20 09:31 07/25/20 09:07/25/20 09:31 PE: Per resident note Labs/Imaging: reviewed ASSESSMENT/PLAN 40-year-old male with a history of HTN, COPD, heroin use presents ED with 3 days of abdominal pain/bloating and nausea and vomiting. Found to be in acute renal failure. #Acute renal failure: Improving Patient reports taking ibuprofen 2.4 g a day for approximately 1 month for chronic back pain and in the week prior to admission had oral surgery and thrush and was unable to take p.o., then started having severe nausea and vomiting. Likely due to NSAID, LUZ inhibitor use combined with dehydration, possibly component of AIN from abx Nephrology on board: Appreciate recommendations discontinue fluid Trend creatinine Avoid nephrotoxic medications #Oral thrush Nystatin swish and swallow HIV negative #COPD versus SAVITA? Uses CPAP at night Not on any inhalers #Abdominal pain: Resolved #DVT PP X NEL
[2020-07-25] MEDS ORDERED: PT OWN MED DRAWER 7, Y5N ONE (17:22)
[2020-07-25] MEDS: PANTOPRAZOLE SODIUM 40 MG VIAL IVPUSH SCH (18:26)
[2020-07-25] MEDS ORDERED: ACETAMINOPHEN 1000 MG/100 ML VIAL (NON FORMULARY) IVPB ONE (18:45)
[2020-07-26] MEDS ORDERED: hydrOXYzine HCL 100 MG/2 ML VIAL IM ONE (02:46)
[2020-07-26] MEDS: DOCUSATE SODIUM 100 MG CAPSULE (FP) PO SCH ×2 (06:28→13:54)
[2020-07-26] MEDS: NYSTATIN 500,000 UNITS/5 ML SUSPENSION PO SCH ×2 (06:28→12:50)
[2020-07-26 08:44] LABS: BLOOD UREA NITROGEN 18.4 mg/dL (7-18); CALCIUM 9.4 mg/dL (8.5-10.1); CREATININE 1.2 mg/dL (0.55-1.3); PHOSPHOROUS 1.7 mg/dL (2.5-4.9); POTASSIUM 4.3 mmol/L (3.5-5.1)
[2020-07-26] MEDS: HEPARIN NA (PORCINE) 5,000 UNITS/ML 1ML VIAL SQ SCH (09:56)
[2020-07-26] MEDS: BACITRACIN/POLYMYXIN B SULFATE 15 GM TUBE TP SCH (09:56)
[2020-07-26] MEDS: PANTOPRAZOLE SODIUM 40 MG VIAL IVPUSH SCH (09:56)
[2020-07-26] MEDS ORDERED: HYDROCHLOROTHIAZIDE 25 MG TABLET (FP) PO SCH (12:00)
[2020-07-26] MEDS ORDERED: NAPH,MB-DB/K PH,MBDB POWDER PACKET PO ONE (12:16)
[2020-07-26] MEDS ORDERED: LISINOPRIL 10 MG TABLET (FP) PO SCH (13:00)
--- NOTE | 2020-07-26 13:23 | PN ---
Teaching Attending Note Name of Resident: Juan Diego Marinelli ATTENDING PHYSICIAN STATEMENT I saw and evaluated the patient. I reviewed the resident's note and discussed the case with the resident. I agree with the resident's findings and plan as documented. SUBJECTIVE: Nausea improved. Patient is tolerating p.o. Still with some residual nausea bu t states that it is at his long-term baseline. Creatinine is improved to 1.2. Patient is medically cleared for discharge. He was given a dose of hydrochlorothiazide today and can restart his lisinopril tomorrow. He should follow-up with his doctor for repeat BMP in 1 week OBJECTIVE Last Vital Signs Temp Pulse Resp BP Pulse Ox 98.0 F 63 16 153/78 100 07/26/20 10:00 07/26/20 10:00 07/26/20 10:00 07/26/20 10:00 07/26/20 10:00 PE: Per resident note Labs/Imaging: reviewed ASSESSMENT/PLAN 40-year-old male with a history of HTN, COPD, heroin use presents ED with 3 days of abdominal pain/bloating and nausea and vomiting. Found to be in acute renal failure in the setting of extensive NSAID use, dehydration, and lisinopril use. Medications were discontinued and fluids were given with improvement of his creatinine from 10.7-1.2. Patient is medically cleared for discharge. He can restart his home medications tomorrow and should follow-up with his PCP within 1 week for a repeat basic metabolic panel
--- NOTE | 2020-07-26 13:24 | DS ---
Physical Exam: SUBJECTIVE: Patient seen and examined OBJECTIVE: Vital Signs Period Temp Pulse Resp BP Sys/Davalos Pulse Ox Last 24 Hr 98.0 F-98.9 F 51-67 16-18 145-158/65-86 98-100 PHYSICAL EXAM GENERAL: The patient is awake, alert, and fully oriented, in no acute distress. HEAD: Normal with no signs of trauma. EYES: PERRL, extraocular movements intact, sclera anicteric, conjunctiva clear. ENT: Ears normal, nares patent, oropharynx clear without exudates, moist mucous membranes. NECK: Trachea midline, full range of motion, supple. LUNGS: Breath sounds equal, clear to auscultation bilaterally, no wheezes, no crackles, no accessory muscle use. HEART: Regular rate and rhythm, S1, S2 without murmur, rub or gallop. ABDOMEN: Soft, nontender, nondistended, normoactive bowel sounds, no guarding, no rebound, no hepatosplenomegaly, no masses. EXTREMITIES: 2+ pulses, warm, well-perfused, no edema. NEUROLOGICAL: Cranial nerves II through XII grossly intact. Normal speech, gait not observed. PSYCH: Normal mood, normal affect. SKIN: Warm, dry, normal turgor, no rashes or lesions noted. LABS Laboratory Results - last 24 hr 07/23/20 07/26/20 11:24 07:30 Sodium 138 Potassium 4.3 Chloride 104 Carbon Dioxide 27 Anion Gap 7 L BUN 18.4 H Creatinine 1.2 Est GFR (CKD-EPI)AfAm 87.14 Est GFR (CKD-EPI)NonAf 75.19 Random Glucose 112 H Calcium 9.4 Phosphorus 1.7 L Magnesium 2.0 Creatine Kinase 113 Urine Eosinophils None seen Urine Myoglobin 11 HOSPITAL COURSE: Date of Admission:07/23/20 Date of Discharge: 07/26/20 Discharge Summary Problems reviewed: Yes Reason For Visit: DENTAL WORK SINUS PRESSURE VOMIT CONSTIPATION Current Active Problems Heroin abuse (Acute) Renal failure (Acute) Thrush (Acute) COPD (chronic obstructive pulmonary disease) (Chronic) Condition: Improved - Instructions Diet, Activity, Other Instructions: You were admitted to the hospital and found to have severe kidney damage. You were treated with intravenous fluids and seen by a kidney specialist. You may resume all of your home medications as prescribed. Please STOP taking any NSAID medications such as Motrin or Advil as these medications are known to cause kidney damage. It is also very important not to use any illicit drugs as these can also damage your kidneys. Please be sure to drink at least 8 glasses of water daily. Please follow up with your primary care doctor within 1-2 days. You should under go a repeat blood test (BMP) to monitor your kidney function. Please return to the emergency department immediately if you begin to experience flank pain, subjective fevers, chest pain, shortness of breath, nausea/vomiting, or any other abnormal symptoms. Referrals: Emeterio Sargent MD [Staff Physician] - 1 Week Antonio Evans MD [Staff Physician] - 1 Week Disposition: HOME - Home Medications Comprehensive Discharge Medication List: Ambulatory Orders Gabapentin 300 mg PO TID 07/23/20 Hydrochlorothiazide [Hctz -] 25 mg PO DAILY 07/23/20 Lisinopril 10 mg PO DAILY 07/23/20 - Discharge Referral Referred to [facility] No ATTENDING PHYSICIAN STATEMENT I saw and evaluated the patient. I reviewed the resident's note and discussed the case with the resident. I agree with the resident's findings and plan as documented. SUBJECTIVE: OBJECTIVE: ASSESSMENT AND PLAN:
--- NOTE | 2020-07-26 13:25 | DS ---
Physical Exam: SUBJECTIVE: Patient seen and examined at bedside. No acute events overnight. OBJECTIVE: Vital Signs Period Temp Pulse Resp BP Sys/Davalos Pulse Ox Last 24 Hr 98.0 F-98.9 F 51-67 16-18 145-158/65-86 98-100 PHYSICAL EXAM GENERAL: No acute distress HEAD: AT/NC EYES: EOMI Sclera Clear ENT: MMM LUNGS: Clear bilaterally, no wheezing rales or rhonchi HEART: RRR No MRG S1S2 ABDOMEN: Soft, NDNT EXTREMITIES: No CCE NEUROLOGICAL: Cranial nerves II through XII grossly intact. PSYCH: Normal mood, normal affect. SKIN: Warm, dry, normal turgor, no rashes or lesions noted LABS Laboratory Results - last 24 hr 07/23/20 07/26/20 11:24 07:30 Sodium 138 Potassium 4.3 Chloride 104 Carbon Dioxide 27 Anion Gap 7 L BUN 18.4 H Creatinine 1.2 Est GFR (CKD-EPI)AfAm 87.14 Est GFR (CKD-EPI)NonAf 75.19 Random Glucose 112 H Calcium 9.4 Phosphorus 1.7 L Magnesium 2.0 Creatine Kinase 113 Urine Eosinophils None seen Urine Myoglobin 11 HOSPITAL COURSE: Date of Admission:07/23/20 This is a 40-year-old male with a history of HTN, COPD (not on any meds), and heroin abuse (formerly used IV, now inhaling only) who presented to the ED complaining of three days of abdominal pain/bloating, nausea, and vomiting. Patient was found to be in acute renal failure in the setting of extensive NSAID use, dehydration, and lisinopril use. Labs initially revealed a serum creatinine of 10.6. Nephrology evaluated patient and urine lytes/urine eosinophils were ordered. Renal and bladder sonogram was negative for hydronephrosis. Patient was treated with IV fluids and creatinine eventually returned to normal (1.2). Date of Discharge: 07/26/20 Minutes to complete discharge: 35 Discharge Summary Problems reviewed: Yes Reason For Visit: DENTAL WORK SINUS PRESSURE VOMIT CONSTIPATION Current Active Problems Heroin abuse (Acute) Renal failure (Acute) Thrush (Acute) COPD (chronic obstructive pulmonary disease) (Chronic) Condition: Improved - Instructions Diet, Activity, Other Instructions: You were admitted to the hospital and found to have severe kidney damage. You were treated with intravenous fluids and seen by a kidney specialist. You may resume all of your home medications as prescribed. Please restart your lisinopril tomorrow, 07/27/2020. Please STOP taking any NSAID medications such as Motrin or Advil as these medications are known to cause kidney damage. It is also very important not to use any illicit drugs as these can also damage your kidneys. Please be sure to drink at least 8 glasses of water daily. Please follow up with your primary care doctor within 1-2 weeks. You should undergo a repeat blood test (BMP) to monitor your kidney function. Please return to the emergency department immediately if you begin to experience flank pain, subjective fevers, chest pain, shortness of breath, nausea/vomiting, or any other abnormal symptoms. Referrals: Emeterio Sargent MD [Staff Physician] - 1 Week Antonio Evans MD [Staff Physician] - 1 Week Disposition: HOME - Home Medications Comprehensive Discharge Medication List: Ambulatory Orders Gabapentin 300 mg PO TID 07/23/20 Hydrochlorothiazide [Hctz -] 25 mg PO DAILY 07/23/20 Lisinopril 10 mg PO DAILY 07/23/20 This patient is new to me today: No Emergency Visit: Yes ED Registration Date: 07/23/20 Care time: The patient presented to the Emergency Department on the above date and was hospitalized for further evaluation of their emergent condition. Critical Care patient: No - Discharge Referral Referred to [facility] No ATTENDING PHYSICIAN STATEMENT I saw and evaluated the patient. I reviewed the resident's note and discussed the case with the resident. I agree with the resident's findings and plan as documented. SUBJECTIVE: OBJECTIVE: ASSESSMENT AND PLAN:
--- NOTE | 2020-07-26 13:40 | PN ---
Progress Note, Physician Chief Complaint: Nausea and vomiting History of Present Illness: Seen and examined at the bedside feels well offers no acute complaints no sob, cp, fever or chills. making urine for discharge home today - Current Medication List Current Medications: Active Medications Acetaminophen (Tylenol -) 650 mg PO Q4H PRN PRN Reason: PAIN Bacitracin/Polymyxin B Sulfate (Polysporin Ointment -) 1 applic TP BID COUNT INCLUDES THE [facility] Last Admin: 07/26/20 09:56 Dose: 1 applic Documented by: Docusate Sodium (Colace -) 100 mg PO TID COUNT INCLUDES THE [facility] Last Admin: 07/26/20 06:28 Dose: Not Given Documented by: Heparin Sodium (Porcine) (Heparin -) 5,000 unit SQ BID COUNT INCLUDES THE [facility] Last Admin: 07/26/20 09:56 Dose: 5,000 unit Documented by: Hydrochlorothiazide (Hctz -) 25 mg PO DAILY COUNT INCLUDES THE [facility] Last Admin: 07/26/20 12:50 Dose: 25 mg Documented by: Hydroxyzine HCl (Vistaril Injection -) 25 mg IM ONCE ONE Stop: 07/26/20 02:47 Lisinopril (Prinivil) 10 mg PO DAILY COUNT INCLUDES THE [facility] Nystatin (Nystatin Oral Suspension -) 500,000 units PO Q6HPO COUNT INCLUDES THE [facility] Last Admin: 07/26/20 12:50 Dose: 500,000 units Documented by: Pantoprazole Sodium (Protonix Iv) 40 mg IVPUSH DAILY COUNT INCLUDES THE [facility] Last Admin: 07/26/20 09:56 Dose: 40 mg Documented by: Sodium Chloride ([place]al [place] -) 2 spray NS BID PRN PRN Reason: NASAL CONGESTION Last Admin: 07/25/20 09:32 Dose: 2 spray Documented by: - Objective Vital Signs: Vital Signs Temperature 98.0 F 07/26/20 10:00 Pulse Rate 63 07/26/20 10:00 Respiratory Rate 16 07/26/20 10:00 Blood Pressure 153/78 07/26/20 10:00 O2 Sat by Pulse Oximetry (%) 100 07/26/20 10:00 Constitutional: Yes: No Distress, Calm HENT: Yes: Atraumatic Neck: Yes: Supple Cardiovascular: Yes: Regular Rate and Rhythm Respiratory: Yes: Regular Gastrointestinal: Yes: Soft Extremities: No: Cyanosis Edema: No Neurological: Yes: Alert Labs: CBC, BMP 07/25/20 06:05 07/26/20 07:30 Assessment/Plan This is a 40 year old male with history of hypertension, COPD, heroin abuse who presented with nausea, vomiting and abdominal pain and found to have MIGUELINA with BUN/Cr of 84/10.8. 1. Acute kidney injury secondary to volume depletion +/- normotensive ATN (NSIAD + ACEi) +/- AIN 2. Hypertension 3. Hypovolemic hyponatremia 4. COPD Renal function improved tolerating oral diet well CT of the Abd/Pelvis showed no hydronephrosis Restart Lisinopril 10mg daily for BP control as Cr now at baseline. Pain control w/o NSAIDs Will need to monitor renal function on discharge. Discharge planning as per primary team Importance of NSAID avoidance discussed with the patient. TO follow up in our office in 2 weeks. THank you Antonio Evans DO
[2020-07-26 14:20] VITALS: BP 147/67; PULSE 67; TEMP 98.6
== END 2020-07-26 14:30 | disposition home or self-care (01) | DRG 683 ==
LOC: FER 08:20 → J4S 18:00
PROVIDERS: ADMIT Internal Medicine; ATTEND Internal Medicine
DX: N17.0 Acute kidney failure with tubular necrosis (principal); B37.0 Candidal stomatitis; E87.1 Hypo-osmolality and hyponatremia; F11.10 Opioid abuse, uncomplicated; R10.9 Unspecified abdominal pain; I10 Essential (primary) hypertension; J44.9 Chronic obstructive pulmonary disease, unspecified; K59.00 Constipation, unspecified; E86.9 Volume depletion, unspecified; R11.2 Nausea with vomiting, unspecified; G47.33 Obstructive sleep apnea (adult) (pediatric); K21.9 Gastro-esophageal reflux disease without esophagitis; F41.8 Other specified anxiety disorders
CPT/HCPCS: 36415; 71045-TC-FY; 74176-TC; 76775; 80048; 80053; 80307; 81003; 81015; 82550; 82553; 82565; 83690; 83735; 83874; 84100; 84156; 84300; 85025; 85027; 87086; 87205; 87389; 93005; 94660; 99285-25; J0131; J1644; Q0162; U0003

== ENCOUNTER 2020-10-05 23:36 | Emergency (ER) | payer BC ==
[2020-10-05 23:49] VITALS: BP 109/60; PULSE 94; TEMP 97.8; BMI 37.0
== END 2020-10-06 | disposition home or self-care (01) ==
LOC: FER 23:36
DX: F19.94 Other psychoactive substance use, unspecified with psychoactive substance-induced mood disorder (principal)
CPT/HCPCS: 99281-25

== ENCOUNTER 2020-10-07 11:12 | Inpatient (IN) | payer BC, OTHER ==
[2020-10-07] MEDS ORDERED: IBUPROFEN 400 MG TABLET (FP) PO PRN (13:52)
[2020-10-07] MEDS ORDERED: ACETAMINOPHEN 325 MG TABLET (FP) PO PRN ×2 (13:52)
[2020-10-07] MEDS ORDERED: MAG HYDROX/AL HYDROX/SIMETH 30 ML UNIT-DOSE CUP PO PRN (13:52)
[2020-10-07] MEDS ORDERED: hydrOXYzine PAMOATE 25 MG CAPSULE (FP) PO PRN ×2 (13:52→14:06)
[2020-10-07] MEDS ORDERED: MAGNESIUM HYDROX 2400MG/30ML ORAL SUSPENSION 30 ML CUP PO PRN (13:52)
[2020-10-07] MEDS ORDERED: ONDANSETRON *ODT* 4 MG TABLET SL PRN (13:52)
[2020-10-07] MEDS ORDERED: MENTHOL/PHENOL 1 EACH UD MM PRN (13:52)
[2020-10-07] MEDS ORDERED: METHADONE HCL 10 MG TABLET (FOR DETOX USE ONLY) PO ONE (13:52)
[2020-10-07] MEDS ORDERED: METHOCARBAMOL 500 MG TABLET PO PRN (13:52)
[2020-10-07] MEDS ORDERED: MAGNESIUM CITRATE 300 ML BOTTLE PO PRN (13:52)
[2020-10-07] MEDS ORDERED: cloNIDine HCL 0.1 MG TABLET PO PRN (13:52)
[2020-10-07] MEDS ORDERED: BISMUTH SUBSALICYLATE 524 MG/30 ML UD PO PRN (13:52)
[2020-10-07 15:02] VITALS: BP 90/53; PULSE 83; TEMP 97.1; BMI 35.2
[2020-10-07] MEDS ORDERED: THIAMINE HCL 100 MG TABLET (FP) PO SCH (22:00)
[2020-10-07] MEDS ORDERED: GABAPENTIN 300 MG CAPSULE PO SCH (22:00)
[2020-10-07] MEDS ORDERED: MELATONIN 5 MG TABLETS PO SCH (22:00)
[2020-10-08] MEDS ORDERED: METHADONE (DETOX) 20 MG, METHADONE (DETOX) 5 MG PO ONE (10:00)
[2020-10-08] MEDS ORDERED: PRENATAL VITAMINS W/ FOLIC ACID TABLET (FP) PO SCH (10:00)
[2020-10-08] MEDS ORDERED: PATIENT'S OWN MEDICATION (NON-FORMULARY) (Bupropion Hcl [Wellbutrin Xl] 300 MG Tab.Er.24h) PO ONE (17:00)
[2020-10-09] MEDS ORDERED: METHADONE HCL 10 MG TABLET (FOR DETOX USE ONLY) PO ONE (10:00)
[2020-10-10] MEDS ORDERED: METHADONE (DETOX) 10 MG, METHADONE (DETOX) 5 MG PO ONE (10:00)
[2020-10-11] MEDS ORDERED: METHADONE HCL 10 MG TABLET (FOR DETOX USE ONLY) PO ONE (10:00)
[2020-10-12] MEDS ORDERED: METHADONE HCL 5 MG TABLET (FOR DETOX USE ONLY) PO ONE (06:00)
== END 2020-10-08 09:19 | disposition short-term general hospital (02) | DRG 897 ==
LOC: YASAS 11:12 → Y3N 14:01
PROVIDERS: ADMIT Allergy & Immunology; ATTEND Allergy & Immunology
PROC: HZ2ZZZZ Detoxification Services for Substance Abuse Treatment (ICD-10-PCS; principal; 2020-10-07)
DX: F11.23 Opioid dependence with withdrawal (principal); F12.20 Cannabis dependence, uncomplicated; I45.81 Long QT syndrome; I10 Essential (primary) hypertension; R33.9 Retention of urine, unspecified; N28.9 Disorder of kidney and ureter, unspecified; Z85.819 Personal history of malignant neoplasm of unspecified site of lip, oral cavity, and pharynx; M54.5 Low back pain; G89.29 Other chronic pain; G62.9 Polyneuropathy, unspecified; K21.9 Gastro-esophageal reflux disease without esophagitis; Z87.891 Personal history of nicotine dependence
CPT/HCPCS: 93005; 93010; C9803; U0003

== ENCOUNTER 2020-10-07 23:45 | Inpatient (IN) | payer BC, OTHER ==
[2020-10-07 23:54] VITALS: BMI 36.3
[2020-10-08] MEDS ORDERED: SODIUM CHLORIDE 0.9% 500 ML INFUS.BAG IV ONE (00:32)
[2020-10-08 00:41] LABS: METHADONE, UR NEGATIVE ng/ml (CUTOFF=300); PHENCYCLIDINE,URINE NEGATIVE ng/ml (CUTOFF=25)
[2020-10-08 00:42] LABS: COCAINE, UR NEGATIVE ng/ml (CUTOFF=300); URINE AMPHETAMINES NEGATIVE ng/ml (CUTOFF=500); URINE BARBITURATES NEGATIVE ng/ml (CUTOFF=200); URINE BENZODIAZEPINES NEGATIVE ng/ml (CUTOFF=200)
[2020-10-08 00:52] LABS: OPIATES, URI POSITIVE ng/ml (CUTOFF=300)
[2020-10-08 00:56] LABS: EPI CELLS 19 /uL (0-25.1); HYALINE CASTS 18 /uL (0-3.1); URINE APPEARANCE TURBID; URINE BILIRUBIN NEGATIVE (NEGATIVE); URINE COLOR YELLOW; URINE GLUCOSE (UA) NEGATIVE (NEGATIVE); URINE KETONE TRACE (NEGATIVE); URINE LEUK ESTERASE NEGATIVE (NEGATIVE); URINE NITRITE NEGATIVE (NEGATIVE); URINE PROTEIN 2+ (NEGATIVE)
[2020-10-08 00:58] LABS: BASO % 0.6 % (0-2.0); EOS % 0.2 % (0-4.5); HEMATOCRIT 33.3 % (35.4-49); HEMOGLOBIN 10.8 GM/dL (11.7-16.9); LYMPH % 11.5 % (8-40); MCH 25.9 pg (25.7-33.7); MCHC 32.4 g/dl (32.0-35.9); MEAN CELL VOLUME 80.1 fl (80-96); MEAN PLT VOLUME 8.8 fl (7.5-11.1); MONO % 10.7 % (3.8-10.2); PLATELET COUNT 234 K/MM3 (134-434); RBC 4.15 M/mm3 (4.00-5.60); RDW 14.8 % (11.9-15.9); WHITE BLOOD COUNT 14.1 K/mm3 (4.0-10.0)
[2020-10-08 01:15] LABS: POTASSIUM 4.9 mmol/L (3.5-5.1)
[2020-10-08] MEDS ORDERED: SODIUM CHLORIDE 1,000 ML IV STA (01:17)
[2020-10-08 01:18] LABS: ALBUMIN 3.2 g/dl (3.4-5.0)
[2020-10-08 01:22] LABS: BILIRUBIN,TOTAL 0.4 mg/dL (0.2-1); TOT PROT 7.2 g/dl (6.4-8.2)
[2020-10-08 01:28] LABS: CREATININE 12.6 mg/dL (0.55-1.3)
[2020-10-08 01:29] LABS: BLOOD UREA NITROGEN 113.7 mg/dL (7-18)
[2020-10-08 01:30] LABS: CALCIUM 5.9 mg/dL (8.5-10.1)
[2020-10-08 01:52] LABS: URINE RBC 0 /uL (0-23.9)
[2020-10-08] MEDS ORDERED: LACTATED RINGERS SOLUTION 1,000 ML/1,000 ML INFUS.BAG IV SCH ×3 (02:00→04:51)
[2020-10-08] MEDS ORDERED: CALCIUM GLUCONATE 10% - 1,000 MG/10 ML VIAL IVPB ONE ×2 (02:52→17:36)
[2020-10-08] MEDS ORDERED: CALCIUM GLUCONATE 10% - 1,000 MG/10 ML VIAL ONE (02:59)
[2020-10-08 04:08] LABS: BILIRUBIN,DIRECT 0.1 mg/dL (0.0-0.2)
[2020-10-08 05:08] LABS: LDH 957 U/L (87-246)
[2020-10-08] MEDS ORDERED: HEPARIN NA (PORCINE) 5,000 UNITS/ML 1ML VIAL ONE ×2 (05:08→14:20)
[2020-10-08] MEDS: HEPARIN NA (PORCINE) 5,000 UNITS/ML 1ML VIAL SQ SCH ×3 (05:14→22:05)
[2020-10-08 09:15] LABS: INR 1.08 (0.83-1.09)
[2020-10-08 09:32] LABS: MAGNESIUM 2.3 mg/dL (1.8-2.4)
[2020-10-08] MEDS ORDERED: TAMSULOSIN HCL 0.4 MG CAP ONE (10:05)
[2020-10-08 10:07] LABS: PHOSPHOROUS 9.8 mg/dL (2.5-4.9)
[2020-10-08] MEDS: TAMSULOSIN HCL 0.4 MG CAP PO SCH (10:10)
[2020-10-08 11:28] LABS: BASO % 0.5 % (0-2.0); EOS % 0.2 % (0-4.5); HEMATOCRIT 35.5 % (35.4-49); HEMOGLOBIN 11.3 GM/dL (11.7-16.9); LYMPH % 8.1 % (8-40); MCH 25.9 pg (25.7-33.7); MCHC 31.8 g/dl (32.0-35.9); MEAN CELL VOLUME 81.5 fl (80-96); MEAN PLT VOLUME 9.4 fl (7.5-11.1); MONO % 8.1 % (3.8-10.2); NEUT % 83.1 % (42.8-82.8); PLATELET COUNT 187 K/MM3 (134-434); RBC 4.36 M/mm3 (4.00-5.60); RDW 14.9 % (11.9-15.9)
[2020-10-08 12:00] LABS: CHLORIDE 97 mmol/L (98-107); POTASSIUM 4.5 mmol/L (3.5-5.1); SODIUM 133 mmol/L (136-145)
[2020-10-08 12:02] LABS: ALBUMIN 3.2 g/dl (3.4-5.0); ANION GAP 17 MMOL/L (8-16); CO2 19 mmol/L (21-32); GLUCOSE,RANDOM 76 mg/dL (74-106)
[2020-10-08 12:06] LABS: SGOT/AST 486 U/L (15-37); SGPT/ALT 155 U/L (13-61)
[2020-10-08 12:08] LABS: BILIRUBIN,TOTAL 0.6 mg/dL (0.2-1); TOT PROT 7.1 g/dl (6.4-8.2)
[2020-10-08 12:09] LABS: ALK PHOS 86 U/L (45-117)
[2020-10-08 12:37] LABS: BLOOD UREA NITROGEN 110.5 mg/dL (7-18)
[2020-10-08 12:38] LABS: CALCIUM 6.5 mg/dL (8.5-10.1)
[2020-10-08 12:49] LABS: HIV INTERPRETATION NEGATIVE (NEGATIVE)
[2020-10-08] MEDS ORDERED: SODIUM CHLORIDE 500 ML IV STA (16:16)
[2020-10-08] MEDS: SODIUM CHLORIDE 1,000 ML IV SCH (17:51)
[2020-10-08] MEDS ORDERED: PT OWN MED DRAWER 7, Y5N ONE (18:12)
[2020-10-08] MEDS: CALCIUM ACETATE 667 MG CAPSULE (FP) PO SCH (18:26)
[2020-10-09] MEDS: SODIUM CHLORIDE 1,000 ML IV SCH ×2 (04:40→12:05)
[2020-10-09] MEDS: HEPARIN NA (PORCINE) 5,000 UNITS/ML 1ML VIAL SQ SCH ×3 (05:42→21:03)
[2020-10-09] MEDS: TAMSULOSIN HCL 0.4 MG CAP PO SCH (09:06)
[2020-10-09] MEDS: CALCIUM ACETATE 667 MG CAPSULE (FP) PO SCH ×3 (09:06→17:51)
[2020-10-09 12:18] LABS: POTASSIUM 3.9 mmol/L (3.5-5.1)
[2020-10-09 12:20] LABS: ALBUMIN 2.7 g/dl (3.4-5.0)
[2020-10-09 12:23] LABS: CREATININE 2.3 mg/dL (0.55-1.3)
[2020-10-09 12:25] LABS: BILIRUBIN,TOTAL 0.4 mg/dL (0.2-1); TOT PROT 6.6 g/dl (6.4-8.2)
[2020-10-09 12:50] LABS: BLOOD UREA NITROGEN 67.1 mg/dL (7-18)
[2020-10-09] MEDS: ONDANSETRON 4 MG TABLET PO PRN (14:24)
[2020-10-09] MEDS ORDERED: BUPRENORPHINE/NALOXONE 4 MG/1 MG FILM PACKET SL ONE (17:30)
[2020-10-09] MEDS ORDERED: BUPRENORPHINE/NALOXONE 2 MG/0.5 MG FILM PACKET SL ONE ×2 (17:45→18:00)
[2020-10-10] MEDS: ONDANSETRON 4 MG TABLET PO PRN ×2 (02:47→15:52)
[2020-10-10] MEDS: HEPARIN NA (PORCINE) 5,000 UNITS/ML 1ML VIAL SQ SCH ×3 (06:00→21:15)
[2020-10-10 08:07] LABS: PARATHYROID HORM INTACT 124 pg/mL (15-65)
[2020-10-10 08:23] LABS: BASO % 1.1 % (0-2.0); EOS % 1.7 % (0-4.5); HEMOGLOBIN 9.9 GM/dL (11.7-16.9); LYMPH % 18.8 % (8-40); MCH 25.6 pg (25.7-33.7); MCHC 32.1 g/dl (32.0-35.9); MEAN CELL VOLUME 79.8 fl (80-96); MEAN PLT VOLUME 9.4 fl (7.5-11.1); MONO % 10.1 % (3.8-10.2); NEUT % 68.3 % (42.8-82.8); PLATELET COUNT 219 K/MM3 (134-434); RBC 3.88 M/mm3 (4.00-5.60); RDW 14.5 % (11.9-15.9); WHITE BLOOD COUNT 7.3 K/mm3 (4.0-10.0)
[2020-10-10 09:18] LABS: CALCIUM 8.3 mg/dL (8.5-10.1)
[2020-10-10 09:20] LABS: ALBUMIN 2.6 g/dl (3.4-5.0); MAGNESIUM 1.7 mg/dL (1.8-2.4)
[2020-10-10 09:22] LABS: CREATININE 1.3 mg/dL (0.55-1.3); PHOSPHOROUS 2.8 mg/dL (2.5-4.9)
[2020-10-10 09:24] LABS: BILIRUBIN,TOTAL 0.4 mg/dL (0.2-1)
[2020-10-10] MEDS: CALCIUM ACETATE 667 MG CAPSULE (FP) PO SCH ×3 (09:25→17:22)
[2020-10-10] MEDS: TAMSULOSIN HCL 0.4 MG CAP PO SCH (09:25)
[2020-10-10 09:26] LABS: BLOOD UREA NITROGEN 38.5 mg/dL (7-18)
[2020-10-10] MEDS: SODIUM CHLORIDE 1,000 ML IV SCH (12:35)
[2020-10-11] MEDS: SODIUM CHLORIDE 1,000 ML IV SCH ×3 (00:56→13:31)
[2020-10-11] MEDS: HEPARIN NA (PORCINE) 5,000 UNITS/ML 1ML VIAL SQ SCH ×2 (05:14→13:30)
[2020-10-11] MEDS: CALCIUM ACETATE 667 MG CAPSULE (FP) PO SCH ×3 (08:21→17:01)
[2020-10-11] MEDS: TAMSULOSIN HCL 0.4 MG CAP PO SCH (08:21)
[2020-10-11] MEDS ORDERED: MAGNESIUM CL 64 MG TABLET.SA PO ONE (14:00)
[2020-10-11 14:10] VITALS: BP 189/94; PULSE 57; TEMP 97.5
[2020-10-11] MEDS ORDERED: PT OWN MED DRAWER 7, Y5N ONE (15:39)
[2020-10-11] MEDS: ONDANSETRON 4 MG TABLET PO PRN (16:11)
[2020-10-12 12:11] LABS: HEP B CORE AB, TOT Negative (Negative)
== END 2020-10-11 18:35 | DRG 683 ==
LOC: JER 23:45 → JERBED 10-08 01:33 → J8W 10-08 15:13
PROVIDERS: ADMIT Internal Medicine; ATTEND Internal Medicine
DX: N17.9 Acute kidney failure, unspecified (principal); M62.82 Rhabdomyolysis; E87.2 Acidosis; F11.23 Opioid dependence with withdrawal; I10 Essential (primary) hypertension; F32.9 Major depressive disorder, single episode, unspecified; R33.0 Drug induced retention of urine; F41.8 Other specified anxiety disorders; K21.9 Gastro-esophageal reflux disease without esophagitis; E03.9 Hypothyroidism, unspecified; R94.31 Abnormal electrocardiogram [ECG] [EKG]; R74.01 Elevation of levels of liver transaminase levels; G62.9 Polyneuropathy, unspecified; E83.39 Other disorders of phosphorus metabolism; D64.9 Anemia, unspecified; J44.9 Chronic obstructive pulmonary disease, unspecified; E66.9 Obesity, unspecified; E83.51 Hypocalcemia; M54.5 Low back pain; Z85.819 Personal history of malignant neoplasm of unspecified site of lip, oral cavity, and pharynx; Z88.0 Allergy status to penicillin; Z68.36 Body mass index [BMI] 36.0-36.9, adult
CPT/HCPCS: 36415; 71045-TC-FY; 76705-TC; 76775-TC; 76856-TC; 80053; 80307; 81003; 82248; 82436; 82550; 82553; 82728; 83540; 83550; 83615; 83735; 83970; 84100; 84133; 84300; 85025; 85610; 86140; 86704; 86706; 86707; 86708; 86709; 87040; 87086; 87340; 87389; 93005; 93010; 99285-25; C9803; J1644; U0003

== ENCOUNTER 2021-04-17 13:12 | Emergency (ER) | payer BC ==
[2021-04-17 13:41] VITALS: BP 131/77; PULSE 71; TEMP 98; BMI 40.3
== END 2021-04-17 13:40 | disposition home or self-care (01) ==
LOC: FER 13:12
DX: M79.18 Myalgia, other site (principal)
CPT/HCPCS: 99281-25

== ENCOUNTER → 2023-08-28 | Day surgery (SDC) | payer BC, OTHER | END | disposition home or self-care (01) | LOC: FRADUS-SUR 10:08 | PROVIDERS: ATTEND Internal Medicine | PROC: 0HBT3ZX Excision of Right Breast, Percutaneous Approach, Diagnostic (ICD-10-PCS; principal; 2023-08-28) | PROC: 07B53ZX Excision of Right Axillary Lymphatic, Percutaneous Approach, Diagnostic (ICD-10-PCS; 2023-08-28) | PROC: 07B63ZX Excision of Left Axillary Lymphatic, Percutaneous Approach, Diagnostic (ICD-10-PCS; 2023-08-28) | PROC: BH42ZZZ Ultrasonography of Bilateral Breasts (ICD-10-PCS; 2023-08-28) | DX: R59.0 Localized enlarged lymph nodes (principal); N63.10 Unspecified lump in the right breast, unspecified quadrant | CPT/HCPCS: 19083; 76942-TC; 88305-TC; 88312-TC; 88342-TC ==

== ENCOUNTER 2023-12-11 09:05 | Emergency (ER) | payer BC, OTHER ==
[2023-12-11 09:15] VITALS: BP 120/78; PULSE 74; RESP 17; TEMP 98.6; BMI 32.3
[2023-12-11] MEDS ORDERED: FAMOTIDINE 20 MG/50 ML IVPB 20 MG/50 ML MG IVPB ONE (09:27)
[2023-12-11] MEDS ORDERED: methylPREDNISolone NA SUCC 125 MG/2 ML VIAL ONE (09:27)
[2023-12-11] MEDS: methylPREDNISolone NA SUCC 125 MG/2 ML VIAL IVPB ONE (09:34)
[2023-12-11] MEDS: FAMOTIDINE 20 MG/50 ML IVPB 20 MG/50 ML MG IVPB ONE (09:42)
[2023-12-11 09:43] LABS: HEMOGLOBIN 15.2 G/dL (11.7-16.9); MCH 26.5 pg (25.7-33.7); MCHC 32.2 g/dl (32.0-35.9); MEAN CELL VOLUME 82.3 fl (80-96); MEAN PLT VOLUME 9.5 fl (7.5-11.1); PLATELET COUNT 262.6 10^3/uL (134-434); RBC 5.71 10^6/uL (4.00-5.60); RDW 15.5 % (11.9-15.9); WHITE BLOOD COUNT 8.2 10^3/uL (4.0-10.8)
[2023-12-11 09:46] LABS: PLATELET ESTIMATE ADEQUATE
[2023-12-11 10:17] LABS: ALBUMIN 4.1 g/dl (3.4-5.0); BILIRUBIN,TOTAL 0.3 mg/dl (0.2-1); CALCIUM 9.2 mg/dl (8.5-10.1); POTASSIUM 4.5 mmol/L (3.5-5.1); TOT PROT 6.7 g/dl (6.4-8.2)
== END 2023-12-11 11:05 | disposition home or self-care (01) ==
LOC: FER 09:05
PROC: 3E033GC Introduction of Other Therapeutic Substance into Peripheral Vein, Percutaneous Approach (ICD-10-PCS; principal; 2023-12-11)
PROC: 3E033GC Introduction of Other Therapeutic Substance into Peripheral Vein, Percutaneous Approach (ICD-10-PCS; 2023-12-11)
PROC: 3E033GC Introduction of Other Therapeutic Substance into Peripheral Vein, Percutaneous Approach (ICD-10-PCS; 2023-12-11)
DX: T78.40XA Allergy, unspecified, initial encounter (principal); K13.0 Diseases of lips; R21 Rash and other nonspecific skin eruption
CPT/HCPCS: 36415; 80053; 85025; 99284-25

== ENCOUNTER 2024-01-05 20:26 | Inpatient (IN) | payer BC, OTHER ==
[2024-01-05] MEDS: ALBUTEROL SO4 2.5/IPRATROPIUM 0.5 INH SOL 3 ML VIAL.NEB. NEB SCH ×2 (20:30→21:30)
[2024-01-05] MEDS ORDERED: EPINEPHrine 1:10,000 (P-F SYR) 1 MG/10 ML DISP.SYRIN ONE ×2 (20:42→20:48)
[2024-01-05] MEDS ORDERED: EPINEPHrine/PF 1 MG/1 ML (1:1,000) AMPULE ONE (20:44)
[2024-01-05] MEDS ORDERED: ALBUTEROL SO4 2.5/IPRATROPIUM 0.5 INH SOL 3 ML VIAL.NEB. NEB ONE (20:49)
[2024-01-05] MEDS ORDERED: RACEPINEPHRINE IH SOL 2.25% 11.25 MG/0.5 ML VIAL NEB ONE ×2 (20:52→21:28)
[2024-01-05] MEDS: SODIUM CHLORIDE 0.9% 500 ML INFUS.BAG IV ONE ×2 (21:00→21:45)
[2024-01-05] MEDS ORDERED: NOREPINEPHRINE BITARTRATE 4 MG/4 ML ML IV ONE (21:09)
[2024-01-05] MEDS ORDERED: NOREPINEPHRINE BITARTRATE 4,000 MCG in DEXTROSE 5%-WATER - 496 ML IV SCH (21:15)
[2024-01-05] MEDS: NOREPINEPHRINE BITARTRATE 16,000 MCG in SODIUM CHLORIDE 484 ML IV SCH (21:15)
[2024-01-05 21:19] LABS: HEMATOCRIT 38.8 % (35.4-49); HEMOGLOBIN 12.8 G/dL (11.7-16.9); MCH 27.1 pg (25.7-33.7); MEAN CELL VOLUME 82.1 fl (80-96); MEAN PLT VOLUME 8.8 fl (7.5-11.1); PLATELET COUNT 404.6 10^3/uL (134-434); RBC 4.72 10^6/uL (4.00-5.60); RDW 14.9 % (11.9-15.9); WHITE BLOOD COUNT 16.7 10^3/uL (4.0-10.8)
[2024-01-05 21:32] LABS: INR 1.1 (0.83-1.09); PROTHROMBIN TIME (PATIENT) 12.8 SEC (9.7-13.0)
[2024-01-05 21:34] LABS: ACTIVATED PTT 30.8 SECONDS (25.2-36.5)
[2024-01-05 21:42] LABS: ALBUMIN 4.1 g/dl (3.4-5.0); BILIRUBIN,TOTAL 0.4 mg/dl (0.2-1); CALCIUM 9.6 mg/dl (8.5-10.1); CREATININE 2.1 mg/dl (0.6-1.3); MAGNESIUM 2.1 mg/dL (1.8-2.4); PHOSPHOROUS 4.3 (2.5-4.9); TOT PROT 7.2 g/dl (6.4-8.2)
[2024-01-05] MEDS ORDERED: methylPREDNISolone NA SUCC 125 MG/2 ML VIAL ONE (21:42)
[2024-01-05 21:49] LABS: PLATELET ESTIMATE ADEQUATE
[2024-01-05] MEDS: methylPREDNISolone NA SUCC 125 MG/2 ML VIAL IVPUSH ONE (21:56)
[2024-01-05] MEDS: RACEPINEPHRINE IH SOL 2.25% 11.25 MG/0.5 ML VIAL IH ONE (22:10)
[2024-01-05] MEDS: LORazepam 2 MG/ML SDV VIAL IVPUSH ONE (23:12)
[2024-01-05 23:13] LABS: N-TERMINAL BNP 155.3 pg/ml (5-125)
[2024-01-05 23:14] LABS: LACTIC ACID 4.3 mmol/L (0.4-2.0)
[2024-01-06 00:05] LABS: VENOUS BASE EXCESS -2.4 mmol/L (-2-2); VENOUS O2 SATURATION 71.5 % (70-80); VENOUS PCO2 58.1 mmHg (38-52); VENOUS PH 7.265 (7.310-7.410)
[2024-01-06] MEDS: RACEPINEPHRINE IH SOL 2.25% 11.25 MG/0.5 ML VIAL IH ONE (00:38)
[2024-01-06 01:07] LABS: VENOUS BASE EXCESS -3.7 mmol/L (-2-2); VENOUS O2 SATURATION 95.9 % (70-80); VENOUS PCO2 41.9 mmHg (38-52); VENOUS PH 7.337 (7.310-7.410)
[2024-01-06] MEDS: SODIUM CHLORIDE 0.9% 500 ML INFUS.BAG IV ONE (01:57)
[2024-01-06] MEDS: MAGNESIUM SULFATE IN WATER 2 GM/50 ML IVPB IVPB ONE (03:10)
[2024-01-06] MEDS: CALCIUM GLUC IN NACL, ISO-OSM 1 GM/50 ML BAG IVPB ONE (03:10)
[2024-01-06] MEDS: VANCOMYCIN 1 GM PREMIX - 1 GM/200 ML BAG IVPB ONE (03:11)
[2024-01-06] MEDS: INSULIN ASPART SLIDING SCALE (NOVOLOG) 1 VIAL SQ SCH (06:28)
[2024-01-06] MEDS: HEPARIN NA (PORCINE) 5,000 UNITS/ML 1ML VIAL SQ SCH (06:33)
[2024-01-06 06:39] LABS: HEMATOCRIT 35.3 % (35.4-49); HEMOGLOBIN 11.1 GM/dL (11.7-16.9); MCH 25.9 pg (25.7-33.7); MCHC 31.3 g/dl (32.0-35.9); MEAN CELL VOLUME 82.8 fl (80-96); MEAN PLT VOLUME 8.7 fl (7.5-11.1); PLATELET COUNT 304 10^3/uL (134-434); RBC 4.27 M/mm3 (4.00-5.60); WHITE BLOOD COUNT 23.5 K/mm3 (4.0-10.0)
[2024-01-06 06:57] LABS: CALCIUM 7.9 mg/dL (8.5-10.1)
[2024-01-06 06:58] LABS: BLOOD UREA NITROGEN 37.8 mg/dL (7-18); MAGNESIUM 2.1 mg/dL (1.8-2.4)
[2024-01-06 07:01] LABS: CREATININE 1.8 mg/dL (0.55-1.3); PHOSPHOROUS 3.7 mg/dL (2.5-4.9)
[2024-01-06 07:02] LABS: BILIRUBIN,TOTAL 0.5 mg/dL (0.2-1); TOT PROT 6.4 g/dl (6.4-8.2)
[2024-01-06 07:03] LABS: COCAINE, UR NEGATIVE (NEGATIVE); METHADONE, UR NEGATIVE (NEGATIVE); OPIATES, URI NEGATIVE (NEGATIVE); PHENCYCLIDINE,URINE NEGATIVE (NEGATIVE)
[2024-01-06 07:04] LABS: URINE AMPHETAMINES NEGATIVE (NEGATIVE)
[2024-01-06 07:14] LABS: URINE BARBITURATES NEGATIVE (NEGATIVE)
[2024-01-06 07:15] LABS: URINE BENZODIAZEPINES NEGATIVE (NEGATIVE)
[2024-01-06] MEDS: MUPIROCIN 2% TOPICAL OINTMENT FOR DECOLONIZATION NS SCH (11:02)
[2024-01-06] MEDS: LACTATED RINGERS SOLUTION 1,000 ML/1,000 ML INFUS.BAG IV SCH (13:04)
[2024-01-06] MEDS: CHLORHEXIDINE GLUCONATE 4% CLEANSER FOR DECOLONIZATION TP SCH (21:20)
[2024-01-07 07:12] LABS: BASO % 0.7 % (0-2.0); EOS % 0.4 % (0-4.5); HEMATOCRIT 32.9 % (35.4-49); HEMOGLOBIN 10.6 GM/dL (11.7-16.9); LYMPH % 16.2 % (8-40); MCH 26.2 pg (25.7-33.7); MCHC 32.3 g/dl (32.0-35.9); MEAN PLT VOLUME 8.3 fl (7.5-11.1); MONO % 5.8 % (3.8-10.2); NEUT % 76.9 % (42.8-82.8); PLATELET COUNT 268 10^3/uL (134-434); RBC 4.07 M/mm3 (4.00-5.60); WHITE BLOOD COUNT 11.7 K/mm3 (4.0-10.0)
[2024-01-07 07:42] LABS: POTASSIUM 3.7 mmol/L (3.5-5.1)
[2024-01-07 07:45] LABS: ALBUMIN 2.8 g/dl (3.4-5.0); CALCIUM 8.4 mg/dL (8.5-10.1)
[2024-01-07 07:46] LABS: BLOOD UREA NITROGEN 29.3 mg/dL (7-18)
[2024-01-07 07:48] LABS: CREATININE 1.1 mg/dL (0.55-1.3)
[2024-01-07 07:50] LABS: BILIRUBIN,TOTAL 0.6 mg/dL (0.2-1); TOT PROT 6.1 g/dl (6.4-8.2)
[2024-01-07] MEDS: PANTOPRAZOLE 40 MG TABLET PO SCH (12:21)
[2024-01-07] MEDS: GABAPENTIN 400 MG CAPSULE PO ONE (14:15)
[2024-01-07] MEDS: LACTATED RINGERS SOLUTION 1,000 ML/1,000 ML INFUS.BAG IV SCH (14:15)
[2024-01-07 15:18] VITALS: BMI 33.6
[2024-01-07] MEDS: MAG HYDROX/AL HYDROX/SIMETH 30 ML UNIT-DOSE CUP PO PRN (18:21)
[2024-01-07] MEDS: KETOROLAC TROMETHAMINE 30 MG/1 ML VIAL IVPUSH ONE (18:21)
[2024-01-07] MEDS: morphine CARPU-JECT 4 MG/1 ML DISP.SYRIN IVPUSH ONE (18:23)
[2024-01-07] MEDS: KETOROLAC TROMETHAMINE 30 MG/1 ML VIAL IM ONE (18:24)
[2024-01-07] MEDS: PHENAZOPYRIDINE HCL 100 MG TABLET (FP) PO SCH (20:12)
[2024-01-07 20:30] LABS: EPI CELLS 14 /uL (0-25.1); HYALINE CASTS 4 /uL (0-3.1); URINE APPEARANCE CLEAR; URINE BACTERIA 31 /uL (0-1359); URINE BILIRUBIN NEGATIVE (NEGATIVE); URINE COLOR YELLOW; URINE GLUCOSE (UA) NEGATIVE (NEGATIVE); URINE KETONE TRACE (NEGATIVE); URINE LEUK ESTERASE TRACE (NEGATIVE); URINE NITRITE NEGATIVE (NEGATIVE); URINE PROTEIN TRACE (NEGATIVE); URINE RBC 15 /uL (0-23.9); URINE UROBILINOGEN 0.2 mg/dL (0.2-1.0); URINE WBC 32 /uL (0-25.8)
[2024-01-07] MEDS: ONDANSETRON 4 MG/2 ML VIAL IVPUSH PRN (21:21)
[2024-01-07] MEDS: GABAPENTIN 400 MG CAPSULE PO SCH (21:21)
[2024-01-07] MEDS: ESCITALOPRAM OXALATE 20 MG TABLET PO ONE (22:18)
[2024-01-08 06:43] LABS: BASO % 0.6 % (0-2.0); HEMATOCRIT 32.3 % (35.4-49); HEMOGLOBIN 10.7 GM/dL (11.7-16.9); LYMPH % 25.7 % (8-40); MCH 27.3 pg (25.7-33.7); MCHC 33.2 g/dl (32.0-35.9); MEAN CELL VOLUME 82.1 fl (80-96); MEAN PLT VOLUME 8.8 fl (7.5-11.1); MONO % 9.2 % (3.8-10.2); NEUT % 63.5 % (42.8-82.8); PLATELET COUNT 253 10^3/uL (134-434); RBC 3.93 M/mm3 (4.00-5.60); RDW 13.7 % (11.9-15.9); WHITE BLOOD COUNT 7.2 K/mm3 (4.0-10.0)
[2024-01-08 07:01] LABS: POTASSIUM 4.6 mmol/L (3.5-5.1)
[2024-01-08 07:04] LABS: CALCIUM 8.7 mg/dL (8.5-10.1)
[2024-01-08 07:05] LABS: ALBUMIN 2.7 g/dl (3.4-5.0); BLOOD UREA NITROGEN 25.4 mg/dL (7-18)
[2024-01-08 07:08] LABS: CREATININE 1.1 mg/dL (0.55-1.3)
[2024-01-08 07:10] LABS: BILIRUBIN,TOTAL 0.3 mg/dL (0.2-1)
[2024-01-08] MEDS: LISINOPRIL 10 MG TABLET PO SCH (09:03)
[2024-01-08] MEDS ORDERED: PROCHLORPERAZINE INJECTION 10 MG/2 ML VIAL IVPB PRN (11:00)
[2024-01-08] MEDS: HEPARIN NA (PORCINE) 5,000 UNITS/ML 1ML VIAL SQ SCH (14:02)
[2024-01-08 15:45] VITALS: BP 153/92; PULSE 53; RESP 18; TEMP 99
[2024-01-08] MEDS: INSULIN ASPART SLIDING SCALE (NOVOLOG) 1 VIAL SQ SCH (16:59)
[2024-01-08] MEDS ORDERED: CHLORHEXIDINE GLUCONATE 4% CLEANSER FOR DECOLONIZATION TP SCH (22:00)
[2024-01-08] MEDS ORDERED: MUPIROCIN 2% TOPICAL OINTMENT FOR DECOLONIZATION NS SCH (22:00)
[2024-01-10] MEDS ORDERED: PHENAZOPYRIDINE HCL 100 MG TABLET (FP) PO SCH (14:00)
== END 2024-01-08 17:28 | disposition home or self-care (01) | DRG 193 ==
LOC: FER 20:26 → JICU 01-06 02:30 → J8W 01-08 13:46
PROVIDERS: ADMIT Internal Medicine; ATTEND Internal Medicine
DX: J18.9 Pneumonia, unspecified organism (principal); G93.41 Metabolic encephalopathy; U07.1 COVID-19; N17.9 Acute kidney failure, unspecified; E87.0 Hyperosmolality and hypernatremia; E87.20 Acidosis, unspecified; F15.23 Other stimulant dependence with withdrawal; F41.8 Other specified anxiety disorders; R56.9 Unspecified convulsions; I10 Essential (primary) hypertension; E78.5 Hyperlipidemia, unspecified; F11.10 Opioid abuse, uncomplicated; K21.9 Gastro-esophageal reflux disease without esophagitis; E11.42 Type 2 diabetes mellitus with diabetic polyneuropathy; E66.9 Obesity, unspecified; Z68.33 Body mass index [BMI] 33.0-33.9, adult; M54.50 Low back pain, unspecified; R55 Syncope and collapse; I95.9 Hypotension, unspecified; R10.11 Right upper quadrant pain; R09.02 Hypoxemia; E03.9 Hypothyroidism, unspecified; R33.9 Retention of urine, unspecified; D72.829 Elevated white blood cell count, unspecified; Z88.0 Allergy status to penicillin; Z85.818 Personal history of malignant neoplasm of other sites of lip, oral cavity, and pharynx
CPT/HCPCS: 0241U-QW; 36415; 70450-TC; 71045-TC-FY; 74176-TC; 76775-TC; 80053; 80307; 81003; 82550; 82553; 82803; 82962; 83036; 83605; 83735; 83880; 84100; 84484; 85025; 85027; 85379; 85610; 85730; 86850; 86900; 86901; 87040; 87070; 87086; 87205; 87899; 93005; 93010; 94660; 99291; J1644

== ENCOUNTER 2024-01-21 20:48 | Observation (INO) | payer BC, OTHER ==
[2024-01-21 21:23] VITALS: BMI 30.9
[2024-01-21] MEDS: LACTATED RINGERS SOLUTION 1000 ML INFUS.BAG IV ONE (22:31)
[2024-01-21 22:35] LABS: BASO % 0.6 % (0-2.0); HEMATOCRIT 41.5 % (35.4-49); HEMOGLOBIN 13.4 GM/dL (11.7-16.9); MCH 26.4 pg (25.7-33.7); MCHC 32.2 g/dl (32.0-35.9); MEAN CELL VOLUME 81.8 fl (80-96); MEAN PLT VOLUME 8.9 fl (7.5-11.1); MONO % 8.2 % (3.8-10.2); NEUT % 80.2 % (42.8-82.8); PLATELET COUNT 324 10^3/uL (134-434); RBC 5.07 M/mm3 (4.00-5.60); RDW 14.8 % (11.9-15.9); WHITE BLOOD COUNT 16.3 K/mm3 (4.0-10.0)
[2024-01-21 23:02] LABS: POTASSIUM 4.6 mmol/L (3.5-5.1)
[2024-01-21 23:04] LABS: CALCIUM 9.5 mg/dL (8.5-10.1)
[2024-01-21 23:05] LABS: BLOOD UREA NITROGEN 48.4 mg/dL (7-18); MAGNESIUM 2.5 mg/dL (1.8-2.4)
[2024-01-21 23:07] LABS: CREATININE 4.1 mg/dL (0.55-1.3); PHOSPHOROUS 6.8 mg/dL (2.5-4.9)
[2024-01-21 23:09] LABS: BILIRUBIN,TOTAL 0.4 mg/dL (0.2-1); TOT PROT 7.7 g/dl (6.4-8.2)
[2024-01-21 23:12] LABS: ALBUMIN 4.1 g/dl (3.4-5.0)
[2024-01-22] MEDS: SODIUM CHLORIDE 0.9% 500 ML INFUS.BAG IV ONE (00:08)
[2024-01-22 04:58] LABS: EPI CELLS 3 /uL (0-25.1); HYALINE CASTS 1 /uL (0-3.1); URINE APPEARANCE CLEAR; URINE BACTERIA 2 /uL (0-1359); URINE BILIRUBIN NEGATIVE (NEGATIVE); URINE COLOR YELLOW; URINE GLUCOSE (UA) TRACE (NEGATIVE); URINE KETONE NEGATIVE (NEGATIVE); URINE LEUK ESTERASE NEGATIVE (NEGATIVE); URINE NITRITE NEGATIVE (NEGATIVE); URINE PROTEIN TRACE (NEGATIVE); URINE RBC 14 /uL (0-23.9); URINE UROBILINOGEN 0.2 mg/dL (0.2-1.0); URINE WBC 3 /uL (0-25.8)
[2024-01-22] MEDS: HEPARIN NA (PORCINE) 5,000 UNITS/ML 1ML VIAL SQ SCH (06:09)
[2024-01-22] MEDS: INSULIN ASPART SLIDING SCALE (NOVOLOG) 1 VIAL SQ SCH (06:10)
[2024-01-22 08:53] LABS: BASO % 0.6 % (0-2.0); EOS % 0.6 % (0-4.5); HEMATOCRIT 37.8 % (35.4-49); HEMOGLOBIN 11.9 GM/dL (11.7-16.9); LYMPH % 22.9 % (8-40); MCH 25.9 pg (25.7-33.7); MCHC 31.6 g/dl (32.0-35.9); MEAN CELL VOLUME 81.9 fl (80-96); MEAN PLT VOLUME 8.8 fl (7.5-11.1); MONO % 7.9 % (3.8-10.2); PLATELET COUNT 240 10^3/uL (134-434); RBC 4.61 M/mm3 (4.00-5.60); RDW 14.4 % (11.9-15.9); WHITE BLOOD COUNT 13.1 K/mm3 (4.0-10.0)
[2024-01-22 09:12] LABS: POTASSIUM 4.3 mmol/L (3.5-5.1)
[2024-01-22 09:16] LABS: BLOOD UREA NITROGEN 46.9 mg/dL (7-18); CALCIUM 8.8 mg/dL (8.5-10.1); MAGNESIUM 2.6 mg/dL (1.8-2.4)
[2024-01-22 09:19] LABS: CREATININE 2.9 mg/dL (0.55-1.3)
[2024-01-22 09:21] LABS: BILIRUBIN,TOTAL 0.5 mg/dL (0.2-1); TOT PROT 6.4 g/dl (6.4-8.2)
[2024-01-22] MEDS: SODIUM CHLORIDE 0.45% 1,000 ML IV SCH (09:34)
[2024-01-22 09:35] LABS: ALBUMIN 3.2 g/dl (3.4-5.0)
[2024-01-22 20:17] LABS: POTASSIUM 4.2 mmol/L (3.5-5.1)
[2024-01-22 20:20] LABS: ALBUMIN 3.7 g/dl (3.4-5.0); BLOOD UREA NITROGEN 39.9 mg/dL (7-18)
[2024-01-22 20:23] LABS: CREATININE 2.1 mg/dL (0.55-1.3)
[2024-01-22 20:25] LABS: BILIRUBIN,TOTAL 0.5 mg/dL (0.2-1); TOT PROT 6.9 g/dl (6.4-8.2)
[2024-01-23 09:27] VITALS: BP 148/91; PULSE 63; RESP 19; TEMP 98.2
[2024-01-23 10:06] LABS: BASO % 1.2 % (0-2.0); EOS % 1.3 % (0-4.5); HEMATOCRIT 38.3 % (35.4-49); HEMOGLOBIN 12.2 GM/dL (11.7-16.9); LYMPH % 33.4 % (8-40); MCH 26.1 pg (25.7-33.7); MCHC 31.9 g/dl (32.0-35.9); MEAN CELL VOLUME 81.6 fl (80-96); MEAN PLT VOLUME 9.1 fl (7.5-11.1); MONO % 8.1 % (3.8-10.2); PLATELET COUNT 226 10^3/uL (134-434); RBC 4.69 M/mm3 (4.00-5.60); RDW 14.3 % (11.9-15.9); WHITE BLOOD COUNT 6.3 K/mm3 (4.0-10.0)
[2024-01-23 10:25] LABS: POTASSIUM 4.4 mmol/L (3.5-5.1)
[2024-01-23 10:31] LABS: CALCIUM 8.9 mg/dL (8.5-10.1)
[2024-01-23 10:32] LABS: ALBUMIN 3.1 g/dl (3.4-5.0); BLOOD UREA NITROGEN 32.6 mg/dL (7-18); MAGNESIUM 1.7 mg/dL (1.8-2.4)
[2024-01-23 10:35] LABS: CREATININE 1.3 mg/dL (0.55-1.3)
[2024-01-23 10:36] LABS: BILIRUBIN,TOTAL 0.4 mg/dL (0.2-1); TOT PROT 6.3 g/dl (6.4-8.2)
[2024-01-26 08:09] LABS: BENZODIAZEPINES, UR Negative ng/mL (Cutoff=200); CANNABINOID Positive (Cutoff=20); CANNABINOIDS, URINE See Final Results ng/mL (Cutoff=20); METHADONE, URINE Negative ng/mL (Cutoff=300); OPIATES, UR Negative ng/mL (Cutoff=300); PHENCYCLIDINE, URINE Negative ng/mL (Cutoff=25)
[2024-01-28 16:08] LABS: METHANOL BLOOD <.010 g/dL (0.000-0.010)
== END 2024-01-23 18:08 | disposition home or self-care (01) ==
LOC: JER 20:48 → UNDOADMOB 23:44 → INTOOBSV 23:44 → JERBED 23:44 → J5S 01-22 03:11 → JERBED 01-22 15:05
PROVIDERS: ADMIT Internal Medicine; ATTEND Internal Medicine
DX: N17.9 Acute kidney failure, unspecified (principal); E86.0 Dehydration; R11.10 Vomiting, unspecified; I10 Essential (primary) hypertension; J44.9 Chronic obstructive pulmonary disease, unspecified; Z87.891 Personal history of nicotine dependence; Z88.0 Allergy status to penicillin
CPT/HCPCS: 36415; 71045-TC-FY; 80053; 80307; 81003; 82550; 82553; 82962; 83036; 83690; 83735; 84100; 85025; 87086; 93005; 93010; 99285-25; G0378; J1644